=== PATIENT | female | born 1935 | race Caucasian/White ===

== ENCOUNTER → 2018-07-25 | Outpatient (REF) | payer MEDICARE | LOC: M LAB REF 17:20 | PROVIDERS: ATTEND Internal Medicine Nephrology | DX: E03.9 Hypothyroidism, unspecified (principal) ==

== ENCOUNTER → 2019-09-11 | Outpatient (REF) | payer MEDICARE ==
[2019-09-11 18:25] LABS: IRON (FE) 57 UG/DL (50-170); PERCENT SATURATION 15.4 % (13.2-45.0); TOTAL IRON BINDING CAPACITY 370 UG/DL (250-450)
[2019-09-11 18:33] LABS: FOLATE > 24.0 NG/ML; VITAMIN B12 LEVEL 682 PG/ML
== END ==
LOC: M LAB REF 16:38
PROVIDERS: ATTEND Nurse Practitioner Family
DX: D50.9 Iron deficiency anemia, unspecified (principal)

== ENCOUNTER 2020-01-27 19:50 | Inpatient (IN) | payer MEDICARE ==
[~2020-01-27] VITALS: Ht 157.5 cm; Wt 73.2 kg
[2020-01-27] MEDS: CARVedilol 6.25 MG TAB PO SCH (21:00)
[2020-01-27 22:00] VITALS: BP 139/86
[2020-01-27] MEDS ORDERED: PRAV80TA2 PO (22:37)
[2020-01-27] MEDS ORDERED: OMEP-221 PO (22:37)
[2020-01-27] MEDS ORDERED: HYDR-4514 PO (22:37)
[2020-01-27] MEDS ORDERED: FURO40TA2 PO (22:37)
[2020-01-27] MEDS ORDERED: LISI10TA4 PO (22:37)
[2020-01-27] MEDS ORDERED: GABA-843 PO (22:37)
[2020-01-27] MEDS ORDERED: ASPI-161 PO (22:37)
[2020-01-27] MEDS ORDERED: CARV6.25 PO (22:37)
[2020-01-27] MEDS ORDERED: VITMTA PO (22:37)
[2020-01-27] MEDS ORDERED: SYNT50TA PO (22:37)
[2020-01-27] MEDS ORDERED: GLUCTAB6 PO (22:39)
[2020-01-27] MEDS ORDERED: VITA1CAP4 PO (22:39)
[2020-01-27] MEDS ORDERED: ACETAMINOPHEN TAB 650MG DOSE (2X325MG) PO PRN (23:00)
--- NOTE | 2020-01-27 23:07 | HPEPDOC ---
General Date of Admission 01/27/20 Date of Service: Jan 27, 2020 Chief Complaint The patient is a 84-year-old female admitted with a reason for visit of ESRD. Source: Patient Exam Limitations: Mild cognitive slowing Severity: Moderate History of Present Illness Patient is 84 years old female with CHF, chronic kidney diseases, coronary artery diseases status post triple bypass around 15 years ago, hyperlipidemia was transferred from [facility]. Patient stated that she developed oliguria and anuria for past few days. Recently clinical radiologist increased dose of Lasix and after that patient urine output progressively declined. I couldn't find blood results in the file from [facility]. Patient is poor hi storian. Dr. Alonso was consulted by phone and he will see patient in the morning. Home Medications Scheduled Aspirin (Aspirin EC) 81 Mg Tablet.dr, 81 MG PO DAILY, (Reported) Carvedilol (Carvedilol) 6.25 Mg Tablet, 6.25 MG PO BID, (Reported) Cholecalciferol (Vitamin D3) (Vitamin D3) 10 Mcg Capsule, 10 MCG PO DAILY, (Reported) Gabapentin (Gabapentin) 300 Mg Capsule, 300 MG PO BID, (Reported) Gluc Lopez/Chondro Lopez A/Vit C/Mn (Glucosamine Chondroitin Tab) 1 Each Tablet, 1 TAB PO BID, (Reported) Levothyroxine Sodium (Synthroid) 50 Mcg Tablet, 50 MCG PO DAILY, (Reported) Multivitamins (Thera M Plus Tablet) 1 Each Tablet, 1 TAB PO DAILY, (Reported) Omeprazole (Omeprazole) 40 Mg Capsule.dr, 40 MG PO DAILY, (Reported) Pravastatin Sodium (Pravastatin Sodium) 80 Mg Tablet, 80 MG PO QHS, (Reported) Torsemide (Torsemide) 20 Mg Tablet, 20 MG PO BID@,17 Scheduled PRN Hydrocodone/Acetaminophen (Hydrocodone-Acetamin 7.5-325) 1 Each Tablet, 1 TAB PO Q4H PRN for PAIN, (Reported) Allergies Coded Allergies: TAPE (Verified Allergy, Mild, RASH, 01/27/20) Past Medical History Medical History Hyperlipidemia, hypothyroidism, CHF, coronary artery diseases, hyperlipidemia, GERD, hypertension Surgical History CABG around 15 years ago Family History I personally reviewed family history and found not pertinent Social History * Smoker: Denies Alcohol: Denies Drugs: denies A-FIB/CHADSVASC A-FIB History Current/History of A-Fib/PAF?: No Current PO Anticoag Therapy: No Review of Systems Constitutional: Denies: Chills, Fever Eyes: Denies: Pain ENT: Denies: Head Aches Skin: Denies: Rash Pulmonary: Reports: Dyspnea; Denies: Cough Cardiovascular: Denies: Chest Pain, Palpitations Gastrointestinal: Denies: Nausea, Vomiting Genitourinary: Reports: Other Symptoms (anuria) Hematologic: Denies: Bruising, Bleeding Excessively Endocrine: Denies: Polydipsia, Polyphagia Musculoskeletal: Denies: Neck Pain Neurological: Denies: Weakness Psych: Reports: Mood Normal Physical Examination General Exam: Positive: Alert, Cooperative Eye Exam: Positive: PERRLA Neck Exam: Positive: Supple, JVD Chest Exam: Positive: Diminished Heart Exam: Positive: Rate Normal Telemetry: Positive: No significant arrhythmia Abdomen Exam: Positive: Normal bowel sounds Extremity Exam: Positive: Swelling (+2 pitting edema); Negative: Clubbing, Cyanosis Skin Exam: Positive: Nl turgor and temperature Neuro Exam: Positive: Strength at 5/5 X4 ext, Cranial Nerves 3-12 NL Psych Exam: Positive: Mental status NL Vital Signs hr 80 Assessment/Plan Patient is 84 years old female with CHF, chronic kidney diseases, coronary artery diseases status post triple bypass around 15 years ago, hyperlipidemia was transferred from [facility]. Patient stated that she developed oliguria and anuria for past few days. Recently clinical radiologist increased dose of Lasix and after that patient urine output progressively declined. I couldn't find blood results in the file from [facility]. Patient is poor historian. Dr. Alonso was consulted by phone and he will see patient in the morning. Problems (1) Anuria and oliguria Status: Acute Problem Text: Will check CBC, CMP Kidney ultrasound Morejon catheter placed to monitor urine output Dr. Alonso will see patient in the morning (2) Coronary artery disease Status: Chronic Problem Text: Continue home cardioprotective medication (3) Hyperlipidemia Status: Chronic Problem Text: Continue statin (4) Hypertension Problem Text: Continue home cardioprotective medication (5) CHF (congestive heart failure) Status: Acute Problem Text: Secondary to volume overload secondary to possible kidney failure Is and os Echo Lasix on hold Plan / VTE VTE Prophylaxis Ordered?: Yes KARLOS BATISTA DO Jan 27, 2020 23:07
[2020-01-28] VITALS (14 sets, daily range): BP systolic 110–124; BP diastolic 44–60
[2020-01-28 00:33] LABS: HEMATOCRIT 27.6 % (36.0-47.0); HEMOGLOBIN 8.5 g/dl (12.0-15.5); MEAN CORPUSCULAR HGB CONC 30.8 g/dl (32.0-36.5); MEAN CORPUSCULAR VOLUME 100.7 fl (80.0-96.0); PLATELET COUNT, AUTOMATED 226 10^3/uL (150-450); RED BLOOD COUNT 2.74 10^6/uL (4.00-5.40); WHITE BLOOD COUNT 6.2 10^3/uL (4.0-10.0)
[2020-01-28 00:37] LABS: ALBUMIN 3.4 GM/DL (3.2-5.2); BILIRUBIN,TOTAL 0.2 MG/DL (0.2-1.0); CALCIUM LEVEL 8.8 MG/DL (8.8-10.2); CREATININE FOR GFR 2.85 MG/DL (0.55-1.30); GLOMERULAR FILTRATION RATE 16.9 (>32); POTASSIUM SERUM 4.3 MEQ/L (3.5-5.1); TOTAL PROTEIN 6.8 GM/DL (6.4-8.2)
[2020-01-28 01:31] LABS: APPEARANCE, URINE CLEAR (CLEAR); BACTERIA, URINE AUTO NEGATIVE (NEGATIVE); BILIRUBIN, URINE AUTO NEGATIVE (NEGATIVE); BLOOD, URINE BLOOD NEGATIVE (NEGATIVE); COLOR, URINE STRAW (YELLOW); GLUCOSE, URINE (UA) AUTO NEGATIVE (NEGATIVE); KETONE, URINE AUTO NEGATIVE (NEGATIVE); LEUKOCYTE ESTERASE, URINE AUTO NEGATIVE (NEGATIVE); NITRITE, URINE AUTO NEGATIVE (NEGATIVE); PROTEIN, URINE AUTO NEGATIVE (NEGATIVE); RBC, URINE AUTO 1 /HPF (0-3); SPECIFIC GRAVITY URINE AUTO 1.009 (1.002-1.035); SQUAMOUS EPITHELIAL CELL UR AU 0 /HPF (0-6); UROBILINOGEN, URINE AUTO 0.2 mg/dL (0.0-2.0); WBC, URINE AUTO 1 /HPF (0-3)
[2020-01-28 03:10] LABS: MAGNESIUM LEVEL 2.3 MG/DL (1.8-2.4)
[2020-01-28 04:32] LABS: HEMATOCRIT 24.6 % (36.0-47.0); HEMOGLOBIN 7.3 g/dl (12.0-15.5); MEAN CORPUSCULAR HGB CONC 29.7 g/dl (32.0-36.5); MEAN CORPUSCULAR VOLUME 101.2 fl (80.0-96.0); PLATELET COUNT, AUTOMATED 224 10^3/uL (150-450); RED BLOOD COUNT 2.43 10^6/uL (4.00-5.40); WHITE BLOOD COUNT 5.6 10^3/uL (4.0-10.0)
[2020-01-28 04:57] LABS: ALBUMIN 3.1 GM/DL (3.2-5.2); BILIRUBIN,TOTAL 0.2 MG/DL (0.2-1.0); CALCIUM LEVEL 8.5 MG/DL (8.8-10.2); CREATININE FOR GFR 2.8 MG/DL (0.55-1.30); GLOMERULAR FILTRATION RATE 17.2 (>32); MAGNESIUM LEVEL 2.3 MG/DL (1.8-2.4); POTASSIUM SERUM 4.3 MEQ/L (3.5-5.1); TOTAL PROTEIN 6.4 GM/DL (6.4-8.2)
[2020-01-28] MEDS: LEVOTHYROXINE 50MCG TABLET (0.05MG) PO SCH (05:56)
--- NOTE | 2020-01-28 06:04 | ECGEPIP ---
[facility] Test Date: 2020-01-28 Pat Name: GLENDA MARCOS Department: Room: [place] [address] Gender: Female Crisis Manager: MECCA : 1935 Requested By: Kenyon Acosta Order Number: [id number] Reading MD: Romy Gilbert Measurements Intervals [place] Rate: 83 P: 42 W[place]: 180 QRS: 51 QRSD: 88 T: 59 QT: 371 QTc: 437 Interpretive Statements SINUS RHYTHM WITH FREQUENT VENTRICULAR PREMATURE COMPLEXES AND PACS NO PRIOR Electronically Signed on 01-28-2020 6:03:44 EDT by Romy Gilbert
--- NOTE | 2020-01-28 07:10 | REPVR ---
PROCEDURE INFORMATION: Exam: US Retroperitoneal Limited, Kidneys Exam date and time: 01/28/2020 6:29 AM Age: 84 years old Clinical indication: Condition or disease; Other: Esrd; Additional info: Zach TECHNIQUE: Imaging protocol: Real-time ultrasound of the retroperitoneum with image documentation. Examination was focused on the kidneys. COMPARISON: No relevant prior studies available. FINDINGS: Right kidney: Mild right renal cortical atrophy and scarring. No hydronephrosis. Left kidney: No stones. No hydronephrosis. IMPRESSION: No hydronephrosis bilaterally. Electronically signed by: Jeanmarie Palacios On 01/28/2020 07:10:27 AM
[2020-01-28] MEDS ORDERED: HEPARIN SOD (PORCINE) 5000UNITS/ML 1ML VIAL/SYRINGE SC SCH (09:00)
[2020-01-28] MEDS ORDERED: TORSEMIDE 20 MG TAB PO ONE (09:30)
--- NOTE | 2020-01-28 09:44 | IPNPDOC ---
Text Note Date of Service The patient was seen on 01/28/20. NOTE Subjective: Patient seen and examined at bedside. No acute overnight events reported. Patient voices no new medical complaints this morning. Discussed code status, and patient states she wishes to discuss further with family. Objective: General: NAD, lying comfortably in bed, elderly HEENT: NC/AT, EOMI Lungs: CTA B/L Heart: +S1S2, RRR, systolic murmur Abd: soft, NT, +BS Ext: bilateral LE edema A/P: 84 yo female with PMHx CHF, CKD, CAD s/p 3 vessel CABG around 2004, HLD was transferred from [facility] for oliguria, anuria despite recent increase in lasix dosage. #anemia - type/cross - transfuse 2 PRBC today #KARI/CKD/oliguria - nephrology c/s pending - pena catheter in place - renal US no acute pathology #CAD/CABG - continue home medications - carvedilol, statin, aspirin #HLD - continue statin therapy #HTN - continue home meds - carvedilol, lisinopril on hold #CHF - could likely resume diuretics - nephrology c/s pending - echo pending #hypothyroidism - continue oral supplementation #DVT prophylaxis - mechanical VS,Fishbone, I+O VS, Fishbone, I+O Laboratory Tests 01/28/20 00:09 01/28/20 04:17 Vital Signs Date Time Temp Pulse Resp B/P (MAP) Pulse Ox O2 Delivery O2 Flow Rate FiO2 01/28/20 06:00 98.3 50 18 112/46 (68) 96 Room Air I&O- Last 24 Hours up to 6 AM 01/28/20 06:00 Intake Total 100 ml Output Total 900 ml Balance -800 ml MELVA ANNE MD Jan 28, 2020 09:44
[2020-01-28] MEDS: ASPIRIN 81 MG ENTERIC TAB PO SCH (09:50)
[2020-01-28] MEDS: CARVedilol 6.25 MG TAB PO SCH ×2 (10:22→20:32)
[2020-01-28] MEDS: GABAPENTIN 300 MG CAP PO SCH ×2 (10:22→20:33)
--- NOTE | 2020-01-28 10:56 | REP ---
INDICATION: CHF COMPARISON: None. TECHNIQUE: PA and lateral. FINDINGS: The mediastinum and cardiac silhouette are normal. The lung sahu are clear and without acute consolidation, effusion, or pneumothorax. The skeletal structures are intact and there is evidence for sternotomy. Left axillary no dissection noted. IMPRESSION: 1. Chronic changes. 2. No acute cardiopulmonary process <Electronically signed by Rahul Edward > 01/28/20 [id number]
--- NOTE | 2020-01-28 11:46 | ECGEPIP ---
[facility] Test Date: 2020-01-28 Pat Name: GLENDA MARCOS Department: Room: [place] [address] Gender: Female Distribution Engineer: LUPE : 1935 Requested By: MELVA Meadows Order Number: [id number] Reading MD: Romy Gilbert Measurements Intervals [place] Rate: 76 P: 24 [place]: 189 QRS: 51 QRSD: 77 T: 73 QT: 378 QTc: 428 Interpretive Statements SINUS RHYTHM WITH FREQUENT VENTRICULAR PREMATURE COMPLEXES AND PACS NONSPECIFIC T-WAVE ABNORMALITY VARIABLE C/W 01/28/20 ABNORMAL RHYTHM ECG Electronically Signed on 01-28-2020 11:46:29 EDT by Romy Gilbert
[2020-01-28 12:22] LABS: PERCENT SATURATION 7.3 % (13.2-45.0)
--- NOTE | 2020-01-28 14:36 | CR ---
NEPHROLOGY CONSULTATION DATE: 01/28/2020 REQUESTING CLINICIAN: Lj Reed DO. REASON FOR CONSULTATION: Acute renal failure superimposed on chronic kidney disease and congestive heart failure. HISTORY OF PRESENT ILLNESS: Ms. Cullen is an 84-year-old very pleasant female with known history of stage 4 chronic kidney disease, coronary artery disease, congestive heart failure, hyperlipidemia and hypothyroidism. She has been followed by her household appliances service technician in [place] for her congestive heart failure and recently had required increased dose of diuretic. She had labs done in her cardiology office yesterday which showed a BUN about 115 and creatinine about 2. A BNP lab was about 6000. Apparently the household appliances service technician office spoke with the patient and patient informed them that her diuretic is not working very well and she is not making much urine. Patient was asked to come to the Emergency Room for possible admission and dialysis. She did go to the Emergency Room at [facility] and I was called by the ER physician. I recommended transfer to [facility] and she was transferred here last night. Patient reports that she was feeling okay, but gets short of breath on exertion. Her baseline serum creatinine is 1.9 mg/dL at the time of last visit in August. At that time her hemoglobin was about 10. She has not been on Procrit and her kidney function has been stable at about baseline. Now she is noticed to have a hemoglobin down to about 7.3 today and creatinine is about 2. She is short of breath on exertion, but comfortable at rest. PAST MEDICAL HISTORY: Significant for: 1. History of hypertension. 2. Stage 4 chronic kidney disease. 3. Anemia. 4. Diastolic congestive heart failure. 5. Hypothyroidism. 6. Hyperlipidemia. 7. Coronary artery disease. 8. History of gastroesophageal reflux disease. 9. Secondary hyperparathyroidism. PAST SURGICAL HISTORY: Significant for coronary artery bypass surgery about 15 years ago. FAMILY HISTORY: Negative for end-stage renal disease. There is a history of atrial fibrillation in her family. PERSONAL AND SOCIAL HISTORY: Patient is and lives with her . She does not smoke or drink. She denies any drug use. ALLERGIES: She has allergy to TAPE. MEDICATIONS: Home medications include: * Aspirin 81 mg daily. * Carvedilol 6.25 mg twice a day. * Lisinopril 10 mg daily. * Furosemide 40 mg twice a day. * Vitamin D 1000 units daily. * Gabapentin 300 mg twice a day. * Levothyroxine 50 mcg daily. * Multivitamin 1 tablet daily. * Omeprazole 40 mg daily. * Pravastatin 80 mg daily. * Hydrocodone as needed for back pain. REVIEW OF SYSTEMS: She denies any fever or chills. Ears, nose and throat: Unremarkable. She denies any headache. Cardiovascular system: Significant for congestive heart failure requiring increased dose of diuretic. She did not respond very well to diuretic. She denies any chest pain, but does report increased leg edema and dyspnea on exertion. Respiratory system: Negative for cough or hemoptysis. GI system: Significant for gastroesophageal reflux disease. She denies any vomiting or diarrhea. system: Negative for dysuria or hematuria. There is known history of kidney stones. Musculoskeletal: Significant for chronic degenerative arthritis and back pain. She also has some leg edema. Endocrine system: Significant for hypothyroidism and secondary hyperparathyroidism, but no diabetes. Hematological system: Significant for anemia. 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 Neurological system: Negative for seizures or stroke. Skin: Negative for rash or ulcers. PHYSICAL EXAMINATION: Patient is awake and alert and without any acute distress at the time of my visit this morning. Temperature 98.3 degrees Fahrenheit, heart rate 68 per minute and respiratory rate 18 per minute. Blood pressure 112/46 mmHg and oxygen saturation 96% on room air. Head: Atraumatic. Pupils are equal and reactive to light and sclerae is anicteric. Ears, nose and throat are unremarkable. Neck: Supple and JVD is about 6 cm above sternal angle. Heart: Sounds are regular with a systolic murmur 2/6, but no pericardial friction rub. Lungs: Have slightly diminished breath sounds and basilar rales bilaterally. Abdomen: Soft and nontender and bowel sounds are normal. There is no palpable organomegaly. Extremities: Without any cyanosis or clubbing. Neurologically: She awake, alert and oriented times 3. Skin: No rash or ulcers. LABORATORY DATA: Last evening her hemoglobin was 8.5 and hematocrit 27.6; this morning hemoglobin 7.3 and hematocrit 24.6, WBC count is 5.6. Lactic acid level was 1.4. BUN 111 and creatinine 2.85. Today sodium 143, potassium 4.3, chloride 116, CO2 18, BUN 105 and creatinine 2.80. Calcium level 8.5 and magnesium 2.3. BNP level 7139. Total protein 6.4 and albumin 3.1. Urinalysis negative for protein or blood; there was only 1 WBC and 1 RBC. RADIOLOGY STUDIES: She had a renal ultrasound done which did not show any evidence of hydronephrosis. Chest x-ray was negative for any effusion or infiltrate. PROBLEMS AND PLAN: 1. Congestive heart failure: She does seem slightly decompensated and did not respond very well to oral furosemide 40 mg twice a day. I am going to switch her to torsemide 20 mg twice a day and will give her first dose now. She has a Morejon catheter in place and seems to have good urine output with the intravenous Lasix that she received in the Emergency Room. 2. Acute renal failure superimposed on chronic kidney disease: Her baseline creatinine is about 1.9. Kidney function has worsened; however, she does not have any uremic symptoms. There is no emergent indication for dialysis at present and we will monitor her renal function on a daily basis. 3. Anemia: She does have worsening anemia. Her baseline hemoglobin was about 10 in August. Patient will be transfused 2 units of packed RBCs today and she consented for it. We will check her iron studies and also get a stool for occult blood. 4. Hypertension: Her blood pressure is somewhat soft. In view of her acute renal failure I will hold off on lisinopril. Thank you for involving me in the care of Ms. Cullen. I will follow her along with you. RIANNA
[2020-01-28] MEDS ORDERED: TORSEMIDE 20 MG TAB PO SCH (17:00)
[2020-01-28] MEDS: TORSEMIDE 20 MG TAB PO SCH (20:32)
[2020-01-28] MEDS: PRAVASTATIN 20 MG TAB PO SCH (20:32)
[2020-01-29] MEDS: LEVOTHYROXINE 50MCG TABLET (0.05MG) PO SCH (05:35)
[2020-01-29 06:00] VITALS: BP 124/60
[2020-01-29 06:37] LABS: HEMATOCRIT 35.8 % (36.0-47.0); MEAN CORPUSCULAR HGB CONC 30.4 g/dl (32.0-36.5); MEAN CORPUSCULAR VOLUME 98.6 fl (80.0-96.0); PLATELET COUNT, AUTOMATED 228 10^3/uL (150-450); RED BLOOD COUNT 3.63 10^6/uL (4.00-5.40); WHITE BLOOD COUNT 6.2 10^3/uL (4.0-10.0)
[2020-01-29 06:55] LABS: HEMOGLOBIN 10.9 g/dl (12.0-15.5)
[2020-01-29 07:01] LABS: ALBUMIN 3.3 GM/DL (3.2-5.2); CALCIUM LEVEL 8.9 MG/DL (8.8-10.2); CREATININE FOR GFR 2.29 MG/DL (0.55-1.30); GLOMERULAR FILTRATION RATE 21.7 (>32); PHOSPHORUS LEVEL 4.5 MG/DL (2.5-4.9); POTASSIUM SERUM 4.1 MEQ/L (3.5-5.1)
--- NOTE | 2020-01-29 08:09 | ECHO ---
DATE OF PROCEDURE: 01/28/2020 Age: 84 Gender: Female Height: 157 cm Weight: 75 kg REFERRING PHYSICIAN: Lj Reed DO INDICATION: Cardiomegaly. MEASUREMENTS: 2D Measurements: Left ventricle diastole 4.9 cm Intraventricular septum 0.89 cm Posterior wall 0.92 cm Aortic root 2.2 cm Left atrium 4.5 cm Left atrial volume index 36 cm LVOT 2.0 cm Inferior vena cava 2.1 cm Doppler Measurements: Mild aortic stenosis Trace aortic regurgitation Peak aortic valve velocity 293 cm/s Peak aortic valve gradient 34 mmHg Mean aortic valve gradient 20 mmHg Aortic VTI 72.2 cm LVOT velocity 103 cm/s LVOT VTI 24.5 cm Severe mitral regurgitation No mitral stenosis Severe tricuspid regurgitation No pulmonic regurgitation Estimated right ventricle systolic pressure 77 mmHg Estimated right atrial pressure of 15 mmHg MITRAL ANNULAR TISSUE DOPPLER E prime septal 7.5 cm/s, E prime lateral 7.0 cm/s DESCRIPTION: Rhythm was sinus with frequent premature ventricular contractions (PVCs). Image quality was fair. No pericardial effusion. This was a 2D, M-mode, color flow Doppler, and pulsed wave Doppler examination including mitral annular tissue Doppler. CONCLUSIONS: 1. Severe mitral annular calcification. No mitral stenosis. Severe mitral regurgitation. 2. Normal left ventricle internal dimension and wall thickness. Normal regional left ventricular (LV) wall motion and wall thickening. Normal left ventricular (LV) systolic function. Left ventricular ejection fraction (LVEF) 60% by visual estimate. Left ventricular (LV) diastolic function could not be determined due to presence of severe mitral regurgitation. 3. Severe focal thickening adenopathy focal calcific deposits of a 3-cuspid aortic valve. Mild reduction in aortic cusp mobility. Mild aortic stenosis. Trace aortic regurgitation. 4. Moderately-severe let atrial dilatation by left atrial volume index. 5. Structurally normal appearing tricuspid leaflets. Severe tricuspid regurgitation. Suggestive of severe elevation of estimated right ventricle systolic pressure (77 mmHg). MTDD
[2020-01-29] MEDS: ASPIRIN 81 MG ENTERIC TAB PO SCH (09:46)
[2020-01-29] MEDS: GABAPENTIN 300 MG CAP PO SCH ×2 (09:46→20:45)
[2020-01-29] MEDS: TORSEMIDE 20 MG TAB PO SCH ×2 (09:48→16:03)
[2020-01-29] MEDS: CARVedilol 6.25 MG TAB PO SCH ×2 (09:49→20:45)
[2020-01-29 14:00] VITALS: BP 116/67
[2020-01-29] MEDS ORDERED: FERRIC CARBOXYMALTOSE INJ 750 MG in NS 250 ML IV ONE (15:00)
[2020-01-29 16:00] VITALS: BP 133/59
[2020-01-29 16:15] VITALS: BP 138/56
[2020-01-29 17:14] VITALS: BP 139/59
[2020-01-29] MEDS: PRAVASTATIN 20 MG TAB PO SCH (20:45)
[2020-01-29 22:00] VITALS: BP 136/55
[2020-01-30] MEDS: ANEXSIA, NORCO 7.5MG/325MG TABLET(HYDROCODONE/APAP) PO PRN ×2 (00:52→08:31)
[2020-01-30] MEDS: LEVOTHYROXINE 50MCG TABLET (0.05MG) PO SCH (05:41)
[2020-01-30 06:00] VITALS: BP 132/55
[2020-01-30 08:06] LABS: HEMATOCRIT 37.2 % (36.0-47.0); HEMOGLOBIN 11.3 g/dl (12.0-15.5); MEAN CORPUSCULAR HEMOGLOBIN 29.7 pg (27.0-33.0); MEAN CORPUSCULAR HGB CONC 30.4 g/dl (32.0-36.5); MEAN CORPUSCULAR VOLUME 97.9 fl (80.0-96.0); PLATELET COUNT, AUTOMATED 261 10^3/uL (150-450); WHITE BLOOD COUNT 7.9 10^3/uL (4.0-10.0)
[2020-01-30 08:30] VITALS: BP 129/55
[2020-01-30 08:30] LABS: CALCIUM LEVEL 9.1 MG/DL (8.8-10.2); CREATININE FOR GFR 2.26 MG/DL (0.55-1.30); GLOMERULAR FILTRATION RATE 22.1 (>32); POTASSIUM SERUM 4.4 MEQ/L (3.5-5.1)
[2020-01-30] MEDS: CARVedilol 6.25 MG TAB PO SCH (08:30)
[2020-01-30] MEDS: ASPIRIN 81 MG ENTERIC TAB PO SCH (08:30)
[2020-01-30] MEDS: GABAPENTIN 300 MG CAP PO SCH (08:30)
[2020-01-30] MEDS: TORSEMIDE 20 MG TAB PO SCH (08:31)
[2020-01-30] MEDS ORDERED: TORS20TA2 PO (10:44)
--- NOTE | 2020-01-30 13:44 | DS.PDOC ---
Discharge Summary General Date of Admission Jan 27, 2020 at 22:47 Date of Discharge 01/30/20 Specialist/Consultants Involve NEPHROLOGY Discharge Summary PROCEDURES PERFORMED DURING STAY: [None]. ADMITTING DIAGNOSES: #KARI #oliguria SECONDARY DIAGNOSES: Hyperlipidemia, hypothyroidism, CHF, CAD/CABG, hyperlipidemia, GERD, hypertension COMPLICATIONS/CHIEF COMPLAINT: ESRD. HISTORY OF PRESENT ILLNESS: Patient is 84 years old female with CHF, chronic kidney diseases, CAD s/p CABG around 15 years ago, hyperlipidemia was transferred from [facility]. Patient stated that she developed oliguria and anuria for past few days. Recently position classification manager increased dose of Lasix and after that patient urine output progressively declined. HOSPITAL COURSE: Patient admitted for further evaluation and treatment. Patient was seen in consultation by nephrology. She responded well to diuresis with Demadex an pena catheter placement. Her creatinine significantly improved. Epna catheter was removed, and she continued to have good urine output. Hospital stay was also notable for symptomatic anemia, which is treated with 2 units of packed red blood cells. Her anemia was due to be secondary to her chronic kidney disease. She was evaluated by physical therapy and deemed to be s afe for discharge, as such is being discharged home today with outpatient follow-up. DISCHARGE MEDICATIONS: Please see below. ALLERGIES: Please see below. PHYSICAL EXAMINATION ON DISCHARGE: VITAL SIGNS: Please see below. General: NAD, lying comfortably in bed, elderly HEENT: NC/AT, EOMI Lungs: CTA B/L Heart: +S1S2, RRR, systolic murmur Abd: soft, NT, +BS Ext: bilateral LE edema LABORATORY DATA: Please see below. ACTIVITY: [As tolerated]. DISPOSITION: 01 Home, Self-Care. DISCHARGE INSTRUCTIONS: 1. PCP in 3-5 days 2. nephrology in 3-5 days DISCHARGE CONDITION: [Stable]. TIME SPENT ON DISCHARGE: 35 minutes. Vital Signs/I&Os Vital Signs Date Time Temp Pulse Resp B/P (MAP) Pulse Ox O2 Delivery O2 Flow Rate FiO2 01/30/20 09:01 20 01/30/20 08:30 80 129/55 01/30/20 06:00 98.7 93 Room Air I&O- Last 24 Hours up to 6 AM 01/30/20 05:59 Intake Total 2050 ml Output Total 3875 ml Balance -1825 ml Laboratory Data Labs 24H Laboratory Tests 2 01/30/20 07:47: Nucleated Red Blood Cells % (auto) 0.0, Anion Gap 8, Glomerular Filtration Rate 22.1L, Calcium Level 9.1 CBC/BMP Laboratory Tests 01/30/20 07:47 Discharge Medications Scheduled Aspirin (Aspirin EC) 81 Mg Tablet.dr, 81 MG PO DAILY, (Reported) Carvedilol (Carvedilol) 6.25 Mg Tablet, 6.25 MG PO BID, (Reported) Cholecalciferol (Vitamin D3) (Vitamin D3) 10 Mcg Capsule, 10 MCG PO DAILY, (Reported) Gabapentin (Gabapentin) 300 Mg Capsule, 300 MG PO BID, (Reported) Gluc Lopez/Chondro Lopez A/Vit C/Mn (Glucosamine Chondroitin Tab) 1 Each Tablet, 1 TAB PO BID, (Reported) Levothyroxine Sodium (Synthroid) 50 Mcg Tablet, 50 MCG PO DAILY, (Reported) Multivitamins (Thera M Plus Tablet) 1 Each Tablet, 1 TAB PO DAILY, (Reported) Omeprazole (Omeprazole) 40 Mg Capsule.dr, 40 MG PO DAILY, (Reported) Pravastatin Sodium (Pravastatin Sodium) 80 Mg Tablet, 80 MG PO QHS, (Reported) Torsemide (Torsemide) 20 Mg Tablet, 20 MG PO BID@ Scheduled PRN Hydrocodone/Acetaminophen (Hydrocodone-Acetamin 7.5-325) 1 Each Tablet, 1 TAB PO Q4H PRN for PAIN, (Reported) Allergies Coded Allergies: TAPE (Verified Allergy, Mild, RASH, 01/27/20) MELVA ANNE MD Jan 30, 2020 13:44
--- NOTE | 2020-02-01 07:09 | IPN ---
NEPHROLOGY PROGRESS NOTE DATE: 01/29/2020 SUBJECTIVE: Ms. Cullen was seen this morning at her bedside. She is sitting in a recliner chair at present and reports feeling well. Her dyspnea has improved. She denies any nausea or vomiting. She has no fever or chills. She received 2 units of packed RBCs yesterday. PHYSICAL EXAMINATION: Temperature 97.6 degrees Fahrenheit, heart rate 80 per minute and respiratory rate 16 per minute. Head: Atraumatic. Neck: Supple and JVD is minimally elevated. Heart: Sounds are regular. Lungs: With few basilar rales. Abdomen: Soft and nontender and bowel sounds are normal. Extremities: Without any cyanosis or clubbing. Lower extremity edema is 1+. Neurologically: She is awake, alert and oriented times 3. LABORATORY DATA: Todays labs showed WBC count 6.2, hemoglobin 10.9, hematocrit 35.8, platelets 228. Sodium 146, potassium 4.1, CO2 18, BUN 96 and creatinine 2.2. Calcium 8.9 and phosphorus 4.5. Her proBNP level is 8256. PROBLEMS/PLAN: 1. Acute renal failure superimposed on chronic kidney disease: Kidney function is improving and she had good urine output. She does not have any uremic symptoms. There is no emergent need for dialysis at present. 2. Congestive heart failure: Her volume status is improving with diuresis and she is responding very well to oral torsemide. I will recommend to continue with the same and she should go home on torsemide instead of Lasix that she was taking prior to admission. 3. Anemia: Patient has significant improvement following transfusion. She has iron deficiency with iron level of 28 and a saturation 7.3%. I will give her 1 dose of intravenous iron today in order to replenish her iron stores. 4. Hypertension: Blood pressure is very well controlled on current medications. No changes are needed today. 5. Disposition: I feel that patient will be ready for discharge in the next 24 hours. She will follow up in my clinic in a couple of weeks. RIANNA
--- NOTE | 2020-02-01 07:11 | IPN ---
DATE: 01/30/2020 SUBJECTIVE: Patient was seen and examined at the bedside today morning. She is afebrile and hemodynamically stable. She is making a very good amount of urine on oral diuretics. Renal function is stable. Creatinine is 2.2 today. She is feeling much better and she feels like she is ready to go home today. OBJECTIVE: VITAL SIGNS: Temperature 98.7 degrees Fahrenheit, blood pressure 129/55, pulse 80, respiratory rate 18, saturating 93% on room air. INTAKE AND OUTPUT: Urine output recorded at 3.8 liters yesterday, 600 mL so far today since overnight. Weight in the bed scale is 73.2 kg. PHYSICAL EXAMINATION: GENERAL: Patient is awake, alert and oriented x3, lying in bed, in no apparent distress. HEAD & NECK: Extraocular muscles intact. Pupils equally round and reactive to light. Mucous membranes are moist. Neck is supple. No significant JVD. CARDIOVASCULAR: Patient has a loud systolic heart murmur. RESPIRATORY: Mildly decreased breath sounds at the bases. Otherwise, no active rales or rhonchi. ABDOMEN: Soft. Positive bowel sounds. Nontender. MUSCULOSKELETAL: No clubbing or cyanosis. Pulses are 2+. AUDIOVISUAL TECH: No focal deficit. Power is 5/5 in all extremities. LABORATORY REVIEW: CBC showed WBC 7.9, hemoglobin 11.3, platelets 261,000. BMP showed sodium 143, potassium 4.4, chloride 113, bicarb 22, BUN 86, creatinine 2.2; it was 2.29 yesterday. Glucose 144, calcium 9.1. CURRENT INPATIENT MEDICATIONS: Patient's medications were all reviewed by myself. She continues to be on Torsemide 20 mg p.o. twice a day. No other significant change in the medications today as compared with yesterday. ASSESSMENT AND PLAN: 1. Acute renal failure superimposed on chronic kidney disease: Patient has a baseline creatinine of around 1.9. She is tolerating the diuresis. Creatinine is staying stable at 2.2. Electrolytes are within the acceptable range. Okay to continue current diuretic regimen. 2. 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 Furosemide has been stopped. She is currently on Torsemide 20 mg p.o. twice a day. 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 Patient should be discharged on current dose of Torsemide. 3. Urinary retention: Morejon catheter has been removed, patient will get a bladder scan before she is discharged home. 4. Hypertension with hypertension heart disease: Patient is tolerating current dose of diuretics and Carvedilol. CAITY inhibitor was held because of worsening renal function. 5. Anemia and chronic kidney disease: Hemoglobin level is more than 11, which is optimal. Patient is status post two units of PRBC transfusion. DISPOSITION: It is okay to discharge the patient from a nephrology standpoint. She needs to follow-up with nephrology within two weeks after discharge from the hospital. RIANNA
== END 2020-01-30 11:48 | disposition home health service (06) | DRG 682 ==
LOC: M MSPAV 22:47
PROVIDERS: ADMIT Internal Medicine; ATTEND Internal Medicine
PROC: 30233N1 Transfusion of Nonautologous Red Blood Cells into Peripheral Vein, Percutaneous Approach (ICD-10-PCS; principal; 2020-01-28)
DX: N17.9 Acute kidney failure, unspecified (principal); I50.33 Acute on chronic diastolic (congestive) heart failure; I13.0 Hypertensive heart and chronic kidney disease with heart failure and stage 1 through stage 4 chronic kidney disease, or unspecified chronic kidney disease; N18.4 Chronic kidney disease, stage 4 (severe); N25.81 Secondary hyperparathyroidism of renal origin; R34 Anuria and oliguria; I25.10 Atherosclerotic heart disease of native coronary artery without angina pectoris; E03.9 Hypothyroidism, unspecified; E78.5 Hyperlipidemia, unspecified; D50.9 Iron deficiency anemia, unspecified; D63.1 Anemia in chronic kidney disease; K21.9 Gastro-esophageal reflux disease without esophagitis; Z95.1 Presence of aortocoronary bypass graft; Z79.82 Long term (current) use of aspirin; Z79.899 Other long term (current) drug therapy; Z91.048 Other nonmedicinal substance allergy status

== ENCOUNTER → 2020-03-24 | Outpatient (REF) | payer MEDICARE ==
[~2020-03-24] MED LIST: ASPI-161 PO; CARV6.25 PO; FURO40TA2 PO; GABA-843 PO; GLUCTAB6 PO; HYDR-4514 PO; LISI10TA4 PO; OMEP-221 PO; PRAV80TA2 PO; SYNT50TA PO; TORS20TA2 PO; VITA1CAP4 PO; VITMTA PO
== END ==
LOC: M LAB REF 17:02
PROVIDERS: ATTEND Nurse Practitioner Family
DX: I50.22 Chronic systolic (congestive) heart failure (principal)

== ENCOUNTER → 2020-04-12 | Outpatient (REF) | payer MEDICARE ==
[2020-04-12 17:12] LABS: PERCENT SATURATION 15.1 % (13.2-45.0)
== END ==
LOC: M LAB REF 16:47
PROVIDERS: ATTEND Nurse Practitioner Family
DX: D50.9 Iron deficiency anemia, unspecified (principal)

== ENCOUNTER 2020-06-08 13:50 | Inpatient (IN) | payer MEDICARE ==
[2020-06-08] VITALS (9 sets, daily range): BP systolic 101–117; BP diastolic 51–67
[~2020-06-08] VITALS: Ht 157.5 cm; Wt 67.7 kg
[~2020-06-08 13:50] MED LIST changes: -CALC1CAP31 PO; -SPIR-10 PO
[2020-06-08] MEDS ORDERED: SPIR-10 PO (14:04)
[2020-06-08] MEDS ORDERED: CALC1CAP31 PO (14:04)
[2020-06-08 15:06] LABS: HEMATOCRIT 23.7 % (36.0-47.0); MEAN CORPUSCULAR HEMOGLOBIN 27.8 pg (27.0-33.0); MEAN CORPUSCULAR HGB CONC 29.5 g/dl (32.0-36.5); PLATELET COUNT, AUTOMATED 236 10^3/uL (150-450); RED BLOOD COUNT 2.52 10^6/uL (4.00-5.40); WHITE BLOOD COUNT 6.2 10^3/uL (4.0-10.0)
--- NOTE | 2020-06-08 15:37 | REP ---
INDICATION: SOB. COMPARISON: 03/24/2020, 01/28/2020 clinical history dyspnea. TECHNIQUE: AP portable upright chest FINDINGS: Sternotomy wires are again noted. Surgical clips overlying the heart, right upper lung zone and the left axilla are again seen and unchanged. Patient is status post prior left mastectomy. There is cardiomegaly, left atrial enlargement, left ventricular enlargement and right heart enlargement. Do not see definite effusion or dense consolidation. There are few cuffed bronchi in the perihilar regions of might reflect reactive airway disease or bronchitis. Some underlying interstitial fibrotic changes are present. Calcified aortic arch without aneurysm. Airway is midline. No widening of the mediastinum. Degenerative changes in the spine and shoulders are noted. IMPRESSION: 1. Cardiomegaly with left atrial and ventricular enlargement as well as right heart enlargement. I see no kiki edema, pleural effusion or dense consolidation. 2. Peribronchial thickening suggesting bronchitis or reactive airway disease. 3. Sternotomy wires with mediastinal and right upper lung zone clips as well as axillary surgical clips on the left with left mastectomy. <Electronically signed by Danilo Gutierrez > 06/08/20 [id number]
[2020-06-08 15:38] LABS: CALCIUM LEVEL 8.7 MG/DL (8.8-10.2); CK-MB VALUE MASS 2.2 NG/ML (<3.6); CREATININE FOR GFR 3.13 MG/DL (0.55-1.30); GLOMERULAR FILTRATION RATE 15.1 (>32); MB/CK RELATIVE INDEX 5.24 (< OR =4); POTASSIUM SERUM 4.3 MEQ/L (3.5-5.1); TROPONIN I 0.03 NG/ML (< 0.10)
[2020-06-08] MEDS ORDERED: TORS20TA2 PO (16:22)
--- OUTSIDE RECORDS SUMMARY | 2020-06-08 16:41 | CCD | Continuity of Care Document ---
Author Author [facility] Organization [facility] Address [address] [place] [address] Phone Support Name Relationship Address Phone [place] [address] Tiesha Warren PRS [phone] [address], [place] [address] Timothy Bedoya PRS [address] [place] [address] Maribel Vo PRS [address] [place] [address] Timothy Kelly PRS [address] [place] [address] Allergies, Adverse Reactions, Alerts Allergen Type Severity Reaction Last Updated Verified Status TAPE Allergy January 27, 2020 4:24pm Yes Active Medications Medication Status Dose Units Route Directions Qty Days Start Date End Date Instructions Sertraline (Zoloft) 25 mg tablet Dis continued 25 MG PO . qhs 30 December 29, 20 19 9:18am March 29, 2019 12:01am Hydrocodone-Acetaminophen Discontinued 1 TAB PO Q4-6HRPRN 180 December 29, 2 019 9:19am February 02, 2019 10:17am Take one tablet by mouth every 4-6 hours as needed MDD6 Hydrocodone-Acetaminophen Discontinued 1 TAB PO Q4-6HRPRN 180 February 02, 201 9 10:17am 2019 12:54pm Take one tablet by mouth every 4-6 hours as needed MDD6 Diazepam (Valium) 5 mg tablet Discontinued 5 MG PO Three times a day 90 May 08, 2019 1:18pm June 07, 2019 12:04am Pravastatin Active 80 MG PO Once Per Day 90 August 12, 2019 10:31am Gabapentin Discontinued 100 MG PO daily August 12, 2019 10:44am August 28, 2019 10:56am Gabapentin Discontinued 300 MG PO 2 Times Per Day 60 November 12, 2019 10:26am March 17, 2020 11:54am Diazepam Discontinued 5 MG PO Three times a day December 10, 2019 9:52am January 08, 2020 11:01pm Torsemide Active 20 MG PO daily February 05, 2020 8:06am Azithromycin Discontinued 0 PO .COMPLEX February 05, 2020 8:30am March 31, 2020 2:37pm take 500 mg today (day 1), then 250 mg f or 4 days (days 2-5) PO Spironolactone Active 25 MG PO 2 Times Per Day March 31, 2020 2:28pm Kidney Lorazepam Active 0.5 MG PO daily March 31, 2020 2:58pm Fluarix Quad (PF) (flu vacc qs 6mos up(PF)) 60 mcg (15 mcg x Discontinued 0.5 ML IM .once 0.5 April 28, 2020 1:35pm April 282020 2:04pm Multivitamin (Daily Multi-Vitamin) tablet Discontinued 1 EACH PO Once Per Day August 18, 2013 12:07pm June 11, 2017 11:13am Furosemide Discontinued 40 MG PO Once Per Day August 18, 2013 12:07pm April 23, 2019 1:02pm Ascorbic Acid (Vitamin C) Discontinued 1 TAB PO Once Per Day August 18, 2013 12:07p m June 11, 2017 11:13am Aspirin (Ecotrin Low Strength) 81 MG tab let,delayed release (DR/EC) Active 81 MG PO Once Per Day August 18, 2013 12:07pm Pravastatin Discontinued 80 MG PO Once Per Day August 18, 2013 12:07pm August 12, 2019 10:31am Lisinopril (Prinivil) 10 MG tablet D iscontinued 10 MG PO O nce Per Day August 18, 2013 12:07p m June 26, 2018 9:48am Lansoprazole (Prevacid Solutab) 15 MG ta blet,disintegrat, delay rel Discontinued 1 TAB PO Once Per Day August 18, 2013 12:07pm June 11, 2017 11:13am Metoprolol Tartrate Discontinued 25 MG PO 2 Times Per Day August 18, 2013 12:07p m August 30, 2016 8:56am Hydrocodone-Acetaminophen (Vicodin Es) 7.5-300 mg tabl et Discontinued 1 EACH PO 2 Times Per Day August 18, 2013 12:07pm June 11, 2017 11:13am Calcium Carbonate-Vitamin D3 Discontinued 1 EACH PO Once Per Day August 18, 2013 12:07p m June 11, 2017 11:13am Multivitamin (Daily Vitamin) tablet Active 1 TAB PO Once Per Day February 03, 2014 8 :53am Diazepam Discontinued 5 MG PO Three times a day December 02, 2019 11:31am December 10, 2019 9:53am Furosemide Discontinued 40 MG PO 2 Times Per Day January 27, 2020 4:25pm February 05, 2020 8:05am Isosorbide Mononitrate Discontinued 1 TAB PO Once Per Day June 02, 2015 10:56am June 11, 2017 11:13am Lansoprazole (Prevacid) 15 MG capsule,delayed release( DR/EC) Discontinued 15 MG PO Once Per Day June 02, 2015 10:56am June 11, 2017 11:13am Fluorouracil Discontinued 30 SM.AMT TP At Bedtime June 02, 2015 11:41am August 09, 2015 9:55am Apply a thin layer to both temples and forehead at night x 4 weeks. (wash hands after application) VITAMIN D3 Discontinued 2000 UNIT PO December 09, 2015 9:10am June 11, 2017 11:13am Carvedilol Discontinued 6.25 MG PO 2 Times Per Day August 30, 2016 8:55am June 26, 2018 9:48am Clobetasol Discontinued 1 SM.AMT TP At Bedtime September 03, 2016 9:52am June 11, 2017 11:13am Apply nightly to the scalp for up to 2 weeks as needed. Levothyroxine Discontinued 1 TAB PO Once Per Day November 30, 2016 9:20am June 26, 2018 9:28am Ketoconazole Discontinued 120 ML TP 2 Times Per Week November 30, 2016 9:59am June 11, 2017 10:46am Apply to scalp 2-3 times a week in the shower. Leave on for 5 minutes before rinsing. Omeprazole Discontinued 40 MG PO Once Per Day June 11, 2017 11:14am February 20, 2019 2:43pm HYDROCODONE-ACETAMIN 7.5-325 Discontinued 1 TAB PO Every 4 Hours June 11, 2017 11:14am May 02, 2018 12:13pm Alclometasone Discontinued 60 GM TP Once Per Day December 03, 2017 10:55am June 26, 2018 9:28am Apply to bilateral ears daily as needed for flares Hydrocodone-Acetaminophen Discontinued 1 TAB PO Q4-6HRPRN 180 May 02 9 12:14pm June 26, 2018 9:50am Take one tab let by mouth every 4-6 hours as needed MDD6 Triamcinolone Acetonide Discontinued 1 APPLIC TP 2 Times Per Da y 1 June 03, 2018 12:29pm August 13, 2018 9:41am (80 gram tube) Apply to scalp twice weekly Triamcinolone Acetonide Discontinued 1 APPLIC TP 2 Times Per Da y 1 June 03, 2018 12:29pm December 02, 2019 10:28am (80 gram t ube) Apply to scalp twice weekly Levothyroxine Discontinued 1 TAB PO Once Per Day 90 June 26, 2018 9:29am August 13, 2018 10:11am Levothyroxine Discontinued 1 TAB PO Once Per Day 90 June 26, 2018 9:29am May 14, 2019 4:23pm Amoxicillin Discontinued 500 MG PO Every 8 hours 30 June 26, 2018 9:40am August 13, 2018 10:11am Amoxicillin Discontinued 500 MG PO Every 8 hours 30 10 June 26, 2018 9:40am December 02, 2018 10:35am Carvedilol Discontinued 6.25 MG PO 2 Times Per Day 180 June 26, 2018 9:48am August 13, 2018 10:11am Carvedilol Discontinued 6.25 MG PO 2 Times Per Day 180 June 26, 2018 9:48am June 15, 2019 12:39pm Lisinopril (Prinivil) 10 MG tablet D iscontinued 10 MG PO O nce Per Day 90 June 26, 2018 9:48am August 05, 2018 10:49am Hydrocodone-Acetaminophen Discontinued 1 TAB PO Q4-6HRPRN 180 30 June 26, 2018 9:50am August 13, 2018 10:11am Take one table t by mouth every 4-6 hours as needed MDD6 Hydrocodone-Acetaminophen Discontinued 1 TAB PO Q4-6HRPRN 180 June 26, 2018 9:50am October 10, 2018 12:58pm Take one tab let by mouth every 4-6 hours as needed MDD6 Diazepam (Valium) 5 MG tablet Discontinued 5 MG PO Three times a day 90 June 26, 2018 9 :50am December 02, 2019 11:33am Lisinopril (Prinivil) 10 MG tablet D iscontinued 10 MG PO O nce Per Day 90 August 05, 2018 10:49am August 13, 2018 10:52am Lisinopril (Prinivil) 10 MG tablet D iscontinued 10 MG PO O nce Per Day 90 August 05, 2018 10:49am July 31, 2019 12:25pm Hydrocodone-Acetaminophen Discontinued 1 TAB PO Q4-6HRPRN 180 October 10, 2018 1 2:57pm December 29, 2018 9:20am Take one tablet by mouth every 4-6 hours as needed MDD6 Omeprazole Discontinued 40 MG PO Once Per Day 90 February 20, 2019 2:43pm February 15, 2020 12:32pm Hydrocodone-Acetaminophen Discontinued 1 TAB PO Q4-6HRPRN 180 March 16 9 12:54pm April 23, 2019 1:08pm Take one ta blet by mouth every 4-6 hours as needed MDD6 Furosemide Discontinued 40 MG PO Once Per Day 90 April 23, 2019 1:02pm January 27, 2020 4:25pm Hydrocodone-Acetaminophen Discontinued 1 TAB PO Q4-6HRPRN 180 April 23, 2019 1:07pm May 29, 2019 12:35pm Take one tablet by mouth every 4-6 hours as needed MDD6 Amoxicillin-Pot Clavulanate (Augmentin) 500-125 mg tab let Discontinued 1 TAB PO 2 Times Per Day 20 May 11, 2019 10:38am May 21, 2019 12:04am Levothyroxine Active 50 MCG PO Once Per Day 90 May 14, 2019 4:23pm Hydrocodone-Acetaminophen Discontinued 1 TAB PO Q4-6HRPRN 150 May 29 12:34pm June 29, 2019 11:48am Take one ta blet by mouth every 4-6 hours as needed MDD6 Carvedilol Active 6.25 MG PO 2 Times Per Day 180 90 June 15, 2019 12:39pm Hydrocodone-Acetaminophen Discontinued 1 TAB PO Q4-6HRPRN 150 30 June 29, 2019 11:48am June 29, 2019 11:50am Take one ta blet by mouth every 4-6 hours as needed MDD6 Hydrocodone-Acetaminophen Discontinued 1 TAB PO Q4-6HRPRN 150 30 June 29, 2019 11:50am July 31, 2019 1:13pm Take one tab let by mouth every 4-6 hours as needed MDD6 Lisinopril (Prinivil) 10 mg tablet D iscontinued 10 MG PO O nce Per Day 90 90 July 31, 2019 12:25pm February 05, 2020 8:05am Hydrocodone-Acetaminophen Discontinued 1 TAB PO Q4-6HRPRN 150 30 July 31, 2019 1:13pm August 31, 2019 12:09pm Take one tabl et by mouth every 4-6 hours as needed MDD6 Gabapentin Discontinued 100 MG PO 2 Times Per Day 60 30 August 28, 2019 10:56am November 12, 2019 10:26am Hydrocodone-Acetaminophen Discontinued 1 TAB PO Q4-6HRPRN 150 August 31, 2019 12 :08pm September 30, 2019 11:57am Take one tab let by mouth every 4-6 hours as needed MDD6 Hydrocodone-Acetaminophen Discontinued 1 TAB PO Q4-6HRPRN 150 30 September 30, 2019 1 1:57am September 30, 2019 12:06pm Take one tab let by mouth every 4-6 hours as needed MDD6 Hydrocodone-Acetaminophen Discontinued 1 TAB PO Q4-6HRPRN 150 30 September 30, 2019 1 2:05pm November 02, 2019 11:45am Take one tab let by mouth every 4-6 hours as needed Hydrocodone-Acetaminophen Discontinued 1 TAB PO Q4-6HRPRN 150 30 November 02, 2019 1 1:45am December 02, 2019 1:01pm Take one ta blet by mouth every 4-6 hours as needed Hydrocodone-Acetaminophen Discontinued 1 TAB PO Q4-6HRPRN 150 30 December 02, 2019 1:01pm February 03, 2020 9:19am Take one t ablet by mouth every 4-6 hours as needed Hydrocodone-Acetaminophen Discontinued 1 TAB PO Q4-6HRPRN 150 February 02 0 9:18am May 16, 2020 11:57am Take one tablet by mouth every 4-6 hours as needed Omeprazole Active 40 MG PO Once Per Day 90 90 February 15, 2020 12:32pm Gabapentin Active 300 MG PO 2 Times Per Day 60 March 17, 2020 11:54am Hydrocodone-Acetaminophen Active 1 TAB PO Q4-6HRPRN 150 30 May 16, 2020 11:57am Take one tablet by mouth oneal ry 4-6 hours as needed Food Supplemt, Lactose-Reduced (Boost Br eeze Nutritional) 0.04-1.05 gram-kcal/mL liquid Active 1 EACH PO .QD 6399 30 May 20, 2020 3:40pm [place] [employer] Preferred Problems Active Problems Medical Problem Onset Date Status Anxiety Active Mitral insufficiency A ctive Osteoarthritis of right knee Active Hypertension Active Procedures Procedure Date Performed Status Xray Chest 2 view PA/LAT May 302020 11:55am active Xray Chest One View January 26 5:10pm completed Xray Ankle Complete LT December 10, 2019 10:17am completed Xray Shoulder complete LT November 10:52am completed Xray Elbow complete LT December 02, 2019 11:41am completed XRAY HIP LT 2-3 VIEW W/PELVIS December 02, 2019 10:52am completed Xray Knee 3 views LT December 01 10:52am completed 3D DIG MAMMO SCREEN RT September 01 11:44am completed Relevant Diagnostic Tests and/or Laboratory Data Laboratory Results Test Date/Time Result Interpretation Reference Range Result Comment Performing Site White Blood Count January 27, 2020 10:15am 5.6 10e3/uL 4.45-10.71 [facility], [address] [place] [address] 57163 Red Blood Count January 27, 2020 10:15am 2.76 10e6/uL 4.20-5.40 [facility], [address] [place] [address] 88809 Hemoglobin January 27, 2020 10:15am 8.5 g/dL 10.7-15.4 [facility], [address] [place] [address] 30611 Hematocrit January 27, 2020 10:15am 28.9 % 37-47 [facility], [address] [place] [address] 91027 Mean Corpuscular Volume January 10:15am 104.7 fl 80-96 [facility], [address] [place] [address] Mean Corpuscular Hemoglobin January 27, 2020 10:15am 30.8 pg 27-31 [facility], [address] [place], [place] [id number] Mean Corpuscular Hemoglobin Concent January 27, 2020 10:15am 29.4 g/dl 33-37 [facility], [address] [place], [place] [id number] Red Cell Distribution Width January 27, 2020 10:15am 14 % 11-15 [facility], [address] [place] [address] Platelet Count January 27, 2020 10:15am 251 10e3/ul 130-472 [facility], [address] [place] [address] Mean Platelet Volume January 26 10:15am 10.4 fl 9.1-13.1 [facility], [address] [place] [address] Neutrophils (%) (Auto) January 27, 2020 10:15am 59.5 % 41-77 [facility], [address] [place], [place] [id number] Absolute Neutrophil January 26 10:15am 3.4 # 1.7-7.6 [facility], [address] [place] [address] Lymphocytes (%) (Auto) January 27, 2020 10:15am 27.4 % 14-46 [facility], [address] [place] [address] 99558 Lymphocytes # (Auto) January 26 10:15am 1.5 # 0.6-4.6 [facility], [address] [place] [address] Monocytes (%) (Auto) January 26 10:15am 9.2 % 4-12 [facility], [address] [place] [address] 24880 Monocytes # January 27, 2020 10:15am 0.5 # 0.2-1.2 [facility], [address] [place] [address] 48320 Eosinophils (%) (Auto) January 27, 2020 10:15am 3.2 % 0-7 [facility], [address] [place] [address] 75866 Absolute Eosinophils (CBC) January 132019 10:15am 0.2 # 0.0-0.5 [facility], [address] [place] [address] 36680 Basophils (%) (Auto) January 26 10:15am 0.5 % 0.4-1.3 [facility], [address] [place] [address] 32438 Absolute Basophils (CBC) January 10:15am 0.0 # 0.0-0.2 [facility], [address] [place] [address] 98568 Immature Granulocyte % (Auto) Octobe r 2019 10:15am 0.2 % 0-2 [facility], [address] [place] [address] 73219 Absolute Immature Granulocyte (auto January 27, 2020 10:15am 0.0 # 0-0.1 [facility], [address] [place] [address] 31971 Add Manual Differential January 10:15am No [facility], [address] [place] [address] 95194 Blood Urea Nitrogen January 26 10:15am 118 mg/dL 01-05 Called to DEBBI Negro @ 1323 by Margoth Rosado. Results read back. Repeated by: Margoth Rosado 01/27/20 1333.Result Confirmation: 115 mg/dL [facility], [address] [place] [address] 08633 Sodium Level January 27, 2020 10:15am 143 mmol/L 132-146 [facility], [address] [place] [address] 00938 Potassium Level January 27, 2020 10:15am 5.3 mmol/L 3.5-5.5 [facility], [address] [place] [address] 44572 Chloride Level January 27, 2020 10:15am 115 mmol/l 99-109 [facility], [address] [place] [address] 35949 Carbon Dioxide Level January 26 10:15am 18 mmol/l 20-31 [facility], [address] [place] [address] 45727 Anion Gap January 27, 2020 10:15am 15 mmol/l 8-16 [facility], [address] [place] [address] 35438 Glucose Level January 27, 2020 10:15am 107 mg/dL 74-106 [facility], [address] [place] [address] 61991 Creatinine January 27, 2020 10:15am 3.1 mg/dL 0.5-1.1 [facility], [address] [place], [place] [id number] Glomerular Filtration Rate Calc Octo 2019 10:15am 14 ml/min ABOVE 60 [facility], [address] [place] [address] Alanine Aminotransferase (ALT/SGPT) January 27, 2020 10:15am 17 U/L 10-49 [facility], [address] [place], [place] [id number] Aspartate Amino Transf (AST/SGOT) Oc tober 2019 10:15am 16 U/L 0-33 [facility], [address] [place], [place] [id number] Alkaline Phosphatase January 26 10:15am 119 U/L 45-129 [facility], [address] [place], [place] [address] Calcium Level January 27, 2020 10:15am 9.1 mg/dL 8.5-10.1 [facility], [address] [place], [place] [address] Total Bilirubin January 27, 2020 10:15am 0.2 mg/dL 0.3-1.2 [facility], [address] [place], [place] [address] Albumin January 27, 2020 10:15am 3.9 g/dL 3.2-4.8 [facility], [address] [place], [place] [id number] Serum Total Protein January 26 10:15am 7.0 g/dL 5.7-8.2 [facility], [address] [place], [place] [id number] Free Thyroxine January 27, 2020 10:15am 0.90 ng/dL 0.89-1.76 [facility], [address] [place], [place] [id number] Thyroid Stimulating Hormone (TSH) Oc tober 2019 10:15am 0.82 uIU/mL 0.35-5.50 [facility], [address] [place] [address] Free Triiodothyronine January 27, 2020 10:15am 2.7 pg/mL THIS TEST WAS PERFORMED AT:[facility] [id number] MERATI,MD [facility] Pro-B-Type Natriuretic Peptide Octob er 2019 10:15am 6063.00 pg/mL 0.00-450 Called to DEBBI Abbott @ 1329 by Sherron Rosado. Results read back. [facility], [address] [facility] [address] Diagnostic Imaging Reports Report Dictated Date/Time Dictated By Status Radiology Report September 07, 2019 1:28pm Lev Whittington MD completed [facility] [address] [place] [address] [phone] NAME SEX PT STATUS ACCOUNT NUMBER GLENDA MARCOS REG REF [id number] ORDERING PHYSICIAN LOCATION MEDICAL RECORD NO. Serenity Cartagena MD MAMMO [id number] ATTENDING PHYSICIAN DATE OF DATE OF EXAM/TIME Serenity Cartagena MD 1935 09/02/191243 TYPE / EXAM 3D DIG MAMMO SCREEN RT REASON FOR EXAM L mastectomy LAST CLINICAL BREAST EXAM: 3 weeks FIVE YEAR RISK: Patient had breast cancer% LIFETIME RISK: Patient had breast cancer% FAMILY HISTORY OF BREAST CARCINOMA: Self and mother COMPARISON: August 26, 2018 and March 22, 2016 2D digital mammogram in the CC and MLO projections was performed with supplemental 3D tomosynthesis of the right breast. FINDINGS: Biopsy clip is stable in the upper-outer quadrant of the retromammary right breast. Craniocaudad and oblique lateral views of the right breast were obtained. The breast is composed of scattered areas of fibroglandular density. A few scattered benign type calcifications remain stable. There is no dominant mass, suspicious clustered microcalcification or architectural distortion. IMPRESSION: No mammographic evidence of malignancy. Yearly screening recommended. OVERALL FINAL ASSESSMENT OF FINDINGS BI-RADS 2 - Benign findings OVERALL FINAL ASSESSMENT OF THE BREAST COMPOSITION Breast Density Classification: B Description: The breast is composed of scattered areas of fibroglandular density. This mammogram was read with the assistance of M-Retty, an FDA-approved computer- aided detection system for mammography. Reported By Lev Whittington MD on 09/07/19 1328 Signed By Lev Whittington MD on 09/07/19 1994 Date Time CC: Lev Whittington MD; Serenity Cartagena MD Techn: REINA Trans Dt/Tm: Trans by: DT Prt Dt/Tm: : Total DLP = 0.00 mGy-cm : Total Radiation Dose = 0.0000 mSv Lifetime Dose: 0 mSv Radiology Report December 02, 2019 12:48pm Lev Whittington MD completed [address] [id number] [phone] NAME SEX PT STATUS ACCOUNT NUMBER GLENDA MARCOS [facility] ER [id number] ORDERING PHYSICIAN LOCATION MEDICAL RECORD NO. Timothy Bedoya MD ER [id number] ATTENDING PHYSICIAN DATE OF DATE OF EXAM/TIME Serenity Cartagena MD 1935 12/02/19 / 1151 TYPE / EXAM XRAY HIP LT 2-3 VIEW W/PELVIS REASON FOR EXAM trauma COMPARISON: None FINDINGS: Possible, nondisplaced transcervical femoral neck fracture is seen on the left. Clinical correlation advised. No displaced fracture is present. Trochanteric bursitis is suggested on that side as is mild degenerative changes at the hip joint, itself. IMPRESSION: Possible nondisplaced transcervical femoral neck fracture on the left. Reported By Lev Whittington MD on 12/02/19 1248 Signed By Lev Whittington MD on 12/02/19 1250 Date Time CC: Lev Whittington MD; Serenity Cartagena MD Techn: JAKE Trans Dt/Tm: Trans by: DT Prt Dt/Tm: : Total DLP = 0.00 mGy-cm Fluoroscopy Time (in secs): Radiology Report December 02, 2019 12:51pm Lev Whittington MD completed [address] [address] [phone] NAME SEX PT STATUS ACCOUNT NUMBER GLENDA MARCOS REG ER [id number] ORDERING PHYSICIAN LOCATION MEDICAL RECORD NO. Timothy Bedoya MD ER [id number] ATTENDING PHYSICIAN DATE OF DATE OF EXAM/TIME Serenity Cartagena MD 1935 12/02/191151 TYPE / EXAM Xray Shoulder complete LT REASON FOR EXAM trauma COMPARISON: None FINDINGS: No fracture or dislocation is seen. Moderate degenerative changes are seen at the acromial clavicular joint, and there is an inferiorly projecting osteophyte. Additionally noted is ossification of the supraspinatus tendon, consistent with calcific tendinitis. Degenerative changes are also seen at the clinical interface. Surgical clips seen in the left axilla reflect prior lymph node dissection. IMPRESSION: 1. No fracture or dislocation. 2. Degenerative changes, as described. 3. Calcific tendinitis. Reported By Lev Whittington MD on 12/02/19 1251 Signed By Lev Whittington MD on 12/02/19 1258 Date Time CC: Lev Whittington MD; Serenity Cartagena MD Techn: JAKE Motley Dt/Tm: Trans by: DT Prt Dt/Tm: [id number]: Total DLP = 0.00 mGy-cm Fluoroscopy Time (in secs): Radiology Report December 02, 2019 12:58pm Lev Whittington MD completed [facility] [address] [place] [address] [phone] NAME SEX PT STATUS ACCOUNT NUMBER GELNDA MARCOS REG ER [id number] ORDERING PHYSICIAN LOCATION MEDICAL RECORD NO. Timothy Bedoya MD ER [id number] ATTENDING PHYSICIAN DATE OF DATE OF EXAM/TIME Serenity Cartagena MD 1935 12/02/191240 TYPE / EXAM Xray Elbow complete LT REASON FOR EXAM trauma COMPARISON: None FINDINGS: There is normal alignment and position of the bones of the elbow. No evidence for joint effusion is noted. No acute abnormalities. However, productive changes in the region of the lateral epicondyle may be associated with lateral epicondylitis. Clinical correlation advised. Surgical clips are seen in the soft tissues of the ventral forearm. Correlation with patient history advised. IMPRESSION: 1. Possible lateral epicondylitis. 2. No fracture, dislocation, or other significant abnormality. Reported By Lev Whittington MD on 12/02/19 1258 Signed By Lev Whittington MD on 12/02/19 1300 Date Time CC: Lev Whittington MD; Serenity Cartagena MD Techn: CARAI Trans Dt/Tm: Trans by: DT Prt Dt/Tm: : Total DLP = 0.00 mGy-cm Fluoroscopy Time (in secs): Radiology Report December 02, 2019 1:01pm Lev Whittington MD completed [facility] [address] [place] [address] [phone] NAME SEX PT STATUS ACCOUNT NUMBER GLENDA MARCOS [facility] ER [id number] ORDERING PHYSICIAN LOCATION MEDICAL RECORD NO. Timothy Bedoya MD ER [id number] ATTENDING PHYSICIAN DATE OF DATE OF EXAM/TIME Serenity Cartagena MD 1935 12/02/19 / 1151 TYPE / EXAM Xray Knee 3 views LT REASON FOR EXAM trauma COMPARISON: None FINDINGS: The patient is remotely post total knee arthroplasty on the left. Prosthetic components overlie their expected locations, and there is no evidence of hardware complication or failure. No significant joint effusion is seen. However, injection seen in Hoffa's fat pad raises possibility of fibroarthrosis.. There is no fracture or dislocation. IMPRESSION: 1. No fracture or dislocation. 2. Total knee arthroplasty without evidence of complication or failure. 3. No significant joint effusion Reported By Lev Whittington MD on 12/02/19 1301 Signed By Lev Whittington MD on 12/02/19 1303 Date Time CC: Lev Whittington MD; Serenity Cartagena MD Techn: CARAI Trans Dt/Tm: Trans by: DT Prt Dt/Tm: : Total DLP = 0.00 mGy-cm Fluoroscopy Time (in secs): Radiology Report December 10, 2019 11:28am Lev Whittington MD completed [facility] [address] [facility] [address] [place] [id number] [phone] NAME SEX PT STATUS ACCOUNT NUMBER GLENDA MARCOS REG REF [id number] ORDERING PHYSICIAN LOCATION MEDICAL RECORD NO. Serenity Cartagena MD [facility] [id number] ATTENDING PHYSICIAN DATE OF DATE OF EXAM/TIME Serenity Cartagena MD 1935 12/10/19 / 1117 TYPE / EXAM Xray Ankle Complete LT REASON FOR EXAM fall COMPARISON: None available. FINDINGS: No acute fracture is seen. The ankle mortise remains preserved. Accessory ossicle or remote chip fracture of the distal medial malleolus is seen. Soft tissue swelling seen in the lower extremity is likely on the basis of venous insufficiency. IMPRESSION: 1. No acute fracture. Preserved ankle mortise. 2. Probable venous insufficiency. Reported By Lev Whittington MD on 12/10/19 1128 Signed By Lev Whittington MD on 12/10/19 1133 Date Time CC: Lev Whittington MD; Serenity Cartagena MD Techn: BAIAB Trans Dt/Tm: Trans by: DT Prt Dt/Tm: : Total DLP = 0.00 mGy-cm Fluoroscopy Time (in secs): Radiology Report January 27, 2020 6:10pm Vitor Helton MD completed [facility] [address] [place], [place] [id number] [phone] NAME SEX PT STATUS ACCOUNT NUMBER GLENDA MARCOS REG ER [id number] ORDERING PHYSICIAN LOCATION MEDICAL RECORD NO. Timothy Kelly MD ER [id number] ATTENDING PHYSICIAN DATE OF DATE OF EXAM/TIME Serenity Cartagena MD 1935 01/27/201809 TYPE / EXAM Xray Chest One View REASON FOR EXAM SOB, CHF Clinical History/Indication for Exam: SOB, CHF RADIOGRAPH OF THE CHEST 1 VIEW INDICATION: SOB, CHF COMPARISON: No relevant prior studies available. FINDINGS: Lungs: The lungs are clear. No focal consolidation or atelectasis seen. Pleural space: No definite visible pleural effusions above the diaphragm contours. No pneumothorax. 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 Mediastinum: Normal mediastinal contours. Bones/joints: No acute bony thoracic findings are seen. Soft tissues: Surgical clips in the left axilla. Vasculature: Vascular calcifications. IMPRESSION: No acute cardiac pulmonary findings are seen. Previous CABG with cardiac contour enlargement. REPORT SIGNATURE ON FILE 01/27/2020 (18:10 Eastern Time ) Signed by: Vitor Helton M.D. Reported By Vitor Helton MD on 01/27/201809 Signed By Vitor Helton MD on 01/27/201809 Date Time CC: Vitor Helton MD; Serenity Cartagena MD Techn: [email or web address] Trans Dt/Tm: Trans by: DT Prt Dt/Tm: [id number]: Total DLP = 0.00 mGy-cm Fluoroscopy Time (in secs): Health Concerns Health Concerns may be documented in an alternate section. Advance Directives Advance Directive Response Recorded Date/Time Advanced Directive No Oc erin 2019 4:22pm Advance Directives on File or in chart? No February 02, 2019 10:18am Does Patient have a DNR? Yes January 27, 2020 4:22pm Healthcare Proxy Yes Oct jason 2019 4:22pm Living Will No January 142018 10:18am Chief Complaint and Reason for Visit Chief Complaint Full Body Skin Exam Medication check SCREENING Office visit [facility] Follow-up (Adult) FALL Pain follow-up I50.23,I34.0,N18.3 IRREGULAR BLOOD TEST RESULTS Hospital Discharge Follow-up Hypertension Follow-up Hypertension Flu shot Hypertension Follow-up CHF,DYSPNEA Reason for Visit Anxiety Hypertension Anxiety Hypertension Mitral insufficiency Anxiety Hypertension Mitral insufficiency Anxiety Hypertension Hypertension Encounters Encounter Location(s) Ar rival/Admit Date Discharge/Depart Date Provider(s) Departed Physician/Provider Office Visit [facility] Dermatology June 04, 2019 10:39am June 04, 2019 11:22am LAURA Braga Departed Physician/Provider Office Visit [facility] August 12, 2019 10:15am August 12, 2019 10:44am Serenity sanders MD Registered Referred [facility]-Mammography September 02, 2019 11:18am Serenity Cartagena MD Departed Physician/Provider Office Visit [facility] November 12, 2019 10:02am November 12, 2019 10:25am Serenity peterson MD Departed Emergency [facility]-Emergency Room ER December 02, 2019 9:59am November 1:53pm null Departed Physician/Provider Office Visit [facility] December 10, 2019 9:29am December 10, 2019 9:53am Serenity sanders MD Registered Referred [facility]-Radiology December 10, 2019 10:02am Serenity Cartagena MD Departed Physician/Provider Office Visit [facility] December 23, 2019 10:30am December 23, 2019 11:08am Serenity Cartagena MD Registered Referred [facility]-Laboratory January 27, 2020 10:00am Carolina Vo Departed Emergency [facility]-Emergency Room ER January 27, 2020 3:41pm January 262019 8:15pm null Departed Physician/Provider Office Visit [facility] February 05, 2020 8:11am February 05, 2020 8:26am Serenity woodson MD Departed Physician/Provider Office Visit [facility] March 31, 2020 2:23pm March 31, 2020 3:00pm Serenity Cartagena MD Departed Physician/Provider Office Visit [facility] April 27, 2020 2:13pm April 27, 2020 2:49pm Serenity woodson MD Departed Physician/Provider Office Visit [facility] April 28, 2020 1:35pm April 28, 2020 1:40pm Serenity woodson MD Departed Physician/Provider Office Visit [facility] May 30, 2020 11:14am May 30, 2020 12:04pm Serenity Cartagena MD Registered Referred [facility] May 30, 2020 11:47am Serenity Cartagena MD Recent Diagnosis Onset Date Anxiety Hypertension Anxiety Hypertension Mitral insufficiency Anxiety Hypertension Mitral insufficiency Anxiety Hypertension Hypertension Assessments Diagnosis Onset Date Res olution Status Anxiety acute Hypertension acute Anxiety acute Hypertension acute Mitral insufficiency acute Anxiety acute Hypertension acute Mitral insufficiency acute Anxiety acute Hypertension acute Hypertension acute Functional Status No Functional Status information available Goals Goals may be documented in an alternate section. 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 Home Phone: Payer Policy Id Coverage Id Subscriber's Name Subscriber Id Effective Date Expiration Date /[facility] [id number] GLENDA MARCOS [id number] [facility] [id number] GLENDA MARCOS [id number] Derick Medicare/Dual Elig [id number] GLENDA MARCOS [id number] [employer] [id number] GLENDA MARCOS [id number] MEDICARE BLUE PPO [id number] GLENDA MARCOS [id number] 2015 MEDICAID [facility] R [id number] GLENDA MARCOS [id number] MEDICAID [id number] GLENDA MARCOS [id number] MEDICARE [employer] Self Pay Self N/A TODAYS OPTIONS-PREMIER Plan of Treatment doing some better, meds adjusted by cardiology and nephrology, discussed feet, offered podiatry, at this time keep, covered, wide shoes, see 2 months or as needed, lorazepam as nee ded, working with social service for help fluid some better, following with cardiology and nephrology, lorazepam for anxie ty at night, daughter helping now but needs to leave soon, will look into additional help generally doing well, reviewed echocardiogram, unchanged, seeing cardiology in s eptember, no symptoms of CHF, they recommended mitral valve surgery but she refused, neck str ain, has pain medication, also increase gabapentin to 300 mg bid, see 6 months or as needed cryotherapy Reviewed sign and symptoms of skin cancer, including ABCDEs of melanoma. Discussed the importance of sunscreen, avoidance of tanning beds and excessive U V exposure. Explained the importance of monthly self skin examinations. Recommend skin cancer screenings on a yearly basis. Future Tests Future scheduled test information is unavailable Pending Tests Pending diagnostic test information is unavailable Future Visits Future appointment information is unavailable Referrals to Other Providers Referral information is unavailable Future Procedures Future procedure information is unavailable Future Medications Future medication information is unavailable Patient Instructions Contusion in Adults (ED) Ecchymosis (ED) Social History Smoking Status Status Date of Observation Never smoker January 27, 2020 5:34 pm Observation Status Date of Observation Not February 02, 2019 Observation Status Observation Response Yuriy e of Response Smoking Status Never smoker January 27, 2020 4:34pm Substance Use No January 27, 2020 4:34pm Assigned Sex Female Vital Signs Vital Reading Result Ref erence Range Collection Date/Time Heart Rate 76 /min 60-100 June 04, 2019 10:49am Oxygen saturation by Pulse oximetry 96 % 95- 100 June 04, 2019 10:49am BP Systolic 110 mm[Hg] June 04, 2019 10:49am BP Diastolic 68 mm[Hg] June 04, 2019 10:49am Height 62 [in_i] August 12, 2019 11:25am Weight 152.00 [lb_av] August 12, 2019 11:25am Heart Rate 68 /min 60-100 August 12, 2019 11:25am Respiratory rate 12 /min 12-August 12, 2019 11:25am Oxygen saturation by Pulse oximetry 96 % 95- 100 August 12, 2019 11:25am BP Systolic 104 mm[Hg] August 12, 2019 11:25am BP Diastolic 62 mm[Hg] August 12, 2019 11:25am BMI (Body Mass Index) 27.8 kg/m2 August 12, 2019 12:58pm Height 62 [in_i] November 12, 2019 11:02am Weight 156.00 [lb_av] November 12, 2019 11:02am Heart Rate 54 /min 60-100 November 12, 2019 11:02am Respiratory rate 12 /min -November 12, 2019 11:02am Oxygen saturation by Pulse oximetry 98 % 95- 100 November 12, 2019 11:02am BP Systolic 110 mm[Hg] November 12, 2019 11:02am BP Diastolic 62 mm[Hg] November 12, 2019 11:02am BMI (Body Mass Index) 28.5 kg/m2 November 12, 2019 11:02am Height 62 [in_i] December 02, 2019 11:23am Weight 156.00 [lb_av] December 02, 2019 11:23am Body Temperature 98 [degF] 97.6-99.5 December 02, 2019 10:59am Heart Rate 79 /min 60-100 December 02, 2019 10:59am Respiratory rate 18 /min 12-December 02, 2019 10:59am Oxygen saturation by Pulse oximetry 99 % 95- 100 December 02, 2019 10:59am BP Systolic 124 mm[Hg] December 02, 2019 10:59am BP Diastolic 58 mm[Hg] December 02, 2019 10:59am Height 62 [in_i] December 10, 2019 10:31am Weight 153.00 [lb_av] December 10, 2019 10:31am Heart Rate 46 /min 60-100 December 10, 2019 10:31am Respiratory rate 12 /min 12-24 December 10, 2019 10:31am Oxygen saturation by Pulse oximetry 99 % 95- 100 December 10, 2019 10:31am BP Systolic 118 mm[Hg] December 10, 2019 10:31am BP Diastolic 62 mm[Hg] December 10, 2019 10:31am BMI (Body Mass Index) 28.0 kg/m2 December 10, 2019 10:31am Height 62 [in_i] December 23, 2019 11:56am Weight 153.00 [lb_av] December 23, 2019 11:56am BMI (Body Mass Index) 28.0 kg/m2 December 23, 2019 11:56am Height 62 [in_i] January 27, 2020 5:22pm Weight 150.00 [lb_av] January 27, 2020 5:22pm Body Temperature 98.1 [degF] 97.6-99.5 January 27, 2020 5:19pm Heart Rate 72 /min 60-100 January 27, 2020 5:19pm Respiratory rate 18 /min -January 27, 2020 5:19pm Oxygen saturation by Pulse oximetry 98 % 95- 100 January 27, 2020 5:19pm BP Systolic 104 mm[Hg] January 27, 2020 5:19pm BP Diastolic 43 mm[Hg] January 27, 2020 5:19pm Height 62 [in_i] February 05, 2020 9:01am Weight 157.00 [lb_av] February 05, 2020 9:01am Heart Rate 50 /min 60-100 February 05, 2020 9:01am Respiratory rate 12 /min 12-February 05, 2020 9:01am Oxygen saturation by Pulse oximetry 94 % 95- 100 February 05, 2020 9:01am BP Systolic 124 mm[Hg] February 05, 2020 9:01am BP Diastolic 62 mm[Hg] February 05, 2020 9:01am BMI (Body Mass Index) 28.7 kg/m2 February 05, 2020 9:01am Height 62 [in_i] March 31, 2020 2:25pm Weight 167.00 [lb_av] March 31, 2020 2:25pm Heart Rate 59 /min 60-100 March 31, 2020 2:25pm Respiratory rate 12 /min 12-24 March 31, 2020 2:25pm Oxygen saturation by Pulse oximetry 95 % 95- 100 March 31, 2020 2:25pm BP Systolic 118 mm[Hg] March 31, 2020 2:25pm BP Diastolic 62 mm[Hg] March 31, 2020 2:25pm BMI (Body Mass Index) 30.5 kg/m2 March 31, 2020 2:25pm Height 62 [in_i] April 27, 2020 2:26pm Weight 158.00 [lb_av] April 27, 2020 2:26pm Heart Rate 68 /min 60-100 April 27, 2020 2:26pm Respiratory rate 14 /min 12-24 April 27, 2020 2:26pm Oxygen saturation by Pulse oximetry 98 % 95- 100 April 27, 2020 2:26pm BP Systolic 118 mm[Hg] April 27, 2020 2:26pm BP Diastolic 60 mm[Hg] April 27, 2020 2:26pm BMI (Body Mass Index) 28.9 kg/m2 April 27, 2020 2:26pm Height 62 [in_i] May 30, 2020 11:28am Weight 157.00 [lb_av] May 30, 2020 11:28am Heart Rate 54 /min 60-100 May 30, 2020 11:28am Respiratory rate 12 /min -24 May 30, 2020 11:28am Oxygen saturation by Pulse oximetry 100 % 95-100 May 30, 2020 11:28am BP Systolic 128 mm[Hg] May 30, 2020 11:28am BP Diastolic 64 mm[Hg] May 30, 2020 11:28am BMI (Body Mass Index) 28.7 kg/m2 May 30, 2020 11:28am
--- OUTSIDE RECORDS SUMMARY | 2020-06-08 16:42 | CCD | Continuity of Care Document ---
Author Author Brielle PAK MD Organization Unknown Address [address] [place] [id number] Phone [phone] Care Team Providers Care Custom Shoemaker Name Role Phone Serenity Cartagena MD AUTM [phone] Reg Brown MD AUTM [phone] Tiesha Haji [facility] AUTM [phone] Problems Active Problems Provider Date Mitral valve disorder Onset: 07/27/2014 Carotid artery occlusion Onset: 07/16/19 13 Chronic ischemic heart disease Onset: Hyperlipidemia Onset: 07/11/2012 Malignant neoplasm of female breast Onse t: 07/11/2012 Neoplastic disease Onset: 07/11/2012 Essential hypertension Onset: 07/11/2012 History of coronary artery bypass grafting Abhijeet Tobar MD Onset: 04/05/2015 Obesity Abhijeet Tobar MD Onset: 04/05/2015 Atherosclerotic heart disease of [place] coronary arter y without angina pectoris Abhijeet Tobar MD Onset: 04/05/2015 Pure hyperglyceridemia Abhijeet Tobar MD Onset: 08/14/2016 Pure hypercholesterolemia Abhijeet Tobar MD Onset: 017 Mixed hyperlipidemia Carolina Vo RN, [facility] Onset: 03/26/2017 Chronic kidney disease stage 4 Abhijeet Tobar MD Onset: Aortic valve disorder David Robles MD Onset: 02/25/2020 Heart valve replacement Abe Pradhan MD Onset: 0 Chronic systolic (congestive) heart failure Abe Pradhan MD Onset: 03/21/2020 Chronic diastolic heart failure Abe Pradhan MD Onset: 1 05/22/2019 Pulmonary hypertension Abe Pradhan MD Onset: 03/21/2020 Overweight Timothy Pak MD Onset: Secondary pulmonary hypertension Timothy Pak MD Ons et: 04/28/2020 Social History Type Date Description Comments Sex Unknown ETOH Use Negative For Denies alcohol use Tobacco Use Start: Unknown Patient has never smoked Recreational Drug Use Denies Drug Use Smoking Status Reviewed: 03/18/20 Patient has never smoked Allergies, Adverse Reactions, Alerts Active Allergies Reaction Severity Comments Date Bandage Tape 07/11/2012 Medications Active Medications SIG Qnty Indications Ordering Provide r Date Carvedilol 6.25mg Tablets 1 by mouth twice a day 180tabs Carolina Vo RN, [facility] 08/14/2016 Pravastatin Sodium 80mg Tablets Take 1 Tablet By Mouth Once Daily 90tabs Carolina Vo RN, [facility] 01/02/[address] 1 by mouth every day Unknown Omeprazole 40mg Capsules DR 1 by mouth every day Unknown Levothyroxine Sodium 50mcg Tablets 1 by mouth every day Unknown Vitamin D 2000Unit Tablets 1 by mouth every day Unknown Daily Multiple Vitamins Tablets 1 by mouth every day Unknown Glucosamine Chondroitin 1500 Complex 1500Com Capsules 1 by mouth daily Unknown Gabapentin 300mg Capsules 1 po 2 x day Unknown Spironolactone 25mg Tablets 1 by mouth two times a day Unknown Torsemide 20mg Tablets 1 by mouth 2 x day Unknown Calcitriol 0.25mcg Capsules 1 po Saturday,Saturday and Saturday. Unknown Tylenol 8 Hour Arthritis Pain 650mg Tablets ER 1 po 2 x day Unknown History Medications Gabapentin 100mg Capsules 3 tabs at bedtime Carolina Vo RN, [facility] 01/12/2020 - 02/03/2020 Immunizations Description No Information Available Vital Signs Date Vital Result Comment 04/28/2020 11:52am BP Systolic 100 mmHg BP Diastolic 74 mmHg Heart Rate 68 /min Height 62 inches 5'2" Weight 153.38 lb BMI (Body Mass Index) 28.0 kg/m2 03/21/2020 3:50pm BP Systolic 126 mmHg BP Diastolic 64 mmHg Heart Rate 74 /min Height 62 inches 5'2" Weight 167.00 lb BMI (Body Mass Index) 30.5 kg/m2 Results Test Acquired Date Facility Test Result H/L Range Note Order 03/21/2020 [facility] Echocardiogram <pending> CBC With Auto Diff 01/27/2020 [facility] WBC # Bld Auto 5.6 10*3/uL Normal 4.45-10.71 1 RBC # Bld Auto 2.76 10*6/uL Low 4.20-5.40 Hgb Bld-sCnc 8.5 g/dL Low 10.7-15.4 Hct VFr Bld Auto 28.9 % Low 37-47 MCV BldCo Auto 104.7 fL High 80-96 MCH RBC Qn Auto 30.8 pg Normal 27-31 MCHC BldCo-mCnc 29.4 g/dL Low 33-37 RDW RBC Auto 14 % Normal 11-15 Platelet # Bld Auto 251 10*3/uL Normal 130-472 PMV Bld 10.4 fL Normal 9.1-13.1 Neutrophils/leuk NFr Bld Auto 59.5 % Normal 41-77 Neutrophils # Bld Auto 3.4 U Normal 1.7-7.6 Lymphocytes/leuk NFr Bld Auto 27.4 % Normal 14-46 Lymphocytes # Bld Auto 1.5 U Normal 0.6-4.6 Monocytes/leuk NFr Bld Auto 9.2 % Normal 4-12 Monocytes # Bld Auto 0.5 U Normal 0.2-1.2 Eosinophil/leuk NFr Bld Auto 3.2 % Normal 0-7 Eosinophil # Bld Auto 0.2 U Normal 0.0-0.5 Basophils/leuk NFr Bld Auto 0.5 % Normal 0.4-1.3 Basophils # Bld Auto 0.0 U Normal 0.0-0.2 Nucleated Red Blood Cell 0 % Nucleated Red Blood Cell# 0 U Imm Granulocytes Bld Ql Auto 0.2 Normal 0-2 Imm Granulocytes # Bld Auto 0.0 U Normal 0-0.1 Manual diff Bld NO Comprehensive Metabolic Prof 01/27/2020 [facility] BUN SerPl-mCnc 118 mg/dL 9-23 2 Sodium SerPl-sCnc 143 mmol/L Normal 132-146 Potassium SerPl-sCnc 5.3 mmol/L Normal 3.5-5.5 Chloride SerPl-sCnc 115 mmol/L High 99-109 Co2 SerPl-sCnc 18 mmol/L Low 20-31 Anion Gap SerPl-sCnc 15 mmol/L Normal 8-16 Glucose SerPl-mCnc 107 mg/dL High 74-106 Creatinine 3.1 mg/dL High 0.5-1.1 GFR/Bsa.pred SerPlBld-ArVRat 14 [facility] Above 60 Alt SerPl w P-5'-P-cCnc 17 U/L Normal 10-49 Ast SerPl w P-5'-P-cCnc 16 U/L Normal 0-33 Alp SerPl-cCnc 119 U/L Normal 45-129 Calcium SerPl-mCnc 9.1 mg/dL Normal 8.5-10.1 Bilirub SerPl-mCnc 0.2 mg/dL Low 0.3-1.2 Albumin SerPl BCP-mCnc 3.9 g/dL Normal 3.2-4.8 Prot SerPl-mCnc 7.0 g/dL Normal 5.7-8.2 Laboratory test finding 01/27/2020 [facility] T4 Free SerPl-mCnc 0.90 ng/dL Normal 0.89-1.76 TSH SerPl DL<=0.005 mIU/L-aCnc 0.82 u[iU]/mL Normal 0.35-5.50 NT-proBNP SerPl-mCnc 6063.00 pg/mL High 0.00-450 3 T3Free SerPl-sCnc 2.7 pg/mL 2.3-4.2 4 Laboratory test finding 01/12/2020 [facility] B-Type Natriuretic Serum <pending> CMP 01/12/2020 [facility] Albumin Serum/Plasma <pending> Alt - SGPT <pending> Calcium Ser/Plasma Mass/Vol <pending> Carbon Dioxide Ser/Plasm <pending> Chloride Serum/Plasma <pending> Creatinine Serum Mass/Vol <pending> Glucose Serum <pending> Alkaline Phosphatase <pending> Potassium <pending> Protein Total <pending> Sodium QN Ser/Plasma <pending> Ast - Sgot <pending> BUN - Urea Nitrogen <pending> CBC W/Manual Diff 01/12/2020 [facility] White Blood Count Ser Auto CNT <pending> RBC Red Blood Count <pending> Hemoglobin Blood <pending> Hematocrit <pending> MCV (Corpuscular Volume) <pending> MCH (Corpuscular Hemoglobin) <pending> MCHC (Corpuscular Hemog Conc) <pending> RDW <pending> Platelet Count Blood Auto CNT <pending> MPV <pending> Neutrophils <pending> Fluid Bands <pending> Fluid Lymphocytes <pending> Monocytes <pending> Fluid Body Eosinophils <pending> Basophils % <pending> Absolute Neutrophils Auto CNT <pending> Absolute Lymphocytes <pending> Absolute Monocytes <pending> Absolute Eosinophils <pending> Absolute Basophils <pending> T3F/T4F/TSH 01/12/2020 [facility] T3 Free <pending> T4 Free Thyroxine Mass/Vol <pending> TSH Thyroid Stimulating Horm <pending> 1 I50.23,I34.0,N18.3 2 Called to DEBBI Negro @ 1329 by Margoth Rosado. Results read back. Repeated by: Margoth Rosado 01/27/20 1333. Result Confirmation: 115 mg/dL 3 Called to DEBBI Abbott @ 1329 b y Margoth Rosado. Results read back. 4 THIS TEST WAS PERFORMED AT: [facility] [address] [id number] CASSI RAMIREZ MD Procedures Date Code Description Status 03/21/2020 09293 Echocardiography, Tranthoracic C omplete Image Documentation Completed Medical Devices Description No Information Available Encounters Type Date Location Provider Dx Diagnosis Office Visit 04/28/2020 11:45a [facility] Maribel Riggins I34.0 Nonrheumatic mitral (valve) insufficiency I35.0 Nonrheumatic aortic (valve) stenosis I10 Essential (primary) hyperten rayna E78.2 Mixed hyperlipidemia N18.4 Chronic kidney disease, stag e 4 (severe) Z95.1 Presence of aortocoronary by pass graft Z95.2 Presence of prosthetic heart valve I50.32 Chronic diastolic (congestiv e) heart failure I25.10 Athscl heart disease of [place] coronary artery w/o ang pctrs 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 E66.3 Overweight I27.21 Secondary pulmonary arterial hypertension Office Visit 02/25/2020 12:00p [facility] David Robles MD I50.22 Chronic systolic (congestive) heart failure I10 Essential (primary) hyperten rayna E78.2 Mixed hyperlipidemia I34.0 Nonrheumatic mitral (valve) insufficiency I35.0 Nonrheumatic aortic (valve) stenosis N18.4 Chronic kidney disease, stag e 4 (severe) Office Visit 02/03/2020 4:15p [facility] Abhijeet Tobar MD I50.22 Chronic systolic (congestive) heart failure I34.0 Nonrheumatic mitral (valve) insufficiency I25.10 Athscl heart disease of [place] coronary artery w/o ang pctrs N18.4 Chronic kidney disease, stag e 4 (severe) Z95.1 Presence of aortocoronary by pass graft 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 I10 Essential (primary) hyperten rayna E66.09 Other obesity due to excess calories E78.1 Pure hyperglyceridemia Office Visit 01/12/2020 11:30a [facility] Carolina Vo RN, [facility] I34.0 Nonrheumatic mitral (valve) insufficiency I10 Essential (primary) hyperten rayna Z95.1 Presence of aortocoronary by pass graft 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 E66.09 Other obesity due to excess calories E78.2 Mixed hyperlipidemia Assessments Date Code Description Provider 04/28/2020 I34.0 Nonrheumatic mitral (valve) insu fficiency Timothy Pak MD 04/28/2020 I35.0 Nonrheumatic aortic (valve) sten osis Timothy Pak MD 04/28/2020 I10 Essential (primary) hypertension Timothy Pak MD 04/28/2020 E78.2 Mixed hyperlipidemia Timothy martinez MD 04/28/2020 N18.4 Chronic kidney disease, stage 4 (severe) Timothy Pak MD 04/28/2020 Z95.1 Presence of aortocoronary bypass graft Timothy Pak MD 04/28/2020 Z95.2 Presence of prosthetic heart arron ve Timothy Pak MD 04/28/2020 I50.32 Chronic diastolic (congestive) h eart failure Timothy Pak MD 04/28/2020 I25.10 Atherosclerotic heart disease of [place] coronary artery with Timothy Pak MD 04/28/2020 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 Timothy Pak MD 04/28/2020 E66.3 Overweight Timothy wilson MD 04/28/2020 I27.21 Secondary pulmonary arterial hyp ertension Timothy Pak MD 03/21/2020 I10 Essential (primary) hypertension Abe Pradhan MD 03/21/2020 E78.2 Mixed hyperlipidemia Abe brown MD 03/21/2020 I35.0 Nonrheumatic aortic (valve) sten osis Abe Pradhan MD 03/21/2020 N18.4 Chronic kidney disease, stage 4 (severe) Abe Pradhan MD 03/21/2020 Z95.1 Presence of aortocoronary bypass graft Abe Pradhan MD 03/21/2020 Z95.2 Presence of prosthetic heart arron ve Abe Pradhan MD 03/21/2020 I50.32 Chronic diastolic (congestive) h eart failure Abe Pradhan MD 03/21/2020 I27.20 Pulmonary hypertension, unspecif ied Abe Pradhan MD 02/25/2020 I50.22 Chronic systolic (congestive) he art failure David Robles MD 02/25/2020 I10 Essential (primary) hypertension David Robles MD 02/25/2020 E78.2 Mixed hyperlipidemia David salter MD 02/25/2020 I34.0 Nonrheumatic mitral (valve) insu fficiency David Robles MD 02/25/2020 I35.0 Nonrheumatic aortic (valve) sten osis David Robles MD 02/25/2020 N18.4 Chronic kidney disease, stage 4 (severe) David Robles MD 02/03/2020 I50.22 Chronic systolic (congestive) he art failure Abhijeet Tobar MD 02/03/2020 I34.0 Nonrheumatic mitral (valve) insu fficiency Abhijeet Tobar MD 02/03/2020 I25.10 Atherosclerotic heart disease of [place] coronary artery with Abhijeet Tobar MD 02/03/2020 N18.4 Chronic kidney disease, stage 4 (severe) Abhijeet Tobar MD 02/03/2020 Z95.1 Presence of aortocoronary bypass graft Abhijeet Tobar MD 02/03/2020 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 Abhijeet Tobar MD 02/03/2020 I10 Essential (primary) hypertension Abhijeet Tobar MD 02/03/2020 E66.09 Other obesity due to excess manjit robin Abhijeet Tobar MD 02/03/2020 E78.1 Pure hyperglyceridemia Abhijeet saab MD 01/12/2020 I34.0 Nonrheumatic mitral (valve) insu fficiency Carolina Vo RN, [facility] 01/12/2020 I10 Essential (primary) hypertension Carolina Vo RN, [facility] 01/12/2020 Z95.1 Presence of aortocoronary bypass graft Carolina Vo RN, [facility] 01/12/2020 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 Carolina Vo RN, [facility] 01/12/2020 E66.09 Other obesity due to excess manjit robin Carolina Vo RN, [facility] 01/12/2020 E78.2 Mixed hyperlipidemia Carolina chambers RN, [facility] Plan of Treatment Future Appointment(s):* 06/21/2020 1:00 pm - Abdulaziz ROCKWELL ([id number]) at [facility] * 06/09/2020 10:00 am - Abdulaziz ECHO ([id number]) at [facility] * 05/17/2020 3:00 pm - Abdulaziz [facility]OR PROCESSOR/Device ([id number]) at [facility] 05/17/2020 - Carolina Vo RN, [facility]* I34.0 Nonrheumatic mitral (valve) insufficiency * I35.0 Nonrheumatic aortic (valve) stenosis * I10 Essential (primary) hypertension * N18.4 Chronic kidney disease, stage 4 (severe) * Z95.1 Presence of aortocoronary bypass graft * Z95.2 Presence of prosthetic heart valve * I50.32 Chronic diastolic (congestive) heart failure * I50.22 Chronic systolic (congestive) heart failure * I25.10 Atherosclerotic heart disease of [place] coronary artery with * 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ral carotid arteries * E66.09 Other obesity due to excess calories * E78.1 Pure hyperglyceridemia Functional Status Description No Information Available Mental Status Description No Information Available Referrals Refer to Dr Reason for Referral Status Appt Abhijeet Tobar MD Scheduled 03/21/2020 [id number] [id number] [phone]
--- OUTSIDE RECORDS SUMMARY | 2020-06-08 16:42 | CCD | Continuity of Care Document ---
Author Author [facility] Address [address] [place] [address] Phone Support Name Relationship Address Phone [place] [address] KelvinTiesha PRS [phone] [address], [place] [address] Timothy Bedoya PRS [address] [place] [address] Maribel Vo PRS [address] [place] [address] Timothy Kelly PRS [address] [place] [address] Allergies, Adverse Reactions, Alerts Allergen Type Severity [...] MG PO daily March 31, 2020 2:58pm Multivitamin (Daily Multi-Vitamin) tablet Discontinued 1 EACH [...] Discontinued 1 TAB PO Q4-6HRPRN 180 30 May 02 9 12:14pm June 26, 2018 9:50am Take one tab let by mouth every 4-6 hours as needed MDD6 Triamcinolone Acetonide Discontinued 1 APPLIC TP 2 Times Per Da y 1 June 03, 2018 12:29pm August 13, 2018 9:41am (80 gram tube) Apply to scalp twice weekly Triamcinolone Acetonide Discontinued 1 APPLIC TP 2 Times Per Da y June 03, 2018 12:29pm December 02, 2019 [...] hours 30 10 June 26, 2018 9:40am August 13, 2018 10:11am Amoxicillin Discontinued 500 MG PO Every 8 hours 30 June 26, 2018 9:40am December 02, 2018 [...] PO Q4-6HRPRN 180 June 26, 2018 9:50am August 13, 2018 [...] PO O nce Per Day 90 90 August 05, 2018 10:49am July 31, [...] PO 2 Times Per Day 180 June 15, 2019 12:39pm Hydrocodone-Acetaminophen Discontinued 1 TAB PO Q4-6HRPRN 150 June 29, 2019 11:48am June 29, 2019 [...] Hydrocodone-Acetaminophen Discontinued 1 TAB PO Q4-6HRPRN 150 July 31, 2019 1:13pm August 31, 2019 12:09pm Take one tabl et by mouth every 4-6 hours as needed MDD6 Gabapentin Discontinued 100 MG PO 2 Times Per Day 60 August 28, 2019 10:56am November 12, 2019 10:26am Hydrocodone-Acetaminophen Discontinued 1 TAB PO Q4-6HRPRN 150 August 31, 2019 12 :08pm September 30, 2019 11:57am Take one tab let by mouth every 4-6 hours as needed MDD6 Hydrocodone-Acetaminophen Discontinued 1 TAB PO Q4-6HRPRN 150 September 30, 2019 1 1:57am September 30, 2019 12:06pm Take one tab let by mouth every 4-6 hours as needed MDD6 Hydrocodone-Acetaminophen Discontinued 1 TAB PO Q4-6HRPRN 150 September 30, 2019 1 2:05pm November 02, 2019 11:45am Take one tab let by mouth every 4-6 hours as needed Hydrocodone-Acetaminophen Discontinued 1 TAB PO Q4-6HRPRN 150 November 02, 2019 1 1:45am December 02, 2019 1:01pm Take one ta blet by mouth every 4-6 hours as needed Hydrocodone-Acetaminophen Discontinued 1 TAB PO Q4-6HRPRN 150 December 02, 2019 1:01pm February 03, 2020 9:19am Take one t ablet by mouth every 4-6 hours as needed Hydrocodone-Acetaminophen Active 1 TAB PO Q4-6HRPRN 150 30 February 03, 2020 9:18am Take one tablet by mouth oneal ry 4-6 hours as needed Omeprazole Active 40 MG PO Once Per Day 90 90 February 15, 2020 12:32pm Gabapentin Active 300 MG PO 2 Times Per Day 60 March 17, 2020 11:54am Problems Active Problems Medical Problem Onset Date Status Anxiety Active Mitral insufficiency A ctive Osteoarthritis of right knee Active Hypertension Active Procedures Procedure Date Performed Status Xray Chest One View January 26 5:10pm completed Xray Ankle Complete LT December 10, 2019 10:17am completed Xray Shoulder complete LT November 10:52am completed Xray Elbow complete LT December 02, 2019 11:41am completed XRAY HIP LT 2-3 VIEW W/PELVIS December 02, 2019 10:52am completed Xray Knee 3 views LT December 01 10:52am completed 3D DIG MAMMO SCREEN RT September 01 0 11:44am completed Relevant Diagnostic Tests and/or Laboratory Data Laboratory Results Test Date/Time Result Interpretation Reference Range Result Comment Performing Site White Blood Count January 27, 2020 10:15am 5.6 10e3/uL 4.45-10.71 [facility], [address] [place] [address] 79334 Red Blood Count January 27, 2020 10:15am 2.76 10e6/uL 4.20-5.40 [facility], [address] [place] [address] 20232 Hemoglobin January 27, 2020 10:15am 8.5 g/dL 10.7-15.4 [facility], [address] [place] [address] 62751 Hematocrit January 27, 2020 10:15am 28.9 % 37-47 [facility], [address] [place] [address] 30727 Mean Corpuscular Volume January 10:15am 104.7 fl 80-96 [facility], [address] [place] [address] 46159 Mean Corpuscular Hemoglobin January 27, 2020 10:15am 30.8 pg 27-31 [facility], [address] [place] [address] 99483 Mean Corpuscular Hemoglobin Concent January 27, 2020 10:15am 29.4 g/dl 33-37 [facility], [address] [place] [address] 58374 Red Cell Distribution Width January 27, 2020 10:15am 14 % 11-15 [facility], [address] [place] [address] 72225 Platelet Count January 27, 2020 10:15am 251 10e3/ul 130-472 [facility], [address] [place] [address] 92469 Mean Platelet Volume January 26 10:15am 10.4 fl 9.1-13.1 [facility], [address] [place] [address] Neutrophils (%) (Auto) January 27, 2020 10:15am 59.5 % 41-77 [facility], [address] [place] [address] 41544 Absolute Neutrophil January 26 10:15am 3.4 # 1.7-7.6 [facility], [address] [place] [address] Lymphocytes (%) (Auto) January 27, 2020 10:15am 27.4 % 14-46 [facility], [address] [place] [address] 65430 Lymphocytes # (Auto) January 26 10:15am 1.5 # 0.6-4.6 [facility], [address] [place] [address] Monocytes (%) (Auto) January 26 10:15am 9.2 % 4-12 [facility], [address] [place] [address] 59784 Monocytes # January 27, 2020 10:15am 0.5 # 0.2-1.2 [facility], [address] [place] [address] Eosinophils (%) (Auto) January 27, 2020 10:15am 3.2 % 0-7 [facility], [address] [place] [address] Absolute Eosinophils (CBC) January 132019 10:15am 0.2 # 0.0-0.5 [facility], [address] [place] [address] Basophils (%) (Auto) January 26 10:15am 0.5 % 0.4-1.3 [facility], [address] [place] [address] Absolute Basophils (CBC) January 10:15am 0.0 # 0.0-0.2 [facility], [address] [place] [address] Immature Granulocyte % (Auto) Octobe r 2019 10:15am 0.2 % 0-2 [facility], [address] [place] [address] Absolute Immature Granulocyte (auto October 2019 10:15am 0.0 # 0-0.1 [facility], [address] [place] [address] 02053 Add Manual Differential January 10:15am No [facility], [address] [place] [address] 01143 Blood Urea Nitrogen January 26 10:15am 118 mg/dL 01-05 Called to DEBBI Negro @ 3356 by Margoth Rosado. Results read back. Repeated by: Margoth Rosado 01/27/20 1333.Result Confirmation: 115 mg/dL [facility], [address] [place] [address] 82120 Sodium Level January 27, 2020 10:15am 143 mmol/L 132-146 [facility], [address] [place] [address] 07229 Potassium Level January 27, 2020 10:15am 5.3 mmol/L 3.5-5.5 [facility], [address] [place] [address] 26678 Chloride Level January 27, 2020 10:15am 115 mmol/l 99-109 [facility], [address] [place] [address] 77046 Carbon Dioxide Level January 26 10:15am 18 mmol/l 20-31 [facility], [address] [place] [address] 64203 Anion Gap January 27, 2020 10:15am 15 mmol/l 8-16 [facility], [address] [place] [address] 00118 Glucose Level January 27, 2020 10:15am 107 mg/dL 74-106 [facility], [address] [place] [address] 40036 Creatinine January 27, 2020 10:15am 3.1 mg/dL 0.5-1.1 [facility], [address] [place] [address] 57199 Glomerular Filtration Rate Calc Octo neeta 2019 10:15am 14 ml/min ABOVE 60 [facility], [address] [place] [address] 94045 Alanine Aminotransferase (ALT/SGPT) January 27, 2020 10:15am 17 U/L 10-49 [facility], [address] [place] [address] 82786 Aspartate Amino Transf (AST/SGOT) Oc tober 2019 10:15am 16 U/L 0-33 [facility], [address] [place] [address] 10976 Alkaline Phosphatase January 26, 10:15am 119 U/L 45-129 [facility], [address] [place] [address] 80102 Calcium Level January 27, 2020 10:15am 9.1 mg/dL 8.5-10.1 [facility], [address] [place] [address] 91120 Total Bilirubin January 27, 2020 10:15am 0.2 mg/dL 0.3-1.2 [facility], [address] [place] [address] 85385 Albumin January 27, 2020 10:15am 3.9 g/dL 3.2-4.8 [facility], [address] [place] [address] 03773 Serum Total Protein January 26 10:15am 7.0 g/dL 5.7-8.2 [facility], [address] [place] [address] 46158 Free Thyroxine January 27, 2020 10:15am 0.90 ng/dL 0.89-1.76 [facility], [address] [place] [address] Thyroid Stimulating Hormone (TSH) Oc tober 2019 10:15am 0.82 uIU/mL 0.35-5.50 [facility], [address] [place] [address] Thyroid Stimulating Hormone (TSH) Ja nualamo 2019 1:27pm 0.67 uIU/mL 0.35-5.50 [facility], [address] [place], [place] [address] Free Triiodothyronine January 27, 2020 10:15am 2.7 pg/mL THIS TEST WAS PERFORMED AT:[facility] [id number] MERATI,MD [facility] Pro-B-Type Natriuretic Peptide [facility] 10:15am 6063.00 pg/mL 0.00-450 Called to DEBBI Abbott @ 3257 by Sherron Rosado. Results read back. [facility], [address] [place] [address] 02710 Diagnostic Imaging Reports Report Dictated Date/Time Dictated By Status Radiology Report September 07, 2019 1:28pm Lev Whittington MD completed [place] [address] [place] [address] [phone] NAME SEX PT STATUS ACCOUNT NUMBER GLENDA MARCOS REG REF [id number] ORDERING PHYSICIAN LOCATION MEDICAL RECORD NO. Serenity Cartagena MD MAMMO [id number] ATTENDING PHYSICIAN DATE OF DATE OF EXAM/TIME Serenity Cartagena MD 1935 09/02/19 / 1243 TYPE / EXAM 3D DIG MAMMO SCREEN [...] mammogram was read with the assistance of [employer], an FDA-approved computer- aided detection system for mammography. Reported By Lev Whittington MD on 09/07/19 1328 Signed By Lev Whittington MD on 09/07/19 1335 Date Time CC: Lev Whittington MD; Serenity Cartagena MD Techn: BAKLE Trans Dt/Tm: Trans by: DT Prt Dt/Tm: : Total DLP = 0.00 mGy-cm : Total Radiation Dose = 0.0000 mSv Lifetime Dose: 0 mSv Radiology Report December 02, 2019 12:48pm Lev Whittington MD completed [place] [id number] [place] [address] [phone] NAME SEX PT STATUS ACCOUNT NUMBER GLENDA MARCOS REG ER [id number] ORDERING PHYSICIAN LOCATION MEDICAL RECORD NO. Timothy Bedoya MD ER [id number] ATTENDING PHYSICIAN DATE OF DATE OF EXAM/TIME Serenity Cartagena MD 1935 12/02/191151 TYPE / EXAM XRAY HIP LT 2-3 [...] Trans Dt/Tm: Trans by: DT Prt Dt/Tm: [id number]: Total DLP = 0.00 mGy-cm Fluoroscopy Time (in secs): Radiology Report December 02, 2019 12:51pm Lev Whittington MD completed [id number] [place] [address] [phone] NAME SEX PT STATUS ACCOUNT NUMBER GLENDA MARCOS REG ER [id number] ORDERING PHYSICIAN LOCATION MEDICAL RECORD NO. Timothy Bedoya MD ER [id number] ATTENDING PHYSICIAN DATE OF DATE OF EXAM/TIME [...] 02, 2019 12:58pm Lev Whittington MD completed [facility] [address] [place] [address] [phone] NAME SEX PT STATUS ACCOUNT NUMBER GLENDA MARCOS [facility] ER [id number] ORDERING PHYSICIAN LOCATION MEDICAL RECORD NO. Timothy Bedoya MD ER [id number] ATTENDING PHYSICIAN DATE OF DATE OF EXAM/TIME [...] Reported By Lev Whittington MD on 12/02/19 125 Signed By Lev Whittington MD on 12/02/19 1300 Date Time CC: Lev Whittington MD; Serenity Cartagena MD Techn: CARLANETTE Trans Dt/Tm: Trans by: DT Prt Dt/Tm: : Total DLP = 0.00 mGy-cm Fluoroscopy Time (in secs): Radiology Report December 02, 2019 1:01pm Lev Whittington MD completed [facility] [address] [place] [id number] [phone] NAME SEX PT STATUS ACCOUNT NUMBER GLENDA MARCOS [facility] ER [id number] ORDERING PHYSICIAN LOCATION MEDICAL RECORD NO. Timothy Bedoya MD ER [id number] ATTENDING PHYSICIAN DATE OF DATE OF EXAM/TIME [...] 10, 2019 11:28am Lev Whittington MD completed [address] [id number] [place] [address] [phone] NAME SEX PT STATUS ACCOUNT NUMBER GLENDA MARCOS REG REF [id number] ORDERING PHYSICIAN LOCATION MEDICAL RECORD NO. Serenity Cartagena MD RAD [id number] ATTENDING PHYSICIAN DATE OF DATE OF EXAM/TIME Serenity Cartagena MD 1935 12/10/191116 TYPE / EXAM Xray Ankle Complete LT [...] Trans Dt/Tm: Trans by: DT Prt Dt/Tm: [id number]: Total DLP = 0.00 mGy-cm Fluoroscopy Time (in secs): Radiology Report January 27, 2020 6:10pm Vitor Helton MD completed [id number] [place] [address] [phone] NAME SEX PT STATUS ACCOUNT NUMBER GLENDA MARCOS REG ER [id number] ORDERING PHYSICIAN LOCATION MEDICAL RECORD NO. Timothy Kelly MD ER [id number] ATTENDING PHYSICIAN DATE OF DATE OF EXAM/TIME [...] Vitor Helton MD; Serenity Cartagena MD Techn: MORSA Trans Dt/Tm: Trans by: DT Prt Dt/Tm: [id number]: Total DLP = 0.00 mGy-cm Fluoroscopy Time (in secs): Health Concerns Health Concerns may be documented in an alternate section. Advance Directives Advance Directive Response Recorded Date/Time Advanced Directive No Oc 2019 4:22pm Advance Directives on File or in chart? No February 02, 2019 10:18am Does Patient have a DNR? Yes January 27, 2020 4:22pm Healthcare Proxy Yes Oct jason2019 4:22pm Living Will No January 142018 10:18am Chief Complaint and Reason for Visit Chief Complaint Medication check I10 Full Body Skin Exam Medication check SCREENING Office visit [facility] Follow-up (Adult) [facility] Pain follow-up I50.23,I34.0,N18.3 IRREGULAR BLOOD TEST RESULTS Hospital Discharge Follow-up Hypertension Follow-up Hypertension Reason for Visit Anxiety Hypertension Anxiety Hypertension Anxiety Hypertension Mitral insufficiency Anxiety Hypertension Mitral insufficiency Hypertension Encounters Encounter Location(s) Ar rival/Admit Date Discharge/Depart Date Provider(s) Departed Physician/Provider Office Visit [facility] May 08, 2019 12:55pm May 08, 2019 1:20pm Serenity Cartagena MD Registered Referred [facility] May 12, 2019 1:18pm Serenity Cartagena MD Departed Physician/Provider Office Visit [facility] D[facility] June 04, 2019 10:39am June 04, 2019 11:22am LAURA Braga Departed Physician/Provider Office Visit [facility] August 12, 2019 10:15am August 12, 2019 10:44am Serenity sanders MD Registered Referred [facility] September 02, 2019 11:18am Serenity Cartagena MD Departed Physician/Provider Office Visit [facility] November 12, 2019 10:02am November 12, 2019 10:25am Serenity peterson MD Departed [facility] December 02, 2019 9:59am December 02, 2019 1:53pm null Departed Physician/Provider Office Visit [facility] December 10, 2019 9:29am December 10, 2019 9:53am Serenity sanders MD Registered Referred [facility]Rad[facility] December 10, 2019 10:02am Serenity Cartagena MD Departed Physician/Provider Office Visit [facility] December 23, 2019 10:30am December 23, 2019 11:08am Serenity Cartagena MD Registered Referred [facility] January 27, 2020 10:00am Carolina Vo Departed [facility] January 27, 2020 3:41pm January 27, 2020 8:15pm null Departed Physician/Provider Office Visit [facility] February 05, 2020 8:11am February 05, 2020 8:26am Serenity Cartagena MD Departed Physician/Provider Office Visit [facility] March 31, 2020 2:23pm March 31, 2020 3:00pm Serenity Cartagena MD Departed Physician/Provider Office Visit [facility] April 27, 2020 2:13pm April 27, 2020 2:49pm Serenity Cartagena MD Recent Diagnosis Onset Date Anxiety Hypertension Anxiety Hypertension Anxiety Hypertension Mitral insufficiency Anxiety Hypertension Mitral insufficiency Hypertension Assessments Diagnosis Onset Date Res olution Status Anxiety acute Hypertension acute Anxiety acute Hypertension acute Anxiety acute Hypertension acute Mitral insufficiency acute Anxiety acute Hypertension acute Mitral insufficiency acute Hypertension acute Functional Status No Functional Status information available Goals Goals may be documented in an alternate section. Immunizations No Immunization Information Available Mental Status Observation Response Yuriy e Recorded Impairments No impairments or barriers December 02, 2019 10:23am Medical Equipment No Medical Equipment Information available Insurance Providers Guarantor GLENDA MARCOS Address [address] [facility] [address] Contact Info. Home Phone: Payer Policy Id Coverage Id Subscriber's Name Subscriber Id Effective Date Expiration Date /[facility] [id number] GLENDA MARCOS [id number] [employer] [id number] GLENDA López ROWSAM [id number] [place] Medicare/Dual Elig [id number] GLENDA M ROWSAM [id number] [employer] [id number] GLENDA López ROWSAM [id number] MEDICARE BLUE PPO [id number] GLENDA MARCOS [id number] 2015 MEDICARE [employer] Self Pay Self N/A [employer] Plan of Treatment fluid some better, following with cardiology and nephrology, lorazepam for anxiety at night, daughter helping now but needs to leave soon, will look into additional help generally doing well, reviewed echocardiogram, unchanged, seeing cardiology in s eptember, no symptoms of CHF, they recommended mitral valve surgery but she refused, neck str ain, has pain medication, also increase gabapentin to 300 mg bid, see 6 months or as needed use valium as needed , much stress with husbnd, follow URI symptoms, discussed h ydrcodone for pain, taper with next rx cryotherapy Reviewed sign and symptoms of skin [...] Reading Result Ref erence Range Collection Date/Time Height 62 [in_i] May 08, 2019 1:02pm Weight 152.00 [lb_av] May 08, 2019 1:02pm Heart Rate 68 /min 60-100 May 08, 2019 1:02pm Respiratory rate 12 /min -May 08, 2019 1:02pm Oxygen saturation by Pulse oximetry 98 % 95- 100 May 08, 2019 1:02pm BP Systolic 110 mm[Hg] May 08, 2019 1:02pm BP Diastolic 62 mm[Hg] May 08, 2019 1:02pm BMI (Body Mass Index) 27.8 kg/m2 May 08, 2019 1:02pm Heart Rate 76 /min 60-100 June 04, [...] 12, 2019 11:25am Respiratory rate 12 /min 12-24 August 12, 2019 11:25am Oxygen saturation by Pulse [...] 12, 2019 11:02am Respiratory rate 12 /min 12-November 12, 2019 11:02am Oxygen saturation by Pulse [...] 10, 2019 10:31am Respiratory rate 12 /min 12-December 10, 2019 10:31am Oxygen saturation by Pulse [...] 27, 2020 5:19pm Respiratory rate 18 /min 12-January 27, 2020 5:19pm Oxygen saturation by Pulse oximetry 98 % 95- 100 January 27, 2020 5:19pm BP Systolic 104 mm[Hg] January 27, 2020 5:19pm BP Diastolic 43 mm[Hg] January 27, 2020 5:19pm Height 62 [in_i] February 05, 2020 9:01am Weight 157.00 [lb_av] February 05, 2020 9:01am Heart Rate 50 /min 60-100 February 05, 2020 9:01am Respiratory rate 12 /min -February 05, 2020 9:01am Oxygen saturation by Pulse [...] 31, 2020 2:25pm Respiratory rate 12 /min -March 31, 2020 2:25pm Oxygen saturation by Pulse [...] 27, 2020 2:26pm Respiratory rate 14 /min 12-April 27, 2020 2:26pm Oxygen saturation by Pulse oximetry 98 % 95- 100 April 27, 2020 2:26pm BP Systolic 118 mm[Hg] April 27, 2020 2:26pm BP Diastolic 60 mm[Hg] April 27, 2020 2:26pm BMI (Body Mass Index) 28.9 kg/m2 April 27, 2020 2:26pm
--- OUTSIDE RECORDS SUMMARY | 2020-06-08 16:42 | CCD | Continuity of Care Document ---
Author Author Brielle BELL MD Organization Unknown Address [address] [place] [address] Phone [phone] Care Team Providers Care Electrical Engineering Director Name Role Phone Serenity Cartagena MD AUTM [phone] Reg Brown MD AUTM [phone] Tiesha Haji ZIGZAG MACHINE OPERATOR AUTM [phone] Problems Active Problems Provider Date Mitral valve disorder Onset: 07/27/2014 Carotid artery occlusion Onset: 07/16/19 13 Chronic ischemic heart disease Onset: Hyperlipidemia Onset: 07/11/2012 Malignant neoplasm of female breast Onse t: 07/11/2012 Neoplastic disease Onset: 07/11/2012 Essential hypertension Onset: 07/11/2012 History of coronary artery bypass grafting Abhijeet Tobar MD Onset: 04/05/2015 Obesity Abhijeet Tobar MD Onset: 04/05/2015 Atherosclerotic heart disease of [place] coronary arter y without angina pectoris Abhijeet Tobar MD Onset: 04/05/2015 Pure hyperglyceridemia Abhijeet Tobar MD Onset: 08/14/2016 Pure hypercholesterolemia Abhijeet Tobar MD Onset: 017 Mixed hyperlipidemia Carolina Vo RN, ZIGZAG MACHINE OPERATOR Onset: 03/26/2017 Chronic kidney disease stage 4 Abhijeet Tobar MD Onset: Aortic valve disorder David Robles MD Onset: 02/25/2020 Heart valve replacement Abe Bell MD Onset: 0 Chronic systolic (congestive) heart failure Abe Bell MD Onset: 03/21/2020 Chronic diastolic heart failure Abe Bell MD Onset: 1 05/22/2019 Pulmonary hypertension Abe Bell MD Onset: 03/21/2020 Social History Type Date Description Comments Sex Unknown ETOH Use Negative For Denies alcohol use Tobacco Use Start: Unknown Patient has never smoked Recreational Drug Use Denies Drug Use Smoking Status Reviewed: 03/18/20 Patient has never smoked Allergies, Adverse Reactions, Alerts Active Allergies Reaction Severity Comments Date Bandage Tape 07/11/2012 Medications Active Medications SIG Qnty Indications Ordering Provide r Date Torsemide 20mg Tablets 2 by mouth twice daily 360tabs Abe Bell MD 03/21/2020 Hydralazine HCL 10mg Tablets 1 by mouth every 8 hours 90tabs Abhijeet Tobar MD 02/03/2020 Carvedilol 6.25mg Tablets 1 by mouth twice a day 180tabs Carolina Vo RN, ZIGZAG MACHINE OPERATOR 08/14/2016 Pravastatin Sodium 80mg Tablets Take 1 Tablet By Mouth Once Daily 90tabs Carolina Vo RN, ZIGZAG MACHINE OPERATOR 01/02/[address] 1 by [...] by mouth daily Unknown Gabapentin 300mg Capsules 2 tabs at bedtime Unknown Klor-Con 20Meq Packet Dissolve 1 Packet In Water & Drink Once Daily Unknown 000 Spironolactone 25mg Tablets 1 by mouth two times a day Unknown History Medications Gabapentin 100mg Capsules 3 tabs at bedtime Carolina Vo RN, ZIGZAG MACHINE OPERATOR 01/12/2020 - 02/03/2020 Immunizations Description No Information Available Vital Signs Date Vital Result Comment 03/21/2020 3:50pm BP Systolic 126 mmHg BP Diastolic 64 mmHg Heart Rate 74 /min Height 62 inches 5'2" Weight 167.00 lb BMI (Body Mass Index) 30.5 kg/m2 02/25/2020 12:02pm BP Systolic 130 mmHg BP Diastolic 70 mmHg Heart Rate 90 /min Height 62 inches 5'2" Weight 153.00 lb BMI (Body Mass Index) 28.0 kg/m2 O2 % BldC Oximetry 95 % Results Test Acquired Date Facility Test Result H/L Range Note Order 03/21/2020 [facility] Echocardiogram <pending> CBC With Auto Diff 01/27/2020 [facility] l WBC # Bld Auto 5.6 10*3/uL Normal [...] diff Bld NO Comprehensive Metabolic Prof 01/27/2020 [facility] BUN SerPl-mCnc 118 mg/dL 9-23 2 Sodium [...] test finding 01/27/2020 [facility] pital T4 Free SerPl-mCnc 0.90 ng/dL Normal 0.89-1.76 [...] Mass/Vol <pending> TSH Thyroid Stimulating Horm <pending> Order 10/27/2019 [facility] Echocardiogram <pending> 1 I50.23,I34.0,N18.3 2 Called to DEBBI Negro @ 1329 by Margoth Rosado. Results read back. Repeated by: Margoth Rosado 01/27/20 1333. Result Confirmation: 115 mg/dL 3 Called to DEBBI Abbott @ 1329 b y Margoth Rosado. Results read back. 4 THIS TEST WAS PERFORMED AT: [facility] [address] [address] CASSI RAMIREZ MD Procedures Date Code Description Status 03/21/2020 53976 Echocardiography, Tranthoracic C omplete Image Documentation Completed 10/27/2019 13963 Echocardiography, Tranthoracic C omplete Image Documentation Completed Medical Devices Description No Information Available Encounters Type Date Location Provider Dx Diagnosis Office Visit 02/25/2020 12:00p [facility] David Robles MD I50.22 Chronic systolic (congestive) heart failure I10 Essential (primary) hyperten rayna E78.2 Mixed hyperlipidemia I34.0 Nonrheumatic mitral (valve) insufficiency I35.0 Nonrheumatic aortic (valve) stenosis N18.4 Chronic kidney disease, stag e 4 (severe) Office Visit 02/03/2020 4:15p [facility] Abhijeet Tobar MD I50.22 Chronic systolic [...] E78.1 Pure hyperglyceridemia Office Visit 01/12/2020 11:30a [place] [facility] Carolina Vo RN, ZIGZAG MACHINE OPERATOR I34.0 Nonrheumatic mitral (valve) insufficiency I10 Essential (primary) hyperten rayna Z95.1 Presence of aortocoronary by pass graft 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 E66.09 Other obesity due to excess calories E78.2 Mixed hyperlipidemia Assessments Date Code Description Provider 03/21/2020 I10 Essential (primary) hypertension Abe Bell MD 03/21/2020 E78.2 Mixed hyperlipidemia Abe brown MD 03/21/2020 I35.0 Nonrheumatic aortic (valve) sten osis Abe Bell MD 03/21/2020 N18.4 Chronic kidney disease, stage 4 (severe) Abe Bell MD 03/21/2020 Z95.1 Presence of aortocoronary bypass graft Abe Bell MD 03/21/2020 Z95.2 Presence of prosthetic heart arron ve Abe Bell MD 03/21/2020 I50.32 Chronic diastolic (congestive) h eart failure Abe Bell MD 03/21/2020 I27.20 Pulmonary hypertension, unspecif ied Abe Bell MD 02/25/2020 I50.22 Chronic systolic (congestive) he [...] MD 02/03/2020 I25.10 Atherosclerotic heart disease of [place] coronary artery with Abhijeet Tobar MD 02/03/2020 [...] mitral (valve) insu fficiency Carolina Vo RN, [facility] 01/12/2020 I10 Essential (primary) hypertension Carolina Vo RN, [facility] 01/12/2020 Z95.1 Presence of aortocoronary bypass graft Carolina Vo RN, [facility] 01/12/2020 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 Carolina Vo RN, [facility] 01/12/2020 E66.09 Other obesity due to excess manjit robin Carolina Vo RN, [facility] 01/12/2020 E78.2 Mixed hyperlipidemia Carolina chambers RN, [facility] 10/27/2019 I34.0 Nonrheumatic mitral (valve) insu fficiency Abe Bell MD 10/27/2019 I10 Essential (primary) hypertension Abe Bell MD 10/27/2019 Z95.1 Presence of aortocoronary bypass graft Abe Bell MD Plan of Treatment Future Appointment(s):* 04/28/2020 11:45 am - Abdulaziz ROCKWELL ([id number]) at [place] [facility] * 05/17/2020 3:00 pm - Abdulaziz [employer] [facility] ([id number]) at [place] [facility] 05/17/2020 - Carolina M Hamo, RN, ZIGZAG MACHINE OPERATOR* I34.0 Nonrheumatic mitral (valve) insufficiency * I35.0 Nonrheumatic aortic (valve) stenosis * I10 Essential (primary) hypertension * N18.4 Chronic kidney disease, stage 4 (severe) * Z95.1 Presence of aortocoronary bypass graft * Z95.2 Presence of prosthetic heart valve * I50.32 Chronic diastolic (congestive) heart failure * I50.22 Chronic systolic (congestive) heart failure * I25.10 Atherosclerotic heart disease of [place] coronary artery with * 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ral carotid arteries * E66.09 Other obesity due to excess calories * E78.1 Pure hyperglyceridemia Functional Status Description No Information Available Mental Status Description No Information Available Referrals Refer to Dr Reason for Referral Status Appt Abhijeet Tobar MD Scheduled 03/21/2020 [address] [facility], [address] [phone] Abhijeet Tobar MD Closed 10/27/2019 [address] [facility], [address] [phone]
--- OUTSIDE RECORDS SUMMARY | 2020-06-08 16:42 | CCD | Continuity of Care Document ---
Author Author [facility] Address [address] [place] [address] Phone Support Name Relationship Address Phone [place] [address] KelvinTiesha PRS [address] [address] [address] Timothy Bedoya PRS [address] [place] [address] Maribel Vo PRS [address] [place] [address] Timothy Kelly PRS [address] [place] [address] Allergies, Adverse Reactions, Alerts Allergen Type Severity [...] January 27, 2020 10:15am 5.6 10e3/uL 4.45-10.71 [facility], [address] [place] [address] Red Blood Count January 27, 2020 10:15am 2.76 10e6/uL 4.20-5.40 [facility], [address] [place] [address] Hemoglobin January 27, 2020 10:15am 8.5 g/dL 10.7-15.4 [facility], [address] [place] [address] Hematocrit January 27, 2020 10:15am 28.9 % 37-47 [facility], [address] [place] [address] Mean Corpuscular Volume January 10:15am 104.7 fl 80-96 [facility], [address] [place] [address] Mean Corpuscular Hemoglobin January 27, 2020 10:15am 30.8 pg 27-31 [facility], [address] [place] [address] Mean Corpuscular Hemoglobin Concent January 27, 2020 10:15am 29.4 g/dl 33-37 [facility], [address] [place] [address] Red Cell Distribution Width January 27, 2020 10:15am 14 % 11-15 [facility], [address] [place] [address] Platelet Count January 27, 2020 10:15am 251 10e3/ul 130-472 [facility], [address] [place] [address] 19773 Mean Platelet Volume January 26 10:15am 10.4 fl 9.1-13.1 [facility], [address] [place] [address] Neutrophils (%) (Auto) January 27, 2020 10:15am 59.5 % 41-77 [facility], [address] [place] [address] Absolute Neutrophil January 26 10:15am 3.4 # 1.7-7.6 [facility], [address] [place] [address] Lymphocytes (%) (Auto) January 27, 2020 10:15am 27.4 % 14-46 [facility], [address] [place] [address] Lymphocytes # (Auto) January 26 10:15am 1.5 # 0.6-4.6 [facility], [address] [place] [address] Monocytes (%) (Auto) January 26 10:15am 9.2 % 4-12 [facility], [address] [place] [address] Monocytes # January 27, 2020 10:15am 0.5 # 0.2-1.2 [facility], [address] [place] [address] Eosinophils (%) (Auto) January 27, 2020 10:15am 3.2 % 0-7 [facility], [address] [place] [address] Absolute Eosinophils (CBC) January 132019 10:15am 0.2 # 0.0-0.5 [facility], [address] [place] [address] Basophils (%) (Auto) January 26 10:15am 0.5 % 0.4-1.3 [facility], [address] [place] [address] Absolute Basophils (CBC) January 10:15am 0.0 # 0.0-0.2 [facility], [address] [place] [address] Immature Granulocyte % (Auto) Octobe r 2019 10:15am 0.2 % 0-2 [facility], [address] [place] [address] Absolute Immature Granulocyte (auto October 2019 10:15am 0.0 # 0-0.1 [facility], [address] [place] [address]55 Add Manual Differential January 10:15am No [facility], [address] [place] [address] Blood Urea Nitrogen January 26 10:15am 118 mg/dL 01-05 Called to DEBBI Negro @ 1998 by Margoth Rosado. Results read back. Repeated by: Margoth Rosado 01/27/20 1333.Result Confirmation: 115 mg/dL [facility], [address] [place] [address] Sodium Level January 27, 2020 10:15am 143 mmol/L 132-146 [facility], [address] [place] [address] Potassium Level January 27, 2020 10:15am 5.3 mmol/L 3.5-5.5 [facility], [address] [place] [address]304 Chloride Level January 27, 2020 10:15am 115 mmol/l 99-109 [facility], [address] [place] [address] Carbon Dioxide Level January 26 10:15am 18 mmol/l 20-31 [facility], [address] [place] [address] Anion Gap January 27, 2020 10:15am 15 mmol/l 8-16 [facility], [address] [place] [address] Glucose Level January 27, 2020 10:15am 107 mg/dL 74-106 [facility], [address] [place] [address] Creatinine January 27, 2020 10:15am 3.1 mg/dL 0.5-1.1 [facility], [address] [place] [address] 12356 Glomerular Filtration Rate Calc Octo neeta 2019 10:15am 14 ml/min ABOVE 60 [facility], [address] [place] [address] 22364 Alanine Aminotransferase (ALT/SGPT) January 27, 2020 10:15am 17 U/L 10-49 [facility], [address] [place] [address] 13145 Aspartate Amino Transf (AST/SGOT) Oc tober 2019 10:15am 16 U/L 0-33 [facility], [address] [place] [address] 34459 Alkaline Phosphatase January 26, 10:15am 119 U/L 45-129 [facility], [address] [place] [address] Calcium Level January 27, 2020 10:15am 9.1 mg/dL 8.5-10.1 [facility], [address] [place] [address]997 Total Bilirubin January 27, 2020 10:15am 0.2 mg/dL 0.3-1.2 [facility], [address] [place] [address]07 Albumin January 27, 2020 10:15am 3.9 g/dL 3.2-4.8 [facility], [address] [place] [address] 04193 Serum Total Protein January 26 10:15am 7.0 g/dL 5.7-8.2 [facility], [address] [place] [address] Free Thyroxine January 27, 2020 10:15am 0.90 ng/dL 0.89-1.76 [facility], [address] [place] [address] Thyroid Stimulating Hormone (TSH) Oc tober 2019 10:15am 0.82 uIU/mL 0.35-5.50 [facility], [address] [place] [address] Thyroid Stimulating Hormone (TSH) Ja nupomeroy 2019 1:27pm 0.67 uIU/mL 0.35-5.50 [facility], [address] [place], [place] [address] Free Triiodothyronine January 27, 2020 10:15am 2.7 pg/mL THIS TEST WAS PERFORMED AT:[facility] [id number] MERATI,MD [facility] Pro[facility]B-[facility]riuretic [facility] 2019 10:15am 6063.00 pg/mL 0.00-450 Called to DEBBI Abbott @ 4170 by Sherron Rosado. Results read back. [facility], [address] [place] [address] Diagnostic Imaging Reports Report Dictated Date/Time Dictated By Status Radiology Report September 07, 2019 1:28pm Lev Whittington MD completed [place] [address] [place] [address] [phone] NAME SEX PT STATUS ACCOUNT NUMBER GLENDA MARCOS REG REF [id number] ORDERING PHYSICIAN LOCATION MEDICAL RECORD NO. Serenity Cartagena MD MAMMO [id number] ATTENDING PHYSICIAN DATE OF DATE OF EXAM/TIME [...] mammogram was read with the assistance of [employer], an FDA-approved computer- aided detection system for [...] 02, 2019 12:48pm Lev Whittington MD completed [place] [address] [place] [address] [phone] NAME SEX PT STATUS ACCOUNT NUMBER GLENDA MARCOS REG ER [id number] ORDERING PHYSICIAN LOCATION MEDICAL RECORD NO. Timothy Bedoya MD ER [id number] ATTENDING PHYSICIAN DATE OF DATE OF EXAM/TIME [...] Trans Dt/Tm: Trans by: DT Prt Dt/Tm: [id number]: Total DLP = 0.00 mGy-cm Fluoroscopy Time (in secs): Radiology Report December 02, 2019 12:51pm Lev Whittington MD completed [place] [id number] [place] [address] [phone] NAME SEX PT STATUS ACCOUNT NUMBER GLENDA MARCOS REG ER [id number] ORDERING PHYSICIAN LOCATION MEDICAL RECORD NO. Timothy Bedoya MD ER [id number] ATTENDING PHYSICIAN DATE OF DATE OF EXAM/TIME [...] 02, 2019 12:58pm Lev Whittington MD completed [facility] [address] [place] [address] [phone] NAME SEX PT STATUS ACCOUNT NUMBER GLENDA MARCOS [facility] ER [id number] ORDERING PHYSICIAN LOCATION MEDICAL RECORD NO. Timothy Bedoya MD ER [id number] ATTENDING PHYSICIAN DATE OF DATE OF EXAM/TIME [...] 02, 2019 1:01pm Lev Whittington MD completed [facility] [address] [place] [id number] [phone] NAME SEX PT STATUS ACCOUNT NUMBER GLENDA MARCOS [facility] ER [id number] ORDERING PHYSICIAN LOCATION MEDICAL RECORD NO. Timothy Bedoya MD ER [id number] ATTENDING PHYSICIAN DATE OF DATE OF EXAM/TIME [...] 10, 2019 11:28am Lev Whittington MD completed [place] [id number] [place] [address] [phone] NAME SEX PT STATUS ACCOUNT NUMBER GLENDA MARCOS REG REF [id number] ORDERING PHYSICIAN LOCATION MEDICAL RECORD NO. Serenity Cartagena MD RAD [id number] ATTENDING PHYSICIAN DATE OF DATE OF EXAM/TIME [...] Trans Dt/Tm: Trans by: DT Prt Dt/Tm: [id number]: Total DLP = 0.00 mGy-cm Fluoroscopy Time (in secs): Radiology Report January 27, 2020 6:10pm Vitor Helton MD completed [place] [id number] [place] [address] [phone] NAME SEX PT STATUS ACCOUNT NUMBER GLENDA MARCOS REG ER [id number] ORDERING PHYSICIAN LOCATION MEDICAL RECORD NO. Timothy Kelly MD ER [id number] ATTENDING PHYSICIAN DATE OF DATE OF EXAM/TIME [...] Trans Dt/Tm: Trans by: DT Prt Dt/Tm: [id number]: Total DLP = 0.00 mGy-cm Fluoroscopy Time [...] Discharge Follow-up Hypertension Follow-up Hypertension Flu shot Reason for Visit Anxiety Hypertension Anxiety Hypertension Anxiety Hypertension Mitral insufficiency Anxiety Hypertension Mitral insufficiency Anxiety Hypertension Encounters Encounter Location(s) [facility]/Admit Date Discharge/Depart Date Provider(s) Departed Physician/Provider Office Visit [facility] May 08, 2019 12:55pm May 08, 2019 1:20pm Serenity Cartagena MD Registered Referred [facility] May 12, 2019 1:18pm Serenity Cartagena MD Departed Physician/Provider Office Visit [facility] D[facility]ology June 04, 2019 10:39am June 04, 2019 11:22am LAURA Braga Departed Physician/Provider Office Visit [facility] August 12, 2019 10:15am August 12, 2019 10:44am Serenity sanders MD Registered Referred [facility]-Mammography September 02, 2019 11:18am Serenity Cartagena MD Departed Physician/Provider Office Visit [facility] November 12, 2019 10:02am November 12, 2019 10:25am Serenity peterson MD Departed Emergency [facility]Emergency Room ER December 02, 2019 9:59am December 02, 2019 1:53pm null Departed Physician/Provider Office Visit [facility] December 10, 2019 9:29am December 10, 2019 9:53am Serenity sanders MD Registered Referred [facility]-Radiology December 10, 2019 10:02am Serenity Cartagena MD Departed Physician/Provider Office Visit [facility] December 23, 2019 10:30am December 23, 2019 11:08am Serenity Cartagena MD Registered Referred [facility] January 27, 2020 10:00am Carolina Vo Departed Emergency [facility]-Emergency Room ER January 27, 2020 3:41pm January 27, 2020 8:15pm null Departed Physician/Provider Office Visit [facility] February 05, 2020 8:11am February 05, 2020 8:26am Serenity Cartagena MD Departed Physician/Provider Office Visit [facility] March 31, 2020 2:23pm March 31, 2020 3:00pm Serenity Cartagena MD Departed Physician/Provider Office Visit [facility] April 27, 2020 2:13pm April 27, 2020 2:49pm Serenity Cartagena MD Departed Physician/Provider Office Visit [facility] April 28, 2020 1:35pm April 28, 2020 1:40pm Serenity Cartagena MD Recent Diagnosis Onset Date Anxiety Hypertension Anxiety Hypertension Anxiety Hypertension Mitral insufficiency Anxiety Hypertension Mitral insufficiency Anxiety Hypertension Assessments Diagnosis Onset Date Res olution Status Anxiety acute Hypertension acute Anxiety acute Hypertension acute Anxiety acute Hypertension acute Mitral insufficiency acute Anxiety acute Hypertension acute Mitral insufficiency acute Anxiety acute Hypertension acute Functional Status No Functional Status information available Goals Goals may be documented in an alternate section. Immunizations No Immunization Information Available Mental Status Observation Response Yuriy e Recorded Impairments No impairments or barriers December 02, 2019 10:23am Medical Equipment No Medical Equipment Information available Insurance Providers Guarantor GLENDA MARCOS Address [address] [place] [phone] Contact Info. Home Phone: Payer Policy Id Coverage Id Subscriber's Name Subscriber Id Effective Date Expiration Date BC/BS [facility] [id number] GLENDA MARCOS [id number] [facility] [id number] GLENDA MARCOS [id number] [place] Medicare/Dual Elig [id number] GLENDA MARCOS [id number] [employer] [id number] GLENDA MARCOS [id number] MEDICARE BLUE PPO [id number] GLENDA MARCOS [id number] 2015 MEDICARE [employer] Self Pay Self [...] 08, 2019 1:02pm Respiratory rate 12 /min 12-May 08, 2019 1:02pm Oxygen saturation by Pulse [...] 02, 2019 10:59am Respiratory rate 18 /min -December 02, 2019 10:59am Oxygen saturation by Pulse [...]
--- OUTSIDE RECORDS SUMMARY | 2020-06-08 16:42 | CCD | Continuity of Care Document ---
Author Author Brielle PRADHAN MD Organization Unknown Address [address] [place] [id number] Phone [phone] Care Team Providers Care Support Services Rep Name Role Phone Serenity Cartagena MD AUTM [phone] Reg Brown MD AUTM [phone] Tiesha Haji EAP CLINICIAN AUTM [phone] Problems Active Problems Provider Date Mitral valve disorder Onset: 07/27/2014 Carotid artery occlusion Onset: 07/16/19 13 Chronic ischemic heart disease Onset: Hyperlipidemia Onset: 07/11/2012 Malignant neoplasm of female breast Onse t: 07/11/2012 Neoplastic disease Onset: 07/11/2012 Essential hypertension Onset: 07/11/2012 History of coronary artery bypass grafting Abhijeet Tobar MD Onset: 04/05/2015 Obesity Abhijeet Tobar MD Onset: 04/05/2015 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 Abhijeet Tobar MD Onset: 04/05/2015 Pure hyperglyceridemia Abhijeet Tobar MD Onset: 08/14/2016 Pure hypercholesterolemia Abhijeet Tobar MD Onset: 017 Mixed hyperlipidemia Carolina Vo RN, EAP CLINICIAN Onset: 03/26/2017 Chronic kidney disease stage 4 Abhijeet Tobar MD Onset: Aortic valve disorder David Robles MD Onset: 02/25/2020 Heart valve replacement Abe Pradhan MD Onset: 0 Chronic systolic (congestive) heart failure Abe Pradhan MD Onset: 03/21/2020 Chronic diastolic heart failure Abe Pradhan MD Onset: 1 05/22/2019 Pulmonary hypertension Abe Pradhan MD Onset: 03/21/2020 Social History Type Date [...] 2 by mouth twice daily 360tabs Abe Pradhan MD 03/21/2020 Hydralazine HCL 10mg Tablets 1 by mouth every 8 hours 90tabs Abhijeet Tobar MD 02/03/2020 Carvedilol 6.25mg Tablets 1 by mouth twice a day 180tabs Carolina Vo RN, EAP CLINICIAN 08/14/2016 Pravastatin Sodium 80mg Tablets Take 1 Tablet By Mouth Once Daily 90tabs Carolina Vo RN, EAP CLINICIAN 01/02/[address] 1 by [...] In Water & Drink Once Daily Unknown Spironolactone 25mg Tablets 1 by mouth two times a day Unknown History Medications Gabapentin 100mg Capsules 3 tabs at bedtime Carolina Vo RN, EAP CLINICIAN 01/12/2020 - 02/03/2020 Immunizations Description No Information [...] Echocardiogram <pending> CBC With Auto Diff 01/27/2020 [facility] l WBC # Bld Auto 5.6 [...] diff Bld NO Comprehensive Metabolic Prof 01/27/2020 [facility] BUN SerPl-mCnc 118 mg/dL 9-23 2 Sodium [...] g/dL Normal 5.7-8.2 Laboratory test finding 01/27/2020 [facility] T4 Free SerPl-mCnc 0.90 ng/dL Normal [...] back. 4 THIS TEST WAS PERFORMED AT: [facility] [address] [id number] CASSI RAMIREZ MD Procedures Date Code Description Status 03/21/2020 05351 Echocardiography, Tranthoracic C omplete Image Documentation Completed 10/27/2019 02906 Echocardiography, Tranthoracic C omplete Image Documentation Completed Medical Devices Description No Information Available Encounters Type Date Location Provider Dx Diagnosis Office Visit 03/21/2020 3:30p [facility] Abe Pradhan MD I10 Essential (primary) hypertension E78.2 Mixed hyperlipidemia I35.0 Nonrheumatic aortic (valve) stenosis N18.4 Chronic kidney disease, stag e 4 (severe) Z95.1 Presence of aortocoronary by pass graft Z95.2 Presence of prosthetic heart valve I50.32 Chronic diastolic (congestiv e) heart failure I27.20 Pulmonary hypertension, unsp ecified Office Visit 03/21/2020 3:00p [facility] Schedule Maribel Sherwood I10 Essential (primary) hypertension E78.2 Mixed hyperlipidemia I35.0 Nonrheumatic aortic (valve) stenosis N18.4 Chronic kidney disease, stag e 4 (severe) Z95.1 Presence of aortocoronary by pass graft Z95.2 Presence of prosthetic heart valve I50.32 Chronic diastolic (congestiv e) heart failure I27.20 Pulmonary hypertension, unsp ecified Office Visit 02/25/2020 12:00p [facility] David Robles MD I50.22 Chronic systolic (congestive) heart failure I10 Essential (primary) hyperten rayna E78.2 Mixed hyperlipidemia I34.0 Nonrheumatic mitral (valve) insufficiency I35.0 Nonrheumatic aortic (valve) stenosis N18.4 Chronic kidney disease, stag e 4 (severe) Office Visit 02/03/2020 4:15p [facility] Abhijeet Tobar MD I50.22 Chronic systolic [...] E78.1 Pure hyperglyceridemia Office Visit 01/12/2020 11:30a [place] [facility] Carolina Vo RN, EAP CLINICIAN I34.0 Nonrheumatic mitral (valve) insufficiency I10 Essential (primary) hyperten rayna Z95.1 Presence of aortocoronary by pass graft 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 E66.09 Other obesity due to excess calories E78.2 Mixed hyperlipidemia Assessments Date Code Description Provider 03/21/2020 I10 Essential (primary) hypertension Abe Pradhan [...] MD 02/03/2020 I25.10 Atherosclerotic heart disease of eagle coronary artery with Abhijeet Tobar MD 02/03/2020 [...] mitral (valve) insu fficiency Carolina Vo RN, EAP CLINICIAN 01/12/2020 I10 Essential (primary) hypertension Carolina Vo RN, EAP CLINICIAN 01/12/2020 Z95.1 Presence of aortocoronary bypass graft Carolina Vo RN, EAP CLINICIAN 01/12/2020 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 Carolina Vo RN, [facility] 01/12/2020 E66.09 Other obesity due to excess manjit robin Carolina Vo RN, [facility] 01/12/2020 E78.2 Mixed hyperlipidemia Carolina chambers RN, [facility] 10/27/2019 I34.0 Nonrheumatic mitral (valve) insu fficiency Abe Pradhan MD 10/27/2019 I10 Essential (primary) hypertension Abe Pradhan MD 10/27/2019 Z95.1 Presence of aortocoronary bypass graft Abe Pradhan MD Plan of Treatment Future Appointment(s):* 04/28/2020 11:45 am - Abdulaziz ROCKWELL ([id number]) at [place] [facility] * 05/17/2020 3:00 pm - Abdulaziz PROMOTIONAL MARKETING ANALYST/Device (415) at [place] [facility] 05/17/2020 - Carolina Vo RN, [facility]* I34.0 Nonrheumatic mitral (valve) insufficiency * I35.0 Nonrheumatic aortic (valve) stenosis * I10 Essential (primary) hypertension * N18.4 Chronic kidney disease, stage 4 (severe) * Z95.1 Presence of aortocoronary bypass graft * Z95.2 Presence of prosthetic heart valve * I50.32 Chronic diastolic (congestive) heart failure * I50.22 Chronic systolic (congestive) heart failure * I25.10 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
--- OUTSIDE RECORDS SUMMARY | 2020-06-08 16:43 | CCD | Continuity of Care Document ---
Author Author [facility] Address [address] [place] [address] Phone Support Name Relationship Address Phone Serenity [place] [address] Tiesha Warren PRS [phone] [place] [address], [place] [address] Timothy Bedoya PRS [address] [place] [address] Maribel Vo PRS [address] [place] [address] Timothy Kelly PRS [address] [place] [address] Allergies, Adverse Reactions, Alerts Allergen Type Severity [...] Day 90 90 August 05, 2018 10:49am August 13, [...] January 27, 2020 10:15am 5.6 10e3/uL 4.45-10.71 [facility], [address] [place] [address] Red Blood Count January 27, 2020 10:15am 2.76 10e6/uL 4.20-5.40 [facility], [address] [place] [address] Hemoglobin January 27, 2020 10:15am 8.5 g/dL 10.7-15.4 [facility], [address] [place] [address] Hematocrit January 27, 2020 10:15am 28.9 % 37-47 [facility], [address] [place] [address] Mean Corpuscular Volume January 10:15am 104.7 fl 80-96 [facility], [address] [place] [address] Mean Corpuscular Hemoglobin January 27, 2020 10:15am 30.8 pg 27-31 [facility], [address] [place] [address] Mean Corpuscular Hemoglobin Concent January 27, 2020 10:15am 29.4 g/dl 33-37 [facility], [address] [place] [address] Red Cell Distribution Width January 27, 2020 10:15am 14 % 11-15 [facility], [address] [place] [address] Platelet Count January 27, 2020 10:15am 251 10e3/ul 130-472 [facility], [address] [place] [address] Mean Platelet Volume January 26 10:15am 10.4 fl 9.1-13.1 [facility], [address] [place] [address] Neutrophils (%) (Auto) January 27, 2020 10:15am 59.5 % 41-77 [facility], [address] [place] [address] Absolute Neutrophil January 26 10:15am 3.4 # 1.7-7.6 [facility], [address] [place] [address] Lymphocytes (%) (Auto) January 27, 2020 10:15am 27.4 % 14-46 [facility], [address] [place] [address] Lymphocytes # (Auto) January 26 10:15am 1.5 # 0.6-4.6 [facility], [address] [place] [address] Monocytes (%) (Auto) January 26 10:15am 9.2 % 4-12 [facility], [address] [place] [address] Monocytes # January 27, 2020 10:15am 0.5 # 0.2-1.2 [facility], [address] [place] [address] Eosinophils (%) (Auto) January 27, 2020 10:15am 3.2 % 0-7 [facility], [address] [place] [address] Absolute Eosinophils (CBC) January 132019 10:15am 0.2 # 0.0-0.5 [facility], [address] [place] [address] Basophils (%) (Auto) January 26 10:15am 0.5 % 0.4-1.3 [facility], [address] [place] [address] Absolute Basophils (CBC) January 10:15am 0.0 # 0.0-0.2 [facility], [address] [place] [address] Immature Granulocyte % (Auto) Octobe r 2019 10:15am 0.2 % 0-2 [facility], [address] [place] [address] Absolute Immature Granulocyte (auto October 2019 10:15am 0.0 # 0-0.1 [facility], [address] [place] [address] Add Manual Differential January 10:15am No [facility], [address] [place] [address] Blood Urea Nitrogen January 26 10:15am 118 mg/dL 01-05 Called to DEBBI Negro @ 4927 by Margoth Rsoado. Results read back. Repeated by: Margoth Rosado 01/27/20 1333.Result Confirmation: 115 mg/dL [facility], [address] [place] [address] Sodium Level January 27, 2020 10:15am 143 mmol/L 132-146 [facility], [address] [place] [address] Potassium Level January 27, 2020 10:15am 5.3 mmol/L 3.5-5.5 [facility], [address] [place] [address] Chloride Level January 27, 2020 10:15am 115 mmol/l 99-109 [facility], [address] [place] [address] Carbon Dioxide Level January 26 10:15am 18 mmol/l 20-31 [facility], [address] [place] [address] Anion Gap January 27, 2020 10:15am 15 mmol/l 8-16 [facility], [address] [place] [address] Glucose Level January 27, 2020 10:15am 107 mg/dL 74-106 [facility], [address] [place] [address] Creatinine January 27, 2020 10:15am 3.1 mg/dL 0.5-1.1 [facility], [address] [place] [address] Glomerular Filtration Rate Calc Octo neeta 2019 10:15am 14 ml/min ABOVE 60 [facility], [address] [place] [address] Alanine Aminotransferase (ALT/SGPT) January 27, 2020 10:15am 17 U/L 10-49 [facility], [address] [place] [address] Aspartate Amino Transf (AST/SGOT) Oc tober 2019 10:15am 16 U/L 0-33 [facility], [address] [place] [address] Alkaline Phosphatase January 26, 10:15am 119 U/L 45-129 [facility], [address] [place] [address] Calcium Level January 27, 2020 10:15am 9.1 mg/dL 8.5-10.1 [facility], [address] [place] [address] Total Bilirubin January 27, 2020 10:15am 0.2 mg/dL 0.3-1.2 [facility], [address] [place] [address] Albumin January 27, 2020 10:15am 3.9 g/dL 3.2-4.8 [facility], [address] [place] [address] Serum Total Protein January 26 10:15am 7.0 g/dL 5.7-8.2 [facility], [address] [place] [address] Free Thyroxine January 27, 2020 10:15am 0.90 ng/dL 0.89-1.76 [facility], [address] [place] [address] Thyroid Stimulating Hormone (TSH) Oc tober 2019 10:15am 0.82 uIU/mL 0.35-5.50 [facility], [address] [place] [address] Thyroid Stimulating Hormone (TSH) Ja [facility] 2019 1:27pm 0.67 uIU/mL 0.35-5.50 [facility], [address] [place] [address] Free Triiodothyronine January 27, 2020 10:15am 2.7 pg/mL THIS TEST WAS PERFORMED AT:[address] [id number] MERATI,MD [facility] Pro-B-Type Natriuretic Peptide [facility] 2019 10:15am 6063.00 pg/mL 0.00-450 Called to DEBBI Abbott @ 0512 by Sherron Rosado. Results read back. [facility], [address] [place] [address] Diagnostic Imaging Reports Report Dictated Date/Time Dictated By Status Radiology Report September 07, 2019 1:28pm Lev Whittington MD completed [place] [address] [place] [address] [phone] NAME SEX PT STATUS ACCOUNT NUMBER GLENDA MARCOS REG REF [id number] ORDERING PHYSICIAN LOCATION MEDICAL RECORD NO. Serenity Cartagena MD MAMMO [id number] ATTENDING PHYSICIAN DATE OF DATE OF EXAM/TIME [...] mammogram was read with the assistance of M-ICU Metrix, an FDA-approved computer- aided detection system for [...] 02, 2019 12:48pm Lev Whittington MD completed [facility] [address] [place] [address] [phone] NAME SEX PT STATUS ACCOUNT NUMBER GLENDA MARCOS REG ER [id number] ORDERING PHYSICIAN LOCATION MEDICAL RECORD NO. Timothy Bedoya MD ER [id number] ATTENDING PHYSICIAN DATE OF DATE OF EXAM/TIME [...] Trans Dt/Tm: Trans by: DT Prt Dt/Tm: [id number]: Total DLP = 0.00 mGy-cm Fluoroscopy Time (in secs): Radiology Report December 02, 2019 12:51pm Lev Whittington MD completed [place] [id number] [place] [address] [phone] NAME SEX PT STATUS ACCOUNT NUMBER GLENDA MARCOS REG ER [id number] ORDERING PHYSICIAN LOCATION MEDICAL RECORD NO. Timothy Bedoya MD ER [id number] ATTENDING PHYSICIAN DATE OF DATE OF EXAM/TIME [...] 02, 2019 12:58pm Lev Whittington MD completed [facility] [address] [place], [place] [address] [phone] NAME SEX PT STATUS ACCOUNT NUMBER GLENDA MARCOS [facility] ER [id number] ORDERING PHYSICIAN LOCATION MEDICAL RECORD NO. Timothy Bedoya MD ER [id number] ATTENDING PHYSICIAN DATE OF DATE OF EXAM/TIME [...] abnormality. Reported By Lev Whittington MD on 12/02/191257 Signed By Lev Whittington MD on 12/02/19 1300 Date Time CC: Lev Whittington MD; Serenity Cartagena MD Techn: CARLANETET Trans Dt/Tm: Trans by: DT Prt Dt/Tm: : Total DLP = 0.00 mGy-cm Fluoroscopy Time (in secs): Radiology Report December 02, 2019 1:01pm Lev Whittington MD completed [facility] [address] [place] [address] [phone] NAME SEX PT STATUS ACCOUNT NUMBER GLENDA MARCOS [facility] ER [id number] ORDERING PHYSICIAN LOCATION MEDICAL RECORD NO. Timothy Bedoya MD ER [id number] ATTENDING PHYSICIAN DATE OF DATE OF EXAM/TIME Serenity Cartagena MD 1935 12/02/191151 TYPE / EXAM Xray Knee 3 views [...] 10, 2019 11:28am Lev Whittington MD completed [place] [address] [place] [address] [phone] NAME SEX PT STATUS ACCOUNT NUMBER GLENDA MARCOS REG REF [id number] ORDERING PHYSICIAN LOCATION MEDICAL RECORD NO. Serenity Cartagena MD RAD [id number] ATTENDING PHYSICIAN DATE OF DATE OF EXAM/TIME [...] Trans Dt/Tm: Trans by: DT Prt Dt/Tm: [id number]: Total DLP = 0.00 mGy-cm Fluoroscopy Time (in secs): Radiology Report January 27, 2020 6:10pm Vitor Helton MD completed [place] [address] [place] [address] [phone] NAME SEX PT STATUS ACCOUNT NUMBER GLENDA MARCOS REG ER [id number] ORDERING PHYSICIAN LOCATION MEDICAL RECORD NO. Timothy Kelly MD ER [id number] ATTENDING PHYSICIAN DATE OF DATE OF EXAM/TIME [...] Vitor Helton MD; Serenity Cartagena MD Techn: YARITZA Trans Dt/Tm: Trans by: DT Prt Dt/Tm: [id number]: Total DLP = 0.00 mGy-cm Fluoroscopy Time [...] TEST RESULTS Hospital Discharge Follow-up Hypertension Follow-up Reason for Visit Anxiety Hypertension Anxiety Hypertension Anxiety Hypertension Mitral insufficiency Hypertension Encounters Encounter Location(s) Ar rival/Admit Date Discharge/Depart Date Provider(s) Departed Physician/Provider Office Visit [facility] May 08, 2019 12:55pm May 08, 2019 1:20pm Serenity Cartagena MD Registered Referred [facility] May 12, 2019 1:18pm Serenity Cartagena MD Departed Physician/Provider Office Visit [facility] D[facility] June 04, 2019 10:39am June 04, 2019 11:22am LAURA Braga Departed Physician/Provider Office Visit [facility] August 12, 2019 10:15am August 12, 2019 10:44am Serenity sanders MD Registered Referred [facility] September 02, 2019 11:18am Serenity Cartagena MD Departed Physician/Provider Office Visit [facility] November 12, 2019 10:02am November 12, 2019 10:25am Serenity peterson MD Departed Emergency [facility]Emergency Room ER December 02, 2019 9:59am December 02, 2019 1:53pm null Departed Physician/Provider Office Visit [facility] December 10, 2019 9:29am December 10, 2019 9:53am Serenity sanders MD Registered Referred [facility]Radiology December 10, 2019 10:02am Serenity Cartagena MD Departed Physician/Provider Office Visit [facility] December 23, 2019 10:30am December 23, 2019 11:08am Serenity Cartagena MD Registered Referred [facility] January 27, 2020 10:00am Carolina Vo Departed Emergency [facility]gency [facility] ER January 27, 2020 3:41pm January 27, 2020 8:15pm null Departed Physician/Provider Office Visit [facility] February 05, 2020 8:11am February 05, 2020 8:26am Serenity Cartagena MD Departed Physician/Provider Office Visit [facility] March 31, 2020 2:23pm March 31, 2020 3:00pm Serenity Cartagena MD Recent Diagnosis Onset Date Anxiety Hypertension Anxiety Hypertension Anxiety Hypertension Mitral insufficiency Hypertension Assessments Diagnosis [...] Equipment Information available Insurance Providers Guarantor GLENDA Maribel MARCOS Address [address] [facility] [address] Contact Info. Home Phone: Payer Policy Id Coverage Id Subscriber's Name Subscriber Id Effective Date Expiration Date [facility] [id number] GLENDA López HEMANT [id number] [facility] [id number] GLENDA Maribel MARCOS [id number] [employer] Medicare/Dual Elig [id number] GLENDA MARTINEZAM [id number] [facility] MEDICARE [id number] GLENDA Maribel MARTINEZAM [id number] MEDICARE BLUE PPO [id number] GLENDA Maribel MARCOS [id number] 2015 MEDICARE [employer] Self Pay Self N/A [employer] Plan of Treatment generally doing well, reviewed echocardiogram, unchanged, seeing cardiology in december, no symptoms of CHF, they recommended mitral [...] 10, 2019 10:31am Respiratory rate 12 /min -December 10, 2019 10:31am Oxygen saturation by Pulse [...] 31, 2020 2:25pm Respiratory rate 12 /min 12-March 31, 2020 2:25pm Oxygen saturation by Pulse oximetry 95 % 95- 100 March 31, 2020 2:25pm BP Systolic 118 mm[Hg] March 31, 2020 2:25pm BP Diastolic 62 mm[Hg] March 31, 2020 2:25pm BMI (Body Mass Index) 30.5 kg/m2 March 31, 2020 2:25pm
--- OUTSIDE RECORDS SUMMARY | 2020-06-08 16:43 | CCD | Continuity of Care Document ---
Author Author Brielle ROBLES MD Organization Unknown Address [address] [place] [id number] Phone [phone] Care Team Providers Care Soaking Tank Worker Name Role Phone Serenity Cartagena MD AUTM [phone] Reg Brown MD AUTM [phone] Tiesha Haji [employer]ENT AUTM [phone] Problems Active Problems Provider Date Mitral valve disorder Onset: 07/27/2014 Carotid artery occlusion Onset: 07/16/19 13 Chronic ischemic heart disease Onset: Hyperlipidemia Onset: 07/11/2012 Malignant neoplasm of female breast Onse t: 07/11/2012 Neoplastic disease Onset: 07/11/2012 Essential hypertension Onset: 07/11/2012 History of coronary artery bypass grafting Abhijeet Tobar MD Onset: 04/05/2015 Obesity Abhijeet Tobar MD Onset: 04/05/2015 Atherosclerotic heart disease of [place] coronary arter y without angina pectoris Abhijeet Tobar MD Onset: 04/05/2015 Pure hyperglyceridemia Abhijeet Tobar MD Onset: 08/14/2016 Pure hypercholesterolemia Abhijeet Tobar MD Onset: 017 Mixed hyperlipidemia Carolina Vo RN, [employer] Onset: 03/26/2017 Chronic kidney disease stage 4 [...] twice a day 180tabs Carolina Vo RN, [facility] 08/14/2016 Pravastatin Sodium 80mg Tablets Take 1 Tablet By Mouth Once Daily 90tabs Carolina Vo RN, [employer] 01/02/[address] 1 by [...] Water & Drink Once Daily Unknown 000 History Medications Gabapentin 100mg Capsules 3 tabs at bedtime Carolina Vo RN, [facility] 01/12/2020 - 02/03/2020 Immunizations Description No Information [...] Echocardiogram <pending> CBC With Auto Diff 01/27/2020 [facility] l WBC # Bld Auto 5.6 [...] diff Bld NO Comprehensive Metabolic Prof 01/27/2020 [facility] BUN SerPl-mCnc 118 mg/dL 9-23 2 [...] g/dL Normal 5.7-8.2 Laboratory test finding 01/27/2020 [facility] pitmn T4 Free SerPl-mCnc 0.90 ng/dL Normal 0.89-1.76 [...] back. 4 THIS TEST WAS PERFORMED AT: [facility] [address] [id number] CASSI RAMIREZ MD Procedures Date Code Description Status 03/21/2020 32822 Echocardiography, Tranthoracic C omplete Image Documentation Completed 10/27/2019 98893 Echocardiography, Tranthoracic C omplete Image Documentation Completed Medical Devices Description No Information Available Encounters Type Date Location Provider Dx Diagnosis Office Visit 03/21/2020 3:30p [place] [facility] Abe Pradhan MD I10 Essential (primary) hypertension E78.2 Mixed hyperlipidemia I35.0 Nonrheumatic aortic (valve) stenosis N18.4 Chronic kidney disease, stag e 4 (severe) Z95.1 Presence of aortocoronary by pass graft Z95.2 Presence of prosthetic heart valve I50.32 Chronic diastolic (congestiv e) heart failure I27.20 Pulmonary hypertension, unsp ecified Office Visit 03/21/2020 3:00p [place] [facility] Maribel Sherwood I10 Essential (primary) hypertension E78.2 Mixed hyperlipidemia I35.0 Nonrheumatic aortic (valve) stenosis N18.4 Chronic kidney disease, stag e 4 (severe) Z95.1 Presence of aortocoronary by pass graft Z95.2 Presence of prosthetic heart valve I50.32 Chronic diastolic (congestiv e) heart failure I27.20 Pulmonary hypertension, unsp ecified Office Visit 02/25/2020 12:00p [place] David Robles MD I50.22 Chronic systolic (congestive) heart failure I10 Essential (primary) hyperten rayna E78.2 Mixed hyperlipidemia I34.0 Nonrheumatic mitral (valve) insufficiency I35.0 Nonrheumatic aortic (valve) stenosis N18.4 Chronic kidney disease, stag e 4 (severe) Office Visit 02/03/2020 4:15p [place] [facility] Abhijeet Tobar MD I50.22 Chronic systolic [...] E78.1 Pure hyperglyceridemia Office Visit 01/12/2020 11:30a [place] [facility] Carolina Vo RN, [facility] I34.0 Nonrheumatic mitral (valve) insufficiency I10 Essential [...] MD 02/03/2020 I25.10 Atherosclerotic heart disease of [place] coronary artery with Abhijeet Tobar MD 02/03/2020 [...] mitral (valve) insu fficiency Carolina Vo RN, [facility] 01/12/2020 I10 Essential (primary) hypertension Carolina Vo RN, [facility] 01/12/2020 Z95.1 Presence of aortocoronary bypass graft Carolina Vo RN, [facility] 01/12/2020 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 [...] 11:45 am - Abdulaziz ROCKWELL ([id number]) at [place] [facility] * 05/17/2020 3:00 pm - Abdulaziz UNINDENTURED APPRENTICE/Device ([id number]) at [place] [facility] 03/21/2020 - Abe Pradhan MD* I10 Essential (primary) hypertension * E78.2 Mixed hyperlipidemia * I35.0 Nonrheumatic aortic (valve) stenosis * N18.4 Chronic kidney disease, stage 4 (severe) * Z95.1 Presence of aortocoronary bypass graft * Z95.2 Presence of prosthetic heart valve * I50.32 Chronic diastolic (congestive) heart failure * I27.20 Pulmonary hypertension, unspecified* New Labs:* Lipid Panel, Ordered: 03/21/20 * Hepatic Function Panel 6, Ordered: 03/21/20 * BMP W/Egfr, Ordered: 03/21/20 * Recommendations:* It appears this lady is in primarily right-sided heart failure related to her significant pulmonary hypertension. I will have her increase the dose of torsemide to 40 mg twice a day. Lipid profile and BMP will be checked in a week. She may need to go on dialysis at some point if the diuretics are not effective. We will see her in clinic follow-up in 1 month. Her long-term prognosis clearly remains guarded. Functional Status Description No Information Available Mental Status Description No Information Available Referrals Refer to Reason for Referral Status Appt Date Abhijeet Tobar MD Scheduled 03/21/2020 [address] [facility], [id number] [phone] Abhijeet Tobar MD Closed 10/27/2019 [address] [facility], [address] [phone]
--- OUTSIDE RECORDS SUMMARY | 2020-06-08 16:44 | CCD ---
Author Author [facility] Organization [facility] Address Unknown Phone Unavailable Care Team Providers Care Tenant Coordinator Name Role Phone Allison Cartagena MD Unavailable Unavailable Allison Cartagena MD Unavailable Unavailable Allison Cartagena MD Unavailable Unavailable Allison Cartagena MD Unavailable Unavailable Allison Cartagena MD Unavailable Unavailable Allison Cartagena MD Unavailable Unavailable Allison Cartagena MD Unavailable Unavailable Allison Cartagena MD Unavailable Unavailable Allison Cartagena MD Unavailable Unavailable Allison Cartagena MD Unavailable Unavailable Allison Cartagena MD Unavailable Unavailable Allison Cartagena MD Unavailable Unavailable Allison Cartagena MD Unavailable Unavailable Allison Cartagena MD Unavailable Unavailable Allison Cartagena MD Unavailable Unavailable Allison Cartagena MD Unavailable Unavailable Allison Cartagena MD Unavailable Unavailable Allison Cartagena MD Unavailable Unavailable Allison Cartagena MD Unavailable Unavailable Allison Cartagena MD Unavailable Unavailable Allison Cartagena MD Unavailable Unavailable Allison Cartagena MD Unavailable Unavailable Allison Cartagena MD Unavailable Unavailable Allison Cartgaena MD Unavailable Unavailable Allison Cartagena MD Unavailable Unavailable Allison Cartagena MD Unavailable Unavailable Allison Cartagena MD Unavailable Unavailable Allison Cartagena MD Unavailable Unavailable Allison Cartagena MD Unavailable Unavailable Allison Cartagena MD Unavailable Unavailable Allison Cartagena MD Unavailable Unavailable Allison Cartagena MD Unavailable Unavailable Allison Cartagena MD Unavailable Unavailable Allison Cartagena MD Unavailable Unavailable Allison Cartagena MD Unavailable Unavailable Allison Cartagena MD Unavailable Unavailable Allison Cartagena MD Unavailable Unavailable Allison Cartagena MD Unavailable Unavailable Allison Cartagena MD Unavailable Unavailable Allison Cartagena MD Unavailable Unavailable Allison Cartagena MD Unavailable Unavailable Allison Cartagena MD Unavailable Unavailable Allison Cartagena MD Unavailable Unavailable Allison Cartagena MD Unavailable Unavailable Allison Cartagena MD Unavailable Unavailable Allison Cartagena MD Unavailable Unavailable Allison Cartagena MD Unavailable Unavailable Allison Cartagena MD Unavailable Unavailable Allison Cartagena MD Unavailable Unavailable Allison Cartagena MD Unavailable Unavailable Allison Cartagena MD Unavailable Unavailable Allison Cartagena MD Unavailable Unavailable Allison Cartagena MD Unavailable Unavailable Allison Cartagena MD Unavailable Unavailable Allison Cartagena MD Unavailable Unavailable Allison Cartagena MD Unavailable Unavailable Allsion Cartagena MD Unavailable Unavailable Allison Cartagena MD Unavailable Unavailable Allison Cartagena MD Unavailable Unavailable Allison Cartagena MD Unavailable Unavailable Allison Cartagena MD Unavailable Unavailable Allison Cartagena MD Unavailable Unavailable Allison Cartagena MD Unavailable Unavailable Allison Cartagena MD Unavailable Unavailable Allison Cartagena MD Unavailable Unavailable Allison Cartagena MD Unavailable Unavailable Allison Cartagena MD Unavailable Unavailable Allison Cartagena MD Unavailable Unavailable Allison Cartagena MD Unavailable Unavailable Allison Cartagena MD Unavailable Unavailable Allison Cartagena MD Unavailable Unavailable Allison Cartagena MD Unavailable Unavailable Allison Cartagena MD Unavailable Unavailable Allison Cartagena MD Unavailable Unavailable Allison Cartagena MD Unavailable Unavailable Allison Cartagena MD Unavailable Unavailable Allison Cartagena MD Unavailable Unavailable Allison Cartagena MD Unavailable Unavailable Allison Cartagena MD Unavailable Unavailable Allison Cartagena MD Unavailable Unavailable Allison Cartagena MD Unavailable Unavailable Allison Cartagena MD Unavailable Unavailable Allison Cartagena MD Unavailable Unavailable Tony BELL MD Unavailable Unavailable Tony BELL MD Unavailable Unavailable Tony BELL MD Unavailable Unavailable Tony BELL MD Unavailable Unavailable Tony BELL MD Unavailable Unavailable Tony BELL MD Unavailable Unavailable Tony BELL MD Unavailable Unavailable Tony BELL MD Unavailable Unavailable Tony BELL MD Unavailable Unavailable Tony BELL MD Unavailable Unavailable Tony BELL MD Unavailable Unavailable Tony BELL MD Unavailable Unavailable Tony BELL MD Unavailable Unavailable Tony BELL MD Unavailable Unavailable Tony BELL MD Unavailable Unavailable Tony BELL MD Unavailable Unavailable RAY, K JOSIANE MD Unavailable Unavailable RAY, K JOSIANE MD Unavailable Unavailable RAY, K JOSIANE MD Unavailable Unavailable RAY, K JOSIANE MD Unavailable Unavailable RAY, K JOSIANE MD Unavailable Unavailable RAY, K JOSIANE MD Unavailable Unavailable RAY, K JOSIANE MD Unavailable Unavailable RAY, K JOSIANE MD Unavailable Unavailable RAY, K JOSIANE MD Unavailable Unavailable RAY, K JOSIANE MD Unavailable Unavailable RAY, K JOSIANE MD Unavailable Unavailable RAY, K JOSIANE MD Unavailable Unavailable RAY, K JOSIANE MD Unavailable Unavailable RAY, K JOSIANE MD Unavailable Unavailable RAY, K JOSIANE MD Unavailable Unavailable RAY, K JOSIANE MD Unavailable Unavailable RAY, K JOSIANE MD Unavailable Unavailable RAY, K JOSIANE MD Unavailable Unavailable RAY, K JOSIANE MD Unavailable Unavailable RAY, K JOSIANE MD Unavailable Unavailable RAY, K JOSIANE MD Unavailable Unavailable RAY, K JOSIANE MD Unavailable Unavailable RAY, K JOSIANE MD Unavailable Unavailable RAY, K JOSIANE MD Unavailable Unavailable RAY, K JOSIANE MD Unavailable Unavailable RAY, K JOSIANE MD Unavailable Unavailable RAY, K JOSIANE MD Unavailable Unavailable RAY, K JOSIANE MD Unavailable Unavailable RAY, K JOSIANE MD Unavailable Unavailable RAY, K JOSIANE MD Unavailable Unavailable RAY, K JOSIANE MD Unavailable Unavailable Kelvin, K Tiesha PA Unavailable Unavailable Kelvin, K Tiesha PA Unavailable Unavailable Kelvin, K Tiesha PA Unavailable Unavailable Kelvin, K Tiesha PA Unavailable Unavailable Kelvin, K Tiesha PA Unavailable Unavailable Kelvin, K Tiesha PA Unavailable Unavailable Kelvin, K Tiesha PA Unavailable Unavailable Kelvin, K Tiesha PA Unavailable Unavailable Kelvin, K Tiesha PA Unavailable Unavailable Kelvin, K Tiesha PA Unavailable Unavailable Kelvin, K Tiesha PA Unavailable Unavailable Kelvin, K Tiesha PA Unavailable Unavailable Kelvin, K Tiesha PA Unavailable Unavailable Kelvin, K Tiesha PA Unavailable Unavailable Kelvin, K Tiesha PA Unavailable Unavailable Kelvin, K Tiesha PA Unavailable Unavailable Hamo, M Carolina VICE PRESIDENT PLANNING Unavailable Unavailable Hamo, M [place] VICE PRESIDENT PLANNING Unavailable Unavailable Hamo, M [place] VICE PRESIDENT PLANNING Unavailable Unavailable Hamo, M [place] VICE PRESIDENT PLANNING Unavailable Unavailable Hamo, M [place] VICE PRESIDENT PLANNING Unavailable Unavailable Hamo, M [place] VICE PRESIDENT PLANNING Unavailable Unavailable Hamo, M [place] VICE PRESIDENT PLANNING Unavailable Unavailable Hamo, M [place] VICE PRESIDENT PLANNING Unavailable Unavailable Hamo, M [place] VICE PRESIDENT PLANNING Unavailable Unavailable Hamo, M [place] VICE PRESIDENT PLANNING Unavailable Unavailable Hamo, M [place] VICE PRESIDENT PLANNING Unavailable Unavailable Hamo, M [place] VICE PRESIDENT PLANNING Unavailable Unavailable Hamo, M [place] VICE PRESIDENT PLANNING Unavailable Unavailable Hamo, M [place] VICE PRESIDENT PLANNING Unavailable Unavailable Hamo, M [place] VICE PRESIDENT PLANNING Unavailable Unavailable Hamo, M [place] VICE PRESIDENT PLANNING Unavailable Unavailable Hamo, M [place] VICE PRESIDENT PLANNING Unavailable Unavailable Hamo, M [place] VICE PRESIDENT PLANNING Unavailable Unavailable Hamo, M [place] VICE PRESIDENT PLANNING Unavailable Unavailable Hamo, M [place] VICE PRESIDENT PLANNING Unavailable Unavailable Hamo, M [place] VICE PRESIDENT PLANNING Unavailable Unavailable KELBERMANMarky MD Unavailable Unavailable KELBERMAN, Marky VELEZ MD Unavailable Unavailable KELBERMANMarky MD Unavailable Unavailable KELBERMANMarky MD Unavailable Unavailable KELBERMANMarky MD Unavailable Unavailable KELBERMAN, Marky VELEZ MD Unavailable Unavailable KELBERMANMarky MD Unavailable Unavailable KELBERMANMarky MD Unavailable Unavailable KELBERMANMarky MD Unavailable Unavailable KELBERMANMarky MD Unavailable Unavailable KELBERMANMarky MD Unavailable Unavailable KELBERMANMarky MD Unavailable Unavailable KELBERMANMarky MD Unavailable Unavailable KELBERMANMarky MD Unavailable Unavailable KELBERMANMarky MD Unavailable Unavailable KELBERMANMarky MD Unavailable Unavailable KELBERMANMarky MD Unavailable Unavailable KELBERMANMarky MD Unavailable Unavailable KELBERMANMarky MD Unavailable Unavailable KELBERMANMarky MD Unavailable Unavailable KELBERMANMarky MD Unavailable Unavailable KELBERMANMarky MD Unavailable Unavailable KELBERMANMarky MD Unavailable Unavailable KELBERMANMarky MD Unavailable Unavailable KELBERMANMarky MD Unavailable Unavailable KELBERMANMarky MD Unavailable Unavailable KELBERMANMarky MD Unavailable Unavailable KELBERMANMarky MD Unavailable Unavailable KELBERMANMarky MD Unavailable Unavailable KELBERMANMarky MD Unavailable Unavailable KELBERMANMarky MD Unavailable Unavailable KELBERMANMarky MD Unavailable Unavailable KELBERMANMarky MD Unavailable Unavailable KELBERMANMarky MD Unavailable Unavailable KELBERMANMarky MD Unavailable Unavailable KELBERMANMarky MD Unavailable Unavailable KELBERMANMarky MD Unavailable Unavailable KELBERMANMarky MD Unavailable Unavailable KELBERMANMarky MD Unavailable Unavailable KELBERMANMarky MD Unavailable Unavailable KELBERMANMarky MD Unavailable Unavailable KELBERMAN, Marky VELEZ MD Unavailable Unavailable KELBERMAN, Marky VELEZ MD Unavailable Unavailable KELBERMAN, Marky VELEZ MD Unavailable Unavailable KELBERMAN, Marky VELEZ MD Unavailable Unavailable KELBERMAN, Marky VELEZ MD Unavailable Unavailable KELBERMAN, Marky VELEZ MD Unavailable Unavailable KELBERMAN, Marky VELEZ MD Unavailable Unavailable KELBERMAN, Marky VELEZ MD Unavailable Unavailable Leticia, Agustin ROCKWELL Unavailable Unavailable LOVE, A DRU MD Unavailable Unavailable LOVE, A DRU MD Unavailable Unavailable LOVE, A DRU MD Unavailable Unavailable LOVE, A DRU MD Unavailable Unavailable LOVE, A DRU MD Unavailable Unavailable LOVE, A DRU MD Unavailable Unavailable LOVE, A DRU MD Unavailable Unavailable LOVE, A DRU MD Unavailable Unavailable LOVE, A DRU MD Unavailable Unavailable LOVE, A DRU MD Unavailable Unavailable LOVE, A DRU MD Unavailable Unavailable LOVE, A DRU MD Unavailable Unavailable LOVE, A DRU MD Unavailable Unavailable LOVE, A DRU MD Unavailable Unavailable LOVE, A DRU MD Unavailable Unavailable LOVE, A DRU MD Unavailable Unavailable LOVE, A DRU MD Unavailable Unavailable LOVE, A DRU MD Unavailable Unavailable LOVE, A DRU MD Unavailable Unavailable LOVE, A DRU MD Unavailable Unavailable LOVE, A DRU MD Unavailable Unavailable LOVE, A DRU MD Unavailable Unavailable LOVE, A DRU MD Unavailable Unavailable LOVE, A DRU MD Unavailable Unavailable LOVE, A DRU MD Unavailable Unavailable LOVE, A DRU MD Unavailable Unavailable LOVE, A DRU MD Unavailable Unavailable LOVE, A DRU MD Unavailable Unavailable LOVE, A DRU MD Unavailable Unavailable LOVE, A DRU MD Unavailable Unavailable LOVE, A DRU MD Unavailable Unavailable LOVE, A DRU MD Unavailable Unavailable LOVE, A DRU MD Unavailable Unavailable LOVE, A DRU MD Unavailable Unavailable LOVE, A DRU MD Unavailable Unavailable LOVE, A DRU MD Unavailable Unavailable LOVE, A DRU MD Unavailable Unavailable LOVE, A DRU MD Unavailable Unavailable LOVE, A DRU MD Unavailable Unavailable LOVE, A DRU MD Unavailable Unavailable LOVE, A DRU MD Unavailable Unavailable LOVE, A DRU MD Unavailable Unavailable LOVE, A DRU MD Unavailable Unavailable LOVE, A DRU MD Unavailable Unavailable LOVE, A DRU MD Unavailable Unavailable LOVE, A DRU MD Unavailable Unavailable LOVE, A DRU MD Unavailable Unavailable LOVE, A DRU MD Unavailable Unavailable LOVE, A DRU MD Unavailable Unavailable LOVE, A DRU MD Unavailable Unavailable LOVE, A DRU MD Unavailable Unavailable LOVE, A DRU MD Unavailable Unavailable LOVE, A DRU MD Unavailable Unavailable LOVE, A DRU ROCKWELL Unavailable Unavailable LOVE, A DRU ROCKWELL Unavailable Unavailable LOVE, A DRU ROCKWELL Unavailable Unavailable LOVE, A DRU ROCKWELL Unavailable Unavailable LOVE, A DRU ROCKWELL Unavailable Unavailable LOVE, A DRU ROCKWELL Unavailable Unavailable LOVE, A DRU ROCKWELL Unavailable Unavailable LOVE, A DRU ROCKWELL Unavailable Unavailable Hamo, M Carolina VICE PRESIDENT PLANNING Unavailable Unavailable Hamo, M Carolina VICE PRESIDENT PLANNING Unavailable Unavailable Hamo, M Carolina VICE PRESIDENT PLANNING Unavailable Unavailable Hamo, M Carolina VICE PRESIDENT PLANNING Unavailable Unavailable Hamo, M Carolina VICE PRESIDENT PLANNING Unavailable Unavailable Hamo, M Carolina VICE PRESIDENT PLANNING Unavailable Unavailable Hamo, M Carolina VICE PRESIDENT PLANNING Unavailable Unavailable Hamo, M Carolina VICE PRESIDENT PLANNING Unavailable Unavailable Hamo, M Carolina VICE PRESIDENT PLANNING Unavailable Unavailable Hamo, M Carolnia VICE PRESIDENT PLANNING Unavailable Unavailable Hamo, M Carolina VICE PRESIDENT PLANNING Unavailable Unavailable Hamo, M Carolina VICE PRESIDENT PLANNING Unavailable Unavailable Hamo, M Carolina VICE PRESIDENT PLANNING Unavailable Unavailable Hamo, M Carolina VICE PRESIDENT PLANNING Unavailable Unavailable Hamo, M [place] VICE PRESIDENT PLANNING Unavailable Unavailable Hamo, M [place] VICE PRESIDENT PLANNING Unavailable Unavailable Hamo, M [place] VICE PRESIDENT PLANNING Unavailable Unavailable Hamo, M [place] VICE PRESIDENT PLANNING Unavailable Unavailable Hamo, M Carolina VICE PRESIDENT PLANNING Unavailable Unavailable Hamo, M Carolina VICE PRESIDENT PLANNING Unavailable Unavailable Hamo, M Carolina VICE PRESIDENT PLANNING Unavailable Unavailable [facility], YCHANG Unavailable Unavailable DiBella, Dilip Velez MD Unavailable Unavailable DiBella, Dilip Velez MD Unavailable Unavailable DiBella, Dilip Velez MD Unavailable Unavailable DiBella, Dilip Velez MD Unavailable Unavailable DiBella, Dilip Velez MD Unavailable Unavailable DiBellaDilip MD Unavailable Unavailable Raiza Robles MD Unavailable Unavailable Raiza Robles MD Unavailable Unavailable Raiza Robles MD Unavailable Unavailable Raiza Robles MD Unavailable Unavailable Raiza Robles MD Unavailable Unavailable Raiza Robles MD Unavailable Unavailable Raiza Robles MD Unavailable Unavailable Raiza Robles MD Unavailable Unavailable Raiza Robles MD Unavailable Unavailable Raiza Robles MD Unavailable Unavailable Raiza Robles MD Unavailable Unavailable Raiza Robles MD Unavailable Unavailable Raiza Robles MD Unavailable Unavailable Raiza Robles MD Unavailable Unavailable Raiza Robles MD Unavailable Unavailable Raiza Robles MD Unavailable Unavailable Robles, Rambhai David MD Unavailable Unavailable Robles, Rambhai David MD Unavailable Unavailable Robles, Rambhai David MD Unavailable Unavailable Robles, Rambhai David MD Unavailable Unavailable Robles, Rambhai David MD Unavailable Unavailable Robles, Rambhai David MD Unavailable Unavailable Robles, Rambhai David MD Unavailable Unavailable Robles, Rambhai David MD Unavailable Unavailable Robles, Rambhai David MD Unavailable Unavailable Robles, Rambhai David MD Unavailable Unavailable Robles, Rambhai David MD Unavailable Unavailable Robles, Rambhai David MD Unavailable Unavailable Robles, Rambhai David MD Unavailable Unavailable Robles, Rambhai David MD Unavailable Unavailable Robles, Rambhai David MD Unavailable Unavailable Robles, Rambhai David MD Unavailable Unavailable Robles, Rambhai David MD Unavailable Unavailable Robles, Rambhai David MD Unavailable Unavailable Robles, Rambhai David MD Unavailable Unavailable Robles, Rambhai David MD Unavailable Unavailable Robles, Rambhai David MD Unavailable Unavailable Robles, Rambhai David MD Unavailable Unavailable Robles, Rambhai David MD Unavailable Unavailable Robles, Rambhai David MD Unavailable Unavailable Robles, Rambhai David MD Unavailable Unavailable Robles, Rambhai David MD Unavailable Unavailable Robles, Rambhai David MD Unavailable Unavailable Robles, Rambhai Advid MD Unavailable Unavailable Robles, Rambhai David MD Unavailable Unavailable Robles, Rambhai David MD Unavailable Unavailable Robles, Rambhai David MD Unavailable Unavailable Robles, Rambhai David MD Unavailable Unavailable Robles, Rambhai David MD Unavailable Unavailable Robles, Rambhai David MD Unavailable Unavailable Robles, Rambhai David MD Unavailable Unavailable Robles, Rambhai David MD Unavailable Unavailable Robles, Rambhai David MD Unavailable Unavailable Robles, Rambhai David MD Unavailable Unavailable Robles, Rambhai David MD Unavailable Unavailable Robles, Rambhai David MD Unavailable Unavailable Robles, Rambhai David MD Unavailable Unavailable Re-disclosure Warning The records that you are about to access may contain information from federally-assisted alcohol or drug abuse programs. If such information is present, then the following federally mandated warning applies: This information has been disclosed to you from records protected by federal confidentiality rules (42 CFR part 2). The federal rules prohibit you from making any further disclosure of this information unless further disclosure is expressly permitted by the written consent of the person to whom it pertains or as otherwise permitted by 42 CFR part 2. A general authorization for the release of medical or other information is NOT sufficient for this purpose. The Federal rules restrict any use of the information to criminally investigate or prosecute any alcohol or drug abuse patient.The records that you are about to access may contain highly sensitive health information, the redisclosure of which is protected by Article 27-F of the [facility] Public Health law. If you continue you may have access to information: Regarding HIV / AIDS; Provided by facilities licensed or operated by the [facility] Office of Mental Health; or Provided by the [facility] Office for People With Developmental Disabilities. If such information is present, then the following [facility] mandated warning applies: This information has been disclosed to you from confidential records which are protected by state law. State law prohibits you from making any further disclosure of this information without the specific written consent of the person to whom it pertains, or as otherwise permitted by law. Any unauthorized further disclosure in violation of state law may result in a fine or fdc sentence or both. A general authorization for the release of medical or other information is NOT sufficient authorization for further disc losure. Allergies and Adverse Reactions Type Description Substance Reaction Status Data Source(s ) Environmental Allergy TAPE TAPE [facility] Encounters Encounter Providers Location Date Indications Data Source(s ) Outpatient Attender: Serenity Cartagena MD 05/30/2020 1 1:47:00 AM EST CHF,DYSPNEA [facility] CHF,DYSPNEA Outpatient Attender: Serenity MATHEWSeferrer: Serenity woodson MD 05/30/2020 11:14:00 AM EST - 05/30/2020 12:04:00 PM EST [facility] Outpatient Attender: Serenity Acostaerrer: Serenity woodson MD 04/28/2020 01:35:00 PM EST - 04/28/2020 01:40:00 PM EST [facility] Outpatient Attender: AGUSTIN PAK MD [facility] 04/28/2020 10:45:00 AM EST [facility] ([facility]) Outpatient Attender: Serenity Cartagena MDReferrer: Serenity woodson MD 04/27/2020 02:13:00 PM EST - 04/27/2020 02:49:00 PM EST [facility] Outpatient Attender: Serenity Cartagena MDReferrer: Serenity woodson MD 03/31/2020 02:23:00 PM EST - 03/31/2020 03:00:00 PM EST [facility] Outpatient Attender: JOSIANE BELL MD [facility] 02:30:00 PM EST [facility] Outpatient Attender: JOSIANE BELL MD [facility] 02:00:00 PM EST [facility] Outpatient Attender: David Robles MD [facility] 02/13 11:00:00 AM EST [facility] ([facility]) Outpatient Attender: Serenity Cartagena MDReferrer: Serenity woodson MD 02/05/2020 09:11:00 AM EDT - 02/05/2020 09:26:00 AM EDT [facility] Outpatient Attender: DRU MALIK MD [facility] 02/02 04:15:00 PM EDT [facility] ([facility]) Emergency Attender: Agustin Kelly MDConsultant: Agustin Girard MD 01/27/2020 04:41:00 PM EDT - 01/27/2020 09:15:00 PM EDT IRREGULAR BLOOD TEST RESULTS [facility] IRREGULAR BLOOD TEST RESULTS Patient discharged. Outpatient Attender: Carolina Vo NP 01/27/2020 11:00: 00 AM EDT I50.23,I34.0,N18.3 [facility] I50.23,I34.0,N18.3 Outpatient Attender: Carolina Vo NP [facility] 01/11 11:30:00 AM EDT [facility] Outpatient Attender: Serenity Cartagena MDReferrer: Serenity woodson MD 12/23/2019 11:30:00 AM EDT - 12/23/2019 12:08:00 PM EDT [facility] Outpatient Attender: Serenity Cartagena MD 12/10/2019 11:02:0 0 AM EDT [facility] Outpatient Attender: Serenity Cartagena MDReferrer: Serenity woodson MD 12/10/2019 10:29:00 AM EDT - 12/10/2019 10:53:00 AM EDT [facility] Emergency Attender: Agustin Bedoya MD 10:59:00 AM EDT - 12/02/2019 02:53:00 PM [facility] Outpatient Attender: Serenity Cartagena MDReferrer: Serenity woodson MD 11/12/2019 11:02:00 AM EDT - 11/12/2019 11:25:00 AM EDT [facility] Outpatient Attender: Serenity Cartagena MD 09/02/2019 12:18:0 0 PM EDT SCREENING [facility] SCREENING Outpatient Attender: Serenity Cartagena MDReferrer: Serenity woodson MD 08/12/2019 11:15:00 AM EDT - 08/12/2019 11:44:00 AM EDT [facility] Outpatient Attender: YCHANG [facility] 07/06/2019 09:01:08 PM ED T [facility] Outpatient Attender: Carolina Vo NP [facility] 06/09 01:00:00 PM EST [facility] ([facility]) Outpatient Attender: Tiesha Warren PAReferrer: Serenity ramos MD 06/04/2019 10:39:00 AM EST - 06/04/2019 11:22:00 AM EST [facility] Outpatient Attender: Serenity Cartagena MD 05/12/2019 01:18:0 0 PM EST I10 [facility] I10 Outpatient Attender: Serenity Cartagena MDReferrer: Serenity woodson MD 05/08/2019 12:55:00 PM EST - 05/08/2019 01:20:00 PM EST [facility] Immunizations Vaccine Date Status Description Data Source(s) IIV3. This is one of two codes replacing CVX 15, which is being retired. 04/28/2020 12:00:00 AM EST completed influenza vaccine, inactivated [facility] Medications Medication Brand Name Start Date Product Form Dose Route Admi nistrative Instructions Pharmacy Instructions Status Indications Reaction Description Data Source(s) Food Supplemt, Lactose-Reduced (Boost Br eeze Nutritional) 0.04-1.05 gram-kcal/mL liquid 05/20/2020 03:40:21 PM EST 1 EACH active [facility] Acetaminophen 325 MG / Hydrocodone Eleazar trate 7.5 MG Oral Tablet Hydrocodone-Acetaminophen Hydrocodone-Acetaminophen 05/16/2020 11:57:32 AM EST 1 TAB active [facility] Fluarix Quad (PF) (flu vacc [id number] 6mos up(PF)) 60 mcg (15 mcg x 04/28/2020 01:35:28 PM EST 0.5 ML completed [facility] Lorazepam 0.5 MG Oral Tablet Lorazepam 03/31/2020 02:58:07 PM EST 0.5 MG active [facility] Lorazepam 0.5 MG Oral Tablet Lorazepam 03/31/2020 02:58:07 PM EST 0.5 MG active [facility] Lorazepam 0.5 MG Oral Tablet Lorazepam 03/31/2020 02:58:07 PM EST 0.5 MG active [facility] Lorazepam 0.5 MG Oral Tablet Lorazepam 03/31/2020 02:58:07 PM EST 0.5 MG [facility] Spironolactone 25 MG Oral Tablet Spironolactone 03/31/2020 02:28:52 PM EST 25 MG active [facility] Spironolactone 25 MG Oral Tablet Spironolactone 03/31/2020 02:28:52 PM EST 25 MG active [facility] Spironolactone 25 MG Oral Tablet Spironolactone 03/31/2020 02:28:52 PM EST 25 MG active [facility] Spironolactone 25 MG Oral Tablet Spironolactone 03/31/2020 02:28:52 PM EST 25 MG active [facility] torsemide 20 MG Oral Tablet Torsemide 03/21/2020 12:00:00 AM EST ORAL active [facility] gabapentin 300 MG Oral Capsule Gabapentin Gabapentin 2019 11:54:44 AM EST 300 MG active [facility] gabapentin 300 MG Oral Capsule Gabapentin Gabapentin 2019 11:54:44 AM EST 300 MG active [facility] gabapentin 300 MG Oral Capsule Gabapentin Gabapentin 2019 11:54:44 AM EST 300 MG active [facility] gabapentin 300 MG Oral Capsule Gabapentin Gabapentin 2019 11:54:44 AM EST 300 MG active [facility] Omeprazole 40 MG Delayed Release Oral Capsule Omeprazole 02/15/2020 12:32:20 PM EST 40 MG active [facility] Omeprazole 40 MG Delayed Release Oral Capsule Omeprazole 02/15/2020 12:32:20 PM EST 40 MG active [facility] Omeprazole 40 MG Delayed Release Oral Capsule Omeprazole 02/15/2020 12:32:20 PM EST 40 MG active [facility] Omeprazole 40 MG Delayed Release Oral Capsule Omeprazole 02/15/2020 12:32:20 PM EST 40 MG active [facility] Azithromycin 02/05/2020 09:30:37 AM EDT 0 compl [facility] 02/05/2020 09:30:37 AM EDT 0 compl [facility] 02/05/2020 09:30:37 AM EDT 0 compl [facility] Azithromycin 02/05/2020 09:30:37 AM EDT 0 compl [facility] torsemide 20 MG Oral Tablet Torsemide Torsemide 02/05/2020 09:06 :17 AM EDT [address] [facility] torsemide 20 MG Oral Tablet Torsemide Torsemide 02/05/2020 09:06 :17 AM EDT 20 MG active [facility] torsemide 20 MG Oral Tablet Torsemide Torsemide 02/05/2020 09:06 :17 AM EDT [address] [facility] torsemide 20 MG Oral Tablet Torsemide Torsemide 02/05/2020 09:06 :17 AM EDT [address] [facility] torsemide 20 MG Oral Tablet Torsemide Torsemide 02/05/2020 09:06 :17 AM EDT [address] [facility] Acetaminophen 325 MG / Hydrocodone Eleazar trate 7.5 MG Oral Tablet Hydrocodone-Acetaminophen Hydrocodone-Acetaminophen 02/03/2020 10:18:58 AM EDT 1 TAB active [facility] Acetaminophen 325 MG / Hydrocodone Eleazar trate 7.5 MG Oral Tablet Hydrocodone-Acetaminophen Hydrocodone-Acetaminophen 02/03/2020 10:18:58 AM EDT 1 TAB active [facility] Acetaminophen 325 MG / Hydrocodone Eleazar trate 7.5 MG Oral Tablet Hydrocodone-Acetaminophen Hydrocodone-Acetaminophen 02/03/2020 10:18:58 AM EDT 1 TAB active [facility] Acetaminophen 325 MG / Hydrocodone Eleazar trate 7.5 MG Oral Tablet Hydrocodone-Acetaminophen Hydrocodone-Acetaminophen 02/03/2020 10:18:58 AM EDT 1 TAB active [facility] Acetaminophen 325 MG / Hydrocodone Eleazar trate 7.5 MG Oral Tablet Hydrocodone-Acetaminophen Hydrocodone-Acetaminophen 02/03/2020 10:18:58 AM EDT 1 TAB completed [facility] Hydralazine Hydrochloride 10 MG Oral Tablet Hydralazine HCL 02/03/2020 12:00:00 AM EDT ORAL active [facility] Furosemide 40 MG Oral Tablet Furosemide 01/27/2020 05:25:40 PM EDT 40 MG completed [facility] Furosemide 40 MG Oral Tablet Furosemide 01/27/2020 05:25:40 PM EDT 40 MG completed [facility] Furosemide 40 MG Oral Tablet Furosemide 01/27/2020 05:25:40 PM EDT 40 MG active [facility] Furosemide 40 MG Oral Tablet Furosemide 01/27/2020 05:25:40 PM EDT 40 MG completed [facility] Furosemide 40 MG Oral Tablet Furosemide 01/27/2020 05:25:40 PM EDT 40 MG completed [facility] Furosemide 40 MG Oral Tablet Furosemide 01/27/2020 05:25:40 PM EDT 40 MG completed [facility] gabapentin 100 MG Oral Capsule Gabapentin 01/12/2020 12:00:00 AM EDT completed [facility] Diazepam 5 MG Oral Tablet Diazepam 12/10/2019 10:52:55 AM EDT 5 MG active [facility] Diazepam 5 MG Oral Tablet Diazepam 12/10/2019 10:52:55 AM EDT 5 MG completed [facility] Diazepam 5 MG Oral Tablet Diazepam 12/10/2019 10:52:55 AM EDT 5 MG completed [facility] Diazepam 5 MG Oral Tablet Diazepam 12/10/2019 10:52:55 AM EDT 5 MG completed [facility] Diazepam 5 MG Oral Tablet Diazepam 12/10/2019 10:52:55 AM EDT 5 MG completed [facility] Diazepam 5 MG Oral Tablet Diazepam 12/10/2019 10:52:55 AM EDT 5 MG completed [facility] Diazepam 5 MG Oral Tablet Diazepam 12/10/2019 10:52:55 AM EDT 5 MG completed [facility] Acetaminophen 325 MG / Hydrocodone Eleazar trate 7.5 MG Oral Tablet Hydrocodone-Acetaminophen Hydrocodone-Acetaminophen 12/02/2019 02:01:10 PM EDT 1 TAB completed [facility] Acetaminophen 325 MG / Hydrocodone Eleazar trate 7.5 MG Oral Tablet Hydrocodone-Acetaminophen Hydrocodone-Acetaminophen 12/02/2019 02:01:10 PM EDT 1 TAB completed [facility] Acetaminophen 325 MG / Hydrocodone Eleazar trate 7.5 MG Oral Tablet Hydrocodone-Acetaminophen Hydrocodone-Acetaminophen 12/02/2019 02:01:10 PM EDT 1 TAB active [facility] Acetaminophen 325 MG / Hydrocodone Eleazar trate 7.5 MG Oral Tablet Hydrocodone-Acetaminophen Hydrocodone-Acetaminophen 12/02/2019 02:01:10 PM EDT 1 TAB completed [facility] Acetaminophen 325 MG / Hydrocodone Eleazar trate 7.5 MG Oral Tablet Hydrocodone-Acetaminophen Hydrocodone-Acetaminophen 12/02/2019 02:01:10 PM EDT 1 TAB active [facility] Acetaminophen 325 MG / Hydrocodone Eleazar trate 7.5 MG Oral Tablet Hydrocodone-Acetaminophen Hydrocodone-Acetaminophen 12/02/2019 02:01:10 PM EDT 1 TAB active [facility] Acetaminophen 325 MG / Hydrocodone Eleazar trate 7.5 MG Oral Tablet Hydrocodone-Acetaminophen Hydrocodone-Acetaminophen 12/02/2019 02:01:10 PM EDT 1 TAB completed [facility] Acetaminophen 325 MG / Hydrocodone Eleazar trate 7.5 MG Oral Tablet Hydrocodone-Acetaminophen Hydrocodone-Acetaminophen 12/02/2019 02:01:10 PM EDT 1 TAB active [facility] Acetaminophen 325 MG / Hydrocodone Eleazar trate 7.5 MG Oral Tablet Hydrocodone-Acetaminophen Hydrocodone-Acetaminophen 12/02/2019 02:01:10 PM EDT 1 TAB completed [facility] Diazepam 5 MG Oral Tablet Diazepam 12/02/2019 12:31:30 PM EDT 5 MG completed [facility] Diazepam 5 MG Oral Tablet Diazepam 12/02/2019 12:31:30 PM EDT 5 MG completed [facility] Diazepam 5 MG Oral Tablet Diazepam 12/02/2019 12:31:30 PM EDT 5 MG completed [facility] Diazepam 5 MG Oral Tablet Diazepam 12/02/2019 12:31:30 PM EDT 5 MG active [facility] Diazepam 5 MG Oral Tablet Diazepam 12/02/2019 12:31:30 PM EDT 5 MG completed [facility] Diazepam 5 MG Oral Tablet Diazepam 12/02/2019 12:31:30 PM EDT 5 MG completed [facility] Diazepam 5 MG Oral Tablet Diazepam 12/02/2019 12:31:30 PM EDT 5 MG active [facility] Diazepam 5 MG Oral Tablet Diazepam 12/02/2019 12:31:30 PM EDT 5 MG completed [facility] Diazepam 5 MG Oral Tablet Diazepam 12/02/2019 12:31:30 PM EDT 5 MG completed [facility] gabapentin 300 MG Oral Capsule Gabapentin Gabapentin 2019 11:26:35 AM EDT 300 MG active [facility] gabapentin 300 MG Oral Capsule Gabapentin Gabapentin 2019 11:26:35 AM EDT 300 MG active [facility] gabapentin 300 MG Oral Capsule Gabapentin Gabapentin 2019 11:26:35 AM EDT 300 MG completed [facility] gabapentin 300 MG Oral Capsule Gabapentin Gabapentin 2019 11:26:35 AM EDT 300 MG active [facility] gabapentin 300 MG Oral Capsule Gabapentin Gabapentin 2019 11:26:35 AM EDT 300 MG completed [facility] gabapentin 300 MG Oral Capsule Gabapentin Gabapentin 2019 11:26:35 AM EDT 300 MG active [facility] gabapentin 300 MG Oral Capsule Gabapentin Gabapentin 2019 11:26:35 AM EDT 300 MG completed [facility] gabapentin 300 MG Oral Capsule Gabapentin Gabapentin 2019 11:26:35 AM EDT 300 MG completed [facility] gabapentin 300 MG Oral Capsule Gabapentin Gabapentin 2019 11:26:35 AM EDT 300 MG active [facility] Acetaminophen 325 MG / Hydrocodone Eleazar trate 7.5 MG Oral Tablet Hydrocodone-Acetaminophen Hydrocodone-Acetaminophen 11/02/2019 12:45:41 PM EDT 1 TAB completed [facility] Acetaminophen 325 MG / Hydrocodone Eleazar trate 7.5 MG Oral Tablet Hydrocodone-Acetaminophen Hydrocodone-Acetaminophen 11/02/2019 12:45:41 PM EDT 1 TAB completed [facility] Acetaminophen 325 MG / Hydrocodone Eleazar trate 7.5 MG Oral Tablet Hydrocodone-Acetaminophen Hydrocodone-Acetaminophen 11/02/2019 12:45:41 PM EDT 1 TAB completed [facility] Acetaminophen 325 MG / Hydrocodone Eleazar trate 7.5 MG Oral Tablet Hydrocodone-Acetaminophen Hydrocodone-Acetaminophen 11/02/2019 12:45:41 PM EDT 1 TAB completed [facility] Acetaminophen 325 MG / Hydrocodone Eleazar trate 7.5 MG Oral Tablet Hydrocodone-Acetaminophen Hydrocodone-Acetaminophen 11/02/2019 12:45:41 PM EDT 1 TAB completed [facility] Acetaminophen 325 MG / Hydrocodone Eleazar trate 7.5 MG Oral Tablet Hydrocodone-Acetaminophen Hydrocodone-Acetaminophen 11/02/2019 12:45:41 PM EDT 1 TAB completed [facility] Acetaminophen 325 MG / Hydrocodone Eleazar trate 7.5 MG Oral Tablet Hydrocodone-Acetaminophen Hydrocodone-Acetaminophen 11/02/2019 12:45:41 PM EDT 1 TAB active [facility] Acetaminophen 325 MG / Hydrocodone Eleazar trate 7.5 MG Oral Tablet Hydrocodone-Acetaminophen Hydrocodone-Acetaminophen 11/02/2019 12:45:41 PM EDT 1 TAB completed [facility] Acetaminophen 325 MG / Hydrocodone Eleazar trate 7.5 MG Oral Tablet Hydrocodone-Acetaminophen Hydrocodone-Acetaminophen 11/02/2019 12:45:41 PM EDT 1 TAB completed [facility] Acetaminophen 325 MG / Hydrocodone Eleazar trate 7.5 MG Oral Tablet Hydrocodone-Acetaminophen Hydrocodone-Acetaminophen 11/02/2019 12:45:41 PM EDT 1 TAB completed [facility] Acetaminophen 325 MG / Hydrocodone Eleazar trate 7.5 MG Oral Tablet Hydrocodone-Acetaminophen Hydrocodone-Acetaminophen 09/30/2019 01:05:18 PM EDT 1 TAB completed [facility] Acetaminophen 325 MG / Hydrocodone Eleazar trate 7.5 MG Oral Tablet Hydrocodone-Acetaminophen Hydrocodone-Acetaminophen 09/30/2019 01:05:18 PM EDT 1 TAB completed [facility] Acetaminophen 325 MG / Hydrocodone Eleazar trate 7.5 MG Oral Tablet Hydrocodone-Acetaminophen Hydrocodone-Acetaminophen 09/30/2019 01:05:18 PM EDT 1 TAB completed [facility] Acetaminophen 325 MG / Hydrocodone Eleazar trate 7.5 MG Oral Tablet Hydrocodone-Acetaminophen Hydrocodone-Acetaminophen 09/30/2019 01:05:18 PM EDT 1 TAB completed [facility] Acetaminophen 325 MG / Hydrocodone Eleazar trate 7.5 MG Oral Tablet Hydrocodone-Acetaminophen Hydrocodone-Acetaminophen 09/30/2019 01:05:18 PM EDT 1 TAB completed [facility] Acetaminophen 325 MG / Hydrocodone Eleazar trate 7.5 MG Oral Tablet Hydrocodone-Acetaminophen Hydrocodone-Acetaminophen 09/30/2019 01:05:18 PM EDT 1 TAB completed [facility] Acetaminophen 325 MG / Hydrocodone Eleazar trate 7.5 MG Oral Tablet Hydrocodone-Acetaminophen Hydrocodone-Acetaminophen 09/30/2019 01:05:18 PM EDT 1 TAB completed [facility] Acetaminophen 325 MG / Hydrocodone Eleazar trate 7.5 MG Oral Tablet Hydrocodone-Acetaminophen Hydrocodone-Acetaminophen 09/30/2019 01:05:18 PM EDT 1 TAB completed [facility] Acetaminophen 325 MG / Hydrocodone Eleazar trate 7.5 MG Oral Tablet Hydrocodone-Acetaminophen Hydrocodone-Acetaminophen 09/30/2019 01:05:18 PM EDT 1 TAB completed [facility] Acetaminophen 325 MG / Hydrocodone Eleazar trate 7.5 MG Oral Tablet Hydrocodone-Acetaminophen Hydrocodone-Acetaminophen 09/30/2019 01:05:18 PM EDT 1 TAB completed [facility] Acetaminophen 325 MG / Hydrocodone Eleazar trate 7.5 MG Oral Tablet Hydrocodone-Acetaminophen Hydrocodone-Acetaminophen 09/30/2019 12:57:24 PM EDT 1 TAB completed [facility] Acetaminophen 325 MG / Hydrocodone Eleazar trate 7.5 MG Oral Tablet Hydrocodone-Acetaminophen Hydrocodone-Acetaminophen 09/30/2019 12:57:24 PM EDT 1 TAB completed [facility] Acetaminophen 325 MG / Hydrocodone Eleazar trate 7.5 MG Oral Tablet Hydrocodone-Acetaminophen Hydrocodone-Acetaminophen 09/30/2019 12:57:24 PM EDT 1 TAB completed [facility] Acetaminophen 325 MG / Hydrocodone Eleazar trate 7.5 MG Oral Tablet Hydrocodone-Acetaminophen Hydrocodone-Acetaminophen 09/30/2019 12:57:24 PM EDT 1 TAB completed [facility] Acetaminophen 325 MG / Hydrocodone Eleazar trate 7.5 MG Oral Tablet Hydrocodone-Acetaminophen Hydrocodone-Acetaminophen 09/30/2019 12:57:24 PM EDT 1 TAB completed [facility] Acetaminophen 325 MG / Hydrocodone Eleazar trate 7.5 MG Oral Tablet Hydrocodone-Acetaminophen Hydrocodone-Acetaminophen 09/30/2019 12:57:24 PM EDT 1 TAB completed [facility] Acetaminophen 325 MG / Hydrocodone Eleazar trate 7.5 MG Oral Tablet Hydrocodone-Acetaminophen Hydrocodone-Acetaminophen 09/30/2019 12:57:24 PM EDT 1 TAB completed [facility] Acetaminophen 325 MG / Hydrocodone Eleazar trate 7.5 MG Oral Tablet Hydrocodone-Acetaminophen Hydrocodone-Acetaminophen 09/30/2019 12:57:24 PM EDT 1 TAB completed [facility] Acetaminophen 325 MG / Hydrocodone Eleazar trate 7.5 MG Oral Tablet Hydrocodone-Acetaminophen Hydrocodone-Acetaminophen 09/30/2019 12:57:24 PM EDT 1 TAB completed [facility] Acetaminophen 325 MG / Hydrocodone Eleazar trate 7.5 MG Oral Tablet Hydrocodone-Acetaminophen Hydrocodone-Acetaminophen 09/30/2019 12:57:24 PM EDT 1 TAB completed [facility] Acetaminophen 325 MG / Hydrocodone Eleazar trate 7.5 MG Oral Tablet Hydrocodone-Acetaminophen Hydrocodone-Acetaminophen 08/31/2019 01:08:48 PM EDT 1 TAB completed [facility] Acetaminophen 325 MG / Hydrocodone Eleazar trate 7.5 MG Oral Tablet Hydrocodone-Acetaminophen Hydrocodone-Acetaminophen 08/31/2019 01:08:48 PM EDT 1 TAB completed [facility] Acetaminophen 325 MG / Hydrocodone Eleazar trate 7.5 MG Oral Tablet Hydrocodone-Acetaminophen Hydrocodone-Acetaminophen 08/31/2019 01:08:48 PM EDT 1 TAB completed [facility] Acetaminophen 325 MG / Hydrocodone Eleazar trate 7.5 MG Oral Tablet Hydrocodone-Acetaminophen Hydrocodone-Acetaminophen 08/31/2019 01:08:48 PM EDT 1 TAB completed [facility] Acetaminophen 325 MG / Hydrocodone Eleazar trate 7.5 MG Oral Tablet Hydrocodone-Acetaminophen Hydrocodone-Acetaminophen 08/31/2019 01:08:48 PM EDT 1 TAB completed [facility] Acetaminophen 325 MG / Hydrocodone Eleazar trate 7.5 MG Oral Tablet Hydrocodone-Acetaminophen Hydrocodone-Acetaminophen 08/31/2019 01:08:48 PM EDT 1 TAB completed [facility] Acetaminophen 325 MG / Hydrocodone Eleazar trate 7.5 MG Oral Tablet Hydrocodone-Acetaminophen Hydrocodone-Acetaminophen 08/31/2019 01:08:48 PM EDT 1 TAB completed [facility] Acetaminophen 325 MG / Hydrocodone Eleazar trate 7.5 MG Oral Tablet Hydrocodone-Acetaminophen Hydrocodone-Acetaminophen 08/31/2019 01:08:48 PM EDT 1 TAB completed [facility] Acetaminophen 325 MG / Hydrocodone Eleazar trate 7.5 MG Oral Tablet Hydrocodone-Acetaminophen Hydrocodone-Acetaminophen 08/31/2019 01:08:48 PM EDT 1 TAB completed [facility] Acetaminophen 325 MG / Hydrocodone Eleazar trate 7.5 MG Oral Tablet Hydrocodone-Acetaminophen Hydrocodone-Acetaminophen 08/31/2019 01:08:48 PM EDT 1 TAB completed [facility] gabapentin 100 MG Oral Capsule Gabapentin Gabapentin 2019 11:56:20 AM EDT 100 MG completed [facility] gabapentin 100 MG Oral Capsule Gabapentin Gabapentin 2019 11:56:20 AM EDT 100 MG active [facility] gabapentin 100 MG Oral Capsule Gabapentin Gabapentin 2019 11:56:20 AM EDT 100 MG completed [facility] gabapentin 100 MG Oral Capsule Gabapentin Gabapentin 2019 11:56:20 AM EDT 100 MG completed [facility] gabapentin 100 MG Oral Capsule Gabapentin Gabapentin 2019 11:56:20 AM EDT 100 MG completed [facility] gabapentin 100 MG Oral Capsule Gabapentin Gabapentin 2019 11:56:20 AM EDT 100 MG completed [facility] gabapentin 100 MG Oral Capsule Gabapentin Gabapentin 2019 11:56:20 AM EDT 100 MG completed [facility] gabapentin 100 MG Oral Capsule Gabapentin Gabapentin 2019 11:56:20 AM EDT 100 MG completed [facility] gabapentin 100 MG Oral Capsule Gabapentin Gabapentin 2019 11:56:20 AM EDT 100 MG completed [facility] gabapentin 100 MG Oral Capsule Gabapentin Gabapentin 2019 11:56:20 AM EDT 100 MG completed [facility] gabapentin 100 MG Oral Capsule Gabapentin Gabapentin 2019 11:44:55 AM EDT 100 MG completed [facility] gabapentin 100 MG Oral Capsule Gabapentin Gabapentin 2019 11:44:55 AM EDT 100 MG completed [facility] gabapentin 100 MG Oral Capsule Gabapentin Gabapentin 2019 11:44:55 AM EDT 100 MG completed [facility] gabapentin 100 MG Oral Capsule Gabapentin Gabapentin 2019 11:44:55 AM EDT 100 MG completed [facility] gabapentin 100 MG Oral Capsule Gabapentin Gabapentin 2019 11:44:55 AM EDT 100 MG completed [facility] gabapentin 100 MG Oral Capsule Gabapentin Gabapentin 2019 11:44:55 AM EDT 100 MG completed [facility] gabapentin 100 MG Oral Capsule Gabapentin Gabapentin 2019 11:44:55 AM EDT 100 MG completed [facility] gabapentin 100 MG Oral Capsule Gabapentin Gabapentin 2019 11:44:55 AM EDT 100 MG completed [facility] gabapentin 100 MG Oral Capsule Gabapentin Gabapentin 2019 11:44:55 AM EDT 100 MG completed [facility] gabapentin 100 MG Oral Capsule Gabapentin Gabapentin 2019 11:44:55 AM EDT 100 MG completed [facility] Pravastatin Sodium 80 MG Oral Tablet Pravastatin 08/12/2019 11:31: 07 AM EDT 80 MG active [facility] Pravastatin Sodium 80 MG Oral Tablet Pravastatin 08/12/2019 11:31: 07 AM EDT 80 MG active [facility] Pravastatin Sodium 80 MG Oral Tablet Pravastatin 08/12/2019 11:31: 07 AM EDT 80 MG active [facility] Pravastatin Sodium 80 MG Oral Tablet Pravastatin 08/12/2019 11:31: 07 AM EDT 80 MG active [facility] Pravastatin Sodium 80 MG Oral Tablet Pravastatin 08/12/2019 11:31: 07 AM EDT 80 MG active [facility] Pravastatin Sodium 80 MG Oral Tablet Pravastatin 08/12/2019 11:31: 07 AM EDT 80 MG active [facility] Pravastatin Sodium 80 MG Oral Tablet Pravastatin 08/12/2019 11:31: 07 AM EDT 80 MG active [facility] Pravastatin Sodium 80 MG Oral Tablet Pravastatin 08/12/2019 11:31: 07 AM EDT 80 MG active [facility] Pravastatin Sodium 80 MG Oral Tablet Pravastatin 08/12/2019 11:31: 07 AM EDT 80 MG active [facility] Pravastatin Sodium 80 MG Oral Tablet Pravastatin 08/12/2019 11:31: 07 AM EDT 80 MG active [facility] Pravastatin Sodium 80 MG Oral Tablet Pravastatin 08/12/2019 11:31: 07 AM EDT 80 MG completed [facility] Acetaminophen 325 MG / Hydrocodone Eleazar trate 7.5 MG Oral Tablet Hydrocodone-Acetaminophen Hydrocodone-Acetaminophen 07/31/2019 02:13:28 PM EDT 1 TAB completed [facility] Acetaminophen 325 MG / Hydrocodone Eleazar trate 7.5 MG Oral Tablet Hydrocodone-Acetaminophen Hydrocodone-Acetaminophen 07/31/2019 02:13:28 PM EDT 1 TAB completed [facility] Acetaminophen 325 MG / Hydrocodone Eleazar trate 7.5 MG Oral Tablet Hydrocodone-Acetaminophen Hydrocodone-Acetaminophen 07/31/2019 02:13:28 PM EDT 1 TAB completed [facility] Acetaminophen 325 MG / Hydrocodone Eleazar trate 7.5 MG Oral Tablet Hydrocodone-Acetaminophen Hydrocodone-Acetaminophen 07/31/2019 02:13:28 PM EDT 1 TAB completed [facility] Acetaminophen 325 MG / Hydrocodone Eleazar trate 7.5 MG Oral Tablet Hydrocodone-Acetaminophen Hydrocodone-Acetaminophen 07/31/2019 02:13:28 PM EDT 1 TAB completed [facility] Acetaminophen 325 MG / Hydrocodone Eleazar trate 7.5 MG Oral Tablet Hydrocodone-Acetaminophen Hydrocodone-Acetaminophen 07/31/2019 02:13:28 PM EDT 1 TAB completed [facility] Acetaminophen 325 MG / Hydrocodone Eleazar trate 7.5 MG Oral Tablet Hydrocodone-Acetaminophen Hydrocodone-Acetaminophen 07/31/2019 02:13:28 PM EDT 1 TAB completed [facility] Acetaminophen 325 MG / Hydrocodone Eleazar trate 7.5 MG Oral Tablet Hydrocodone-Acetaminophen Hydrocodone-Acetaminophen 07/31/2019 02:13:28 PM EDT 1 TAB active [facility] Acetaminophen 325 MG / Hydrocodone Eleazar trate 7.5 MG Oral Tablet Hydrocodone-Acetaminophen Hydrocodone-Acetaminophen 07/31/2019 02:13:28 PM EDT 1 TAB completed [facility] Acetaminophen 325 MG / Hydrocodone Eleazar trate 7.5 MG Oral Tablet Hydrocodone-Acetaminophen Hydrocodone-Acetaminophen 07/31/2019 02:13:28 PM EDT 1 TAB completed [facility] Acetaminophen 325 MG / Hydrocodone Eleazar trate 7.5 MG Oral Tablet Hydrocodone-Acetaminophen Hydrocodone-Acetaminophen 07/31/2019 02:13:28 PM EDT 1 TAB completed [facility] Lisinopril 10 MG Oral Tablet Lisinopril (Prinivil) 10 mg tablet Lisinopril (Prinivil) 10 mg tablet 07/31/2019 01:25:03 PM EDT 10 MG completed [facility] Lisinopril 10 MG Oral Tablet Lisinopril (Prinivil) 10 mg tablet Lisinopril (Prinivil) 10 mg tablet 07/31/2019 01:25:03 PM EDT 10 MG active [facility] Lisinopril 10 MG Oral Tablet Lisinopril (Prinivil) 10 mg tablet Lisinopril (Prinivil) 10 mg tablet 07/31/2019 01:25:03 PM EDT 10 MG completed [facility] Lisinopril 10 MG Oral Tablet Lisinopril 07/31/2019 01:25:03 PM EDT 10 MG active [facility] Lisinopril 10 MG Oral Tablet Lisinopril (Prinivil) 10 mg tablet Lisinopril (Prinivil) 10 mg tablet 07/31/2019 01:25:03 PM EDT 10 MG active [facility] Lisinopril 10 MG Oral Tablet Lisinopril (Prinivil) 10 mg tablet Lisinopril (Prinivil) 10 mg tablet 07/31/2019 01:25:03 PM EDT 10 MG active [facility] Lisinopril 10 MG Oral Tablet Lisinopril (Prinivil) 10 mg tablet Lisinopril (Prinivil) 10 mg tablet 07/31/2019 01:25:03 PM EDT 10 MG completed [facility] Lisinopril 10 MG Oral Tablet Lisinopril (Prinivil) 10 mg tablet Lisinopril (Prinivil) 10 mg tablet 07/31/2019 01:25:03 PM EDT 10 MG active [facility] Lisinopril 10 MG Oral Tablet Lisinopril (Prinivil) 10 mg tablet Lisinopril (Prinivil) 10 mg tablet 07/31/2019 01:25:03 PM EDT 10 MG active [facility] Lisinopril 10 MG Oral Tablet Lisinopril (Prinivil) 10 mg tablet Lisinopril (Prinivil) 10 mg tablet 07/31/2019 01:25:03 PM EDT 10 MG completed [facility] Lisinopril 10 MG Oral Tablet Lisinopril (Prinivil) 10 mg tablet Lisinopril (Prinivil) 10 mg tablet 07/31/2019 01:25:03 PM EDT 10 MG completed [facility] Acetaminophen 325 MG / Hydrocodone Eleazar trate 7.5 MG Oral Tablet Hydrocodone-Acetaminophen Hydrocodone-Acetaminophen 06/29/2019 12:50:56 PM EDT 1 TAB completed [facility] Acetaminophen 325 MG / Hydrocodone Eleazar trate 7.5 MG Oral Tablet Hydrocodone-Acetaminophen Hydrocodone-Acetaminophen 06/29/2019 12:50:56 PM EDT 1 TAB completed [facility] Acetaminophen 325 MG / Hydrocodone Eleazar trate 7.5 MG Oral Tablet Hydrocodone-Acetaminophen Hydrocodone-Acetaminophen 06/29/2019 12:50:56 PM EDT 1 TAB completed [facility] Acetaminophen 325 MG / Hydrocodone Eleazar trate 7.5 MG Oral Tablet Hydrocodone-Acetaminophen Hydrocodone-Acetaminophen 06/29/2019 12:50:56 PM EDT 1 TAB completed [facility] Acetaminophen 325 MG / Hydrocodone Eleazar trate 7.5 MG Oral Tablet Hydrocodone-Acetaminophen Hydrocodone-Acetaminophen 06/29/2019 12:50:56 PM EDT 1 TAB completed [facility] Acetaminophen 325 MG / Hydrocodone Eleazar trate 7.5 MG Oral Tablet Hydrocodone-Acetaminophen Hydrocodone-Acetaminophen 06/29/2019 12:50:56 PM EDT 1 TAB completed [facility] Acetaminophen 325 MG / Hydrocodone Eleazar trate 7.5 MG Oral Tablet Hydrocodone-Acetaminophen Hydrocodone-Acetaminophen 06/29/2019 12:50:56 PM EDT 1 TAB completed [facility] Acetaminophen 325 MG / Hydrocodone Eleazar trate 7.5 MG Oral Tablet Hydrocodone-Acetaminophen Hydrocodone-Acetaminophen 06/29/2019 12:50:56 PM EDT 1 TAB completed [facility] Acetaminophen 325 MG / Hydrocodone Eleazar trate 7.5 MG Oral Tablet Hydrocodone-Acetaminophen Hydrocodone-Acetaminophen 06/29/2019 12:50:56 PM EDT 1 TAB completed [facility] Acetaminophen 325 MG / Hydrocodone Eleazar trate 7.5 MG Oral Tablet Hydrocodone-Acetaminophen Hydrocodone-Acetaminophen 06/29/2019 12:50:56 PM EDT 1 TAB completed [facility] Acetaminophen 325 MG / Hydrocodone Eleazar trate 7.5 MG Oral Tablet Hydrocodone-Acetaminophen Hydrocodone-Acetaminophen 06/29/2019 12:50:56 PM EDT 1 TAB completed [facility] Acetaminophen 325 MG / Hydrocodone Eleazar trate 7.5 MG Oral Tablet Hydrocodone-Acetaminophen Hydrocodone-Acetaminophen 06/29/2019 12:48:33 PM EDT 1 TAB completed [facility] Acetaminophen 325 MG / Hydrocodone Eleazar trate 7.5 MG Oral Tablet Hydrocodone-Acetaminophen Hydrocodone-Acetaminophen 06/29/2019 12:48:33 PM EDT 1 TAB completed [facility] Acetaminophen 325 MG / Hydrocodone Eleazar trate 7.5 MG Oral Tablet Hydrocodone-Acetaminophen Hydrocodone-Acetaminophen 06/29/2019 12:48:33 PM EDT 1 TAB completed [facility] Acetaminophen 325 MG / Hydrocodone Eleazar trate 7.5 MG Oral Tablet Hydrocodone-Acetaminophen Hydrocodone-Acetaminophen 06/29/2019 12:48:33 PM EDT 1 TAB completed [facility] Acetaminophen 325 MG / Hydrocodone Eleazar trate 7.5 MG Oral Tablet Hydrocodone-Acetaminophen Hydrocodone-Acetaminophen 06/29/2019 12:48:33 PM EDT 1 TAB completed [facility] Acetaminophen 325 MG / Hydrocodone Eleazar trate 7.5 MG Oral Tablet Hydrocodone-Acetaminophen Hydrocodone-Acetaminophen 06/29/2019 12:48:33 PM EDT 1 TAB completed [facility] Acetaminophen 325 MG / Hydrocodone Eleazar trate 7.5 MG Oral Tablet Hydrocodone-Acetaminophen Hydrocodone-Acetaminophen 06/29/2019 12:48:33 PM EDT 1 TAB completed [facility] Acetaminophen 325 MG / Hydrocodone Eleazar trate 7.5 MG Oral Tablet Hydrocodone-Acetaminophen Hydrocodone-Acetaminophen 06/29/2019 12:48:33 PM EDT 1 TAB completed [facility] Acetaminophen 325 MG / Hydrocodone Eleazar trate 7.5 MG Oral Tablet Hydrocodone-Acetaminophen Hydrocodone-Acetaminophen 06/29/2019 12:48:33 PM EDT 1 TAB completed [facility] Acetaminophen 325 MG / Hydrocodone Eleazar trate 7.5 MG Oral Tablet Hydrocodone-Acetaminophen Hydrocodone-Acetaminophen 06/29/2019 12:48:33 PM EDT 1 TAB completed [facility] Acetaminophen 325 MG / Hydrocodone Eleazar trate 7.5 MG Oral Tablet Hydrocodone-Acetaminophen Hydrocodone-Acetaminophen 06/29/2019 12:48:33 PM EDT 1 TAB completed [facility] carvedilol 6.25 MG Oral Tablet Carvedilol Carvedilol 2019 12:39:07 PM EST 6.25 MG active [facility] carvedilol 6.25 MG Oral Tablet Carvedilol Carvedilol 2019 12:39:07 PM EST 6.25 MG active [facility] carvedilol 6.25 MG Oral Tablet Carvedilol Carvedilol 2019 12:39:07 PM EST 6.25 MG active [facility] carvedilol 6.25 MG Oral Tablet Carvedilol Carvedilol 2019 12:39:07 PM EST 6.25 MG active [facility] carvedilol 6.25 MG Oral Tablet Carvedilol Carvedilol 2019 12:39:07 PM EST 6.25 MG active [facility] carvedilol 6.25 MG Oral Tablet Carvedilol Carvedilol 2019 12:39:07 PM EST 6.25 MG active [facility] carvedilol 6.25 MG Oral Tablet Carvedilol Carvedilol 2019 12:39:07 PM EST 6.25 MG active [facility] carvedilol 6.25 MG Oral Tablet Carvedilol Carvedilol 2019 12:39:07 PM EST 6.25 MG active [facility] carvedilol 6.25 MG Oral Tablet Carvedilol Carvedilol 2019 12:39:07 PM EST 6.25 MG active [facility] carvedilol 6.25 MG Oral Tablet Carvedilol Carvedilol 2019 12:39:07 PM EST 6.25 MG active [facility] carvedilol 6.25 MG Oral Tablet Carvedilol Carvedilol 2019 12:39:07 PM EST 6.25 MG active [facility] Acetaminophen 325 MG / Hydrocodone Eleazar trate 7.5 MG Oral Tablet Hydrocodone-Acetaminophen Hydrocodone-Acetaminophen 05/29/2019 12:34:36 PM EST 1 TAB completed [facility] Acetaminophen 325 MG / Hydrocodone Eleazar trate 7.5 MG Oral Tablet Hydrocodone-Acetaminophen Hydrocodone-Acetaminophen 05/29/2019 12:34:36 PM EST 1 TAB completed [facility] Acetaminophen 325 MG / Hydrocodone Eleazar trate 7.5 MG Oral Tablet Hydrocodone-Acetaminophen Hydrocodone-Acetaminophen 05/29/2019 12:34:36 PM EST 1 TAB completed [facility] Acetaminophen 325 MG / Hydrocodone Eleazar trate 7.5 MG Oral Tablet Hydrocodone-Acetaminophen Hydrocodone-Acetaminophen 05/29/2019 12:34:36 PM EST 1 TAB completed [facility] Acetaminophen 325 MG / Hydrocodone Eleazar trate 7.5 MG Oral Tablet Hydrocodone-Acetaminophen Hydrocodone-Acetaminophen 05/29/2019 12:34:36 PM EST 1 TAB completed [facility] Acetaminophen 325 MG / Hydrocodone Eleazar trate 7.5 MG Oral Tablet Hydrocodone-Acetaminophen Hydrocodone-Acetaminophen 05/29/2019 12:34:36 PM EST 1 TAB completed [facility] Acetaminophen 325 MG / Hydrocodone Eleazar trate 7.5 MG Oral Tablet Hydrocodone-Acetaminophen Hydrocodone-Acetaminophen 05/29/2019 12:34:36 PM EST 1 TAB completed [facility] Acetaminophen 325 MG / Hydrocodone Eleazar trate 7.5 MG Oral Tablet Hydrocodone-Acetaminophen Hydrocodone-Acetaminophen 05/29/2019 12:34:36 PM EST 1 TAB completed [facility] Acetaminophen 325 MG / Hydrocodone Eleazar trate 7.5 MG Oral Tablet Hydrocodone-Acetaminophen Hydrocodone-Acetaminophen 05/29/2019 12:34:36 PM EST 1 TAB completed [facility] Acetaminophen 325 MG / Hydrocodone Eleazar trate 7.5 MG Oral Tablet Hydrocodone-Acetaminophen Hydrocodone-Acetaminophen 05/29/2019 12:34:36 PM EST 1 TAB completed [facility] Acetaminophen 325 MG / Hydrocodone Eleazar trate 7.5 MG Oral Tablet Hydrocodone-Acetaminophen Hydrocodone-Acetaminophen 05/29/2019 12:34:36 PM EST 1 TAB completed [facility] Acetaminophen 325 MG / Hydrocodone Eleazar trate 7.5 MG Oral Tablet Hydrocodone-Acetaminophen Hydrocodone-Acetaminophen 05/29/2019 12:34:36 PM EST 1 TAB active [facility] Levothyroxine Sodium 0.05 MG Oral Tablet Levothyroxine 05/14/2019 04:23:31 PM EST 50 MCG active [facility] Levothyroxine Sodium 0.05 MG Oral Tablet Levothyroxine 05/14/2019 04:23:31 PM EST 50 MCG active [facility] Levothyroxine Sodium 0.05 MG Oral Tablet Levothyroxine 05/14/2019 04:23:31 PM EST 50 MCG active [facility] Levothyroxine Sodium 0.05 MG Oral Tablet Levothyroxine 05/14/2019 04:23:31 PM EST 50 MCG active [facility] Levothyroxine Sodium 0.05 MG Oral Tablet Levothyroxine 05/14/2019 04:23:31 PM EST 50 MCG active [facility] Levothyroxine Sodium 0.05 MG Oral Tablet Levothyroxine 05/14/2019 04:23:31 PM EST 50 MCG active [facility] Levothyroxine Sodium 0.05 MG Oral Tablet Levothyroxine 05/14/2019 04:23:31 PM EST 50 MCG active [facility] Levothyroxine Sodium 0.05 MG Oral Tablet Levothyroxine 05/14/2019 04:23:31 PM EST 50 MCG active [facility] Levothyroxine Sodium 0.05 MG Oral Tablet Levothyroxine 05/14/2019 04:23:31 PM EST 50 MCG active [facility] Levothyroxine Sodium 0.05 MG Oral Tablet Levothyroxine 05/14/2019 04:23:31 PM EST 50 MCG active [facility] Levothyroxine Sodium 0.05 MG Oral Tablet Levothyroxine 05/14/2019 04:23:31 PM EST 50 MCG active [facility] Levothyroxine Sodium 0.05 MG Oral Tablet Levothyroxine 05/14/2019 04:23:31 PM EST 50 MCG active [facility] Amoxicillin 500 MG / Clavulanate 125 MG Oral Tablet Amoxicillin-Pot Clavulanate (Augmentin) 500-125 mg tablet Amoxicillin-Pot Clavulanate (Augmentin) 500-125 mg tablet 05/11/2019 10:38:52 AM EST 1 TAB completed [facility] Amoxicillin 500 MG / Clavulanate 125 MG Oral Tablet Am oxicillin-Pot Clavulanate Amoxicillin-Pot Clavulanate 05/11/2019 10:38:52 AM EST 1 TAB completed [facility] Amoxicillin 500 MG / Clavulanate 125 MG Oral Tablet Amoxicillin-Pot Clavulanate (Augmentin) 500-125 mg tablet Amoxicillin-Pot Clavulanate (Augmentin) 500-125 mg tablet 05/11/2019 10:38:52 AM EST 1 TAB completed [facility] Amoxicillin 500 MG / Clavulanate 125 MG Oral Tablet Amoxicillin-Pot Clavulanate (Augmentin) 500-125 mg tablet Amoxicillin-Pot Clavulanate (Augmentin) 500-125 mg tablet 05/11/2019 10:38:52 AM EST 1 TAB completed [facility] Amoxicillin 500 MG / Clavulanate 125 MG Oral Tablet Amoxicillin-Pot Clavulanate (Augmentin) 500-125 mg tablet Amoxicillin-Pot Clavulanate (Augmentin) 500-125 mg tablet 05/11/2019 10:38:52 AM EST 1 TAB completed [facility] Amoxicillin 500 MG / Clavulanate 125 MG Oral Tablet Amoxicillin-Pot Clavulanate (Augmentin) 500-125 mg tablet Amoxicillin-Pot Clavulanate (Augmentin) 500-125 mg tablet 05/11/2019 10:38:52 AM EST 1 TAB completed [facility] Amoxicillin 500 MG / Clavulanate 125 MG Oral Tablet Amoxicillin-Pot Clavulanate (Augmentin) 500-125 mg tablet Amoxicillin-Pot Clavulanate (Augmentin) 500-125 mg tablet 05/11/2019 10:38:52 AM EST 1 TAB completed [facility] Amoxicillin 500 MG / Clavulanate 125 MG Oral Tablet Amoxicillin-Pot Clavulanate (Augmentin) 500-125 mg tablet Amoxicillin-Pot Clavulanate (Augmentin) 500-125 mg tablet 05/11/2019 10:38:52 AM EST 1 TAB completed [facility] Amoxicillin 500 MG / Clavulanate 125 MG Oral Tablet Am oxicillin-Pot Clavulanate Amoxicillin-Pot Clavulanate 05/11/2019 10:38:52 AM EST 1 TAB completed [facility] Amoxicillin 500 MG / Clavulanate 125 MG Oral Tablet Amoxicillin-Pot Clavulanate (Augmentin) 500-125 mg tablet Amoxicillin-Pot Clavulanate (Augmentin) 500-125 mg tablet 05/11/2019 10:38:52 AM EST 1 TAB completed [facility] Amoxicillin 500 MG / Clavulanate 125 MG Oral Tablet Amoxicillin-Pot Clavulanate (Augmentin) 500-125 mg tablet Amoxicillin-Pot Clavulanate (Augmentin) 500-125 mg tablet 05/11/2019 10:38:52 AM EST 1 TAB completed [facility] Amoxicillin 500 MG / Clavulanate 125 MG Oral Tablet Amoxicillin-Pot Clavulanate (Augmentin) 500-125 mg tablet Amoxicillin-Pot Clavulanate (Augmentin) 500-125 mg tablet 05/11/2019 10:38:52 AM EST 1 TAB completed [facility] Diazepam 5 MG Oral Tablet Diazepam (Valium) 5 mg table t Diazepam (Valium) 5 mg tablet 05/08/2019 01:18:13 PM EST 5 MG completed [facility] Diazepam 5 MG Oral Tablet Diazepam (Valium) 5 mg table t Diazepam (Valium) 5 mg tablet 05/08/2019 01:18:13 PM EST 5 MG completed [facility] Diazepam 5 MG Oral Tablet Diazepam 05/08/2019 01:18:13 PM EST 5 MG completed [facility] Diazepam 5 MG Oral Tablet Diazepam (Valium) 5 mg table t Diazepam (Valium) 5 mg tablet 05/08/2019 01:18:13 PM EST 5 MG completed [facility] Diazepam 5 MG Oral Tablet Diazepam (Valium) 5 mg table t Diazepam (Valium) 5 mg tablet 05/08/2019 01:18:13 PM EST 5 MG completed [facility] Diazepam 5 MG Oral Tablet Diazepam (Valium) 5 mg table t Diazepam (Valium) 5 mg tablet 05/08/2019 01:18:13 PM EST 5 MG completed [facility] Diazepam 5 MG Oral Tablet Diazepam (Valium) 5 mg table t Diazepam (Valium) 5 mg tablet 05/08/2019 01:18:13 PM EST 5 MG completed [facility] Diazepam 5 MG Oral Tablet Diazepam (Valium) 5 mg table t Diazepam (Valium) 5 mg tablet 05/08/2019 01:18:13 PM EST 5 MG completed [facility] Diazepam 5 MG Oral Tablet Diazepam 05/08/2019 01:18:13 PM EST 5 MG active [facility] Diazepam 5 MG Oral Tablet Diazepam (Valium) 5 mg table t Diazepam (Valium) 5 mg tablet 05/08/2019 01:18:13 PM EST 5 MG completed [facility] Diazepam 5 MG Oral Tablet Diazepam (Valium) 5 mg table t Diazepam (Valium) 5 mg tablet 05/08/2019 01:18:13 PM EST 5 MG completed [facility] Diazepam 5 MG Oral Tablet Diazepam (Valium) 5 mg table t Diazepam (Valium) 5 mg tablet 05/08/2019 01:18:13 PM EST 5 MG completed [facility] Diazepam 5 MG Oral Tablet Diazepam 05/08/2019 01:18:13 PM EST 5 MG active [facility] Acetaminophen 325 MG / Hydrocodone Eleazar trate 7.5 MG Oral Tablet Hydrocodone-Acetaminophen Hydrocodone-Acetaminophen 04/23/2019 01:07:51 PM EST 1 TAB completed [facility] Acetaminophen 325 MG / Hydrocodone Eleazar trate 7.5 MG Oral Tablet Hydrocodone-Acetaminophen Hydrocodone-Acetaminophen 04/23/2019 01:07:51 PM EST 1 TAB completed [facility] Acetaminophen 325 MG / Hydrocodone Eleazar trate 7.5 MG Oral Tablet Hydrocodone-Acetaminophen Hydrocodone-Acetaminophen 04/23/2019 01:07:51 PM EST 1 TAB completed [facility] Acetaminophen 325 MG / Hydrocodone Eleazar trate 7.5 MG Oral Tablet Hydrocodone-Acetaminophen Hydrocodone-Acetaminophen 04/23/2019 01:07:51 PM EST 1 TAB completed [facility] Acetaminophen 325 MG / Hydrocodone Eleazar trate 7.5 MG Oral Tablet Hydrocodone-Acetaminophen Hydrocodone-Acetaminophen 04/23/2019 01:07:51 PM EST 1 TAB completed [facility] Acetaminophen 325 MG / Hydrocodone Eleazar trate 7.5 MG Oral Tablet Hydrocodone-Acetaminophen Hydrocodone-Acetaminophen 04/23/2019 01:07:51 PM EST 1 TAB completed [facility] Acetaminophen 325 MG / Hydrocodone Eleazar trate 7.5 MG Oral Tablet Hydrocodone-Acetaminophen Hydrocodone-Acetaminophen 04/23/2019 01:07:51 PM EST 1 TAB completed [facility] Acetaminophen 325 MG / Hydrocodone Eleazar trate 7.5 MG Oral Tablet Hydrocodone-Acetaminophen Hydrocodone-Acetaminophen 04/23/2019 01:07:51 PM EST 1 TAB completed [facility] Acetaminophen 325 MG / Hydrocodone Eleazar trate 7.5 MG Oral Tablet Hydrocodone-Acetaminophen Hydrocodone-Acetaminophen 04/23/2019 01:07:51 PM EST 1 TAB completed [facility] Acetaminophen 325 MG / Hydrocodone Eleazar trate 7.5 MG Oral Tablet Hydrocodone-Acetaminophen Hydrocodone-Acetaminophen 04/23/2019 01:07:51 PM EST 1 TAB completed [facility] Acetaminophen 325 MG / Hydrocodone Eleazar trate 7.5 MG Oral Tablet Hydrocodone-Acetaminophen Hydrocodone-Acetaminophen 04/23/2019 01:07:51 PM EST 1 TAB active [facility] Acetaminophen 325 MG / Hydrocodone Eleazar trate 7.5 MG Oral Tablet Hydrocodone-Acetaminophen Hydrocodone-Acetaminophen 04/23/2019 01:07:51 PM EST 1 TAB completed [facility] Acetaminophen 325 MG / Hydrocodone Eleazar trate 7.5 MG Oral Tablet Hydrocodone-Acetaminophen Hydrocodone-Acetaminophen 04/23/2019 01:07:51 PM EST 1 TAB completed [facility] Furosemide 40 MG Oral Tablet Furosemide 04/23/2019 01:02:35 PM EST 40 MG active [facility] Furosemide 40 MG Oral Tablet Furosemide 04/23/2019 01:02:35 PM EST 40 MG active [facility] Furosemide 40 MG Oral Tablet Furosemide 04/23/2019 01:02:35 PM EST 40 MG completed [facility] Furosemide 40 MG Oral Tablet Furosemide 04/23/2019 01:02:35 PM EST 40 MG active [facility] Furosemide 40 MG Oral Tablet Furosemide 04/23/2019 01:02:35 PM EST 40 MG active [facility] Furosemide 40 MG Oral Tablet Furosemide 04/23/2019 01:02:35 PM EST 40 MG completed [facility] Furosemide 40 MG Oral Tablet Furosemide 04/23/2019 01:02:35 PM EST 40 MG completed [facility] Furosemide 40 MG Oral Tablet Furosemide 04/23/2019 01:02:35 PM EST 40 MG completed [facility] Furosemide 40 MG Oral Tablet Furosemide 04/23/2019 01:02:35 PM EST 40 MG completed [facility] Furosemide 40 MG Oral Tablet Furosemide 04/23/2019 01:02:35 PM EST 40 MG active [facility] Furosemide 40 MG Oral Tablet Furosemide 04/23/2019 01:02:35 PM EST 40 MG active [facility] Furosemide 40 MG Oral Tablet Furosemide 04/23/2019 01:02:35 PM EST 40 MG completed [facility] Furosemide 40 MG Oral Tablet Furosemide 04/23/2019 01:02:35 PM EST 40 MG active [facility] Acetaminophen 325 MG / Hydrocodone Eleazar trate 7.5 MG Oral Tablet Hydrocodone-Acetaminophen Hydrocodone-Acetaminophen 2019 12:54:23 PM EST 1 TAB completed [facility] Acetaminophen 325 MG / Hydrocodone Eleazar trate 7.5 MG Oral Tablet Hydrocodone-Acetaminophen Hydrocodone-Acetaminophen 2019 12:54:23 PM EST 1 TAB completed [facility] Acetaminophen 325 MG / Hydrocodone Eleazar trate 7.5 MG Oral Tablet Hydrocodone-Acetaminophen Hydrocodone-Acetaminophen 2019 12:54:23 PM EST 1 TAB completed [facility] Acetaminophen 325 MG / Hydrocodone Eleazar trate 7.5 MG Oral Tablet Hydrocodone-Acetaminophen Hydrocodone-Acetaminophen 2019 12:54:23 PM EST 1 TAB completed [facility] Acetaminophen 325 MG / Hydrocodone Eleazar trate 7.5 MG Oral Tablet Hydrocodone-Acetaminophen Hydrocodone-Acetaminophen 2019 12:54:23 PM EST 1 TAB completed [facility] Acetaminophen 325 MG / Hydrocodone Eleazar trate 7.5 MG Oral Tablet Hydrocodone-Acetaminophen Hydrocodone-Acetaminophen 2019 12:54:23 PM EST 1 TAB completed [facility] Acetaminophen 325 MG / Hydrocodone Eleazar trate 7.5 MG Oral Tablet Hydrocodone-Acetaminophen Hydrocodone-Acetaminophen 2019 12:54:23 PM EST 1 TAB completed [facility] Acetaminophen 325 MG / Hydrocodone Eleazar trate 7.5 MG Oral Tablet Hydrocodone-Acetaminophen Hydrocodone-Acetaminophen 2019 12:54:23 PM EST 1 TAB completed [facility] Acetaminophen 325 MG / Hydrocodone Eleazar trate 7.5 MG Oral Tablet Hydrocodone-Acetaminophen Hydrocodone-Acetaminophen 2019 12:54:23 PM EST 1 TAB completed [facility] Acetaminophen 325 MG / Hydrocodone Eleazar trate 7.5 MG Oral Tablet Hydrocodone-Acetaminophen Hydrocodone-Acetaminophen 2019 12:54:23 PM EST 1 TAB completed [facility] Acetaminophen 325 MG / Hydrocodone Eleazar trate 7.5 MG Oral Tablet Hydrocodone-Acetaminophen Hydrocodone-Acetaminophen 2019 12:54:23 PM EST 1 TAB completed [facility] Acetaminophen 325 MG / Hydrocodone Eleazar trate 7.5 MG Oral Tablet Hydrocodone-Acetaminophen Hydrocodone-Acetaminophen 2019 12:54:23 PM EST 1 TAB completed [facility] Acetaminophen 325 MG / Hydrocodone Eleazar trate 7.5 MG Oral Tablet Hydrocodone-Acetaminophen Hydrocodone-Acetaminophen 2019 12:54:23 PM EST 1 TAB completed [facility] Omeprazole 40 MG Delayed Release Oral Capsule Omeprazole 02/20/2019 02:43:09 PM EST [address] [facility] Omeprazole 40 MG Delayed Release Oral Capsule Omeprazole 02/20/2019 02:43:09 PM EST [address] [facility] Omeprazole 40 MG Delayed Release Oral Capsule Omeprazole 02/20/2019 02:43:09 PM EST [address] [facility] Omeprazole 40 MG Delayed Release Oral Capsule Omeprazole 02/20/2019 02:43:09 PM EST [address] [facility] Lisinopril 10 MG Oral Tablet [Prinivil] Lisinopril (Pr inivil) 10 MG tablet Lisinopril (Prinivil) 10 MG tablet 08/05/2018 11:49:00 AM EDT 10 MG completed [facility] Lisinopril 10 MG Oral Tablet [Prinivil] Lisinopril (Pr inivil) 10 MG tablet Lisinopril (Prinivil) 10 MG tablet 08/05/2018 11:49:00 AM EDT 10 MG completed [facility] Lisinopril 10 MG Oral Tablet [Prinivil] Lisinopril (Pr inivil) 10 MG tablet Lisinopril (Prinivil) 10 MG tablet 08/05/2018 11:49:00 AM EDT 10 MG completed [facility] Lisinopril 10 MG Oral Tablet [Prinivil] Lisinopril (Pr inivil) 10 MG tablet Lisinopril (Prinivil) 10 MG tablet 08/05/2018 11:49:00 AM EDT 10 MG completed [facility] Lisinopril 10 MG Oral Tablet [Prinivil] Lisinopril (Pr inivil) 10 MG tablet Lisinopril (Prinivil) 10 MG tablet 08/05/2018 11:49:00 AM EDT 10 MG completed [facility] Lisinopril 10 MG Oral Tablet [Prinivil] Lisinopril (Pr inivil) 10 MG tablet Lisinopril (Prinivil) 10 MG tablet 08/05/2018 11:49:00 AM EDT 10 MG completed [facility] Lisinopril 10 MG Oral Tablet [Prinivil] Lisinopril (Pr inivil) 10 MG tablet Lisinopril (Prinivil) 10 MG tablet 08/05/2018 11:49:00 AM EDT 10 MG completed [facility] Lisinopril 10 MG Oral Tablet [Prinivil] Lisinopril (Pr inivil) 10 MG tablet Lisinopril (Prinivil) 10 MG tablet 08/05/2018 11:49:00 AM EDT 10 MG completed [facility] Lisinopril 10 MG Oral Tablet [Prinivil] Lisinopril (Pr inivil) 10 MG tablet Lisinopril (Prinivil) 10 MG tablet 08/05/2018 11:49:00 AM EDT 10 MG completed [facility] Lisinopril 10 MG Oral Tablet [Prinivil] Lisinopril 08/05/2018 11: 49:00 AM EDT 10 MG completed [facility] Lisinopril 10 MG Oral Tablet [Prinivil] Lisinopril (Pr inivil) 10 MG tablet Lisinopril (Prinivil) 10 MG tablet 08/05/2018 11:49:00 AM EDT 10 MG completed [facility] Diazepam 5 MG Oral Tablet [Valium] Diazepam (Valium) 5 MG tablet Diazepam (Valium) 5 MG tablet 06/26/2018 10:50:00 AM EDT 5 MG co [facility] Diazepam 5 MG Oral Tablet [Valium] Diazepam (Valium) 5 MG tablet Diazepam (Valium) 5 MG tablet 06/26/2018 10:50:00 AM EDT 5 MG co [facility] Diazepam 5 MG Oral Tablet [Valium] Diazepam (Valium) 5 MG tablet Diazepam (Valium) 5 MG tablet 06/26/2018 10:50:00 AM EDT 5 MG co [facility] Diazepam 5 MG Oral Tablet [Valium] Diazepam (Valium) 5 MG tablet Diazepam (Valium) 5 MG tablet 06/26/2018 10:50:00 AM EDT 5 MG co [facility] Diazepam 5 MG Oral Tablet [Valium] Diazepam (Valium) 5 MG tablet Diazepam (Valium) 5 MG tablet 06/26/2018 10:50:00 AM EDT 5 MG co [facility] Diazepam 5 MG Oral Tablet [Valium] Diazepam (Valium) 5 MG tablet Diazepam (Valium) 5 MG tablet 06/26/2018 10:50:00 AM EDT 5 MG co [facility] Diazepam 5 MG Oral Tablet [Valium] Diazepam (Valium) 5 MG tablet Diazepam (Valium) 5 MG tablet 06/26/2018 10:50:00 AM EDT 5 MG co [facility] Diazepam 5 MG Oral Tablet [Valium] Diazepam (Valium) 5 MG tablet Diazepam (Valium) 5 MG tablet 06/26/2018 10:50:00 AM EDT 5 MG co [facility] Diazepam 5 MG Oral Tablet [Valium] Diazepam (Valium) 5 MG tablet Diazepam (Valium) 5 MG tablet 06/26/2018 10:50:00 AM EDT 5 MG co [facility] carvedilol 6.25 MG Oral Tablet Carvedilol Carvedilol 2018 10:48:00 AM EDT 6.25 MG completed [facility] carvedilol 6.25 MG Oral Tablet Carvedilol Carvedilol 2018 10:48:00 AM EDT 6.25 MG completed [facility] carvedilol 6.25 MG Oral Tablet Carvedilol Carvedilol 2018 10:48:00 AM EDT 6.25 MG completed [facility] carvedilol 6.25 MG Oral Tablet Carvedilol Carvedilol 2018 10:48:00 AM EDT 6.25 MG completed [facility] carvedilol 6.25 MG Oral Tablet Carvedilol Carvedilol 2018 10:48:00 AM EDT 6.25 MG completed [facility] carvedilol 6.25 MG Oral Tablet Carvedilol Carvedilol 2018 10:48:00 AM EDT 6.25 MG completed [facility] carvedilol 6.25 MG Oral Tablet Carvedilol Carvedilol 2018 10:48:00 AM EDT 6.25 MG completed [facility] carvedilol 6.25 MG Oral Tablet Carvedilol Carvedilol 2018 10:48:00 AM EDT 6.25 MG completed [facility] carvedilol 6.25 MG Oral Tablet Carvedilol Carvedilol 2018 10:48:00 AM EDT 6.25 MG completed [facility] carvedilol 6.25 MG Oral Tablet Carvedilol Carvedilol 2018 10:48:00 AM EDT 6.25 MG completed [facility] carvedilol 6.25 MG Oral Tablet Carvedilol Carvedilol 2018 10:48:00 AM EDT 6.25 MG completed [facility] Levothyroxine Sodium 0.05 MG Oral Tablet Levothyroxine 06/26/2018 10:29:00 AM EDT [address] [facility] Levothyroxine Sodium 0.05 MG Oral Tablet Levothyroxine 06/26/2018 10:29:00 AM EDT [address] [facility] Levothyroxine Sodium 0.05 MG Oral Tablet Levothyroxine 06/26/2018 10:29:00 AM EDT [address] [facility] Levothyroxine Sodium 0.05 MG Oral Tablet Levothyroxine 06/26/2018 10:29:00 AM EDT [address] [facility] Levothyroxine Sodium 0.05 MG Oral Tablet Levothyroxine 06/26/2018 10:29:00 AM EDT [address] [facility] Levothyroxine Sodium 0.05 MG Oral Tablet Levothyroxine 06/26/2018 10:29:00 AM EDT [address] [facility] Levothyroxine Sodium 0.05 MG Oral Tablet Levothyroxine 06/26/2018 10:29:00 AM EDT [address] [facility] Levothyroxine Sodium 0.05 MG Oral Tablet Levothyroxine 06/26/2018 10:29:00 AM EDT [address] [facility] Levothyroxine Sodium 0.05 MG Oral Tablet Levothyroxine 06/26/2018 10:29:00 AM EDT [address] [facility] Levothyroxine Sodium 0.05 MG Oral Tablet Levothyroxine 06/26/2018 10:29:00 AM EDT [address] [facility] Levothyroxine Sodium 0.05 MG Oral Tablet Levothyroxine 06/26/2018 10:29:00 AM EDT [address] [facility] Levothyroxine Sodium 0.05 MG Oral Tablet Levothyroxine 06/26/2018 10:29:00 AM EDT [address] [facility] Triamcinolone Acetonide 1 MG/ML Topical Cream Triamcinolone Acetonide 06/03/2018 12:29:00 PM EST 1 APPLIC completed [facility] Triamcinolone Acetonide 1 MG/ML Topical Cream Triamcinolone Acetonide 06/03/2018 12:29:00 PM EST 1 APPLIC completed [facility] Triamcinolone Acetonide 1 MG/ML Topical Cream Triamcinolone Acetonide 06/03/2018 12:29:00 PM EST 1 APPLIC completed [facility] Triamcinolone Acetonide 1 MG/ML Topical Cream Triamcinolone Acetonide 06/03/2018 12:29:00 PM EST 1 APPLIC completed [facility] Triamcinolone Acetonide 1 MG/ML Topical Cream Triamcinolone Acetonide 06/03/2018 12:29:00 PM EST 1 APPLIC completed [facility] Triamcinolone Acetonide 1 MG/ML Topical Cream Triamcinolone Acetonide 06/03/2018 12:29:00 PM EST 1 APPLIC completed [facility] Triamcinolone Acetonide 1 MG/ML Topical Cream Triamcinolone Acetonide 06/03/2018 12:29:00 PM EST 1 APPLIC completed [facility] Triamcinolone Acetonide 1 MG/ML Topical Cream Triamcinolone Acetonide 06/03/2018 12:29:00 PM EST 1 APPLIC completed [facility] Triamcinolone Acetonide 1 MG/ML Topical Cream Triamcinolone Acetonide 06/03/2018 12:29:00 PM EST 1 APPLIC completed [facility] Pravastatin Sodium 80 MG Oral Tablet Pravastatin 08/18/2013 01:07: 04 PM EDT 80 MG completed [facility] Pravastatin Sodium 80 MG Oral Tablet Pravastatin 08/18/2013 01:07: 04 PM EDT 80 MG completed [facility] Furosemide 40 MG Oral Tablet Furosemide 08/18/2013 01:07:04 PM EDT 40 MG completed [facility] Furosemide 40 MG Oral Tablet Furosemide 08/18/2013 01:07:04 PM EDT 40 MG completed [facility] Furosemide 40 MG Oral Tablet Furosemide 08/18/2013 01:07:04 PM EDT 40 MG completed [facility] Furosemide 40 MG Oral Tablet Furosemide 08/18/2013 01:07:04 PM EDT 40 MG completed [facility] Furosemide 40 MG Oral Tablet Furosemide 08/18/2013 01:07:04 PM EDT 40 MG completed [facility] Furosemide 40 MG Oral Tablet Furosemide 08/18/2013 01:07:04 PM EDT 40 MG completed [facility] Pravastatin Sodium 80 MG Oral Tablet Pravastatin 08/18/2013 01:07: 04 PM EDT 80 MG completed [facility] Furosemide 40 MG Oral Tablet Furosemide 08/18/2013 01:07:04 PM EDT 40 MG completed [facility] Pravastatin Sodium 80 MG Oral Tablet Pravastatin 08/18/2013 01:07: 04 PM EDT 80 MG completed [facility] Pravastatin Sodium 80 MG Oral Tablet Pravastatin 08/18/2013 01:07: 04 PM EDT 80 MG completed [facility] Furosemide 40 MG Oral Tablet Furosemide 08/18/2013 01:07:04 PM EDT 40 MG completed [facility] Furosemide 40 MG Oral Tablet Furosemide 08/18/2013 01:07:04 PM EDT 40 MG completed [facility] Furosemide 40 MG Oral Tablet Furosemide 08/18/2013 01:07:04 PM EDT 40 MG completed [facility] Furosemide 40 MG Oral Tablet Furosemide 08/18/2013 01:07:04 PM EDT 40 MG completed [facility] Pravastatin Sodium 80 MG Oral Tablet Pravastatin 08/18/2013 01:07: 04 PM EDT 80 MG completed [facility] Pravastatin Sodium 80 MG Oral Tablet Pravastatin 08/18/2013 01:07: 04 PM EDT 80 MG completed [facility] Pravastatin Sodium 80 MG Oral Tablet Pravastatin 08/18/2013 01:07: 04 PM EDT 80 MG completed [facility] Furosemide 40 MG Oral Tablet Furosemide 08/18/2013 01:07:04 PM EDT 40 MG completed [facility] Pravastatin Sodium 80 MG Oral Tablet Pravastatin 08/18/2013 01:07: 04 PM EDT 80 MG completed [facility] Furosemide 40 MG Oral Tablet Furosemide 08/18/2013 01:07:04 PM EDT 40 MG completed [facility] Pravastatin Sodium 80 MG Oral Tablet Pravastatin 08/18/2013 01:07: 04 PM EDT 80 MG completed [facility] Pravastatin Sodium 80 MG Oral Tablet Pravastatin 08/18/2013 01:07: 04 PM EDT 80 MG completed [facility] Insurance Providers Payer name Policy type / Coverage type Policy ID Covered republican ID Covered republican's relationship to fountain Policy [place] Plan Information [facility] MEDICARE [id number] SP 5 [id number] MEDICARE [id number] SP [id number] [facility] O [id number] S [id number] [place] MEDICARE [id number] SP [id number] [place] Medicare Advantge Commercial [id number] Self [id number] D Sliding Fee Scale (dental only) O None S None Medicare P UNAVAILABLE S UNAVAILA BLE [place] Other 0 Self 0 [place] Other 0 Self 0 [place] Other 0 Self 0 [place] Other 0 Self 0 [place] Other 0 Self 0 [place] Other 0 Self 0 Derick Medicare Advantge Commercial [id number] Self [id number] [place] Other 0 Self 0 [place] Other 0 Self 0 [place] Medicare Advantge Commercial [id number] Self [id number] [place] Other 0 Self 0 [place] Other 0 Self 0 [place] Advantge Commercial [id number] Self [id number] [place] Medicare Advantge Commercial [id number] Self [id number] [place] Other 0 Self 0 [place] Other 0 Self 0 [place] Other 0 Self 0 [place] Other 0 Self 0 [place] Other 0 Self 0 [place] Other 0 Self 0 [place] Other 0 Self 0 [place] Other 0 Self 0 Derick Medicare Advantge Commercial [id number] Self [id number] [place] Medicare Advantge Commercial [id number] Self [id number] SELF PAY UNAVAILABLE SP UNAVAILA BLE [facility] MANAGED CARE [id number] Patient [id number] SELF PAY UNAVAILABLE Patient UNAVAILA BLE MEDICARE PART A [id number] Patient [id number] Problems, Conditions, and Diagnoses Code Display Name Description Problem Type Effective Dates Data Source(s) 22528199 Secondary pulmonary hypertension Secondary pulmo nary hypertension Problem 04/28/2020 12:00:00 AM EST [facility]) 467976896 Overweight Overweight Problem 04/28/2020 12:00:00 AM ES T [facility]) [id number] Pulmonary hypertension Pulmonary hypertension Problem 03/21/2020 12:00:00 AM EST [facility]) [id number] Chronic diastolic heart failure Chronic diastoli c heart failure Problem 03/21/2020 12:00:00 AM EST [facility]) Chronic systolic (congestive) heart fail ure Chronic systolic (congestive) heart failure Problem 03/21/2020 12:00:00 AM EST [facility] [id number] Heart valve replacement Heart valve replacement Proble m 03/21/2020 12:00:00 AM EST [facility]) 4919351 Aortic valve disorder Aortic valve disorder Problem 02/25/2020 12:00:00 AM EST [facility]) [id number] Chronic kidney disease stage 4 Chronic kidney disease stage 4 Problem 02/03/2020 12:00:00 AM EDT [facility]) 755957786 Chronic systolic heart failure Chronic systolic heart failure Problem 02/03/2020 12:00:00 AM EDT [facility]) Surgeries/Procedures Procedure Description Date Indications Data Source(s) Plain chest X-ray (procedure) 05/30/2020 11:55:33 AM E [facility] Echocardiography, Tranthoracic Complete Image Documentation 03/21/2020 12:00:00 AM EST [facility]) Plain chest X-ray (procedure) 01/27/2020 06:10:00 PM E [facility] Plain chest X-ray (procedure) 01/27/2020 06:10:00 PM E [facility] Plain chest X-ray (procedure) 01/27/2020 06:10:00 PM E [facility] Plain chest X-ray (procedure) 01/27/2020 06:10:00 PM E [facility] Plain chest X-ray (procedure) 01/27/2020 06:10:00 PM E [facility] Plain chest X-ray (procedure) 01/27/2020 06:10:00 PM E [facility] X-ray of left ankle (procedure) 12/10/2019 11:17:00 AM [facility] X-ray of left ankle (procedure) 12/10/2019 11:17:00 AM [facility] X-ray of left ankle (procedure) 12/10/2019 11:17:00 AM [facility] X-ray of left ankle (procedure) 12/10/2019 11:17:00 AM [facility] X-ray of left ankle (procedure) 12/10/2019 11:17:00 AM [facility] X-ray of left ankle (procedure) 12/10/2019 11:17:00 AM [facility] X-ray of left ankle (procedure) 12/10/2019 11:17:00 AM EDT [facility] Xray Elbow complete LT 12/02/2019 12:41:00 PM EDT [facility] Xray Elbow complete LT 12/02/2019 12:41:00 PM EDT [facility] Xray Elbow complete LT 12/02/2019 12:41:00 PM EDT [facility] Xray Elbow complete LT 12/02/2019 12:41:00 PM EDT [facility] Xray Elbow complete LT 12/02/2019 12:41:00 PM EDT [facility] Xray Elbow complete LT 12/02/2019 12:41:00 PM EDT [facility] Xray Elbow [facility] 12/02/2019 12:41:00 PM EDT [facility] Xray Elbow complete LT 12/02/2019 12:41:00 PM [facility] X-ray of left knee (procedure) 12/02/2019 11:52:00 AM [facility] Plain x-ray of pelvis and lower extremity (procedure) 12/02/2019 11:52:00 AM [facility] l Xray Shoulder complete LT 12/02/2019 11:52:00 AM [facility] X-ray of left knee (procedure) 12/02/2019 11:52:00 AM [facility] Plain x-ray of pelvis and lower extremity (procedure) 12/02/2019 11:52:00 AM [facility] l Xray Shoulder complete LT 12/02/2019 11:52:00 AM [facility] X-ray of left knee (procedure) 12/02/2019 11:52:00 AM [facility] x-ray of pelvis and lower extremity (procedure) 12/02/2019 11:52:00 AM [facility] l Xray Shoulder complete LT 12/02/2019 11:52:00 AM [facility] X-ray of left knee (procedure) 12/02/2019 11:52:00 AM EDT [facility] x-ray of pelvis and lower extremity (procedure) 12/02/2019 11:52:00 AM EDT [facility] l Xray Shoulder complete LT 12/02[facility]2019 [facility] 12/02/2019 11:52:00 AM [facility] Plain x-ray of pelvis and lower extremity (procedure) 12/02/2019 11:52:00 AM EDT [facility] Xray Shoulder complete LT 12/02/2019 11:52:00 AM EDT [facility] X-ray of left knee (procedure) 12/02/2019 11:52:00 AM T [facility] Plain x-ray of pelvis and lower extremity (procedure) 12/02/2019 11:52:00 AM [facility] Xray Shoulder complete LT 12/02/2019 11:52:00 AM [facility] X-ray of left knee (procedure) 12/02/2019 11:52:00 AM [facility] x-ray of pelvis and lower extremity (procedure) 12/02/2019 11:52:00 AM [facility] Xray Shoulder complete LT 12/02/2019 11:52:00 AM [facility] X-ray of left knee (procedure) 12/02/2019 11:52:00 AM [facility] x-ray of pelvis and lower extremity (procedure) 12/02/2019 11:52:00 AM T [facility] Xray Shoulder complete LT 12/02/2019 11:52:00 AM [facility] X-ray of left knee (procedure) 12/02/2019 11:52:00 AM [facility] x-ray of pelvis and lower extremity (procedure) 12/02/2019 11:52:00 AM [facility] Xray Shoulder complete LT 12/02/2019 11:52:00 AM [facility] Echocardiography, Tranthoracic Complete Image Documentation 10/27/2019 12:00:00 AM EDT [facility] 3D DIG MAMMO SCREEN RT 09/02/2019 12:44:00 PM EDT [facility] 3D DIG MAMMO SCREEN RT 09/02/2019 12:44:00 PM EDT [facility] 3D DIG MAMMO SCREEN RT 09/02/2019 12:44:00 PM EDT [facility] 3D DIG MAMMO SCREEN RT 09/02/2019 12:44:00 PM EDT [facility] 3D DIG MAMMO SCREEN RT 09/02/2019 12:44:00 PM EDT [facility] 3D DIG MAMMO SCREEN RT 09/02/2019 12:44:00 PM EDT [facility] 3D DIG MAMMO SCREEN RT 09/02/2019 12:44:00 PM EDT [facility] 3D DIG MAMMO SCREEN RT 09/02/2019 12:44:00 PM EDT [facility] 3D DIG MAMMO SCREEN RT 09/02/2019 12:44:00 PM EDT [facility] 3D DIG MAMMO SCREEN RT 09/02/2019 12:44:00 PM [facility] Results ID Date Data Source [id number] 05/30/2020 12:38:00 PM EST [facility] [address] [place] [address] [phone] NAME SEX PT STATUS ACCOUNT NUMBER GLENDA CULLEN REG REF [id number] ORDERING PHYSICIAN LOCATION MEDICAL RECORD NO. Serenity Cartagena MD RAD [id number] ATTENDING PHYSICIAN DATE OF DATE OF EXAM/TIME Serenity Cartagena MD 1935 05/30/20 / 5 TYPE / EXAM Xray Chest 2 view PA/LAT REASON FOR EXAM chf, dyspnea COMPARISON: January 27, 2020 FINDINGS: Patient is remotely post median sternotomy. Sternotomy wires remain intact. 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 A piece of cardiac hardware over the left ventricle. There is cardiomegaly. The mediastinal silhouette is otherwise unremarkable. Lungs are essentially clear, without evidence of pulmonary consolidation, pleural effusion, or pulmonary vascular congestion. There is no acute osseous abnormality. IMPRESSION: No acute cardiopulmonary disease. Reported By Lev Whittington MD on 05/30/20 1238 Signed By Lev Whittington MD on 0 05/30/20 1240 Date Time CC: Lev Whittington MD; Serenity Cartagena MD Techn: RADTC Trans Dt/Tm: Trans by: DT Prt Dt/Tm: [id number]: Total DLP = 0.00 mGy-cm Fluoroscopy Time (in secs): Name Value Range Interpretation Code Description Data Awa rce(s) Supporting Document(s) ID Date Data Source [id number] 05/30/2020 11:28:00 AM [facility] Patient Name: GLENDA CULLEN OB: 1935 Sex: F Pt Unit #: [id number] Location:[facility] Provider: Visit Date/Time: 05/30/20 Primary Insurance: [employer] Secondary Insurance: MEDICAID [facility] 2ND R Intake Vital Signs 05/30/20 11:28 Current Height 5 ft 2 in Current Weight 157 lb Weight Measurement Method Standing Scale BMI 28.7 BP 128/64 Blood Pressure Location Rt brachial Position Sitting Respiration 12 Pulse 54 L Pulse Strength Normal Pulse Source Pulse Oximeter Pulse Oximetry (%) 100 Oxygen Delivery Method room air Intake Visit Reasons: Hypertension Follow-up Nurse Note: Hypertension follow up - States she is not doing as well as she should be, Feels SOB with any Walking or movement, Her fluid pill was decreased by Kidney to two bid rather than 3, Otherwise she is ok, Had her 1st COVID shot at [employer] - Needs Rx sent for Wheeled walker - is hard for her to get around with out holding on to something - 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 Required: No Accompanied by: Self / Same as Patient Is patient in pain?: No Allergies TAPE Allergy (Verified 01/27/20 17:24) Medications - Last Reconciled 05/30/20 by Serenity Cartagena M.D. aspirin (Ecotrin Low Strength) 81 mg PO DAILY Boost Breeze Nutritional (food supplemt, lactose-reduced) 1 ea PO .QD 30 days NS carvedilol 6.25 mg PO BID 90 days gabapentin 300 mg PO BID hydrocodone-acetaminophen 7.5-325 mg 1 tab PO Q4-6HRPRN 30 days MDD 5 levothyroxine 50 mcg PO DAILY 90 days lorazepam 0.5 mg PO QDAY 30 days PRN MDD 1 multivitamin (Daily Vitamin) 1 tab PO DAILY omeprazole 40 mg PO DAILY 90 days pravastatin 80 mg PO DAILY 90 days spironolactone 25 mg PO BID torsemide 20 mg PO QDAY Is last menstrual period known: No Post menopausal: Yes Patient : No Vision Wearing glasses?: Yes Fall Risk History of falls: No Ambulatory Aid:: None Gait/Transferring:: Normal Medications:: No High Risk Medications PHQ-2/9 Over the last 2 weeks, how often have you been bothered by any of the following problems? 1. Little interest or pleasure in doing things: not at all 2. Feeling down, depressed, or hopeless: not at all Total score: 0 HIV Testing Offer - ages 13-64 HIV testing Offer: Yes Requirement for HIV testing offer been met?: Not in age range SBIRT Annual Questionnaire Are you currently in recovery for alcohol or substance use?: No How many times in the past year have you had 4 or more drinks in a day?: None How many times in the past year have you used a recreational drug or used a prescription medication for nonmedical reasons?: None Do you need a note to return Do you need a note to return to daycare/school/sports/work: No Coronavirus Screening Screening Are you currently positive or on isolation for COVID ?: No Do you have any NEW signs of one or more of the following?: no symptoms Do you have NEW signs of at least two of the following?: no symptoms PFSH Medical History HTN (hypertension) Mitral insufficiency Surgical History Cataract extraction and insertion of intraocular lens History of - artificial joint History of - surgery History of hysterectomy Social History Does the Patient have a Healthcare Proxy: Yes Does Patient have a DNR?: Yes Does Patient have a Living Will?: No Advance Directives on File or in chart?: No Smoking Status: Never smoker HPI Hypertension Followup (Card) * Current neurological symptoms: Reports weakness; Denies headache(s) Current cardiovascular symptom: reports dyspnea on exertion; denies chest pain, palpitations, fatigue or dizziness Current renal disease symptoms: denies fatigue, nausea or vomiting Most Recent Cardiac Tests: Chest X-Ray 05/30/20 Review of Systems Const Denies chills, Denies fatigue, Denies fever(s), Denies headache(s) and Reports weakness ENT Denies vertigo, Denies dizziness, Denies headache(s) and Reports disequilibrium Card Denies chest pain, Denies leg edema, Denies palpitations, Reports dyspnea on exertion, Denies orthopnea and Denies paroxysmal nocturnal dyspnea Resp Denies cough, Reports dyspnea on exertion and Denies wheezing GI Denies nausea and Denies vomiting Neuro Denies vertigo, Denies dizziness, Denies headache(s), Reports disequilibrium and Reports weakness Endo Denies fatigue and Denies palpitations Aller/Immun Denies wheezing Exam Const General: cooperative and no acute distress Nutritional Appearance: average body habitus Orientation: alert, awake and oriented x3 Resp Effort Inspection: normal respiratory effort Auscultation: no rales and no rhonchi Cardio Rate: regular rate Rhythm: abnormal rhythm with ectopic beats GI Palpation: soft and nontender Extrem General: no clubbing, cyanosis or edema Assessment Plan Assessment Plan (1) Hypertension: Status: Acute Code(s): I10 - Essential (primary) hypertension SNOMED Code(s): 56341415 Category: Medical Qualifiers: Hypertension type: essential hypertension Qualified Code(s): I10 - Essential (primary) hypertension Plan - Serenity Cartagena M.D.: meds reviewed CXR clear, will monitor until renal and cardio appts, ER if worsening 02 sat good today, need for wheeled walker, as more unsteady, see 1 month (2) Mitral insufficiency: Status: Acute Code(s): I34.0 - Nonrheumatic mitral (valve) insufficiency SNOMED Code(s): 68928225 Category: Medical Qualifiers: Cardiac valve disease etiology: nonrheumatic Qualified Code(s): I34.0 - Nonrheumatic mitral(valve) insufficiency (3) CHF (congestive heart failure): Code(s): I50.9 - Heart failure, unspecified Orders: Orders: Xray Chest 2 view PA/LAT Today Orders Instructions: DASH Eating Plan (GEN) Hypertension (GEN) Follow Up: 1 Month Coding Level of Care Code 41318 Est Pt Intermediate Comp Exam Problem Focused Diagnoses Hypertension I10 Hypertension type: essential hypertension Mitral insufficiency I34.0 Cardiac valve disease etiology: nonrheumatic CHF (congestive heart failure) I50.9 <Electronically signed by Serenity Cartagena MD> 05/30/20 1259 Name Value Range Interpretation Code Description Data Awa rce(s) Supporting Document(s) ID Date Data Source [id number] 04/28/2020 02:01:00 PM EST [facility] Patient Name: GLENDA CULLEN OB: 1935 Sex: F Pt Unit #: [id number] Location:[facility] Provider: Visit Date/Time: 04/28/20 Primary Insurance: [employer] Secondary Insurance: Self Pay Documented by User: Shayla Beaver 04/28/20 14:05 Intake Nurse Note Intake Visit Reasons: Flu shot Nurse Note: Pt in for flu shot - Tolerated well, no additional concerns today Accompanied by: Daughter Coronavirus Screening Screening Have you traveled outside of [facility] or [facility] in the last 14 days.: No Has patient experienced coronavirus symptoms: No Immunizations Fluarix Quad [id number] (PF) Performing Provider: Serenity Cartagena M.D. Administered by: Shayla Beaver on 04/28/20 14:03 Dose Route Admin Location Lot Number Expiration Date NDC Manufactu rer 0.5 mL IM Right deltoid [id number] 10/12/20 [id number] [employer] VIS Given Date VIS Provided VIS Publication Date 04/28/20 Single Vaccine 18 Eligibility Eligibility Date Funding Source Not VFC Eligible 04/28/20 Private Assessment Plan Orders Other Orders: Orders: INJ - Influenza Vaccine Today Z23 Documented by User: Serenity Cartagena M.D. 04/28/20 14:21 Intake Nurse Note Intake Visit Reasons: Flu shot Immunizations Fluarix Quad (PF) Performing Provider: Serenity Cartagena M.D. Administered by: Shayla Beaver on 04/28/20 14:03 Dose Route Admin Location Lot Number Expiration Date NDC Manufactu rer 0.5 mL IM Right deltoid [id number] 10/12/20 [id number] [employer] VIS Given Date VIS Provided VIS Publication Date 04/28/20 Single Vaccine 18 Eligibility Eligibility Date Funding Source Not VFC Eligible 04/28/20 Private Assessment Plan Orders Other Orders: Orders: INJ - Influenza Vaccine Today Z23 <Electronically signed by Serenity Cartagena MD> 04/28/20 1421 Name Value Range Interpretation Code Description Data Awa rce(s) Supporting Document(s) ID Date Data Source [id number] 04/27/2020 02:26:00 PM [facility] Patient Name: MICHELLEIFTIKHARGLENDA OB: 1935 Sex: F Pt Unit #: [id number] Location:[facility] Provider: Visit Date/Time: 04/27/20 Primary Insurance: [employer] Secondary Insurance: Self Pay Intake Vital Signs 04/27/20 14:26 Current Height 5 ft 2 in Current Weight 158 lb Weight Measurement Method Standing Scale BMI 28.9 BP 118/60 Blood Pressure Location Rt brachial Position Sitting Respiration 14 Pulse 68 Pulse Strength Normal Pulse Source Pulse Oximeter Pulse Oximetry (%) 98 Oxygen Delivery Method room air Intake Visit Reasons: Hypertension Nurse Note: Hypertension follow up - States she has been doing well as far as HTN goes, Looking for Direction on In home care more surface grinder tender then what Home Health will be able to provide, just lookingfor suggestions at this point, Is suppose to be assigned a showcase maker who may be able to give moredirection. Also has a pressure ulcer on her left heal that is very Sore at times, has it bandaged now, Right third toe has a sore on the end of it, States she did see Trish Rod one time, but he didn't do anything to help her, and she is not willing to see him again. Would like hearing checked,no wax in either ear, but states her hearing comes and goes, Otherwise she is doing well Warp 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 Required: No Accompanied by: Daughter Is patient in pain?: No Allergies TAPE Allergy (Verified 01/27/20 17:24) Medications - Last Reconciled 04/27/20 by Serenity Cartagena M.D. aspirin (Ecotrin Low Strength) 81 mg PO DAILY carvedilol 6.25 mg PO BID 90 days gabapentin 300 mg PO BID hydrocodone-acetaminophen 7.5-325 mg 1 tab PO Q4-6HRPRN 30 days MDD 5 levothyroxine 50 mcg PO DAILY 90 days lorazepam 0.5 mg PO QDAY 30 days PRN MDD 1 multivitamin (Daily Vitamin) 1 tab PO DAILY omeprazole 40 mg PO DAILY 90 days pravastatin 80 mg PO DAILY 90 days spironolactone 25 mg PO BID torsemide 20 mg PO QDAY Is last menstrual period known: No Post menopausal: Yes Patient : No Fall Risk History of falls: No Ambulatory Aid:: None Gait/Transferring:: Normal Medications:: No High Risk Medications PHQ-2/9 Over the last 2 weeks, how often have you been bothered by any of the following problems? 1. Little interest or pleasure in doing things: not at all 2. Feeling down, depressed, or hopeless: not at all Total score: 0 HIV Testing Offer - ages 13-64 HIV testing Offer: Yes Requirement for HIV testing offer been met?: Not in age range SBIRT Annual Questionnaire Are you currently in recovery for alcohol or substance use?: No How many times in the past year have you had 4 or more drinks in a day?: None How many times in the past year have you used a recreational drug or used a prescription medication for nonmedical reasons?: None Do you need a note to return Do you need a note to return to daycare/school/sports/work: No Coronavirus Screening Screening Have you traveled outside of [facility] or [facility] in the last 14 days.: No Has patient experienced coronavirus symptoms: No [facility] Medical History HTN (hypertension) Mitral insufficiency Surgical History Cataract extraction and insertion of intraocular lens History of - artificial joint History of - surgery History of hysterectomy Social History Does the Patient have a Healthcare Proxy: Yes Does Patient have a DNR?: Yes Does Patient have a Living Will?: No Advance Directives on File or in chart?: No Smoking Status: Never smoker HPI Hypertension (Cardio) Current neurological symptoms: Denies headache(s) Current cardiovascular symptom: reports dyspnea on exertion and fatigue; denies chest pain Current renal disease symptoms: reports fatigue; denies nausea or vomiting Most Recent Cardiac Tests: Chest X-Ray 01/27/20 Review of Systems Const Denies chills, Reports fatigue, Denies fever(s), Denies headache(s) and Reports poor appetite ENT Denies headache(s), Denies nasal congestion and Denies sinus pressure Card Denies chest pain, Reports leg edema ( improved), Reports dyspnea on exertion, Denies orthopnea and Denies paroxysmal nocturnal dyspnea Resp Denies cough, Reports dyspnea on exertion and Denies wheezing GI Denies nausea and Denies vomiting Neuro Denies headache(s) Psych Reports abnormal sleep pattern (some better with lorazepam) and Reports anxiety (much stress, health, finances, ) Endo Reports fatigue Aller/Immun Denies wheezing Exam Const General: cooperative and no acute distress Nutritional Appearance: average body habitus Orientation: alert, awake and oriented x3 Resp Effort Inspection: normal respiratory effort Auscultation: no rales and no rhonchi Cardio Rate: regular rate Rhythm: regular rhythm Skin Rashes: other (erythema L heel, no skin breakdown, L middle toe scabbing at end) Extrem General: no clubbing, cyanosis or edema Assessment Plan Assessment Plan (1) Hypertension: Status: Acute Code(s): I10 - Essential (primary) hypertension SNOMED Code(s): 71380048 Category: Medical Qualifiers: Hypertension type: essential hypertension Qualified Code(s): I10 - Essential (primary) hypertension (2) Anxiety: Status: Acute Code(s): F41.9 - Anxiety disorder, unspe cified SNOMED Code(s): 38025994 Category: Medical Plan - Serenity Cartagena M.D.: doing some better, meds adjusted by cardiology and nephrology, discussed feet, offered podiatry, at this time keep, covered, wide shoes, see 2 months or as needed, lorazepam as needed, working with social service for help Orders Instructions: DASH Eating Plan (GEN) Hypertension (GEN) Follow Up: 2 Months Coding Level of Care Code 31091 Est Pt Intermediate Comp Exam Problem Focused Diagnoses Hypertension I10 Hypertension type: essential hypertension Anxiety F41.9 <Electronically signed by Serenity Cartagena MD> 04/28/20 0725 Name Value Range Interpretation Code Description Data Awa rce(s) Supporting Document(s) ID Date Data Source [id number] 03/31/2020 02:24:00 PM [facility] Patient Name: GLENDA CULLEN OB: 1935 Sex: F Pt Unit #: [id number] Location:[facility] Provider: Visit Date/Time: 03/31/20 Primary Insurance: [employer] Secondary Insurance: Self Pay Intake Vital Signs 03/31/20 14:25 Current Height 5 ft 2 in Current Weight 167 lb Weight Measurement Method Standing Scale BMI 30.5 BP 118/62 Blood Pressure Location Rt brachial Position Sitting Respiration 12 Pulse 59 L Pulse Strength Normal Pulse Source Pulse Oximeter Pulse Oximetry (%) 95 Oxygen Delivery Method room air Intake Visit Reasons: Hypertension Follow-up Nurse Note: Hypertension , Anxiety follow up - daughter would like her to have something to help herwith her Anxiety, Saw kidney Dr today, has a lot of edema in her legs and some in her abd, has had some crackling in her lungs - PT has been put on ho ld for a bit because of her swelling - Working myrtle plan or when her daughter leaves, so that both her and her are taken care of, not sure what it is going to be or how it is going to work just yet Warp 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 Required: No Accompanied by: Self / Same as Patient Is patient in pain?: No Allergies TAPE Allergy (Verified 01/27/20 17:24) Medications - Last Reconciled 03/31/20 by Serenity Cartagena M.D. aspirin (Ecotrin Low Strength) 81 mg PO DAILY carvedilol 6.25 mg PO BID 90 days gabapentin 300 mg PO BID hydrocodone-acetaminophen 7.5-325 mg 1 tab PO Q4-6HRPRN 30 days MDD 5 levothyroxine 50 mcg PO DAILY 90 days multivitamin (Daily Vitamin) 1 tab PO DAILY omeprazole 40 mg PO DAILY 90 days pravastatin 80 mg PO DAILY 90 days spironolactone 25 mg PO BID torsemide 20 mg PO QDAY Is last menstrual period known: No Post menopausal: Yes Patient : No Vision Wearing glasses?: Yes Fall Risk History of falls: No Ambulatory Aid:: None Gait/Transferring:: Normal Medications:: No High Risk Medications PHQ-2/9 Over the last 2 weeks, how often have you been bothered by any of the following problems? 1. Little interest or pleasure in doing things: not at all 2. Feeling down, depressed, or hopeless: not at all Total score: 0 HIV Testing Offer - ages 13-64 HIV testing Offer: Yes Requirement for HIV testing offer been met?: Not in age range SBIRT Annual Questionnaire Are you currently in recovery for alcohol or substance use?: No How many times in the past year have you had 4 or more drinks in a day?: None How many times in the past year have you used a recreational drug or used a prescription medication for nonmedical reasons?: None Do you need a note to return Do you need a note to return to daycare/school/sports/work: No Coronavirus Screening Screening Have you traveled outside of [facility] or [facility] in the last 14 days.: No Has patient experienced coronavirus symptoms: No [facility] Medical History HTN (hypertension) Mitral insufficiency Surgical History Cataract extraction and insertion of i ntraocular lens History of - artificial joint History of - surgery History of hysterectomy Social History Does the Patient have a Healthcare Proxy: Yes Does Patient have a DNR?: Yes Does Patient have a Living Will?: No Advance Directives on File or in chart?: No Smoking Status: Never smoker HPI Hypertension Followup (Card) * Current neurological symptoms: Denies headache(s) Current cardiovascular symptom: reports dyspnea on exertion and fatigue; denies chest pain Current renal disease symptoms: reports fatigue; denies nausea or vomiting Most Recent Cardiac Tests: Chest X-Ray 10/14/20 Review of Systems Const Denies chills, Reports fatigue, Denies fever(s), Denies headache(s) and Reports poor appetite ENT Denies headache(s), Denies nasal congestion and Denies sinus pressure Card Denies chest pain, Reports leg edema (some improved), Reports dyspnea on exertion, Denies orthopnea and Denies paroxysmal nocturnal dyspnea Resp Denies cough, Reports dyspnea on exertion and Denies wheezing GI Denies nausea and Denies vomiting Neuro Denies headache(s) Psych Reports anxiety (much stress, health, finances, ) Endo Reports fatigue Aller/Immun Denies wheezing Exam Const General: cooperative and no acute distress Nutritional Appearance: average body habitus Orientation: alert, awake and oriented x3 Resp Effort Inspection: normal respiratory effort Auscultation: no rales, no rhonchi and no wheezes Cardio Rate: regular rate Rhythm: regular rhythm Extrem General: no calf tenderness and edema Laterality: bilateral Severity: 2+ Psych Speech and Movement: speech and movement normal Mood: anxious mood Affect: labile affect Attitude: cooperative Thought Process: normal Thought Content: normal Assessment Plan Assessment Plan (1) Hypertension: Status: Acute Code(s): I10 - Essential (primary) hypertension SNOMED Code(s): 23676722 Category: Medical Qualifiers: Hypertension type: essential hypertension Qualified Code(s): I10 - Essential (primary) hypertension (2) Mitral insufficiency: Status: Acute Code(s): I34.0 - Nonrheumatic mitral (valve) insufficiency SNOMED Code(s): 47509960 Category: Medical Qualifiers: Cardiac valve disease etiology: nonrheumatic Qualified Code(s): I34.0 - Nonrheumatic mitral(valve) insufficiency (3) Anxiety: Status: Acute Code(s): F41.9 - Anxiety disorder, unspecified SNOMED Code(s): 98807288 Category: Medical Plan - Serenity Cartagena M.D.: fluid some better, following with cardiology and nephrology, lorazepam for anxiety at night, daughter helping now but needs to leave soon, will look into additional help Orders Other Medications: New: lorazepam 0.5 mg PO QDAY 30 days PRN 30 tabs 0RF anxiety MDD 1 Discontinued: azithromycin Di scontinued Reason: Completed referral take 500 mg today (day 1), then 250 mg for 4 days (days2-5) PO 6 tabs 0RF Follow Up: 1 Month Coding Level of Care Code 10297 Est Pt Intermediate Comp Exam Problem Focused Diagnoses Hypertension I10 Hypertension type: essential hypertension Mitral insufficiency I34.0 Cardiac valve disease etiology: nonrheumatic Anxiety F41.9 <Electronically signed by Serenity Cartagena MD> 04/01/20 0715 Name Value Range Interpretation Code Description Data Awa rce(s) Supporting Document(s) ID Date Data Source [id number] 03/24/2020 12:00:00 AM EST [facility] Tiesha Luzmariaximena Extractor Operator Helper Patient Name: GLENDA [address] Date of : 1935[place] [address] Date of Exam: 03/24/2020PH#: Fax: [phone] EXAM: CHEST (2 VIEW) X-RAYCLINICAL INFORMATION: Chronic systolic and diastolic heart failure.Two views.Comparison 01/28/2020.There is mild cardiomegaly. There is mild bibasilar interstitial edemawith small bilateral pleural effusions. There is calcification of thethoracic aorta. The mediastinal silhouette is unchanged. Multiple sternalwires and mediastinal clips are present. There are als multiple clips inthe left axillary region. There are mild diffuse degenerative changes ofthe spine.IMPRESSION:Mild cardiomegaly. Mild bibasilar interstitial edema with small bilateralpleural effusions.Gabriel Alford, DILSHAD/Flor you for referring GLENDA ROWSAM to our office. Electronically Signed - GABRIEL ALFORD MD 03/24/20 16:45 Name Value Range Interpretation Code Description Data Awa rce(s) Supporting Document(s) ID Date Data Source [id number] 03/21/2020 03:06:00 PM EST [facility] ([facility]) Name Value Range Interpretation Code Description Data Awa rce(s) Supporting Document(s) Echocardiogram Laboratory test result [facility] ([facility]) ID Date Data Source [id number] 02/12/2020 03:46:00 PM EDT [facility] Name Value Range Interpretation Code Description Data Awa rce(s) Supporting Document(s) SARS-COV-2 RNA RESP QL KYARA+PROBE [facility] This lab was ordered by [facility] and reported by [employer] [facility]. ID Date Data Source [id number] 02/05/2020 08:56:00 AM EDT [facility] Patient Name: GLENDA CULLEN OB: 1935 Sex: F Pt Unit #: [id number] Location:[facility] Provider: Visit Date/Time: 02/05/20 Primary Insurance: [employer] Secondary Insurance: Self Pay Intake Vital Signs 02/05/20 09:01 Current Height 5 ft 2 in Current Weight 157 lb Weight Measurement Method Stated by Patient BMI 28.7 BP 124/62 Blood Pressure Location Rt brachial Position Sitting Respiration 12 Pulse 50 L Pulse Strength Normal Pulse Source Pulse Oximeter Pulse Oximetry (%) 94 L Oxygen Delivery Method room air Intake Visit Reasons: Hospital Discharge Follow-up Nurse Note: Hospital D/C follow up D/C on 01.29- Was in [facility] for CHF, Renal Failure, and Mitral Valveprolapse - Dr. Malik would like to have procedure done in [place] to repair- Daughter in law has noticed a cough and increased shortness of Breath since she she has been home, has also had a fever - of 101.6, yesterday morning 100.8 -, As far as they know she has not been tested for COVID - Warp 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 Required: No Accompanied by: Self / Same as Patient Is patient in pain?: No Allergies TAPE Allergy (Verified 01/27/20 17:24) Medications aspirin (Ecotrin Low Strength) 81 mg PO DAILY azithromycin take 500 mg today (day 1), then 250 mg for 4 days (days 2-5) PO carvedilol 6.25 mg PO BID 90 days gabapentin 300 mg PO BID hydrocodone-acetaminophen 7.5-325 mg 1 tab PO Q4-6HRPRN 30 days MDD 5 levothyroxine 50 mcg PO DAILY 90 days multivitamin (Daily Vitamin) 1 tab PO DAILY omeprazole 40 mg PO DAILY 90 days pravastatin 80 mg PO DAILY 90 days torsemide 20 mg PO QDAY Is last menstrual period known: No Post menopausal: Yes Patient : No Vision Wearing glasses?: Yes Fall Risk History of falls: No Ambulatory Aid:: None Gait/Transferring:: Normal Medications:: No High Risk Medications PHQ-2/9 Over the last 2 weeks, how often have you been bothered by any of the following problems? 1. Little interest or pleasure in doing things: not at all 2. Feeling down, depressed, or hopeless: not at all Total score: 0 HIV Testing Offer - ages 13-64 HIV testing Offer: Yes Requirement for HIV testing offer been met?: Not in age range SBIRT Annual Questionnaire Are you currently in recovery for alcohol or substance use?: No How many times in the past year have you had 4 or more drinks in a day?: None How many times in the past year have you used a recreati onal drug or used a prescription medication for nonmedical reasons?: None Do you need a note to return Do you need a note to return to daycare/school/sports/work: No [facility] Medical History (Updated 02/05/20 @ 12:32 by Serenity Cartagena M.D.) HTN (hypertension) Mitral insufficiency Surgical History Cataract extraction and insertion of intraocular lens History of - artificial joint History of - surgery History of hysterectomy Social History Does the Patient have a Healthcare Proxy: Yes Does Patient have a DNR?: Yes Does Patient have a Living Will?: No Advance Directives on File or in chart?: No Smoking Status: Never smoker Review of Systems Const Denies chills, Reports fatigue, Reports fever(s), Reports headache(s) and Reports poor appetite ENT Reports headache(s), Reports nasal congestion and Reports sinus pressure Card Denies chest pain, Denies leg edema, Reports dyspnea on exertion, Denies orthopnea and Denies paroxysmal nocturnal dyspnea Resp Reports cough, Reports dyspnea on exertion and Denies wheezing GI Denies na usea and Denies vomiting Neuro Reports headache(s) Endo Reports fatigue Aller/Immun Denies wheezing Exam Const General: cooperative and no acute distress Nutritional Appearance: average body habitus Orientation: alert, awake and oriented x3 Resp Effort Inspection: normal respiratory effort Auscultation: no rales, no rhonchi and no wheezes Cardio Rate: regular rate Rhythm: regular rhythm Extrem General: no calf tenderness and edema Laterality: bilateral Severity: 2+ Assessment Plan Assessment Plan (1) Hospital discharge follow-up: Code(s): Z09 - Encounter for follow- up examination after completed treatment for conditions other than malignant neoplasm (2) CHF (congestive heart failure): Code(s): I50.9 - Heart failure, unspecified Qualifiers: Heart failure type: systolic Heart failure chronicity: acute on chronic Qualified Code(s):I50.23 - Acute on chronic systolic (congestive) heart failure (3) Mitral insufficiency: Status: Acute Code(s): I34.0 - Nonrheumatic mitral (valve) insufficiency SNOMED Code(s): 29245859 Category: Medical Qualifiers: Cardiac valve disease etiology: nonrheumatic Qualified Code(s): I34.0 - Nonrheumatic mitral(valve) insufficiency (4) Bronchitis: Code(s): J40 - Bronchitis, not specified as acute or chronic Additional Comments Additional Comments: need for covid testing and quarantine until results available, bobbi h[place] ordered, reviewed records, meds and cardiology, recommend mitral valve clip Orders Other Medications: New: azithromycin take 500 mg today (day 1), then 250 mg for 4 days (days 2-5) PO 6 tabs 0RF Discontinued: lisinopril (Prinivil) Discontinued Reason: Order changed 10 mg PO DAILY 90 days 90 tabs 3RF <Electronically signed by Serenity Cartagena MD> 02/05/20 1249 Name Value Range Interpretation Code Description Data Awa rce(s) Supporting Document(s) ID Date Data Source [id number] 02/05/2020 12:00:00 AM EDT [facility] Name Value Range Interpretation Code Description Data Awa rce(s) Supporting Document(s) 2019-nCoV RNA XXX KYARA+probe-Imp [facility] This lab was ordered by [facility] and reported by [employer]. ID Date Data Source [id number] 01/27/2020 06:10:00 PM EDT [facility] [address] [place] [address] [phone] NAME SEX PT STATUS ACCOUNT NUMBER GLENDA CULLEN [facility] ER [id number] ORDERING PHYSICIAN LOCATION MEDICAL RECORD NO. Agustin Kelly MD ER [id number] ATTENDING PHYSICIAN DATE OF DATE OF EXAM/TIME [...] Trans Dt/Tm: Trans by: DT Prt Dt/Tm: [id number]: Total DLP = 0.00 mGy-cm Fluoroscopy Time (in secs): Name Value Range Interpretation Code Description Data Awa rce(s) Supporting Document(s) ID Date Data Source [id number] 01/27/2020 05:31:00 PM EDT [facility] ED Physician Documentation NAME: GLENDA CULLEN : 1935 AGE: 84 MR#: [id number] SERVICE DATE: 01/27/[address]: Agustin Kelly MD PRIMARY CARE DR: Serenity Cartagena MD ROOM#: ADDENDUM Discharge Plan Admission/Discharge Dx Primary DC Diagnosis: Renal Failure; Volume Overload ED Provider: Agustin Kelly ED Status: Registered Time Seen by Provider: 01/27/20 17:16 Triaged At: 01/27/20 16:42 Condition Condition: Stable Discharge Detail Disposition: Transfer - [facility] Med Rec New Prescriptions: No Action pravastatin 80 mg tablet 80 mg PO DAILY 90 Days Qty: 90 RF: 3 gabapentin 300 mg capsule 300 mg PO BID Qty: 60 RF: 2 aspirin [Ecotrin Low Strength] 81 MG tablet,delayed release (DR/EC) 81 mg PO DAILY RF: 0 multivitamin [Daily Vitamin] Tablet 1 tab PO DAILY RF: 0 furosemide 40 mg tablet 40 mg PO BID RF: 0 omeprazole 40 mg capsule,delayed release(DR/EC) 40 mg PO DAILY 90 Days Qty: 90 RF: 3 levothyroxine 50 mcg tablet 50 mcg PO DAILY 90 Days Qty: 90 RF: 3 carvedilol 6.25 mg tablet 6.25 mg PO BID 90 Days Qty: 180 RF: 3 lisinopril [Prinivil] 10 mg tablet 10 mg PO DAILY 90 Days Qty: 90 RF: 3 hydrocodone-acetaminophen 7.5-325 mg tablet 1 tab PO Q4- 6HRPRN MDD 5 30 Days Qty: 150 RF: 0 Medications Medication reconciliation performed by provider at discharge: Yes Interventions Interventions: ED General Adult Last Done: 01/27/20 17:22 Addendum Addendum Note: Patient signed out to me being transferred to [facility] Accepting doctor reyes Winters this doctor at [facility] explained that Cny wanted patient transferred to that facility for dialysis this accepted patient Addended by: <Electronically signed by Agustin Bedoya MD> 01/27/202022 Addendum Cosigners: D: ALESSANDRO 01/27/202022 T: DIBMI 01/27/202022 CC: Serenity Cartagena MD HPI (Adult, General) General Chief Complaint: Multi system (Adult) Stated Complaint: IRREGULAR BLOOD TEST RESULTS Resident [facility], travel outisde home, exposure to hot tubs:: No Time Seen by Provider: 01/27/20 17:16 Source: patient Exam Limitations: no limitations History of Present Illness Narrative: 84 yo woman with multiple medical problems, CHF, HTN, HLD, CKD, referred to the ER due to abnormal blood tests done earlier today. She had worsening of her baseline renal insufficiency and elevation of her bnp. The patient was doing normal activities today, washing her car, but does note that she has progressive leg swelling despite increasing doses of Lasix and also has increased SOB and BEARD progressively. No c/o chest pain, no cough, no fevers or chills. Allergies/Home Meds Allergies Allergy/AdvReac Type Severity Reaction Status Date / Time TAPE Allergy Verified 01/27/20 17:24 Home Medications Medication Instructions Recorded Confirmed Last Taken Type aspirin [Ecotrin Low Strength] 81 mg PO DAILY 08/18/13 01/27/20 01/27/20 History multivitamin [Daily Vitamin] 1 tab PO DAILY 02/03/14 01/27/20 01/27/20 History omeprazole 40 mg capsule,delayed 40 mg PO DAILY 90 Days #90 cap 02/20/19 01/27/20 01/27/20 Rx release levothy roxine 50 mcg tablet 50 mcg PO DAILY 90 Days #90 tab 05/14/19 01/27/20 01/27/20 Rx carvedilol 6.25 mg tablet 6.25 mg PO BID 90 Days #180 each 06/15/19 01/27/20 01/27/20 Rx lisinopril 10 mg tablet 10 mg PO DAILY 90 Days #90 tab 07/31/19 01/27/20 01/27/20 Rx pravastatin 80 mg tablet 80 mg PO DAILY 90 Days #90 tab 08/12/19 01/27/20 01/27/20 Rx gabapentin 300 mg capsule 300 mg PO BID #60 cap 11/12/19 01/27/20 01/27/20 Rx hydrocodone 7.5 mg- acetaminophen 1 tab PO Q4-6HRPRN 30 Days #150 12/02/19 01/27/20 01/27/20 Rx 325 mg tablet tab MDD 5 furosemide 40 mg PO BID 01/27/20 01/27/20 01/27/20 History PMH (from Triage) Patient Medical History PMH Reviewed/Updated as Needed: Yes PMH/PSH from Triage: Medical History (Updated 12/02/19 @ 11:24 by Sofia Mckeon) HTN (hypertension) (Medical) I10 Surgical History (Updated 10/07/18 @ 11:55 by Moqom RI) Cataract extraction and insertion of intraocular lens (Surgical) History of - artificial joint (Surgical) RIGHT HIP LEFT KNEE History of - surgery (Surgical) TRIPLE BYPASS BILATERAL VARICOSE VEINS History of hysterectomy (Surgical) Female History LMP:: Hysterectomy Hx Drug Resistant Infections Hx MRSA: (Methicillin-resistant Staphylococcus aureus): No Hx VRE (Vancomycin-resistant enterococci): No Hx C.Diff: No Hx CRKP: No Hx Other Resistant Infection?: No Isolation: Standard precautions Hx Recent Travel Hx Fever: No Nurse screening for coronavirus: Recent Travel outside the No country (where) Has patient experienced No coronavirus symptoms Social History Are you in a relationship with/Does anyone hit you, yell/swear at you, steal from you?: No Substance Use Hx Substance Use: No Smoking Status: Never smoker Tobacco Use Hx Chewing Tobacco Use: No Vaccination Hist ory Hx/Date of Tetanus, Diphtheria Vaccination: Yes ([place]) Hx/Date of Influenza Vaccination: Yes Hx/Date of Pneumococcal Vaccination: Yes PFSH Medical History HTN (hypertension) Surgical History Cataract extraction and insertion of intraocular lens History of - artificial joint History of - surgery History of hysterectomy Social History Does the Patient have a Healthcare Proxy: Yes Does Patient have a DNR?: Yes Does Patient have a Living Will?: No Advance Directives on File or in chart?: No Smoking Status: Never smoker ROS Review of Systems Constitutional: Denies fever, chills, weakness and malaise Eyes: Denies vision change ENT: Denies nasal congestion and throat pain Respiratory: Reports SOB with excertion; Denies cough Cardiovascular: Reports edema; Denies chest pain and palpitations Gastrointestinal: Denies nausea, vomiting, abdominal pain and diarrhea Genitourinary-Female: Denies dysuria and frequency Musculoskeletal: Denies muscle pain and joint pain Skin/Breasts: Denies rash Neurologic: Denies weakness and numbness Endocrine: Denies Loss of appetite Allergic/Immunologic: Denies rash Physical Exam General Physical Exam Narrative: wd elderly wom an, awake and alert, comfortable at rest Limitations: no limitations General appearance: alert and in no apparent distress Head Head exam: Present atraumatic, normocephalic and normal inspection Eye Eye exam: Present normal apperance and EOMI; Absent scleral icterus and conjunctival injection ENT ENT exam: Present normal orophraynx and mucous membranes dry; Absent normal exam Neck Neck exam: Present normal inspection and full ROM Respiratory Respiratory exam: Present normal lung sounds bilaterally; Absent respiratory distress Cardiovascular Cardiovascular Exam: Present regular rate, normal rhythm and systolic murmur GI/Abdominal GI/Abdominal exam: Present Abd soft, bowel sounds present all quadrents; Absent tenderness Rectal Rectal exam: Present deferred Extremities Exam Extremities exam: Present full ROM and other (b/l lower extremity edema to knees); Absent normal inspection and tenderness Back Exam Back exam: Present normal inspection and full ROM; Absent tenderness Neurological Exam Neurological exam: Present alert and oriented X3; Absent motor sensory deficit Psychiatric Psychiatric exam: Present normal affect and normal mood Skin Skin exam: Present warm, dry, intact and normal color Vital Signs Vital Signs: Vital Signs 01/27/20 17:19 Temperature 98.1 F Pulse Rate 72 Respiratory Rate 18 Blood Pressure 104/43 O2 Sat by Pulse Oximetry 98 MDM (comprehensive) EKG Data -: EKG Interpreted by [facility] Data Radiology results: report reviewed Medical Decision Making Free Text/Narative:: The patient was evaluated for lab values showing worsening renal function. ThePE was significant for massive b/l leg edema. Case d/w [facility] and Dr. Alonso. The patient will be transferred to [facility] for Dialysis. Plan Plan Plan: Transfer to [facility] Plan of care: Plan of care discussed with patient and or family, Patient encouraged to ask questionsabout plan and Patient agrees with plan of care Discharge Plan Admission/Discharge Dx Primary DC Diagnosis: Renal Failure; Volume Overload ED Provider: Agustin Kelly ED Status: Registered Time Seen by Provider: 01/27/20 17:16 Triaged At: 01/27/20 16:42 Condition Condition: Stable Discharge Detail Disposition: Transfer - [facility] Med Rec New Prescriptions: No Action pravastatin 80 mg tablet 80 mg PO DAILY 90 Days Qty: 90 RF: 3 gabapentin 300 mg capsule 300 mg PO BID Qty: 60 RF: 2 aspirin [Ecotrin Low Strength] 81 MG tablet,delayed release (DR/EC) 81 mg PO DAILY RF: 0 multivitamin [Daily Vitamin] Tablet 1 tab PO DAILY RF: 0 furosemide 40 mg tablet 40 mg PO BID RF: 0 omeprazole 40 mg capsule,delayed release(DR/EC) 40 mg PO DAILY 90 Days Qty: 90 RF: 3 levothyroxine 50 mcg tablet 50 mcg PO DAILY 90 Days Qty: 90 RF: 3 carvedilol 6.25 mg tablet 6.25 mg PO BID 90 Days Qty: 180 RF: 3 lisinopril [Prinivil] 10 mg tablet 10 mg PO DAILY 90 Days Qty: 90 RF: 3 hydrocodone-acetaminophen 7.5-325 mg tablet 1 tab PO Q4-6HRPRN MDD 5 30 Days Qty: 150 RF: 0 Medications Medication reconciliation performed by pr nara at discharge: Yes Interventions Interventions: ED General Adult Last Done: 01/27/20 17:22 Report Signers: <Electronically signed by Agustin Kelly MD> Agustin Kelly MD 01/27/20 1843 Agustin Kelly MD SIGNATURE DA Report Cosigners: D: JUDITH 01/27/201730 T: JUDITH 01/27/201730 CC: Serenity Cartagena MD Name Value Range Interpretation Code Description Data Awa rce(s) Supporting Document(s) ID Date Data Source [id number] 01/27/2020 11:29:00 AM EDT [facility] Name Value Range Interpretation Code Description Data Awa rce(s) Supporting Document(s) Leukocytes [#/volume] in Blood by Automated count 5.6 10*3/uL 4.45-10 .71 N [facility] Erythrocytes [#/volume] in Blood by Automated count 2.76 10*6/uL 4.20-5.40 Below low normal [facility] Hemoglobin [Moles/volume] in Blood 8.5 g/dL 10.7-15.4 Below low no rmal [facility] Hematocrit [Volume Fraction] of Blood by Automated count 28.9 % 37-47 Below low normal [facility] Erythrocyte mean corpuscular volume [Ent itic volume] in Cord blood by Automated count 104.7 fL 80-96 Above high normal [facility] Erythrocyte mean corpuscular hemoglobin [Entitic mass] by Automated count 30.8 pg 27-31 N [facility] Erythrocyte mean corpuscular hemoglobin concentration [Mass/volume] in Cord blood 29.4 g/dL 33-37 Below low normal [facility] Erythrocyte distribution width [Entitic volume] by Automated count 14 % 11-15 N [facility] Platelets [#/volume] in Blood by Automated count 251 10*3/uL 130-472 N [facility] Platelet mean volume [Entitic volume] in Blood 10.4 fL 9.1-13.1 N [facility] Neutrophils/100 leukocytes in Blood by Automated count 59.5 % 41- 77 N [facility] Neutrophils [#/volume] in Blood by Automated count 3.4 U 1.7-7.6 N [facility] Lymphocytes/100 leukocytes in Blood by Automated count 27.4 % 14- 46 N [facility] Lymphocytes [#/volume] in Blood by Automated count 1.5 U 0.6-4.6 N [facility] Monocytes/100 leukocytes in Blood by Automated count 9.2 % 4-12 N [facility] Monocytes [#/volume] in Blood by Automated count 0.5 U 0.2-1.2 N [facility] Eosinophils/100 leukocytes in Blood by Automated count 3.2 % 0-7 N [facility] Eosinophils [#/volume] in Blood by Automated count 0.2 U 0.0-0.5 N [facility] Basophils/100 leukocytes in Blood by Automated count 0.5 % 0.4-1 .3 N [facility] Basophils [#/volume] in Blood by Automated count 0.0 U 0.0-0.2 N [facility] NUCLEATED RED BLOOD CELL 0 % [facility] NUCLEATED RED BLOOD CELL# 0 U [facility] Immature granulocytes [Presence] in Blood by Automated count 0-2 N [facility] Immature granulocytes [#/volume] in Blood by Automated count 0.0 U 0-0.1 N [facility] Manual Differential panel - Blood NO [facility] ID Date Data Source [id number] 01/27/2020 01:34:00 PM EDT [facility] Name Value Range Interpretation Code Description Data Awa rce(s) Supporting Document(s) Urea nitrogen [Mass/volume] in Serum or Plasma 118 mg/dL 9 -23 No range defined, or normal ranges don't apply [facility] @Review test & document.Called to DEBBI Negro @ 6747 by Margoth Rosado. Results readback.Repeated by: Margoth Rosado 01/27/20 2483.Result Confirmation: 115 mg/dL Sodium [Moles/volume] in Serum or Plasma 143 mmol/L 132-146 N [facility] Potassium [Moles/volume] in Serum or Plasma 5.3 mmol/L 3.5-5.5 N [facility] Chloride [Moles/volume] in Serum or Plasma 115 mmol/L 99-109 Above high normal [facility] Carbon dioxide, total [Moles/volume] in Serum or Plasma 18 mmol/ L 20-31 Below low normal [facility] Anion gap in Serum or Plasma 15 mmol/L 8-16 N L [facility] Glucose [Mass/volume] in Serum or Plasma 107 mg/dL 74-106 Above high normal [facility] Creatinine 3.1 mg/dL 0.5-1.1 Above high normal [facility] Glomerular filtration rate/1.73 sq M.pre dicted [Volume Rate/Area] in Serum or Plasma 14 ml/min ABOVE 60 [facility] ital Alanine aminotransferase [Enzymatic acti vity/volume] in Serum or Plasma by With P-5'-P 17 U/L 10-49 N [facility] ital Aspartate aminotransferase [Enzymatic ac tivity/volume] in Serum or Plasma by With P-5'-P 16 U/L 0-33 N [facility] pital Alkaline phosphatase [Enzymatic activity/volume] in Serum or Plasma 119 U/L 45-129 N [facility] Calcium [Mass/volume] in Serum or Plasma 9.1 mg/dL 8.5-10.1 [facility] Bilirubin.total [Mass/volume] in Serum or Plasma 0.2 mg/dL 0.3-1.2 Below low normal [facility] Albumin [Mass/volume] in Serum or Plasma by Bromocresol purple (BCP) dye binding method 3.9 g/dL 3.2-4.8 [facility] Protein [Mass/volume] in Serum or Plasma 7.0 g/dL 5.7-8.2 [facility] ID Date Data Source [id number] 01/28/2020 06:51:00 AM [facility] Value Range Interpretation Code Description Data Awa rce(s) Supporting Document(s) TRIIODOTHYRONINE, FREE, SERUM 2.7 pg/mL 2.3-4.2 [facility] THIS TEST WAS PERFORMED AT:[address] [id number] MERATI,MD ID Date Data Source [id number] 01/27/2020 01:34:00 PM [facility] Value Range Interpretation Code Description Data Awa rce(s) Supporting Document(s) Thyroxine (T4) free [Mass/volume] in Serum or Plasma 0.90 ng/dL 0.89- 1.76 [facility] ID Date Data Source [id number] 01/27/2020 01:34:00 PM [facility] Value Range Interpretation Code Description Data Awa rce(s) Supporting Document(s) Thyrotropin [Units/volume] in Serum or Plasma by Detec tion limit <= 0.005 mIU/L 0.82 u[iU]/mL 0.35-5.50 [facility] al ID Date Data Source [id number] 01/27/2020 01:34:00 PM [facility] Value Range Interpretation Code Description Data Awa rce(s) Supporting Document(s) Natriuretic peptide.B prohormone N-Terminal [Mass/volu me] in Serum or Plasma 6063.00 pg/mL 0.00-450 Above high normal [facility] ospital @Review test & document.Called to DEBBI NegroTrish @ 6222 by Margoth Rosado. Results readback. ID Date Data Source [id number] 01/27/2020 11:15:00 AM EDT [facility] Name Value Range Interpretation Code Description Data Awa rce(s) Supporting Document(s) Thyroxine (T4) free [Mass/volume] in Serum or Plasma 0.90 ng/dL 0.89-1.76 Normal (applies to non-numeric results) [facility]) I50.23,I34.0,N18.3 Thyrotropin [Units/volume] in Serum or Plasma 0.82 u[iU]/mL 0. 35-5.50 Normal (applies to non-numeric results) [facility]) I50.23,I34.0,N18.3 Natriuretic peptide.B prohormone N-Terminal [Mass/volu me] in Serum or Plasma 6063.00 pg/mL 0.00-450 Above high normal [facility] ) I50.23,I34.0,N18.3 Triiodothyronine (T3) Free [Mass/volume] in Serum or Plasma 2.7 pg/ mL 2.3-4.2 [facility]) I50.23,I34.0,N18.3 ID Date Data Source [id number] 01/27/2020 11:15:00 AM EDT [facility] Name Value Range Interpretation Code Description Data Awa rce(s) Supporting Document(s) Urea nitrogen [Mass/volume] in Serum or Plasma 118 mg/dL 9-23 No range defined [facility]) I50.23,I34.0,N18.3 Sodium [Moles/volume] in Serum or Plasma 143 mmol/L 132-146 Normal (applies to non-numeric results) [facility]) I50.23,I34.0,N18.3 Potassium [Moles/volume] in Serum or Plasma 5.3 mmol/L 3.5- 5.5 Normal (applies to non-numeric results) [facility]) I50.23,I34.0,N18.3 Chloride [Moles/volume] in Serum or Plasma 115 mmol/L 99-109 Above high normal [facility]) I50.23,I34.0,N18.3 Carbon dioxide, total [Moles/volume] in Serum or Plasma 18 mmol/ L 20-31 Below low normal [facility]) I50.23,I34.0,N18.3 Glucose [Mass/volume] in Serum or Plasma 107 mg/dL 74-106 Above high normal [facility]) I50.23,I34.0,N18.3 Anion gap in Serum or Plasma 15 mmol/L 8-16 Nor mal (applies to non-numeric results) [facility]) I50.23,I34.0,N18.3 Glomerular filtration rate/1.73 sq M.pre dicted [Volume Rate/Area] in Serum or Plasma 14 [facility]) I50.23,I34.0,N18.3 Creatinine 3.1 mg/dL 0.5-1.1 Above high normal [facility]) I50.23,I34.0,N18.3 Alanine aminotransferase [Enzymatic acti vity/volume] in Serum or Plasma by With P-5'-P 17 U/L 10-49 Normal (applies to non-numeric results) [facility]) I50.23,I34.0,N18.3 Aspartate aminotransferase [Enzymatic ac tivity/volume] in Serum or Plasma by With P-5'-P 16 U/L 0-33 Normal (applies to non-numeric results) [facility]) I50.23,I34.0,N18.3 Alkaline phosphatase [Enzymatic activity/volume] in Serum or Plasma 119 U/L 45-129 Normal (applies to non-numeric results) [facility] ( [facility]) I50.23,I34.0,N18.3 Calcium [Mass/volume] in Serum or Plasma 9.1 mg/dL 8.5-10. 1 Normal (applies to non-numeric results) [facility]) I50.23,I34.0,N18.3 Albumin [Mass/volume] in Serum or Plasma by Bromocresol purple (BCP) dye binding method 3.9 g/dL 3.2-4.8 Normal (applies to non-numeric results) [facility]) I50.23,I34.0,N18.3 Bilirubin.total [Mass/volume] in Serum or Plasma 0.2 mg/dL 0.3-1.2 Below low normal [facility]) I50.23,I34.0,N18.3 Protein [Mass/volume] in Serum or Plasma 7.0 g/dL 5.7-8.2 Normal (applies to non-numeric results) [facility]) I50.23,I34.0,N18.3 ID Date Data Source [id number] 01/27/2020 11:15:00 AM EDT [facility] Name Value Range Interpretation Code Description Data Awa rce(s) Supporting Document(s) Leukocytes [#/volume] in Blood by Automated count 5.6 10*3/uL 4.45-10.71 Normal (applies to non-numeric results) [facility]) I50.23,I34.0,N18.3 Erythrocytes [#/volume] in Blood by Automated count 2.76 10*6/uL 4.20-5.40 Below low normal [facility]) I50.23,I34.0,N18.3 Hemoglobin [Moles/volume] in Blood 8.5 g/dL 10.7-15.4 Below low no rmal [facility]) I50.23,I34.0,N18.3 Hematocrit [Volume Fraction] of Blood by Automated count 28.9 % 37-47 Below low normal [facility]) I50.23,I34.0,N18.3 Erythrocyte mean corpuscular hemoglobin [Entitic mass] by Automated count 30.8 pg 27-31 Normal (applies to non-numeric results) [facility]) I50.23,I34.0,N18.3 Erythrocyte mean corpuscular volume [Ent itic volume] in Cord blood by Automated count 104.7 fL 80-96 Above high normal [facility] I50.23,I34.0,N18.3 Erythrocyte mean corpuscular hemoglobin concentration [Mass/volume] in Cord blood 29.4 g/dL 33-37 Below low normal [facility] I50.23,I34.0,N18.3 Erythrocyte distribution width [Entitic volume] by Automated cou nt 14 % 11-15 Normal (applies to non-numeric results) [facility] I50.23,I34.0,N18.3 Platelets [#/volume] in Blood by Automated count 251 10*3/uL 130-472 Normal (applies to non-numeric results) [facility]) I50.23,I34.0,N18.3 Neutrophils [#/volume] in Blood by Automated count 3.4 U 1.7-7.6 Normal (applies to non-numeric results) [facility]) I50.23,I34.0,N18.3 Platelet mean volume [Entitic volume] in Blood 10.4 fL 9 .1-13.1 Normal (applies to non-numeric results) [facility]) I50.23,I34.0,N18.3 Neutrophils/100 leukocytes in Blood by Automated count 59.5 % 41-77 Normal (applies to non-numeric results) [facility]) I50.23,I34.0,N18.3 Lymphocytes/100 leukocytes in Blood by Automated count 27.4 % 14-46 Normal (applies to non-numeric results) [facility]) I50.23,I34.0,N18.3 Lymphocytes [#/volume] in Blood by Automated count 1.5 U 0.6-4.6 Normal (applies to non-numeric results) [facility]) I50.23,I34.0,N18.3 Monocytes/100 leukocytes in Blood by Automated count 9.2 % 4-12 Normal (applies to non-numeric results) [facility]) I50.23,I34.0,N18.3 Eosinophils/100 leukocytes in Blood by Automated count 3.2 % 0-7 Normal (applies to non-numeric results) [facility]) I50.23,I34.0,N18.3 Monocytes [#/volume] in Blood by Automated count 0.5 U 0.2-1.2 Normal (applies to non-numeric results) [facility]) I50.23,I34.0,N18.3 Eosinophils [#/volume] in Blood by Automated count 0.2 U 0.0-0.5 Normal (applies to non-numeric results) [facility]) I50.23,I34.0,N18.3 Basophils/100 leukocytes in Blood by Automated count 0.5 % 0.4-1.3 Normal (applies to non-numeric results) [facility]) I50.23,I34.0,N18.3 Basophils [#/volume] in Blood by Automated count 0.0 U 0.0-0.2 Normal (applies to non-numeric results) [facility]) I50.23,I34.0,N18.3 Laboratory test finding (navigational concept) 0 U [facility] I50.23,I34.0,N18.3 Laboratory test finding (navigational concept) 0 % [facility] I50.23,I34.0,N18.3 Immature granulocytes [Presence] in Blood by Automated count 0.2 0-2 Normal (applies to non-numeric results) [facility]) I50.23,I34.0,N18.3 Manual Differential panel - Blood Laboratory test result [facility]) I50.23,I34.0,N18.3 Immature granulocytes [#/volume] in Blood by Automated count 0.0 U 0-0.1 Normal (applies to non-numeric results) [facility] I50.23,I34.0,N18.3 ID Date Data Source [id number] 01/12/2020 12:30:00 PM EDT [facility] Name Value Range Interpretation Code Description Data Awa rce(s) Supporting Document(s) Triiodothyronine (T3) Free [Mass/volume] in Serum or P lasma Laboratory test result [facility]) Thyroxine (T4) free [Mass/volume] in Serum or Plasma Laboratory arturo t result [facility]) Thyrotropin [Units/volume] in Serum or Plasma Laboratory test result [facility]) ID Date Data Source [id number] 01/12/2020 12:30:00 PM EDT [facility] Name Value Range Interpretation Code Description Data Awa rce(s) Supporting Document(s) Leukocytes [#/volume] in Blood by Automated count Laboratory test res ult [facility]) Erythrocytes [#/volume] in Blood by Automated count Laboratory test result [facility]) Hemoglobin [Mass/volume] in Blood Laboratory test result [facility]) Hematocrit [Volume Fraction] of Blood by Automated count Lab oratory test result [facility]) Erythrocyte mean corpuscular volume [Entitic volume] b y Automated count Laboratory test result [facility]) Erythrocyte mean corpuscular hemoglobin [Entitic mass] by Automated count Laboratory test result [facility] Erythrocyte mean corpuscular hemoglobin concentration [Mass/volume] by Automated count Laboratory test result [facility] Platelets [#/volume] in Blood by Automated count Laboratory test resu lt [facility]) Erythrocyte distribution width [Ratio] by Automated co unt Laboratory test result [facility]) Platelet mean volume [Entitic volume] in Blood by Ricardo Causey Laboratory test result [facility] Neutrophils Laboratory test result [facility] Band form neutrophils/100 leukocytes in Body fluid by Manual count Laboratory test result [facility]) Lymphocytes/100 leukocytes in Body fluid by Manual count Lab oratory test result [facility]) Basophils/100 leukocytes in Blood Laboratory test result [facility]) Monocytes Laboratory test result [facility]) Eosinophils/100 leukocytes in Body fluid by Manual count Lab oratory test result [facility]) Lymphocytes [#/volume] in Blood Laboratory test result [facility]) Neutrophils [#/volume] in Blood by Automated count Laboratory test re sult [facility]) Monocytes [#/volume] in Blood Laboratory test result [facility]) Eosinophils [#/volume] in Blood by Automated count Laboratory test re sult [facility]) Basophils [#/volume] in Blood by Automated count Laboratory test resu lt [facility]) ID Date Data Source [id number] 01/12/2020 12:30:00 PM EDT [facility] Name Value Range Interpretation Code Description Data Awa rce(s) Supporting Document(s) Alanine aminotransferase [Enzymatic activity/volume] i n Serum or Plasma Laboratory test result [facility] Albumin [Mass/volume] in Serum or Plasma Laboratory test result [facility] Calcium [Mass/volume] in Serum or Plasma Laboratory test result [facility]) Carbon dioxide, total [Moles/volume] in Serum or Plasma Labo ratory test result [facility]) Glucose [Mass/volume] in Serum or Plasma Laboratory test result [facility]) Chloride [Moles/volume] in Serum or Plasma Laboratory test result [facility]) Creatinine [Mass/volume] in Serum or Plasma Laboratory test result [facility]) Alkaline phosphatase [Enzymatic activity/volume] in Se rum or Plasma Laboratory test result [facility]) Protein [Mass/volume] in Serum or Plasma Laboratory test result [facility] Potassium [Moles/volume] in Serum or Plasma Laboratory test result [facility]) Aspartate aminotransferase [Enzymatic activity/volume] in Serum or Plasma Laboratory test result [facility] Urea nitrogen [Mass/volume] in Serum or Plasma Laboratory test result [facility]) Sodium [Moles/volume] in Serum or Plasma Laboratory test result [facility]) ID Date Data Source [id number] 01/12/2020 12:30:00 PM EDT [facility] Name Value Range Interpretation Code Description Data Awa rce(s) Supporting Document(s) Natriuretic peptide B [Mass/volume] in Serum or Plasma Laborator y test result [facility]) ID Date Data Source [id number] 12/23/2019 11:55:00 AM EDT [facility] Patient Name: GLENDA CULLEN : 1935 Sex: F Pt Unit #: [id number] Location:[facility] Provider: Visit Date/Time: 12/23/19 Primary Insurance: [employer] Secondary Insurance: Self Pay Intake Vital Signs 12/23/19 11:56 Current Height 5 ft 2 in Current Weight 153 lb Weight Measurement Method Standing Scale BMI 28.0 Intake Visit Reasons: Pain follow-up Nurse Note: Pain follow up - from fall, states she slowly feeling better, no additional concerns today - Her Left arm is still pretty painful Warp 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 Required: No Accompanied by: Self / Same as Patient Is patient in pain?: No Allergies TAPE Allergy (Verified 12/02/19 11:27) Medications aspirin (Ecotrin Low Strength) 81 mg PO DAILY carvedilol 6.25 mg PO BID 90 days diazepam 5 mg PO TID 30 days PRN MDD 3 furosemide 40 mg PO DAILY 90 days gabapentin 300 mg PO BID hydrocodone- acetaminophen 7.5-325 mg 1 tab PO Q4-6HRPRN 30 days MDD 5 levothyroxine 50 mcg PO DAILY 90 days lisinopril (Prinivil) 10 mg PO DAILY 90 days multivitamin (Daily Vitamin) 1 tab PO DAILY omeprazole 40 mg PO DAILY 90 days pravastatin 80 mg PO DAILY 90 days Is last menstrual period known: No Post menopausal: Yes Patient : No Fall Risk History of falls: No Ambulatory Aid:: None Gait/Transferring:: Normal Medications:: No High Risk Medications PHQ- 2/9 Over the last 2 weeks, how often have you been bothered by any of the following problems? 1. Little interest or pleasure in doing things: not at all 2. Feeling down, depressed, or hopeless: not at all Total score: 0 HIV Testing Offer - ages 13-64 Requirement for HIV testing offer been met?: Not in age range SBIRT Annual Questionnaire Are you currently in recovery for alcohol or substance use?: No How many times in the past year have you had 4 or more drinks in a day?: None How many times in the past year have you used a recreational drug or used a prescription medication for nonmedical reasons?: None Do you need a note to return Do you need a note to return to daycare/school/sports/work: No Coronavirus Screening Screening Have you traveled outside of [facility] or [facility] in the last 14 days.: No Has patient experienced coronavirus symptoms: No [facility] Medical History HTN (hypertension) Surgical History Cataract extraction and insertion of intraocular lens History of - artificial joint History of - surgery History of hysterectomy Social History Does the Patient have a Healthcare Proxy: Yes Does Patient have a DNR?: Yes Does Patient have a Living Will?: No Advance Directives on File or in chart?: No Smoking Status: Never smoker Review of Systems Const Denies chills, Reports fatigue, Denies fever(s), Denies headache(s), Denies night sweats and Denies poor appetite ENT Denies headache(s) Card Denies chest pain, Denies palpitations and Denies dyspnea Resp Denies cough, Denies dyspnea and Denies wheezing Musc Reports arthralgias (L shoulder , ROM improved, L hip swelling at times) Neuro Denies headache(s) Endo Reports fatigue and Denies palpitations Aller/Immun Denies wheezing Exam Const General: cooperative Nutritional Appearance: average body habitus Orientation: alert, awake and oriented x3 Resp Effort Inspection: normal respiratory effort Auscultation: no rales and no rhonchi Cardio Rate: regular rate Rhythm: regular rhythm Musc Cervical Spine: other (L shoulder anterior tenderness improved) Thoracic/Lumbar Spine: paraspinal muscle tenderness Other: L hip good ROM, resolving hematoma Assessment Plan Assessment Plan (1) Pain: Code(s): R52 - Pain, unspecified (2) Multiple contusions: Code(s): T07.XXXA - Unspecified multiple injuries, initial encounter (3) Strain of shoulder, left: Code(s): S46.912A - Strain of unspecified muscle, fascia and tendon at shoulder and upper arm level, left arm, initial encounter Qualifiers: Encounter type: subsequent encounter Qualified Code(s): S46.912D - Strain of unspecified muscle, fascia and tendon at shoulder and upper arm level, left arm, subsequent encounter Additional Comments Additional Comments: generally improved, refuses ortho as much going on with , see 6 weeks, or as needed Electronically Signed By: <Electronically signed by Serenity Cartagena MD> Date/Time Signed: 12/24/19 0732 Name Value Range Interpretation Code Description Data Awa rce(s) Supporting Document(s) ID Date Data Source [id number] 12/10/2019 11:28:00 AM EDT [facility] [address] [place] [id number] [phone] NAME SEX PT STATUS ACCOUNT NUMBER GLENDA CULLEN REG REF [id number] ORDERING PHYSICIAN LOCATION MEDICAL RECORD NO. Serenity Cartagena MD RAD [id number] ATTENDING PHYSICIAN DATE OF DATE OF EXAM/TIME [...] Trans Dt/Tm: Trans by: DT Prt Dt/Tm: [id number]: Total DLP = 0.00 mGy-cm Fluoroscopy Time (in secs): Name Value Range Interpretation Code Description Data Awa rce(s) Supporting Document(s) ID Date Data Source [id number] 12/10/2019 10:31:00 AM EDT [facility] Patient Name: GLENDA CULLEN : 1935 Sex: F Pt Unit #: [id number] Location:[facility] Provider: Visit Date/Time: 12/10/19 Primary Insurance: [employer] Secondary Insurance: Self Pay Intake Vital Signs 12/10/19 10:31 Current Height 5 ft 2 in Current Weight 153 lb Weight Measurement Method Standing Scale BMI 28.0 BP 118/62 Blood Pressure Location Rt brachial Position Sitting Respiration 12 Pulse 46 L Pulse Strength Normal Pulse Source Pulse Oximeter Pulse Oximetry (%) 99 Oxygen Delivery Method room air Intake Visit Reasons: ER Follow-up (Adult) Nurse Note: States two weeks ago she fell in the driveway heading out to get the mail, she fell ontoher left side, is badly bruised, her arm is hurting her, went to ER who did X-Rays and found that nothing was broken - Warp 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 Required: No Accom panied by: Self / Same as Patient Is patient in pain?: Yes (Overall ) Pain scale (1-10): 9 Allergies TAPE Allergy (Verified 12/02/19 11:27) Medications aspirin (Ecotrin Low Strength) 81 mg PO DAILY carvedilol 6.25 mg PO BID 90 days diazepam 5 mg PO TID 30 days PRN MDD 3 furosemide 40 mg PO DAILY 90 days gabapentin 300 mg PO BID hydrocodone-acetaminophen 7.5-325 mg 1 tab PO Q4-6HRPRN 30 days MDD 5 levothyroxine 50 mcg PO DAILY 90 days lisinopril (Prinivil) 10 mg PO DAILY 90 days multivitamin (Daily Vitamin) 1 tab PO DAILY omeprazole 40 mg PO DAILY 90 days pravastatin 80 mg PO DAILY 90 days Is last menstrual period known: No Post menopausal: Yes Patient : No Fall Risk History of falls: Yes Ambulatory Aid:: None Gait/Transferring:: Normal Medications:: No High Risk Medications PHQ-2/9 Over the last 2 weeks, how often have you been bothered by any of the following problems? 1. Little interest or pleasure in doing things: not at all 2. Feeling down, depressed, or hopeless: not at all Total score: 0 HIV Testing Offer - ages 13-64 HIV testing Offer: Yes Requirement for HIV testing offer been met?: Not in age range SBIRT Annual Questionnaire Are you currently in recovery for alcohol or substance use?: No How many times in the past year have you had 4 or more drinks in a day?: None How many times in the past year have you used a recreational drug or used a prescription medication for nonmedical reasons?: None Do you need a note to return Do you need a note to return to daycare/school/sports/work: No Coronavirus Screening Screening Have you traveled outside of [facility] or [facility] in the last 14 days.: No Has patient experienced coronavirus symptoms: No PFSH Medical History HTN (hypertension) Surgical History Cataract extraction and insertion of intraocular lens History of - artificial joint History of - surgery History of hysterectomy Social History Does the Patient have a Healthcare Proxy: Yes Does Patient have a DNR?: Yes Does Patient have a Living Will?: No Advance Directives on File or in chart?: No Review of Systems Const Denies chills, Denies fatigue, Denies fever(s), Denies frequent falls and Denies headache(s) ENT Denies headache(s) Card Denies chest pain, Denies dyspnea, Denies orthopnea and Denies paroxysmal nocturnal dyspnea Resp Denies cough, Denies dyspnea and Denies wheezing Musc Reports arthralgias (L elbow, shoulder, knee ,ankle, and hip) Skin/Breast Denies wounds Neuro Denies frequent falls and Denies headache(s) Endo Denies fatigue Aller/Immun Denies wheezing Exam Const General: cooperative and comfortable Nutritional Appearance: average body habitus Orientation: alert, awake and oriented x3 Resp Effort Inspection: normal respiratory effort Cardio Rate: regular rate Rhythm: regular rhythm Musc Pelvis: buttock ecchymosis (left) Other: L shoulder tender anterior , decreased ROM, knee and hip non tender, tender L lateral ankle Assessment Plan Assessment Plan (1) Left ankle strain: Code(s): S96.912A - Strain of unspecified muscle and tendon at ankle and foot level, left foot, initial encounter Qualifiers: Encounter type: subsequent encounter Qualified Code(s): S96.912D - Strain of unspecified muscle and tendon at ankle and foot level, left foot, subsequent encounter (2) Multiple contusions: Code(s): T07.XXXA - Unspecified multiple injuries, initial encounter (3) Strain of shoulder, left: Code(s): S46.912A - Strain of unspecified muscle, fascia and tendon at shoulder and upper arm level, left arm, initial encounter Qualifiers: Encounter type: subsequent encounter Qualified Code(s): S46.912D - Strain of unspecified muscle, fascia and tendon at shoulder and upper arm level, left arm, subsequent encounter Additional Comments Additional Comments: reviewed ER report, x rays, ankle x ray ordered, offered ortho and PT refused ,wishes to see how she feels in 2 weeks, has pain medication and valium for spasm, see 2 weeks Orders Other Medications: Changed: From: diazepam 5 mg PO TID PRN Anxiety To: diazepam 5 mg PO TID 30 days PRN 90 tabs 0RF Anxiety MDD 3 Other Orders: Orders: Xray Ankle Complete LT Today S96.912A Follow Up: 2 Weeks Electronically Signed By: <Electronically signed by Serenity Cartagena MD> Date/Time Signed: 12/10/19 1208 Name Value Range Interpretation Code Description Data Awa rce(s) Supporting Document(s) ID Date Data Source [id number] 12/02/2019 01:01:00 PM EDT [facility] [address] [place] [id number] [phone] NAME SEX PT STATUS ACCOUNT NUMBER GLENDA CULLEN [facility] ER [id number] ORDERING PHYSICIAN LOCATION MEDICAL RECORD NO. Agustin Bedoya MD ER [id number] ATTENDING PHYSICIAN DATE OF DATE OF EXAM/TIME [...] seen in Hoffa's fat pad raises possibility offibroarthrosis.. There is no fracture or dislocation. IMPRESSION: [...] = 0.00 mGy-cm Fluoroscopy Time (in secs): Name Value Range Interpretation Code Description Data Awa rce(s) Supporting Document(s) ID Date Data Source [id number] 12/02/2019 12:58:00 PM EDT [facility] [address] [place] [address] [phone] NAME SEX PT STATUS ACCOUNT NUMBER GLENDA CULLEN [facility] ER [id number] ORDERING PHYSICIAN LOCATION MEDICAL RECORD NO. Agustin Bedoya MD ER [id number] ATTENDING PHYSICIAN DATE OF DATE OF EXAM/TIME [...] = 0.00 mGy-cm Fluoroscopy Time (in secs): Name Value Range Interpretation Code Description Data Awa rce(s) Supporting Document(s) ID Date Data Source [id number] 12/02/2019 12:51:00 PM EDT [facility] [address] [place] [address] [phone] NAME SEX PT STATUS ACCOUNT NUMBER GLENDA CULLEN REG ER [id number] ORDERING PHYSICIAN LOCATION MEDICAL RECORD NO. Agustin Bedoya MD ER [id number] ATTENDING PHYSICIAN DATE OF DATE OF EXAM/TIME [...] Trans Dt/Tm: Trans by: DT Prt Dt/Tm: [id number]: Total DLP = 0.00 mGy-cm Fluoroscopy Time (in secs): Name Value Range Interpretation Code Description Data Awa rce(s) Supporting Document(s) ID Date Data Source [id number] 12/02/2019 12:48:00 PM EDT [facility] [address] [place] [address] [phone] NAME SEX PT STATUS ACCOUNT NUMBER GLENDA CULLEN REG ER [id number] ORDERING PHYSICIAN LOCATION MEDICAL RECORD NO. Agustin Bedoya MD [id number] ATTENDING PHYSICIAN DATE OF DATE OF EXAM/TIME Serenity Cartagena MD 1935 12/02/19 / 1152 TYPE / EXAM XRAY HIP LT 2-3 [...] Trans Dt/Tm: Trans by: DT Prt Dt/Tm: [id number]: Total DLP = 0.00 mGy-cm Fluoroscopy Time (in secs): Name Value Range Interpretation Code Description Data Awa rce(s) Supporting Document(s) ID Date Data Source [id number] 12/02/2019 11:53:00 AM EDT [facility] ED Physician Documentation NAME: GLENDA CULLEN : 1935 AGE: 84 MR#: [id number] SERVICE DATE: 12/02/[address]: Agustin Bedoya MD PRIMARY CARE DR: Serenity Cartagena MD ROOM#: Musculoskeletal General Chief Complaint: Fall injury Stated Complaint: FALL Time Seen by Provider: 12/02/19 11:27 Source: patient History of present illness HPI Narrative:: 84-year-old white female tripped and fell last Saturday while walking outside to get her mail patient was using a cane and tripped over her cane she fell onto her left side complains ofleft shoulder left elbow left knee pain, after fall patient was initially unable to get up without assistance. Since her fall is been able to ambulate okay uses a walker indoors occasionally a cane. She denies hitting her head or neck. No headache or neck pain there is no numbness no weakness. Patient states she fell onto her left side her family found out about the fall noticed the bruising and sent her to the ER for evaluation. She denies any chest pain no difficulty breathing no abdominal pain no nausea no vomiting no fever no chills. Patient lives with her who has dementia she is her 's caregiver Location of complaint:: LT ARM/HIP Redness?: No Deformity?: No Swelling?: No Ecchymosis?: Yes Shortening of limb?: No Distal Rotation:: No rotation Distal CMS intact?: Yes Open Fracture?: No Ambulation Assistive Devices: None Gait steady?: Yes Weight Bearing Status: Full Weight Bearing Limited ROM?: No Numbness or tingling?: No Past Medical History Past Medical History: Nursing Past Medical History Has Been Reviewed Allergies/Home Meds Allergies Allergy/AdvReac Type Severity Reaction Status Date / Time TAPE Allergy Verified 12/02/19 11:27 Home Medications Medication Instructions Recorded Confirmed Last Taken Type aspirin [Ecotrin Low Strength] 81 mg PO DAILY 08/18/13 12/02/19 12/02/19 History multivitamin [Daily Vitamin] 1 tab PO DAILY 02/03/14 12/02/19 12/02/19 History omeprazole 40 mg capsule,delayed 40 mg PO DAILY 90 Days #90 cap 02/20/19 12/02/19 12/02/19 Rx release furosemide 40 mg tablet 40 mg PO DAILY 90 Days #90 tab 04/23/19 12/02/19 12/01/19 Rx levothyroxine 50 mcg tablet 50 mcg PO DAILY 90 Days #90 tab 05/14/19 12/02/19 12/02/19 Rx carvedilol 6.25 mg tablet 6.25 mg PO BID 90 Days #180 each 06/15/19 12/02/19 12/02/19 Rx lisinopril 10 mg tablet 10 mg PO DAILY 90 Days #90 tab 07/31/19 12/02/19 12/02/19 Rx pravastatin 80 mg tablet 80 mg PO DAILY 90 Days #90 tab 0412/02/1911/30 Rx gabapentin 300 mg capsule 300 mg PO BID #60 cap 11/12/19 12/02/19 12/01/19 Rx diazepam 5 mg PO TID PRN 12/02/19 12/02/19 Unknown History hydrocodone 7.5 mg-acetaminophen 1 tab PO Q4-6HRPRN 30 Days #150 12/02/19 Unknown Rx 325 mg tablet tab MDD 5 Medication list updated and reviewed:: Yes PMH (from Triage) Patient Medical History PMH Reviewed/Updated as Needed: Yes PMH/PSH from Triage: Medical History (Updated 12/02/19 @ 11:24 by Sofia Mckeon) HTN (hypertension) (Medical) I10 Surgical History (Updated 10/07/18 @ 11:55 by Moqom RI) Cataract extraction and insertion of intraocular lens (Surgical) History of - artificial joint (Surgical) RIGHT HIP LEFT KNEE History of - surgery (Surgical) TRIPLE BYPASS BILATERAL VARICOSE VEINS History of hysterectomy (Surgical) Female History LMP:: Menopause Hx Drug Resistant Infections Hx MRSA: (Methicillin-resistant Staphylococcus aureus): No Hx VRE (Vancomycin-resistant enterococci): No Hx C.Diff: No Hx CRKP: No Hx Other Resistant Infection?: No Isolation: Standard precautions Hx Recent Travel Hx Fever: No Nurse screening for coronavirus: Recent Travel outside the No country (where) Has patient experienced No coronavirus symptoms Social History Are you in a relationship with/Does anyone hit you, yell/swear at you, steal from you?: No Substance Use Hx Substance Use: No Second Hand Smoke Exposure: No Smoking Status: Never smoker Tobacco Use Hx Chewing Tobacco Use: No Vaccination History Hx/Date of Tetanus, Diphtheria Vaccination: Yes ([place]) Hx/Date of Influenza Vaccination: Yes Hx/Date of Pneumococcal Vaccination: Yes Immunizations Up to Date: Yes ROS Review of Systems Constitutional: Denies fever and chills Eyes: Denies vision change Respiratory: Denies cough, sputum and SOB Cardiovascular: Denies chest pain, palpitations, light headedness and syncope Gastrointestinal: Reports No Symptoms/Complaints Genitourinary-Female: Denies dysuria and frequency Musculoskeletal: Reports shoulder pain, arm pain, leg pain and joint pain; Denies neck pain and backpain Neurologic: Denies weakness, numbness, headache, dizziness, lightheadedness and abnormal gait Psychiatric: Reports No Symptoms/Complaints Endocrine: Reports No Symptoms/Complaints Hematological/Lymphatic: Reports easy bruising and other (Noticed bruising left side of body since fall, left lateral upper thigh left elbow) Allergic/Immunologic: Reports No Symptoms/Complaints PFSH Medical History HTN (hypertension) Surgical History Cataract extraction and insertion of intraocular lens History of - artificial joint History of - surgery History of hysterectomy Social History Does the Patient have a Healthcare Proxy: Yes Does Patient have a DNR?: Yes Does Patient have a Living Will?: No Advance Directives on File or in chart?: No Smoking Status: Never smoker Physical Exam General Physical Exam Narrative: Elderly obese white female no acute distress Limitations: no smith itations General appearance: alert and in no apparent distress Head Head exam: Present atraumatic, normocephalic, normal inspection and other (Nontender skull palpation) Eye Eye exam: Present normal apperance ENT ENT exam: Present normal exam and mucous membranes moist Neck Neck exam: Present normal inspection, full ROM and supple; Absent tenderness Respiratory Respiratory exam: Present normal lung sounds bilaterally; Absent respiratory distress and chest walltenderness Cardiovascular Cardiovascular Exam: Present regular rate and normal rhythm GI/Abdominal GI/Abdominal exam: Present soft; Absent distended, tenderness, guarding, rebound and rigid Extremities Exam Extremities exam: Present other (Left anterior shoulder tenderness normal range of motion, left elbow ecchymosis normal range of motion, left hip mild tenderness normal range of motion length equal, ecchymosis lateral upper left thigh to mid thigh. Left knee old healed scar normal range of motion no effusion) Back Exam Back exam: Present normal inspection; Absent tenderness and vertebral tenderness Neurological Exam Neurological exam: Present oriented X3; Absent alert Psychiatric Psychiatric exam: Present normal affect and normal mood Skin Skin exam: Present other (Ecchymosis left upper extremity left lower extremity described above) Vital Signs Vital Signs: Vital Signs 12/02/19 10:59 Temperature 98 F Pulse Rate 79 Respiratory Rate 18 Blood Pressure 124/58 O2 Sat by Pulse Oximetry 99 MDM (comprehensive) Radiology Data Radiology resul ts: report reviewed Radiology impressions: Radiology reports reviewed no obvious fracture Both radiologist about finding of femoral neck, radiologist feels that this is not a fracture doesnot recommend any more imaging Medical Decision Making Free Text/Narative:: 84-year-old white female with a fall Saturday injury to left shoulder and left elbow left knee left hip Patient able to bear weight We will obtain x-rays Follow-up X-ray report reviewed no obvious fractures Spoke to radiologist does not recommend any more imaging studies Patient able to ambulate normally out any assistance Able to bear weight fully We will discharge home Directed patient to use walker at all times and to avoid going outside without assistance with ambulation May take Tylenol as directed for pain Discharge Plan Admission/Discharge Dx Primary DC Diagnosis: Status post fall, multiple contusions, multiple ecchymosis ED Provider: Agustin Bedoya ED Status: Discharged Time Seen by Provider: 11:27 Triaged At: 12/02/19 10:59 Condition Condition: Stable Discharge Detail Disposition: Home, Self-Care Med Rec New Prescriptions: No Action pravastatin 80 mg tablet 80 mg PO DAILY 90 Days Qty: 90 RF: 3 gabapentin 300 mg capsule 300 mg PO BID Qty: 60 RF: 2 aspirin [Ecotrin Low Strength] 81 MG tablet,delayed release (DR/EC) 81 mg PO DAILY RF: 0 multivitamin [Daily Vitamin] Tablet 1 tab PO DAILY RF: 0 diazepam 5 mg tablet 5 mg PO TID PRN (Reason: Anxiety) RF: 0 omeprazole 40 mg capsule,delayed release(DR/EC) 40 mg PO DAILY 90 Days Qty: 90 RF: 3 furosemide 40 mg tablet 40 mg PO DAILY 90 Days Qty: 90 RF: 3 levothyroxine 50 mcg tablet 50 mcg PO DAILY 90 Days Qty: 90 RF: 3 carvedilol 6.25 mg tablet 6.25 mg PO BID 90 Days Qty: 180 RF: 3 lisinopril [Prinivil] 10 mg tablet 10 mg PO DAILY 90 Days Qty: 90 RF: 3 hydrocodone-acetaminophen 7.5-325 mg tablet 1 tab PO Q4-6HRPRN MDD 5 30 Days Qty: 150 RF: 0 Discharge Education Printouts: Contusion in Adults (ED), Ecchymosis (ED) Medications Medication reconciliation performed by provider at discharge: Yes Follow Up Care/Instructions Diet/Activity/Wound Care..: Ambulate with walker Take Tylenol as needed for pain Would avoid walking outside without assistance May use warm compress to affected areas several times daily Your bruising will take several weeks to resolve If you have any difficulty ambulating return to ED Follow-up your doctor 1 week for reevaluation *Discharge Patient* Discharge Orders: Discharge Order (Rout ine); Ordered 12/02/19 Ordered By: Agustin Bedoya Discharge Date/Time: 12/02/19 14:53 Report Signers: <Electronically signed by Agustin Bedoya MD> Agustin Bedoya MD 12/02/19 1455 Agustin Bedoya MD SIGNATURE DA Report Cosigners: D: DIBMI 12/02/19 1153 T: DIBMI 12/02/19 1153 CC: Serenity Cartagena MD Name Value Range Interpretation Code Description Data Awa rce(s) Supporting Document(s) ID Date Data Source [id number] 11/12/2019 11:01:00 AM EDT [facility] Patient Name: GLENDA CULLEN : 1935 Sex: F Pt Unit #: [id number] Location:[facility] Provider: Visit Date/Time: 11/12/19 Primary Insurance: [employer] Secondary Insurance: Self Pay Intake Vital Signs 11/12/19 11:02 Current Height 5 ft 2 in Current Weight 156 lb Weight Measurement Method Standing Scale BMI 28.5 BP 110/62 Blood Pressure Location Rt brachial Position Sitting Respiration 12 Pulse 54 L Pulse Strength Normal Pulse Source Pulse Oximeter Pulse Oximetry (%) 98 Oxygen Delivery Method room air Intake Visit Reasons: Left shoulder pain, Hypertension Follow-up, Anxiety follow-up Nurse Note: 3 month HTN and Anxiety follow up- Also started with Left shoulder and neck pain, which causes her to have a headache - Has been for the past 3 weeks States that she had an echo cardiogram done on recently but is not going back to Cardio until the end of December Warp 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 Required: No Accompanied by: Self / Same as Patient Is patient in pain?: Yes (Neck L shoulder pain ) Pain scale (1-10): 7 Allergies TAPE Allergy (Verified 10/23/14 12:05) Medications aspirin (Ecotrin Low Strength) 81 mg PO DAILY carvedilol 6.25 mg PO BID 90 days [Diazepam [Valium] 5 mg PO TID 30 days MDD 3] furosemide 40 mg PO DAILY 90 days gabapentin 300 mg PO BID hydrocodone-acetaminophen 7.5-325 mg 1 tab PO Q4-6HRPRN 30 days MDD 5 levothyroxine 50 mcg PO DAILY 90 days lisinopril (Prinivil) 10 mg PO DAILY 90 days multivitamin (Daily Vitamin) 1 tab PO DAILY omeprazole 40 mg PO DAILY 90 days pravastatin 80 mg PO DAILY 90 days triamcinolone acetonide 0.1% 1 applic TP BID Is last menstrual period known: No Post menopausal: Yes Patient : No Vision Wearing glasses?: Yes Additional details: Sees eye Yearly for Vision tests Fall Risk History of falls: No Ambulatory Aid:: None Gait/Transferring:: Normal Medications:: No High Risk Medications PHQ-2/9 Over the last 2 weeks, how often have you been bothered by any of the following problems? 1. Little interest or pleasure in doing things: not at all 2. Feeling down, depressed, or hopeless: not at all Total score: 0 HIV Testing Offer - ages 13-64 HIV testing Offer: Yes Requirement for HIV testing offer been met?: Not in age range SBIRT Annual Questionnaire Are you currently in recovery for alcohol or substance use?: No How many times in the past year have you had 4 or more drinks in a day?: None How many times in the past year have you used a recreational drug or used a prescription medication for nonmedical reasons?: None Do you need a note to return Do you need a note to return to daycare/school/sports/work: No Coronavirus Screening Screening Have you traveled outside of [facility] or [facility] in the last 14 days.: No Has patient experienced coronavirus symptoms: No [facility] Surgical History Cataract extraction and insertion of intraocular lens History of - artificial joint History of - surgery History of hysterectomy Social History Does the Patient have a Healthcare Proxy: Yes Does Patient have a DNR?: No Does Patient have a Living Will?: No Advance Directives on File or in chart?: No HPI Hypertension Followup (Card) * Current neurological symptoms: Denies headache(s), numbness or weakness Current cardiovascular symptom: reports fatigue; denies chest pain, dyspnea, palpitations or dizziness Current renal disease symptoms: reports fatigue; denies nausea or vomiting Most Recent Cardiac Tests: No Data to Display Pain Management History of Present Illness Associated symptoms: Denies weakness and Denies numbness Review of Systems Const Denies chills, Reports fatigue, Denies fever(s), Denies headache(s), Denies poor appetite and Deniesweakness ENT Denies vertigo, Denies dizziness, Denies headache(s) and Reports neck pain Card Denie s chest pain, Denies rapid heart rate, Denies leg edema, Denies palpitations, Denies dyspnea, Denies orthopnea and Denies paroxysmal nocturnal dyspnea Resp Denies cough, Denies dyspnea and Denies wheezing GI Denies abdominal pain, Reports heartburn, Denies nausea and Denies vomiting Musc Reports arthralgias (knee), Reports limited range of motion, Reports neck pain, Denies numbness and Reports radiating pain into limb Neuro Denies vertigo, Denies dizziness, Denies headache(s), Denies numbness and Denies weakness Psych Reports anxiety (much stress with ) Endo Reports fatigue and Denies palpitations Aller/Immun Denies wheezing Exam Const General: cooperative and no acute distress Nutritional Appearance: average body habitus Orientation: alert, awake and oriented x3 Resp Effort Inspection: normal respiratory effort Auscultation: no rales and no rhonchi Cardio Rate: regular rate Rhythm: regular rhythm Heart Sounds: murmur GI Palpation: soft and nontender Musc C ervical Spine: cervical muscular tenderness, pain with cervical ROM and cervical spasm Neuro Motor: muscle tone normal throughout Sensory Exam: no sensory deficits noted Assessment Plan Assessment Plan (1) Hypertension: Status: Acute Code(s): I10 - Essential (primary) hypertension SNOMED Code(s): 51931026 Category: Medical Qualifiers: Hypertension type: essential hypertension Qualified Code(s): I10 - Essential (primary) hypertension Plan - Serenity Cartagena M.D.: generally doing well, reviewed echocardiogram, unchanged, seeing cardiology in december, no symptoms of CHF, they recommended mitral valve surgery but she refused, neck strain, has pain medication, also increase gabapentin to 300 mg bid, see 6 months or as needed (2) Anxiety: Status: Acute Code(s): F41.9 - Anxiety disorder, unspecified SNOMED Code(s): 58896753 Category: Medical (3) Left shoulder pain: Code(s): M25.512 - Pain in left shoulder Orders Other Medications: New: gabapentin 300 mg PO BID 60 caps 2RF Discontinued: gabapentin Discontinued Reason: Order changed 100 mg PO BID 30 days 60 caps 2RF Follow Up: 6 Months Electronically Signed By: <Electronically signed by Serenity Cartagena MD> Date/Time Signed: 11/12/19 1131 Name Value Range Interpretation Code Description Data Awa rce(s) Supporting Document(s) ID Date Data Source [id number] 10/27/2019 11:45:00 AM EDT [facility] ([facility] ardi[facility]) Name Value Range Interpretation Code Description Data Awa rce(s) Supporting Document(s) Echocardiogram Laboratory test result [facility] ([facility]) ID Date Data Source [id number] 09/07/2019 01:28:00 PM EDT [facility] [address] [place] [id number] [phone] NAME SEX PT STATUS ACCOUNT NUMBER GLENDA CULLEN REG REF [id number] ORDERING PHYSICIAN LOCATION MEDICAL RECORD NO. Serenity Cartagena MD MAMMO [id number] ATTENDING PHYSICIAN DATE OF DATE OF EXAM/TIME [...] MLO projections was performed with supplemental 3D tomosynthesisof the right breast. FINDINGS: Biopsy clip is stable in the upper-outer quadrant of the retromammary right breast. Craniocaudad and oblique lateral views of the right breast were obtained. The breast is composed ofscattered areas of fibroglandular density. A few scattered [...] mammogram was read with the assistance of [employer], an FDA-approved computer-aided detection system for mammography. Reported By Lev Whittington MD on 09/07/19 1328 Signed By Lev Whittington MD on 09/07/19 1335 Date Time CC: Lev Whittington MD; Serenity Cartagena MD Techn: BAKLE Trans Dt/Tm: Trans by: DT Prt Dt/Tm: : Total DLP = 0.00 mGy-cm : Total Radiation Dose = 0.0000 mSv Lifetime Dose: 0 mSv Name Value Range Interpretation Code Description Data Awa rce(s) Supporting Document(s) ID Date Data Source [id number] 08/12/2019 12:53:00 PM EDT [facility] Patient Name: GLENDA CULLEN : 1935 Sex: F Pt Unit #: [id number] Location:[facility] Provider: Visit Date/Time: 08/12/19 Primary Insurance: [employer] Secondary Insurance: Self Pay Intake Vital Signs 08/12/19 11:25 Current Height 5 ft 2 in Current Weight 152 lb Weight Measurement Method Standing Scale BMI 27.8 BP 104/62 Blood Pressure Location Rt brachial Position Sitting Respiration 12 Pulse 68 Pulse Strength Normal Pulse Source Pulse Oximeter Pulse Oximetry (%) 96 Oxygen Delivery Method room air Intake-Medicare Annual Visit Reasons: Medication check Nurse Note: AWV, recheck HTN, hypothyroid, due mammo, L hip and back bad, pharmacy rec medication ? gabapentin Allergies TAPE Allergy (Verified 02/04/14 12:05) Medications aspirin (Ecotrin Low Strength) 81 mg PO DAILY carvedilol 6.25 mg PO BID 90 days [Diazepam [Valium] 5 mg PO TID 30 days MDD 3] furosemide 40 mg PO DAILY 90 days gabapentin 100 mg PO QDAY hydrocodone-acetaminophen 7.5-325 mg 1 tab PO Q4-6HRPRN 30 days MDD 5 levothyroxine 50 mcg PO DAILY 90 days lisinopril (Prinivil) 10 mg PO DAILY 90 days multivitamin (Daily Vitamin) 1 tab PO DAILY omeprazole 40 mg PO DAILY 90 days pravastatin 80 mg PO DAILY 90 days triamcinolone acetonide 0.1% 1 applic TP BID Requirement for HIV testing offer been met?: Not in age range Coronavirus Screening Screening Have you traveled outside of [facility] or [facility] in the last 14 days.: No Has patient experienced coronavirus symptoms: No [facility] Surgical History Cataract extraction and insertion of intraocular lens History of - artificial joint History of - surgery History of hysterectomy Social History Does the Patient have a Healthcare Proxy: Yes Does Patient have a DNR?: No Does Patient have a Living Will?: No Advance Directives on File or in chart?: No Medicare Annual Wellness Type Of Examation Type of Exam: Subsequent Wellness Exam EKG EKG Performed: No Medication list Medications aspirin (Ecotrin Low Strength) 81 mg PO DAILY carvedilol 6.25 mg PO BID 90 days [Diazepam [Valium] 5 mg PO TID 30 days MDD 3] furosemide 40 mg PO DAILY 90 days gabapentin 100 mg PO QDAY hydrocodone-acetaminophen 7.5-325 mg 1 tab PO Q4-6HRPRN 30 days MDD 5 levothyroxine 50 mcg PO DAILY 90 days lisinopril (Prinivil) 10 mg PO DAILY 90 days multivitamin (Daily Vitamin) 1 tab PO DAILY omeprazole 40 mg PO DAILY 90 days pravastatin 80 mg PO DAILY 90 days triamcinolone acetonide 0.1% 1 applic TP BID Allergies Allergies TAPE Allergy (Verified 02/04/14 12:05) Current Diet Current diet: regular PHQ-2/9 Over the last 2 weeks, how often have you been bothered by any of the following problems? 1. Little interest or pleasure in doing things: not at all 2. Feeling down, depressed, or hopeless: not at all Total score: 0 Functional Assessment Bathing: Independent Dressing: Independent Toileting: Independent Transferring: Independent Continence: Independent Feeding: Independent Total Score: 6 Home Safety Home Safety: Reports Bathroom: Grab bars, Lighting: Adequate, [place]: No throw rugs and Stairs: Handrail available Hearing Hearing Left Ear: Normal Hearing Right Ear: Normal Hearing test method: whispered voice IADL Assessment Functional abilities: Up Go test, pt steady, Pt independent w/transportation, Pt independent w/meal preparation and Pt independ ent w/finances Cognitive Evaluation Oriented to the date:: Yes Oriented to place:: Yes Mood: grossly normal Affect: Normal Judgement: normal Needs caregiver for assistance: No Review of Systems Const Denies chills, Denies fatigue, Denies fever(s), Denies frequent falls, Denies headache(s), Denies weight gain and Denies weight loss Eyes Denies blurry vision, Denies diplopia and Denies eye discharge ENT Denies vertigo, Denies dizziness, Denies otalgia, Denies headache(s), Denies nasal congestion and Denies sore throat Card Denies chest pain, Denies palpitations and Denies dyspnea Resp Denies cough, Denies dyspnea and Denies wheezing GI Denies constipation, Denies diarrhea, Denies nausea and Denies vomiting Denies abnormal vaginal bleeding and Denies urinary frequency Musc Reports back pain, Reports arthralgias (L hip nd back), Reports limited range of motion and Denies numbness Skin/Breast Denies lesions and Denies rash Neuro Denies vertigo, Denies dizziness, Denies frequent falls, Denies headache(s) and Denies numbness Psych Reports anxiety (much stress with ) and Denies irritability Endo Denies fatigue, Denies polydipsia, Denies polyuria and Denies palpitations Joseph/Lymph Denies easy bleeding, Denies easy bruising and Denies lymphadenopathy Aller/Immun Denies wheezing Exam Const General: cooperative, healthy appearing and no acute distress Nutritional Appearance: well nourished [facility] Head: normal to inspection, normocephalic and atraumatic Ears: TM's normal bilaterally and EAC's normal General nose exam: external nose normal; no nasal discharge noted Mouth: oral mucosae normal Throat: posterior oropharynx normal and no postnasal drainage Eyes General: appearance normal, both eyes and all related structures Conjunctivae: conjunctivae normal Sclera: sclerae normal Neck Neck: normal visual inspection and full ROM Thyroid: thyroid normal Lymphatic: no lymphadenopathy noted Chest Chest: normal inspection of the chest Resp Effort Inspection: normal respiratory effort Auscultation: no rales, no rhonchi and no wheezes Cardio Rate: regular rate Rhythm: regular rhythm Heart Sounds: no murmurs GI Inspection: Yes normal to inspection Palpation: soft, no masses and nontender Auscultation: normal bowel sounds Musc Cervical Spine: cervical ROM normal Thoracic/Lumbar Spine: thoracic and lumbar spine normal to inspection, paraspinal muscle tenderness and straight leg raise positive (left) Other: L hip pain with movement Neuro General: patient alert and patient awake Cranial Nerves: hearing normal Cognition: normal cognition Motor: muscle tone normal throughout Sensory Exam: no sensory deficits noted Extrem General: no clubbing, cyanosis or edema Psych Appearance: grossly normal Mental Status: mental status grossly normal Quality Reporting Adult ([facility] 138/2/22/69/61/64/165) Body Mass Index (BMI): 27.8 Assessment Plan Assessment Plan (1) Encounter for medication adjustment: Code(s): Z51.89 - Encounter for other specified aftercare (2) Anxiety: Status: Acute Code(s): F41.9 - Anxiety disorder, unspecified SNOMED Code(s): 16212612 Category: Medical (3) Hypertension: Status: Acute Code(s): I10 - Essential (primary) hypertension SNOMED Code(s): 55360541 Category: Medical Qualifiers: Hypertension type: essential hypertension Qualified Code(s): I10 - Essential (primary) hypertension (4) Medicare annual wellness visit, subsequent: Code(s): Z00.00 - Encounter for general adult medical examination without abnormal findings Additional Comments Additional Comments: discussed hip and back, gabapentin discussed , start at 100 mg q hs, call if any concerns, mammo ordered, BP and thyroid good, seeing nephrology Orders Other Medications: New: gabapentin 100 mg PO QDAY 30 caps 2RF Changed: From: pravastatin 80 mg PO DAILY To: pravastatin 80 mg PO DAILY 90 days 90 tabs 3RF Other Orders: Orders: 3D DIG MAMMO SCREEN RT 1 Month C50.919, Z12.39 Instructions: DASH Eating Plan (GEN) Hypertension (GEN) Electronically Signed By: <Electronically signed by Serenity Cartagena MD> Date/Time Signed: 08/12/19 1259 Name Value Range Interpretation Code Description Data Awa rce(s) Supporting Document(s) ID Date Data Source [id number] 06/04/2019 10:46:00 AM [facility] Patient Name: GLENDA CULLEN : 1935 Sex: F Pt Unit #: [id number] Location:[facility] Provider: Visit Date/Time: 06/04/19 Primary Insurance: [employer] Secondary Insurance: Self Pay Intake Vital Signs 06/04/19 10:49 BP 110/68 Blood Pressure Location Lt brachial Position Sitting Pulse 76 Pulse Oximetry (%) 96 Oxygen Delivery Method room air Intake Visit Reasons: Full Body Skin Exam Is patient in pain?: No Allergies TAPE Allergy (Verified 02/04/14 12:05) HIV Testing Offer - ages 13-64 Requirement for HIV testing offer been met?: Not in age range PFSH - Derm Social History Does the Patient have a Healthcare Proxy: Yes Does Patient have a DNR?: No Does Patient have a Living Will?: No Advance Directives on File or in chart?: No Pertinent Past History Pertinent Past History Previous skin cancer: actinic keratosis Family history of nonmelanoma skin cancer: No Family history with melanoma: Yes (Son and Brothers) Pertinent Soci al History: sunscreen use and outdoor leisure activities Date of last full body scan:: 12/02/18 Dermatology HPI History of Present Illness Details:: Patient presents to the dermatology clinic for full body exam /skin cancer screening with hx of AK previous c/o Robin derm on scalp previous treating with Trimcinolone Acetonide 0.1% Current Symptoms Chief Complaint:: AK Location: face Duration: months Symptoms: other (red rough ) Severity of symptoms: mild Treatments tried: LN2 Treatment response: better Skin care goals for today' visit: To have full body exam Dermatology Exam Constitutional General appearance: comfortable Orientation Orientation: alert and oriented x 3 Skin Skin exam performed including: hair, scalp, face, eyelids, nose, lips, neck, chest, abdomen, back, right arm, right hand, fingers, left arm, left hand, right leg, right foot, left leg, left foot, toes, buttocks, axillae and genitalia Face and Body: 1. AK 2. AK 3. AK 4. AK 5. AK 6. AK 7. AK 8. AK 9. AK 10. Generalized erythema and scale C/W Seborrheic Dermatitis 11. Scattered SK's and Barillas Angiomas Psych Appearance: grossly normal Mental Status: mental status grossly normal Speech and Movement: speech and movement normal Mood: congruent mood Affect: normal affect Attitude: cooperative Thought Process: normal Thought Content: normal Insight: insight good Judgment: judgment good Office Procedures Liquid Nitrogen Cryotherapy Details: LN2 cryotherapy performed in office today x 9 AK's [facility] instructions given. ABN and Consent form signed. Treatment options, risks, benefits, and side effects reviewed (including but not limited to: scar, infection, pain, need for repeat treatment). Patient instructed to contact the office if the lesion does not completely resolve after treatment/recurs. Procedure performed by: Tiesha Warren Patient tolerated procedure: well Complications: No Assessment Plan Assessment Plan (1) Skin cancer screening: Code(s): Z12.83 - Encounter for screening for malignant neoplasm of skin Plan - Tiesha Warren: Reviewed sign and symptoms of skin cancer, including ABCDEs of melanoma. Discussed the importance of sunscreen, avoidance of tanning beds and excessive UV exposure. Explained the importance of monthly self skin examinations. Recommend skin cancer screenings on a yearly basis. 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, non-neoplastic (4) Seborrheic ke ratosis: Code(s): L82.1 - Other seborrheic keratosis (5) Family history of melanoma: Code(s): Z80.8 - Family history of malignant neoplasm of other organs or systems Orders Follow Up: 6 month AK 1 year GSE Electronically Signed By: <Electronically signed by Tiesha Warren > Date/Time Signed: 06/04/19 1156 Name Value Range Interpretation Code Description Data Awa rce(s) Supporting Document(s) ID Date Data Source [id number] 05/12/2019 02:04:00 PM [facility] Name Value Range Interpretation Code Description Data Awa rce(s) Supporting Document(s) Thyrotropin [Units/volume] in Serum or Plasma by Detec tion limit <= 0.005 mIU/L 0.67 u[iU]/mL 0.35-5.50 [facility] ID Date Data Source [id number] 05/08/2019 01:01:00 PM [facility] Patient Name: GLENDA CULLEN : 1935 Sex: F Pt Unit #: [id number] Location:[facility] Provider: Visit Date/Time: 05/08/19 Primary Insurance: [employer] Secondary Insurance: Self Pay Intake Vital Signs 05/08/19 13:02 Current Height 5 ft 2 in Current Weight 152 lb Weight Measurement Method Standing Scale BMI 27.8 BP 110/62 Blood Pressure Location Rt brachial Position Sitting Respiration 12 Pulse 68 Pulse Strength Normal Pulse Source Pulse Oximeter Pulse Oximetry (%) 98 Oxygen Delivery Method room air Intake Visit Reasons: Hypertension Follow-up, Medication check, Anxiety follow-up Nurse Note: 3 month follow up - Anxiety, Hypertension- state she is doing well - no additional concerns today 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 Required: No Accompanied by: Self / Same as Patient Is patient in pain?: Yes (Leg - Right) Pain scale (1-10): 6 Allergies TAPE Allergy (Verified 02/04/14 12:05) Medications aspirin (Ecotrin Low Strength) 81 mg PO DAILY carvedilol 6.25 mg PO BID 90 days diazepam (Valium) 5 mg PO TID 30 days PRN MDD 3 [Diazepam [Valium] 5 mg PO TID 30 days MDD 3] furosemide 40 mg PO DAILY 90 days hydrocodone-acetaminophen 7.5-325 mg 1 tab PO Q4-6HRPRN 30 days MDD 6 levothyroxine 1 tab PO DAILY 90 days lisinopril (Prinivil) 10 mg PO DAILY 90 days multivitamin (Daily Vitamin) 1 tab PO DAILY omeprazole 40 mg PO DAILY 90 days pravastatin 80 mg PO DAILY triamcinolone acetonide 0.1% 1 applic TP BID Is last menstrual period known: No Post menopausal: Yes Patient : No Fall Risk History of falls: No Ambulatory Aid:: None Gait/Transferring:: Normal Medications:: No High Risk Medications PHQ-2/9 Over the last 2 weeks, how often have you been bothered by any of the following problems? 1. Little interest or pleasure in doing things: not at all 2. Feeling down, depressed, or hopeless: not at all Total score: 0 HIV Testing Offer - ages 13-64 HIV testing Offer: Yes Requirement for HIV testing offer been met?: Not in age range SBIRT Annual Questionnaire Are you currently in recovery for alcohol or substance use?: No How many times in the past year have you had 4 or more drinks in a day?: None How many times in the past year have you used a recreational drug or used a prescription medication for nonmedical reasons?: None Do you need a note to return Do you need a note to return to daycare/school/sports/work: No PFSH Social History Does the Patient have a Healthcare Proxy: Yes Does Patient have a DNR?: No Does Patient have a Living Will?: No Advance Directives on File or in chart?: No HPI Hypertension Followup (Card) * Current neurological symptoms: Denies diplopia Current cardiovascular symptom: denies chest pain, dyspnea on exertion, palpitations or fatigue Current renal disease symptoms: denies fatigue, nausea or vomiting Most Recent Cardiac Tests: No Data to Display Review of Systems Const Denies chills, Denies fatigue and Denies fever(s) Eyes Denies blurry vision, Denies diplopia and Denies eye discharge ENT Denies otalgia, Reports nasal congestion, Reports sinus pressure and Denies sore throat Card Denies chest pain, Denies palpitations and Denies dyspnea on exertion Resp Reports cough, Denies dyspnea on exertion and Denies wheezing GI Denies nausea and Denies vomiting Musc Reports arthralgias, Reports limited range of motion, Reports radiating pain into limb and Reports stiffness Psych Reports anxiety (stopped zoloft, valium as needed,) Endo Denies fatigue and Denies palpitations Aller/Immun Denies wheezing Exam Const General: cooperative and no acute distress Nutritional Appearance: average body habitus Orientation: alert, awake and oriented x3 HENMT Ears: TM's normal bilaterally General nose exam: nasal discharge Throat: tonsils normal and postnasal drainage Eyes Conjunctivae: conjunctivae normal Neck Lymphatic: no lymphadenopathy noted Resp Effort Inspection: normal respiratory effort Auscultation: clear to auscultation bilaterally, no rales, no rhonchi and no wheezes Cardio Rate: regular rate Rhythm: regular rhythm Psych Mood: anxious mood Affect: normal affect Attitude: cooperative Thought Process: normal Thought Content: normal Assessment Plan Assessment Plan (1) Encounter for medication adjustment: Code(s): Z51.89 - Encounter for other specified aftercare (2) Anxiety: Status: Acute Code(s): F41.9 - Anxiety disorder, unspecified SNOMED Code(s): 67345879 Category: Medical Plan - Serenity Cartagena M.D.: use valium as needed , much stress with husbnd, follow URI symptoms, discussed hydrcodone for pain, taper with next rx (3) Hypertension: Status: Acute Code(s): I10 - Essential (primary) hypertension SNOMED Code(s): 86984730 Category: Medical Qualifiers: Hypertension type: essential hypertension Qualified Code(s): I10 - Essential (primary) hypertension Orders: Orders: TSH 2 Weeks Orders Other Medications: New: diazepam (Valium) 5 mg PO TID 30 days PRN 90 tabs 0RF anxiety MDD 3 Follow Up: 3 Months Electronically Signed By: <Electronically signed by Serenity Cartagena MD> Date/Time Signed: 05/09/19 0801 Name Value Range Interpretation Code Description Data Awa rce(s) Supporting Document(s) Procedure Social History Code Duration Value Status Description Data Source(s ) Smoking 03/18/2020 12:00:00 AM EST Patient has never smoked co mpleted Patient has never smoked [facility] ([facility]) Smoking 01/27/2020 06:34:00 PM EDT Never smoker completed Never s [facility] Smoking 01/27/2020 06:34:00 PM EDT Never smoker completed Never s [facility] Smoking 01/27/2020 06:34:00 PM EDT Never smoker completed Never s [facility] Smoking 01/27/2020 06:34:00 PM EDT Never smoker completed Never s [facility] 01/27/2020 05:34:00 PM EDT No completed No [facility] 01/27/2020 05:34:00 PM EDT Never smoker completed Never s [facility] 01/27/2020 05:34:00 PM EDT No completed [facility] 01/27/2020 05:34:00 PM EDT Never smoker completed Never [facility] 01/27/2020 05:34:00 PM EDT No completed No [facility] 01/27/2020 05:34:00 PM EDT Never smoker completed Never [facility] 01/27/2020 05:34:00 PM EDT No completed No [facility] 01/27/2020 05:34:00 PM EDT Never smoker completed Never [facility] 01/27/2020 05:34:00 PM EDT No completed [facility] 01/27/2020 05:34:00 PM EDT Never smoker completed Never [facility] Smoking 01/27/2020 05:34:00 PM EDT Never smoker completed Never [facility] 01/27/2020 05:34:00 PM EDT No completed No [facility] 01/27/2020 05:34:00 PM EDT Never smoker completed Never [facility] Smoking 01/27/2020 05:34:00 PM EDT Never smoker completed Never [facility] 12/02/2019 11:54:43 AM EDT No completed [facility] 12/02/2019 11:54:43 AM EDT Never smoker completed Never [facility] 12/02/2019 11:54:43 AM EDT Never smoker completed Never [facility] 12/02/2019 11:54:43 AM EDT Never smoker completed Never [facility] Smoking 12/02/2019 11:54:00 AM EDT Never smoker completed Never [facility] Smoking 12/02/2019 11:54:00 AM EDT Never smoker completed Never [facility] Smoking 12/02/2019 11:54:00 AM EDT Never smoker completed Never [facility] Vital Signs ID Date Data Source UNK Name Value Range Interpretation Code Description Data Source(s) Body mass index (BMI) [Ratio] 28.0 kg/m2 28.0 k g/m2 [facility] ([facility]) Body weight 153.38 [lb_av] 153.38 [lb_av] MED[facility] T ([facility]) Body height 62 [in_i] 62 [in_i] [facility] 5'2" Heart rate 68 /min 68 /min [facility] Diastolic blood pressure 74 mm[Hg] 74 mm[Hg] [facility]) Systolic blood pressure 100 mm[Hg] 100 mm[Hg] M [facility]ENT ([facility]) Body mass index (BMI) [Ratio] 30.5 kg/m2 30.5 k g/m2 [facility]) Body weight 167.00 [lb_av] 167.00 [lb_av] [facility] T ([facility]) Body height 62 [in_i] 62 [in_i] [facility] 5'2" Heart rate 74 /min 74 /min [facility] Diastolic blood pressure 64 mm[Hg] 64 mm[Hg] [facility]) Systolic blood pressure 126 mm[Hg] 126 mm[Hg] [facility] ([facility]) Oxygen saturation in Arterial blood by Pulse oximetry 95 % 95 % [facility]) Body mass index (BMI) [Ratio] 28.0 kg/m2 28.0 k g/m2 [facility]) Body weight 153.00 [lb_av] 153.00 [lb_av] [facility] T ([facility]) Body height 62 [in_i] 62 [in_i] [facility] 5'2" Heart rate 90 /min 90 /min [facility] Diastolic blood pressure 70 mm[Hg] 70 mm[Hg] [facility]) Systolic blood pressure 130 mm[Hg] 130 mm[Hg] [facility] ([facility]) Body mass index (BMI) [Ratio] 29.3 kg/m2 29.3 k g/m2 [facility]) Body weight 160.00 [lb_av] 160.00 [lb_av] [facility] T ([facility]) Body height 62 [in_i] 62 [in_i] [facility] 5'2" Heart rate 82 /min 82 /min [facility] Diastolic blood pressure 72 mm[Hg] 72 mm[Hg] [facility]) Systolic blood pressure 140 mm[Hg] 140 mm[Hg] M [facility] ([facility]) Body height 62 [in_i] 62 [in_i] [facility] 5'2" Heart rate 80 /min 80 /min [facility] Diastolic blood pressure 78 mm[Hg] 78 mm[Hg] [facility]) Systolic blood pressure 118 mm[Hg] 118 mm[Hg] [facility]) Body mass index (BMI) [Ratio] 27.4 kg/m2 27.4 k g/m2 [facility]) Body weight 150.00 [lb_av] 150.00 [lb_av] [facility] T ([facility]) Body mass index (BMI) [Ratio] 27.8 kg/m2 27.8 k g/m2 [facility]) Body weight 152.00 [lb_av] 152.00 [lb_av] [facility] T ([facility]) Body height 62 [in_i] 62 [in_i] [facility] 5'2" Heart rate 64 /min 64 /min [facility] Diastolic blood pressure 60 mm[Hg] 60 mm[Hg] [facility]) Systolic blood pressure 114 mm[Hg] 114 mm[Hg] [facility] ([facility])
[2020-06-08 17:15] LABS: RSV AMPLIFICATION NEGATIVE (NEGATIVE)
--- NOTE | 2020-06-08 17:28 | HPEPDOC ---
[facility] Medical History & Physical Date of Admission Jun 08, 2020 Date of Service: Jun 08, 2020 Attending Physician: Apple Saul MD History and Physical CHIEF COMPLAINT: increased weakness HISTORY OF PRESENT ILLNESS: Patient is an 85-year-old female with past mental history of coronary artery di sease status post CABG, hypothyroidism, hyperlipidemia, mild aortic stenosis, severe tricuspid regurgitation, CK D stage III4, GERD who presented to [facility] emergency room from her nephrology office after having had low blood levels seen on routine labs. According to the nephrology office her blood level hemoglobin was 6.6 decreased from 10.1. Patient had a recent hospitalization in January 2020 for symptomatically anemia, she received several units of blood during that time. Does not appear as though she had additional workup for GI bleed. The patient has had long-standing increasing weakness over the past several months, lightheadedness, dizziness worse with activity. She complains of worsening abdominal pain in the epigastric/umbilical area starting several weeks ago. She states the pain is worse after meals. She admits to having red color/maroon stools in the toilet ever so often. She denies chest pain, shortness of breath, hemoptysis, hematuria but she does admit to a history of ulcers in the past. She has no referral to see GI and has had colonoscopies greater than 5 years ago with no abnormal findings. The patient was sent to the hospital for further evaluation from her nephrology office today. In the emergency room vital signs were stable. H&H 7/23.7. Creatinine was i ncreased to 3.13, baseline creatinine 2.292.8. Last iron level was 67 and 03/2020. Guaiac was attempted; however, she had no stool but there was obvious maroon/red substance in the rectal vault. The patient was admitted for symptomatic anemia likely secondary to GI bleed. Surgery was called from the emergency room and agreed to consult on this case. REVIEW OF SYSTEMS: Neg except for what is mentioned above PAST MEDICAL HISTORY: Hyperlipidemia, hypothyroidism, CHF, coronary artery disease s/p CABG , GERD, hypertension, CKD Stage 3-4, mild , severe TR PAST SURGICAL HISTORY: CABG around 15 years ago left breast mastectomy cholecystectomy appendectomy FAMILY HISTORY: Father: cancer-type unknown. at 65y/o Mother: pancreatic cancer. at 73 y/o SOCIAL HISTORY: Denies smoking, alcohol or illicit drug use. She lives with her with home she is the primary caregiver for. She follows with the electrician front in [place], nephrology in [place] and her primary care provider locally as well. She is a DNR/DNI. ALLERGIES: Please see below. HOME MEDICATIONS: Please see below. PHYSICAL EXAMINATION: VS: please see below. CONSTITUTIONAL: No acute distress, resting comfortably, AAO x 3 EYES: PERRLA, EOM intact HENT, MOUTH: Normocephalic, atraumatic, moist mucous membranes NECK: SUPPLE, no JVD, no lymphadenopathy, no carotid bruit CV: Regular rate and rhythm, S1S2 normal, no murmurs/rubs/gallops CHEST: left mastectomy scar, vertical substernal chest scar RESPIRATORY: Clear to auscultation bilaterally, no rales/rhonchi/wheezes GI: mild discomfort on palpation of epigastric/umbilical area, BS positive in 4 quadrants, soft, nondistended, no rebound or guarding, no organomegaly : Deferred MUSCULOSKELETAL: Normal ROM. No cyanosis, clubbing, swelling, joint deformity, extremity edema INTEGUMENTARY: Intact, no rashes, no lesions, no erythema NEUROLOGIC: Cranial Nerves II-XII are intact, no focal deficits PSYCHIATRIC: Mood and affect are normal LABORATORY DATA: Please see below IMAGING: CXR: 1. Cardiomegaly with left atrial and ventricular enlargement as well as right heart enlargement. I see no kiki edema, pleural effusion or dense consolidation. 2. Peribronchial thickening suggesting bronchitis or reactive airway disease. 3. Sternotomy wires with mediastinal and right upper lung zone clips as well as axillary surgical clips on the left with left mastectomy. ASSESSMENT: 85-year-old female with past mental history of coronary artery disease status post CABG, hypothyroidism, hyperlipidemia, mild aortic stenosis, severe tricuspid regurgitation, CK D stage III4, GERD admitted for symptomatic anemia likely secondary to GI bleed. PLAN: Symptomatic anemia likely secondary to GI bleed -+ blood in rectal vault, steady decline in H/H with recent admission for symptomatic anemia in 01/2020 requiring transfusion -+ pain worsened after eating, ? ulcer -H/H 11/04 here ;however, o/p 6.6 Hgb -Transfusing 2 units PRBC, f/u post transfusion H/H, CBC Q8H -F/u new iron studies -Holding home ASA or other AC -PPI IV BID, CLD, PT/OT when H/h stable -Surgery consulted for possible scope KARI on CKD Stage 3-4 -Cr today 3.13, baseline 2.29-2.8 -Will transfuse 2 units but if Cr does not improve to near baseline, consider nephrology consult -F/u AM labs CAD s/p CABG / mild / severe TR -Trop neg -ECG baseline -No chest pain, SOB -Cards note in chart , follows up closely o/p -C/w BB with holding parameters, holding diuretics in setting of KARI on CKD Hypothyroidism -Resume home levothyroxine HLD -statin GERD -PPI IV BID DVT px -AC CI, teds and SCD DISPOSITION: Admitted as acute in patient. consider nephrology consult. Plan is discharge home when medically improved. Vital Signs Vital Signs Date Time Temp Pulse Resp B/P (MAP) Pulse Ox O2 Delivery O2 Flow Rate FiO2 06/08/20 15:23 84 123/58 (79) 88 122/58 (79) 89 108/55 (72) 06/08/20 13:51 97.7 16 100 Room Air Laboratory Data Labs 24H Laboratory Tests 2 06/08/20 14:24: Nucleated Red Blood Cells % (auto) 1.1H, Anion Gap 10, Glomerular Filtration Rate 15.1L, Calcium Level 8.7L, Total Creatine Kinase 42, Creatine Kinase MB 2.2, Creatine Kinase MB Relative Index 5.24H, Troponin I 0.03 06/08/20 16:25: CBC/BMP Laboratory Tests 06/08/20 14:24 Microbiology Microbiology 06/08/20 Respiratory Virus Panel (PCR) ([facility]), Ordered Pending Home Medications Scheduled Aspirin (Aspirin EC) 81 Mg Tablet.dr, 81 MG PO DAILY Calcitriol (Calcitriol) 0.25 Mcg Capsule, 0.25 MCG PO 3XW MON/WED/FRI Carvedilol (Carvedilol) 6.25 Mg Tablet, 6.25 MG PO BID Cholecalciferol (Vitamin D3) (Vitamin D3) 10 Mcg Capsule, 10 MCG PO DAILY Gabapentin (Gabapentin) 300 Mg Capsule, 300 MG PO BID Gluc Lopez/Chondro Lopez A/Vit C/Mn (Glucosamine Chondroitin Tab) 1 Each Tablet, 1 TAB PO BID Levothyroxine Sodium (Synthroid) 50 Mcg Tablet, 50 MCG PO DAILY Multivitamins (Thera M Plus Tablet) 1 Each Tablet, 1 TAB PO DAILY Omeprazole (Omeprazole) 40 Mg Capsule.dr, 40 MG PO DAILY Pravastatin Sodium (Pravastatin Sodium) 80 Mg Tablet, 80 MG PO QHS Spironolactone (Spironolactone) 25 Mg Tablet, 50 MG PO BID Torsemide (Torsemide) 20 Mg Tablet, 40 MG PO BID TAKES 0900/1700 Scheduled PRN Hydrocodone/Acetaminophen (Hydrocodone-Acetamin 7.5-325) 1 Each Tablet, 1 TAB PO Q4H PRN for PAIN Allergies Coded Allergies: TAPE (Verified Allergy, Mild, RASH, 01/27/20) A-FIB/CHADSVASC A-FIB History Current/History of A-Fib/PAF?: No Current PO Anticoag Therapy: No Age/Risk Factor Scoring CHADSVASC: CHADSVASC Response (Comments) Value Age Risk Factor Age >/= 75 years old 2 Gender Risk Factor Female 1 Hx of CHF Yes 1 Hx of HTN Yes 1 Hx of Stroke/TIA/or VTE No 0 Hx of Diabetes No 0 Hx of Vascular Disease No 0 Total 5 Treatment Treatment ordered: NONE Other anticoagulant ordered: scd Apple Saul MD Jun 08, 2020 17:28
[2020-06-08] MEDS: PRAVASTATIN 20 MG TAB PO SCH (22:46)
[2020-06-08] MEDS: GABAPENTIN 300 MG CAP PO SCH (22:46)
[2020-06-08] MEDS: PANTOPRAZOLE 40MG VIAL (C9113 PER 1) IV SCH (22:46)
[2020-06-09] VITALS (8 sets, daily range): BP systolic 103–130; BP diastolic 55–71
[2020-06-09 00:24] LABS: HEMATOCRIT 27.3 % (36.0-47.0); HEMOGLOBIN 8.3 g/dl (12.0-15.5)
[2020-06-09 00:27] LABS: CALCIUM LEVEL 8.7 MG/DL (8.8-10.2); CREATININE FOR GFR 2.6 MG/DL (0.55-1.30); GLOMERULAR FILTRATION RATE 18.7 (>32); MAGNESIUM LEVEL 2.5 MG/DL (1.8-2.4); PHOSPHORUS LEVEL 4.5 MG/DL (2.5-4.9); POTASSIUM SERUM 4.8 MEQ/L (3.5-5.1); TROPONIN I 0.03 NG/ML (< 0.10)
[2020-06-09] MEDS: LEVOTHYROXINE 50MCG TABLET (0.05MG) PO SCH (05:31)
[2020-06-09 06:13] LABS: HEMATOCRIT 29.4 % (36.0-47.0); HEMOGLOBIN 9.1 g/dl (12.0-15.5)
[2020-06-09 06:32] LABS: ALBUMIN 3.1 GM/DL (3.2-5.2); BILIRUBIN,TOTAL 0.8 MG/DL (0.2-1.0); CALCIUM LEVEL 8.9 MG/DL (8.8-10.2); CREATININE FOR GFR 2.38 MG/DL (0.55-1.30); GLOMERULAR FILTRATION RATE 20.7 (>32); POTASSIUM SERUM 4.5 MEQ/L (3.5-5.1)
[2020-06-09 07:38] LABS: HEMATOCRIT 30.1 % (36.0-47.0); HEMOGLOBIN 9.6 g/dl (12.0-15.5); MEAN CORPUSCULAR HGB CONC 31.9 g/dl (32.0-36.5); MEAN CORPUSCULAR VOLUME 87.8 fl (80.0-96.0); PLATELET COUNT, AUTOMATED 186 10^3/uL (150-450); RED BLOOD COUNT 3.43 10^6/uL (4.00-5.40); WHITE BLOOD COUNT 6.8 10^3/uL (4.0-10.0)
[2020-06-09] MEDS: MULTIVITAMINS/MINERALS THERAP 1 TAB PO SCH (08:56)
[2020-06-09] MEDS: PANTOPRAZOLE 40MG VIAL (C9113 PER 1) IV SCH ×2 (08:56→22:04)
[2020-06-09] MEDS: GABAPENTIN 300 MG CAP PO SCH ×2 (08:56→22:04)
--- NOTE | 2020-06-09 09:32 | ECGEPIP ---
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
--- NOTE | 2020-06-09 12:23 | IPNPDOC ---
Text Note Date of Service The patient was seen on 06/09/20. NOTE General Surgery Dr Cohn. The patient is an 85-year-old female admitted 06/08/20 with symptomatic anemia secondary to GI bleed. Hemoglobin on admission was noted to be 7.0 which is decreased from her baseline of 11.3. The patient was placed on IV Protonix, aspirin was held and the patient has received 3 units PRBCs since admission. Gen. surgery was consulted for consideration of scope. Nursing reports that the patient had a large bowel movement this morning which was maroon in color. The patient is currently resting in bed and denies abdominal pain, nausea or vomiting. Afebrile, heart rate 83, blood pressure 104/56, 93% room air. MMM Lungs clear to auscultation S1-S2 regular rate and rhythm Abdomen soft, nontender, nondistended. Extremities. no edema. Well-perfused. I/O 1380/450. BM x 1. Hemoglobin 9.6, hematocrit 30.1, platelets 186. Serum creatinine 2.38 with GFR 20.7. Assessment/plan GI bleed. Nursing reports the patient had a maroon colored stool this morning. Aspirin remains on hold. IV Protonix twice a day S/P 3 u PRBCs. Currently on clear liquids. Dr Cohn has discussed with the patient proceeding with scope however the patient is declining to proceed at this time. I have discussed this with her again. Monitor. VS,Fishbone, I+O VS, Fishbone, I+O Laboratory Tests 06/08/20 14:24 06/08/20 23:39 06/09/20 05:49 06/09/20 07:18 Vital Signs Date Time Temp Pulse Resp B/P (MAP) Pulse Ox O2 Delivery O2 Flow Rate FiO2 06/09/20 05:17 97.6 83 17 104/56 93 Room Air I&O- Last 24 Hours up to 6 AM 06/09/20 06:00 Intake Total 1960 ml Output Total 800 ml Balance 1160 ml Marcy George Jun 09, 2020 12:22 MARIAM COHN MD Jul 07, 2020 03:30
[2020-06-09] MEDS: ANEXSIA, NORCO 7.5MG/325MG TABLET(HYDROCODONE/APAP) PO PRN ×3 (13:51→22:04)
[2020-06-09] MEDS: ONDANSETRON 4MG/2ML VIAL IV SCH ×3 (13:51→23:50)
[2020-06-09 15:54] LABS: HEMATOCRIT 34.4 % (36.0-47.0); HEMOGLOBIN 10.5 g/dl (12.0-15.5); MEAN CORPUSCULAR HEMOGLOBIN 27.4 pg (27.0-33.0); MEAN CORPUSCULAR HGB CONC 30.5 g/dl (32.0-36.5); MEAN CORPUSCULAR VOLUME 89.8 fl (80.0-96.0); PLATELET COUNT, AUTOMATED 205 10^3/uL (150-450); RED BLOOD COUNT 3.83 10^6/uL (4.00-5.40); WHITE BLOOD COUNT 6.4 10^3/uL (4.0-10.0)
[2020-06-09] MEDS ORDERED: BISACODYL 5 MG TAB PO ONE (17:00)
--- NOTE | 2020-06-09 17:12 | IPNPDOC ---
Date Seen The patient was seen on 06/09/20. Progress Note SUBJECTIVE: Bloody stool this AM. Originally refused colonoscopy offered by surgery but later agreed. H/H stable s/p 3 U PRBC, responded appropriately. Denies LH/dizziness, shortness of breath, n/v/d. OBJECTIVE: PHYSICAL EXAMINATION: VS: please see below. CONSTITUTIONAL: No acute distress, resting comfortably, AAO x 3 EYES: PERRLA, EOM intact HENT, MOUTH: Normocephalic, atraumatic, moist mucous membranes NECK: SUPPLE, no JVD, no lymphadenopathy, no carotid bruit CV: Regular rate and rhythm, S1S2 normal, no murmurs/rubs/gallops CHEST: left mastectomy scar, vertical substernal chest scar RESPIRATORY: Clear to auscultation bilaterally, no rales/rhonchi/wheezes GI: mild discomfort on palpation of epigastric/umbilical area, BS positive in 4 quadrants, soft, nondistended, no rebound or guarding, no organomegaly : Deferred MUSCULOSKELETAL: Normal ROM. No cyanosis, clubbing, swelling, joint deformity, extremity edema INTEGUMENTARY: Intact, no rashes, no lesions, no erythema NEUROLOGIC: Cranial Nerves II-XII are intact, no focal deficits PSYCHIATRIC: Mood and affect are normal LABORATORY DATA: Please see below IMAGING: CXR: 1. Cardiomegaly with left atrial and ventricular enlargement as well as right heart enlargement. I see no kiki edema, pleural effusion or dense consolidation. 2. Peribronchial thickening suggesting bronchitis or reactive airway disease. 3. Sternotomy wires with mediastinal and right upper lung zone clips as well as axillary surgical clips on the left with left mastectomy. ASSESSMENT: 85-year-old female with past mental history of coronary artery disease status post CABG, hypothyroidism, hyperlipidemia, mild aortic stenosis, severe tricuspid regurgitation, CK D stage III4, GERD admitted for symptomatic anemia likely secondary to GI bleed. PLAN: Symptomatic LIZA anemia likely secondary to GI bleed -+ bloody BM today -S/p 3 U PRBC, H/H stable at 10.3/34 -Iron low -Started on supplemented -Holding home ASA or other AC -PPI IV BID, CLD -Will need bowel prep for colonoscopy -Surgery (Dr. Grissom) consulted KARI on CKD Stage 3-4- resolved -Cr today 2.3- baseline 2.29-2.8 -Avoid nephrotoxic meds -Updated nephrology on status, no official consult -F/u AM labs Weakness likely acute on chronic deconditioning -PT: pt appears to be close to or at her baseline level of fucntion, will remain on services as she does con't to request walker use which she states she does not use at home. pt does appear safe for d/c home with services when medically cleared by -C/w PT/OT while here CAD s/p CABG / mild / severe TR -Trop neg -ECG baseline -No chest pain, SOB -Cards note in chart , follows up closely o/p -C/w BB with holding parameters, continue to hold diuretics Hypothyroidism -c/w levothyroxine HLD -statin GERD -PPI IV BID DVT px -AC CI, teds and SCD DISPOSITION: Admitted as acute in patient. Colonoscopy planned, surgery consulted. Plan is discharge home when medically improved. VS, I&O, 24H, Fishbone Vital Signs/I&O Vital Signs Date Time Temp Pulse Resp B/P (MAP) Pulse Ox O2 Delivery O2 Flow Rate FiO2 06/09/20 14:21 15 06/09/20 14:00 96.9 80 127/69 (88) 97 Room Air I&O- Last 24 Hours up to 6 AM 06/09/20 05:59 Intake Total 1780 ml Output Total 800 ml Balance 980 ml Laboratory Data 24H LABS Laboratory Tests 2 06/08/20 23:39: Anion Gap 8, Glomerular Filtration Rate 18.7L, Calcium Level 8.7L, Phosphorus Level 4.5, Magnesium Level 2.5H, Troponin I 0.03 06/09/20 05:49: Anion Gap 8, Glomerular Filtration Rate 20.7L, Calcium Level 8.9, Total Bilirubin 0.8, Aspartate Amino Transf (AST/SGOT) 23, Alanine Aminotransferase (ALT/SGPT) 54, Alkaline Phosphatase 85, Total Protein 6.0L, Albumin 3.1L, Albumin/Globulin Ratio 1.1L 06/09/20 07:18: Nucleated Red Blood Cells % (auto) 0.6H 06/09/20 11:34: Lab Scanned Report Transfusion Record 06/09/20 15:40: Nucleated Red Blood Cells % (auto) 0.3H CBC/BMP Laboratory Tests 06/08/20 23:39 06/09/20 05:49 06/09/20 07:18 06/09/20 15:40 Current Medications Current Medications Medications (Trade) Dose Ordered Sig/Irina Route PRN Reason Start Time Stop Time Status Last Admin Dose Admin Acetaminophen/ Hydrocodone Bitart (Anexsia, [place] 7.5mg/325mg) 1 tab Q4H PRN PO PAIN 06/08/20 16:35 06/09/20 13:51 Gabapentin (Neurontin) 300 mg BID PO 06/08/20 21:00 06/09/20 08:56 Home Med (Med Rec Complete!) ASDIRECTED XX 06/08/20 16:25 06/08/20 16:25 DC Levothyroxine Sodium (Synthroid) 50 mcg DAILY@0600 PO 06/09/20 06:00 06/09/20 05:31 Multivitamins (Theragram-M) 1 tab DAILY PO 06/09/20 09:00 06/09/20 08:56 Ondansetron HCl (ZOFRAN INJection) 4 mg Q6H IV 06/09/20 12:00 06/09/20 13:51 Pantoprazole Sodium (Protonix) 40 mg BID IV 06/08/20 21:00 06/09/20 08:56 Pravastatin Sodium (Pravachol) 80 mg QHS PO 06/08/20 21:00 06/08/20 22:46 Allergies Coded Allergies: TAPE (Verified Allergy, Mild, RASH, 01/27/20) Apple Saul MD Jun 09, 2020 17:12
[2020-06-09] MEDS ORDERED: POLYETHYLENE GLYCOL (MIRALAX) 238GM BOTTLE PO ONE (18:00)
[2020-06-09] MEDS: PRAVASTATIN 20 MG TAB PO SCH (22:04)
[2020-06-09] MEDS: FERROUS SULFATE 325MG TAB PO SCH (22:04)
[2020-06-10] MEDS: LEVOTHYROXINE 50MCG TABLET (0.05MG) PO SCH (05:50)
[2020-06-10] MEDS: ONDANSETRON 4MG/2ML VIAL IV SCH ×3 (05:50→17:22)
[2020-06-10 06:00] VITALS: BP 102/63
[2020-06-10 06:39] LABS: HEMATOCRIT 30.8 % (36.0-47.0); HEMOGLOBIN 9.5 g/dl (12.0-15.5); MEAN CORPUSCULAR HEMOGLOBIN 27.7 pg (27.0-33.0); MEAN CORPUSCULAR HGB CONC 30.8 g/dl (32.0-36.5); MEAN CORPUSCULAR VOLUME 89.8 fl (80.0-96.0); PLATELET COUNT, AUTOMATED 177 10^3/uL (150-450); RED BLOOD COUNT 3.43 10^6/uL (4.00-5.40); WHITE BLOOD COUNT 6.2 10^3/uL (4.0-10.0)
[2020-06-10 07:10] LABS: ALBUMIN 3.3 GM/DL (3.2-5.2); BILIRUBIN,TOTAL 0.8 MG/DL (0.2-1.0); CALCIUM LEVEL 8.6 MG/DL (8.8-10.2); CREATININE FOR GFR 1.76 MG/DL (0.55-1.30); GLOMERULAR FILTRATION RATE 29.4 (>32); POTASSIUM SERUM 4.9 MEQ/L (3.5-5.1); TOTAL PROTEIN 5.7 GM/DL (6.4-8.2)
[2020-06-10] MEDS ORDERED: propofoL 200 MG/20 ML VIAL As Ordered ONE ×3 (10:11→11:42)
[2020-06-10] MEDS ORDERED: LIDOCAINE 2% 100MG/5ML SDV (FOR ANES.) As Ordered ONE (10:11)
[2020-06-10] MEDS: GABAPENTIN 300 MG CAP PO SCH ×2 (12:59→20:18)
[2020-06-10] MEDS: MULTIVITAMINS/MINERALS THERAP 1 TAB PO SCH (12:59)
[2020-06-10] MEDS: FERROUS SULFATE 325MG TAB PO SCH ×2 (12:59→20:18)
[2020-06-10] MEDS: PANTOPRAZOLE 40MG VIAL (C9113 PER 1) IV SCH ×2 (12:59→20:19)
[2020-06-10] MEDS ORDERED: LR 1,000 ML IV SCH (13:00)
[2020-06-10] MEDS ORDERED: ONDANSETRON 4MG/2ML VIAL IV PRN (13:00)
--- NOTE | 2020-06-10 13:08 | ROOPDOC ---
[facility] Report Of Operation Report of Operation DATE OF PROCEDURE: 06/10/20 PREPROCEDURE DIAGNOSES: gastrointestinal bleeding. POSTPROCEDURE DIAGNOSES: 2 bleeding gastric ulcers. PROCEDURE: upper gastrointestinal endoscopy, colonoscopy (incomplete). SURGEON: Mariam Grissom MD ANESTHESIA: Monitored anesthesiacare ESTIMATED BLOOD LOSS: Approximately mL. COMPLICATIONS: none. REMARKS: . PROCEDURE NOTE: On upper endoscopy, 2 areas noted on the fundus of the stomach n oted with active oozing from surrounding inflamed tissue and shallow erosion/ulceration. DESCRIPTION OF PROCEDURE: Patient was brought to the operating room, monitoring leads placed. Oxygen provided via face mask. She was placed on a left lateral decubitus position.We paused for a surgical timeout using both pre-incision safety checklist to verify correct patient, procedure site and additional clinical information prior to beginning the procedure I started with an upper endoscopy. The video endoscope was introduced through the mouth and guided through to the esophagus under direct visualization. This was guided through to the whole of the stomach up until last the second portion of the duodenum, then retracted slowly to evaluate for possible cause of her GI bleeding. The esophagus was noted to be without any evidence of blood or stigmata of recent bleed. There was no any active inflammation or stricture or bleeding. When he reached the stomach there was some evidence of recent bleed with small amounts of hematin as well as fresh blood clots. On retroflexion at the cardia, GE junction there is a focus of small persistent loose which got more prominent as this was irrigated. There was some surrounding mucosal inflammation, small amount of erosion. This did not seem like an active to avoid lesion. There was contact bleeding. This was controlled by placement of 3 hemoclips and one and 2 hemoclips on the other site. There was no bleeding at the end of the procedure. I then continued evaluating the rest of the stomach. There was no active bleeding nor any ulcers within the body or gastric antrum. The duodenum has bilious material within it with no signs of any bleeding or active duodenitis. the video endoscope was then retracted and removed. We repositioned the machine to perform a colonoscopy as we changed our instruments. We then proceeded with a colonoscopy. The video colonoscope was introduced through the rectum after a digital rectal examination was performed. There was no active bleeding nor any signs of bleeding on ARMIDA. Unfortunately due to an area of acute angulation as well as related to the multiple diverticulosis with architectural diD-stortion and partly luminal narrowing, I was only able to get to the level of about 50 cms all within the sigmoid colon I believe. I changed to the PPD colonoscope, and even with the smaller caliber colonoscope I was unable to get beyond the area due to the acute angulation. There is no evidence of any active bleeding at this time I discontinued the procedure. Patient was then awakened and brought to recovery room in stable condition. MARIAM GRISSOM MD Jun 10, 2020 13:08
[2020-06-10] MEDS: ANEXSIA, NORCO 7.5MG/325MG TABLET(HYDROCODONE/APAP) PO PRN ×2 (13:29→20:19)
[2020-06-10 14:00] VITALS: BP 109/66
[2020-06-10] MEDS ORDERED: zolPIDEM TARTRATE 5 MG TAB PO PRN (16:20)
--- NOTE | 2020-06-10 16:23 | IPNPDOC ---
Date Seen The patient was seen on 06/10/20. Progress Note SUBJECTIVE: S/p colonoscopy and EGD, clipped bleeding gastric ulcer. Advancing diet as tolerated currently, H/H dropped some. Watching Q12H. Denies LH/dizziness, shortness of breath, n/v/d. OBJECTIVE: PHYSICAL EXAMINATION: VS: please see below. CONSTITUTIONAL: No acute distress, resting comfortably, AAO x 3 EYES: PERRLA, EOM intact HENT, MOUTH: Normocephalic, atraumatic, moist mucous membranes NECK: SUPPLE, no JVD, no lymphadenopathy, no carotid bruit CV: Regular rate and rhythm, S1S2 normal, no murmurs/rubs/gallops CHEST: left mastectomy scar, vertical substernal chest scar RESPIRATORY: Clear to auscultation bilaterally, no rales/rhonchi/wheezes GI: no discomfort on palpation of epigastric/umbilical area, BS positive in 4 quadrants, soft, nondistended, no rebound or guarding, no organomegaly : Deferred MUSCULOSKELETAL: Normal ROM. No cyanosis, clubbing, swelling, joint deformity, extremity edema INTEGUMENTARY: Intact, no rashes, no lesions, no erythema NEUROLOGIC: Cranial Nerves II-XII are intact, no focal deficits PSYCHIATRIC: Mood and affect are normal LABORATORY DATA: Please see below IMAGING: CXR: 1. Cardiomegaly with left atrial and ventricular enlargement as well as right heart enlargement. I see no kiki edema, pleural effusion or dense consolidati on. 2. Peribronchial thickening suggesting bronchitis or reactive airway disease. 3. Sternotomy wires with mediastinal and right upper lung zone clips as well as axillary surgical clips on the left with left mastectomy. ASSESSMENT: 85-year-old female with past mental history of coronary artery dise ase status post CABG, hypothyroidism, hyperlipidemia, mild aortic stenosis, severe tricuspid regurgitation, CK D stage III4, GERD admitted for symptomatic anemia likely secondary to GI bleed. PLAN: Symptomatic LIZA anemia likely secondary to GI bleed 2/2 to bleeding gastric ulcer -EGD/colonoscopy done today by surgery, clipped bleeding gastric ulcer -H/H dropped some, still HD and watching H/H Q12 H -S/p 3 U PRBC this admission -Iron low so will continue with supplementation -Holding home ASA or other AC -PPI IV BID, CLD and will advance as tolerated -Surgery (Dr. Grissom) following closely. Weakness likely acute on chronic deconditioning -PT: pt appears to be close to or at her baseline level of fucntion, will remain on services as she does con't to request walker use which she states she does not use at home. pt does appear safe for d/c home with services when medically c leared by -C/w PT/OT while here CAD s/p CABG / mild / severe TR -Trop neg -ECG baseline -No chest pain, SOB -Cards note in chart , follows up closely o/p -C/w BB with holding parameters, continue to hold diuretics Hypothyroidism -c/w levothyroxine Chronic HFpEF -Not currently in exacerbation -C/w BB, holding diuretics HLD -statin GERD -PPI IV BID DVT px -AC CI, teds and SCD Resolved issues: KARI on CKD Stage 3-4 DISPOSITION: Admitted as acute in patient. Plan is discharge home when medically improved. If not additional bleeding overnight and tolerates diet, possibly 06/11/20 VS, I&O, 24H, [place] Vital Signs/I&O Vital Signs Date Time Temp Pulse Resp B/P (MAP) Pulse Ox O2 Delivery O2 Flow Rate FiO2 06/10/20 14:00 97.4 91 18 109/66 (80) 95 Room Air I&O- Last 24 Hours up to 6 AM 06/10/20 06:00 Intake Total 1440 ml Output Total 350 ml Balance 1090 ml Laboratory Data 24H LABS Laboratory Tests 2 06/10/20 05:49: Nucleated Red Blood Cells % (auto) 0.0, Anion Gap 8, Glomerular Filtration Rate 29.4L, Calcium Level 8.6L, Total Bilirubin 0.8, Aspartate Amino Transf (AST/SGOT) 24, Alanine Aminotransferase (ALT/SGPT) 51, Alkaline Phosphatase 88, Total Protein 5.7L, Albumin 3.3, Albumin/Globulin Ratio 1.4 CBC/BMP Laboratory Tests 06/10/20 05:49 Current Medications Current Medications Medications (Trade) Dose Ordered Sig/Irina Route PRN Reason Start Time Stop Time Status Last Admin Dose Admin Acetaminophen/ Hydrocodone Bitart (Anexsia, [place] 7.5mg/325mg) 1 tab Q4H PRN PO PAIN 06/08/20 16:35 06/10/20 13:29 Ferrous Sulfate (Ferrous Sulfate) 325 mg BID PO 06/09/20 21:00 06/10/20 12:59 Gabapentin (Neurontin) 300 mg BID PO 06/08/20 21:00 06/10/20 12:59 Home Med (Med Rec Complete!) ASDIRECTED XX 06/08/20 16:25 06/08/20 16:25 DC Lactated Ringer's 1,000 ml @ 75 mls/hr [id number] IV 06/10/20 13:00 06/10/20 14:00 DC Levothyroxine Sodium (Synthroid) 50 mcg DAILY@0600 PO 06/09/20 06:00 06/10/20 05:50 Multivitamins (Theragram-M) 1 tab DAILY PO 06/09/20 09:00 06/10/20 12:59 Ondansetron HCl (ZOFRAN INJection) 4 mg Q4HP PRN IV NAUSEA OR VOMITING 06/10/20 13:00 06/10/20 14:00 DC Ondansetron HCl (ZOFRAN INJection) 4 mg Q6H IV 06/09/20 12:00 06/10/20 13:29 Pantoprazole Sodium (Protonix) 40 mg BID IV 06/08/20 21:00 06/10/20 12:59 Pravastatin Sodium (Pravachol) 80 mg QHS PO 06/08/20 21:00 06/09/20 22:04 Allergies Coded Allergies: TAPE (Verified Allergy, Mild, RASH, 01/27/20) Apple Saul MD Jun 10, 2020 16:23
[2020-06-10 18:11] LABS: HEMATOCRIT 35.3 % (36.0-47.0); HEMOGLOBIN 10.5 g/dl (12.0-15.5); MEAN CORPUSCULAR HEMOGLOBIN 27.6 pg (27.0-33.0); MEAN CORPUSCULAR HGB CONC 29.7 g/dl (32.0-36.5); MEAN CORPUSCULAR VOLUME 92.9 fl (80.0-96.0); PLATELET COUNT, AUTOMATED 192 10^3/uL (150-450); WHITE BLOOD COUNT 8.7 10^3/uL (4.0-10.0)
[2020-06-10] MEDS: PRAVASTATIN 20 MG TAB PO SCH (20:18)
[2020-06-10 22:00] VITALS: BP 109/67
[2020-06-11 06:00] VITALS: BP 111/69
[2020-06-11] MEDS: ONDANSETRON 4MG/2ML VIAL IV SCH ×2 (06:00)
[2020-06-11] MEDS: LEVOTHYROXINE 50MCG TABLET (0.05MG) PO SCH (06:03)
[2020-06-11 06:28] LABS: HEMATOCRIT 32.4 % (36.0-47.0); HEMOGLOBIN 9.7 g/dl (12.0-15.5); MEAN CORPUSCULAR HEMOGLOBIN 27.5 pg (27.0-33.0); MEAN CORPUSCULAR HGB CONC 29.9 g/dl (32.0-36.5); MEAN CORPUSCULAR VOLUME 91.8 fl (80.0-96.0); PLATELET COUNT, AUTOMATED 178 10^3/uL (150-450); RED BLOOD COUNT 3.53 10^6/uL (4.00-5.40); WHITE BLOOD COUNT 6.4 10^3/uL (4.0-10.0)
[2020-06-11 06:54] LABS: ALBUMIN 3.3 GM/DL (3.2-5.2); BILIRUBIN,TOTAL 0.6 MG/DL (0.2-1.0); CALCIUM LEVEL 8.7 MG/DL (8.8-10.2); CREATININE FOR GFR 1.59 MG/DL (0.55-1.30); POTASSIUM SERUM 5.1 MEQ/L (3.5-5.1); TOTAL PROTEIN 5.8 GM/DL (6.4-8.2)
[2020-06-11] MEDS ORDERED: FERR325T18 PO (08:38)
[2020-06-11] MEDS ORDERED: SUCR1SS PO ×2 (08:38→15:28)
[2020-06-11] MEDS ORDERED: TORS20TA2 PO (08:38)
[2020-06-11] MEDS ORDERED: SPIR50TA4 PO (08:38)
[2020-06-11] MEDS: FERROUS SULFATE 325MG TAB PO SCH (08:48)
[2020-06-11] MEDS: MULTIVITAMINS/MINERALS THERAP 1 TAB PO SCH (08:48)
[2020-06-11] MEDS: PANTOPRAZOLE 40MG VIAL (C9113 PER 1) IV SCH (08:48)
[2020-06-11] MEDS: GABAPENTIN 300 MG CAP PO SCH (08:48)
--- NOTE | 2020-06-11 10:23 | IPN ---
PROGRESS NOTE DATE: 06/11/2020 SUBJECTIVE: It seems as though she will probably be discharged today from the medicine standpoint. She has been afebrile. She has been stable. Her hematocrit has been stable. She has not had any bright red blood per rectum. She is hoping to go home. She is eating a regular diet without complaints at this time. Her abdomen is soft, nontender, non-distended. IMPRESSION/PLAN: Patient had a GI bleed secondary to a gastric ulcer and at this point seems to be making some good progress. I would recommend that she stay on her Carafate q.i.d. after discharge, Proton Pump Inhibitor daily, and then follow-up with Dr. Grissom in two weeks. I anticipate at that time she may be able to decrease her Carafate down to a b.i.d. dosage and then given her history of ulcers, probably should stay on this indefinitely.
--- NOTE | 2020-06-11 15:25 | DS.PDOC ---
Discharge Summary General Date of Admission Jun 08, 2020 at 16:33 Date of Discharge 06/11/20 Attending Physician: Apple Saul MD Discharge Summary HISTORY OF PRESENT ILLNESS: Patient is an 85-year-old female with past mental history of coronary artery disease status post CABG, hypothyroidism, hyperlipidemia, mild aortic stenosis, severe tricuspid regurgitation, CK D stage III4, GERD who presented to [facility] emergency room from her nephrology office after having had low blood levels seen on routine labs. According to the nephrology office her blood level hemoglobin was 6.6 decreased from 10.1. Patient had a recent hospitalization in January 2020 for symptomatically anemia, she received several units of blood during that time. Does not appear as though she had additional workup for GI bleed. The patient has had long-standing increasing weakness over the past several months, lightheadedness, dizziness worse with activity. She complains of worsening abdominal pain in the epigastric/umbilical area starting several weeks ago. She states the pain is worse after meals. She admits to having red color/maroon stools in the toilet ever so often. She denies chest pain, s hortness of breath, hemoptysis, hematuria but she does admit to a history of ulcers in the past. She has no referral to see GI and has had colonoscopies greater than 5 years ago with no abnormal findings. The patient was sent to the hospital for further evaluation from her nephrology office today. In the emergency room vital signs were stable. H&H 7/23.7. Creatinine was increased to 3.13, baseline creatinine 2.292.8. Last iron level was 67 and 03/2020. Guaiac was attempted; however, she had no stool but there was obvious maroon/red substance in the rectal vault. The patient was admitted for symptomatic anemia likely secondary to GI bleed. Surgery was called from the emergency room and agreed to consult on this case. HOSPITAL COURSE: Patient was taken for EGD/colonoscopy on 06/10/20 where bleeding gastric ulcer was found and this was clipped. This is likely the cause of her symptomatic LIZA anemia. She received a total of 3 U PRBC this stay and corrected well. After procedure, patient had no rectal bleeding, H/H remained stable. She tolerated an advanced diet well, she remained hemodynamically stable. She was assessed by PT and cleared to return to home. By 06/11/20 it was determined she would be safe for discharge. We recommend holding home ASA, she should discuss with surgrey or PCP prior to restarting. She should continue with PPI PO daily, sucralfate AC/HS, iron supplementation She is also aware that surgery (Dr. Grissom) would like to f/u in 2 weeks as outpatient, clinic number given to patient at discharge. All other chronic issues remained stable this hospital stay. At discharge, she denied chest pain, shortness of breath, weakness, LH, dizziness. PAST MEDICAL HISTORY: Hyperlipidemia, hypothyroidism, CHF, coronary artery disease s/p CABG , GERD, hypertension, CKD Stage 3-4, mild , severe TR PAST SURGICAL HISTORY: CABG around 15 years ago left breast mastectomy cholecystectomy appendectomy FAMILY HISTORY: Father: cancer-type unknown. at 65y/o Mother: pancreatic cancer. at 73 y/o SOCIAL HISTORY: Denies smoking, alcohol or illicit drug use. She lives with her with home she is the primary caregiver for. She follows with the risk assessment consultant in [place], nephrology in [place] and her primary care provider locally as well. She is a DNR/DNI. DISCHARGE MEDS: Please see below PHYSICAL EXAMINATION: VS: please see below. CONSTITUTIONAL: No acute distress, resting comfortably, AAO x 3 EYES: PERRLA, EOM intact HENT, MOUTH: Normocephalic, atraumatic, moist mucous membranes NECK: SUPPLE, no JVD, no lymphadenopathy, no carotid bruit CV: Regular rate and rhythm, S1S2 normal, no murmurs/rubs/gallops CHEST: left mastectomy scar, vertical substernal chest scar RESPIRATORY: Clear to auscultation bilaterally, no rales/rhonchi/wheezes GI: no discomfort on palpation of epigastric/umbilical area, BS positive in 4 quadrants, soft, nondistended, no rebound or guarding, no organomegaly : Deferred MUSCULOSKELETAL: Normal ROM. No cyanosis, clubbing, swelling, joint deformity, extremity edema INTEGUMENTARY: Intact, no rashes, no lesions, no erythema NEUROLOGIC: Cranial Nerves II-XII are intact, no focal deficits PSYCHIATRIC: Mood and affect are normal LABORATORY DATA: Please see below IMAGING: CXR: 1. Cardiomegaly with left atrial and ventricular enlargement as well as right heart enlargement. I see no kiki edema, pleural effusion or dense consolidation. 2. Peribronchial thickening suggesting bronchitis or reactive airway disease. 3. Sternotomy wires with mediastinal and right upper lung zone clips as well as axillary surgical clips on the left with left mastectomy. ASSESSMENT: 85-year-old female with past mental history of coronary artery disease status post CABG, hypothyroidism, hyperlipidemia, mild aortic stenosis, severe tricuspid regurgitation, CK D stage III4, GERD admitted for symptomatic anemia likely secondary to GI bleed. PLAN: Symptomatic LIZA anemia likely secondary to GI bleed 2/2 to bleeding gastric ulcer -EGD/colonoscopy done today by surgery, clipped bleeding gastric ulcer -No bleeding over past 24 hours -H/H remained stable since procedure -S/p 3 U PRBC this admission -Holding home ASA, she should discuss with surgrey or PCP prior to restarting -PPI PO daily, sucralfate AC/HS, iron supplementation -Surgery (Dr. Grissom) would like to f/u in 2 weeks as o/p, clinic number given to patient at discharge. Weakness likely acute on chronic deconditioning, anemia -Improved -PT: cleared for home CAD s/p CABG / mild / severe TR -Trop neg -ECG baseline -No chest pain, SOB -F/u cardiology o/p -C/w BB with holding parameters, diuretics Hypothyroidism -c/w levothyroxine Chronic HFpEF -Not currently in exacerbation -C/w BB, diuretics HLD -statin GERD -PPI CKD Stage 3-4 -F/u nephrology o/p DISPOSITION: Discharge today to f/u with surgery clinic (Dr. Grissom) in 2 weeks, to call after weekend to make appointment. She is to make PCP aware of recent hospitalization TIME SPENT ON DISCHARGE: 35minutes. Vital Signs/I&Os Vital Signs Date Time Temp Pulse Resp B/P (MAP) Pulse Ox O2 Delivery O2 Flow Rate FiO2 06/11/20 06:00 98.0 98 18 111/69 (83) 96 Room Air I&O- Last 24 Hours up to 6 AM 06/11/20 05:59 Intake Total 1600 ml Output Total 200 ml Balance 1400 ml Laboratory Data Labs 24H Laboratory Tests 2 06/10/20 17:58: Nucleated Red Blood Cells % (auto) 0.0 06/11/20 06:14: Nucleated Red Blood Cells % (auto) 0.0, Anion Gap 7L, Glomerular Filtration Rate 33.0, Calcium Level 8.7L, Total Bilirubin 0.6, Aspartate Amino Transf (AST/SGOT) 24, Alanine Aminotransferase (ALT/SGPT) 43, Alkaline Phosphatase 93, Total Protein 5.8L, Albumin 3.3, Albumin/Globulin Ratio 1.3 CBC/BMP Laboratory Tests 06/10/20 17:58 06/11/20 06:14 Discharge Medications Scheduled Calcitriol (Calcitriol) 0.25 Mcg Capsule, 0.25 MCG PO 3XW, (Reported) SAT/SAT/SAT Carvedilol (Carvedilol) 6.25 Mg Tablet, 6.25 MG PO BID, (Reported) Cholecalciferol (Vitamin D3) (Vitamin D3) 10 Mcg Capsule, 10 MCG PO DAILY, (Reported) Ferrous Sulfate (Ferrous Sulfate) 325 Mg Tablet, 325 MG PO BID Gabapentin (Gabapentin) 300 Mg Capsule, 300 MG PO BID, (Reported) Gluc Lopez/Chondro Lopez A/Vit C/Mn (Glucosamine Chondroitin Tab) 1 Each Tablet, 1 TAB PO BID, (Reported) Levothyroxine Sodium (Synthroid) 50 Mcg Tablet, 50 MCG PO DAILY, (Reported) Multivitamins (Thera M Plus Tablet) 1 Each Tablet, 1 TAB PO DAILY, (Reported) Omeprazole (Omeprazole) 40 Mg Capsule.dr, 40 MG PO DAILY, (Reported) Pravastatin Sodium (Pravastatin Sodium) 80 Mg Tablet, 80 MG PO QHS, (Reported) Spironolactone (Spironolactone) 50 Mg Tablet, 50 MG PO BID Sucralfate (Carafate) 1 Gm/10 Ml Oral.susp, 10 ML PO ACHS 4 times per day on an empty stomach 1 hour before meals and at bedtime Torsemide (Torsemide) 20 Mg Tablet, 40 MG PO BID Scheduled PRN Hydrocodone/Acetaminophen (Hydrocodone-Acetamin 7.5-325) 1 Each Tablet, 1 TAB PO Q4H PRN for PAIN, (Reported) Allergies Coded Allergies: TAPE (Verified Allergy, Mild, RASH, 01/27/20) Apple Saul MD Jun 11, 2020 15:25
== END 2020-06-11 12:00 | disposition home or self-care (01) | DRG 811 ==
LOC: M ED 13:50 → M ED INP 16:33 → M MSPAV 21:15
PROVIDERS: ADMIT Internal Medicine; ATTEND Internal Medicine
PROC: 0W3P8ZZ Control Bleeding in Gastrointestinal Tract, Via Natural or Artificial Opening Endoscopic (ICD-10-PCS; principal; 2020-06-10 10:00)
DX: D50.0 Iron deficiency anemia secondary to blood loss (chronic) (principal); K25.4 Chronic or unspecified gastric ulcer with hemorrhage; N17.9 Acute kidney failure, unspecified; I50.32 Chronic diastolic (congestive) heart failure; N18.4 Chronic kidney disease, stage 4 (severe); I25.10 Atherosclerotic heart disease of native coronary artery without angina pectoris; E03.9 Hypothyroidism, unspecified; E78.5 Hyperlipidemia, unspecified; I08.2 Rheumatic disorders of both aortic and tricuspid valves; K21.9 Gastro-esophageal reflux disease without esophagitis; Z90.12 Acquired absence of left breast and nipple; Z79.899 Other long term (current) drug therapy

== ENCOUNTER → 2020-06-08 | Outpatient (REF) | payer MEDICARE ==
[~2020-06-08] MED LIST changes: +CALC1CAP31 PO; +GABA-282 PO; -GABA-843 PO; +LISI10TA22 PO; -LISI10TA4 PO; +SPIR-10 PO
== END ==
LOC: M LAB REF 17:43
DX: I34.0 Nonrheumatic mitral (valve) insufficiency (principal); N18.4 Chronic kidney disease, stage 4 (severe); I50.22 Chronic systolic (congestive) heart failure

== ENCOUNTER → 2020-09-13 | Outpatient (REF) | payer MEDICARE ==
[~2020-09-13] MED LIST changes: +CALC1CAP31 PO; +FERR325T18 PO; +SPIR-10 PO; +SPIR50TA4 PO; +SUCR1SS PO
[2020-09-13 18:35] LABS: PERCENT SATURATION 32.1 % (13.2-45.0)
== END ==
LOC: M LAB REF 17:46
PROVIDERS: ATTEND Nurse Practitioner Family
DX: D50.9 Iron deficiency anemia, unspecified (principal)

== ENCOUNTER → 2020-12-15 | Outpatient (REF) | payer MEDICARE, MEDICAID | LOC: M LAB REF 17:00 | PROVIDERS: ATTEND Nurse Practitioner Family | DX: E83.42 Hypomagnesemia (principal) ==

== ENCOUNTER → 2021-01-12 | Outpatient (REF) | payer MEDICARE, MEDICAID | LOC: M LAB REF 17:37 | PROVIDERS: ATTEND Nurse Practitioner Family | DX: E83.42 Hypomagnesemia (principal) ==